=== PATIENT | female | born 1960 | race African-American/Black ===

== ENCOUNTER 2017-02-06 19:48 | Emergency (ER) | payer OTHER ==
[2017-02-06] MEDS ORDERED: NALOXONE HCL 0.4 MG/ML VIAL ONE (20:01)
[2017-02-06 20:17] VITALS: BMI 30.2
[2017-02-06 21:07] LABS: BASOPHIL 0.8 % (0-2.0); MCH 30.9 pg (25.7-33.7); MCHC 33.2 g/dl (32.0-36.0); MEAN CELL VOLUME 93.3 fl (80-96); MEAN PLT VOLUME 8.5 fl (7.5-11.1); PLATELET COUNT 193 K/MM3 (134-434); WHITE BLOOD COUNT 5.4 K/mm3 (4.0-10.0)
[2017-02-06 21:08] LABS: URINE APPEARANCE CLOUDY; URINE BLOOD NEGATIVE (NEGATIVE); URINE COLOR AMBER; URINE GLUCOSE (UA) NEGATIVE (NEGATIVE); URINE KETONE TRACE (NEGATIVE); URINE LEUK ESTERASE NEGATIVE (NEGATIVE); URINE NITRITE NEGATIVE (NEGATIVE)
[2017-02-06 21:24] LABS: URINE PROTEIN 1+ (NEGATIVE)
[2017-02-06 21:26] LABS: URINE BACTERIA MODERATE /hpf (NONE SEEN); URINE HYALINE CAST 84 /lpf; URINE MUCUS FEW; URINE RBC 2 /hpf (0-3); URINE WBC 7 /hpf (3-5)
--- NOTE | 2017-02-06 21:29 | PDOC ---
History of Present Illness - General History Source: Patient Exam Limitations: No Limitations <Jacky Noyola - Last Filed: 02/06/17 21:50> - General History Source: Patient Exam Limitations: No Limitations - History of Present Illness Initial Comments: 02/06/17 21:55 Patient is a 56 year old female with a significant past medical history of HIV, Heroin use, who was brought by EMS to the ED s/p syncope that occurred half hour before ED arrival. As per son patient was found by him with respiratory complications after heroin use. EMS reports giving patient 0.4 milligrams of Narcan en route to ED. EMS reports Narcan pulled patient out of OD before arrival. Denies chest pain, SOB. Denies fever, chills. Denies nausea, vomiting. Denies any other symptoms. Allergies: Lisinopril, sulfamethoxazole Social history: Current Heroin user. No alcohol. No tobacco use. Surgical history: 2 heart valve replacements PMD: Dr. Medina. <Cliff Gaona - Last Filed: 02/06/17 21:56> - General Chief Complaint: Syncope/Near Syncope Stated Complaint: SYNCOPE Time Seen by Provider: 02/06/17 20:18 Past History - Past Medical History Anemia: Yes Asthma: Yes Cancer: No Cardiac Disorders: Yes (2 valve replacement) CVA: No COPD: Yes CHF: Yes Dementia: No Diabetes: No GI Disorders: No Disorders: No HTN: Yes Hypercholesterolemia: No Liver Disease: No Psychiatric Problems: Yes Seizures: No Thyroid Disease: No - Surgical History Abdominal Surgery: Yes Appendectomy: No Cardiac Surgery: Yes (heart valve replacement) Cholecystectomy: Yes Lung Surgery: No Neurologic Surgery: No Orthopedic Surgery: No - Immunization History Immunization Up to Date: Yes - Suicide/Smoking/Psychosocial Hx Smoking Status: Yes Smoking History: Current every day smoker Have you smoked in the past 12 months: Yes Number of Cigarettes Smoked Daily: 5 If you are a former smoker, when did you quit?: 2014 Cigars Per Day: 0 Information on smoking cessation initiated: No 'Breaking Loose' booklet given: 08/13/12 Hx Alcohol Use: No (denies) Drug/Substance Use Hx: Yes (heroin) Substance Use Type: Heroin Hx Substance Use Treatment: Yes (completed [facility] 03/2013) <Jacky Noyola - Last Filed: 02/06/17 21:50> <Cliff Gaona - Last Filed: 02/06/17 21:56> - Past Medical History Allergies/Adverse Reactions: Allergies Allergy/AdvReac Type Severity Reaction Status Date / Time lisinopril Allergy lip Verified 06/05/15 20:38 swelling sulfamethoxazole Allergy Rash Verified 06/05/15 20:38 [From Bactrim DS] Home Medications: Ambulatory Orders Aspirin [Aspirin EC] 81 mg PO DAILY #30 tablet. 10/30/16 Fluticasone/Salmeterol [Advair 250-50 Diskus] 1 each IH DAILY #1 disk.w.dev MDD 4 10/30/16 Albuterol Sulfate Inhaler - [Ventolin HFA Inhaler -] 1 - 2 inh PO Q4H #1 inhaler 11/27/16 Diphenhydramine HCl [Benadryl Capsule -] 25 mg PO PRN #30 capsule 11/27/16 Loratadine [Claritin] 10 mg PO DAILY #30 tablet 11/27/16 Amitriptyline HCl 75 mg PO HS #30 tablet MDD 1 01/28/17 Amlodipine Besylate 10 mg PO DAILY #30 tablet 01/28/17 Cyclobenzaprine HCl [Flexeril 10 mg] 10 mg PO HS PRN #15 tablet MDD 1 01/28/17 Mirtazapine [Remeron -] 30 mg PO DAILY #30 tablet 01/28/17 Temazepam [Restoril -] 15 mg PO HS PRN #30 capsule MDD 1 01/28/17 Venlafaxine HCl ER [Effexor Xr -] 75 mg PO DAILY #30 cap.er.24h 01/28/17 Review of Systems - Review of Systems Able to Perform ROS?: Yes Comments:: 02/06/17 21:56 GENERAL/CONSTITUTIONAL: No fever or chills. No weakness. HEAD, EYES, EARS, NOSE AND THROAT: No change in vision. No ear pain or discharge. No sore throat. CARDIOVASCULAR: No chest pain or shortness of breath. RESPIRATORY: No cough, wheezing, or hemoptysis. GASTROINTESTINAL: No nausea, vomiting, diarrhea or constipation. GENITOURINARY: No dysuria, frequency, or change in urination. MUSCULOSKELETAL: No joint or muscle swelling or pain. No neck or back pain. SKIN: No rash NEUROLOGIC: No headache, vertigo, loss of consciousness, or change in strength/ sensation. ENDOCRINE: No increased thirst. No abnormal weight change. HEMATOLOGIC/LYMPHATIC: No anemia, easy bleeding, or history of blood clots. ALLERGIC/IMMUNOLOGIC: No hives or skin allergy. All Other Systems: Reviewed and Negative <Cliff Gaona - Last Filed: 02/06/17 21:56> *Physical Exam - Vital Signs Last Vital Signs Temp Pulse Resp BP Pulse Ox 99.8 F H 88 17 135/92 98 02/06/17 20:07 02/06/17 20:07 02/06/17 20:07 02/06/17 20:07 02/06/17 20:07 <Jacky Noyola - Last Filed: 02/06/17 21:50> - Vital Signs Last Vital Signs Temp Pulse Resp BP Pulse Ox 99.8 F H 88 17 135/92 98 02/06/17 20:07 02/06/17 20:07 02/06/17 20:07 02/06/17 20:07 02/06/17 20:07 - Physical Exam Comments: 02/06/17 21:56 GENERAL: Awake, alert, and fully oriented, in no acute distress HEAD: No signs of trauma EYES: PERRLA, EOMI, sclera anicteric, conjunctiva clear ENT: Auricles normal inspection, hearing grossly normal, nares patent, oropharynx clear without exudates. Moist mucosa NECK: Normal ROM, supple, no lymphadenopathy, JVD, or masses LUNGS: Breath sounds equal, clear to auscultation bilaterally. No wheezes, and no crackles HEART: Regular rate and rhythm, normal S1 and S2, no murmurs, rubs or gallops ABDOMEN: Soft, nontender, normoactive bowel sounds. No guarding, no rebound. No masses EXTREMITIES: Normal range of motion, no edema. No clubbing or cyanosis. No cords, erythema, or tenderness NEUROLOGICAL: Cranial nerves II through XII grossly intact. Normal speech, normal gait SKIN: Warm, Dry, normal turgor, no rashes or lesions noted. <Cliff Gaona - Last Filed: 02/06/17 21:56> Heart Score/ECG Review #1 ECG reviewed & interpreted by me at: 20:00 02/06/17 21:29 NSR 85, no std/jose, normal axis, normal intervals, QTC 437 msec, no brugada, no HOCM, no WPW <Jacky Noyola - Last Filed: 02/06/17 21:50> ED Treatment Course - LABORATORY CBC & Chemistry Diagram: 02/06/17 21:00 02/06/17 21:00 - ADDITIONAL ORDERS Additional order review: Laboratory Results 02/06/17 21:00 Urine Color La Urine Appearance Cloudy Urine pH 5.0 Urine Protein 1+ H Urine Glucose (UA) Negative Urine Ketones Trace H Urine Blood Negative Urine Nitrite Negative Urine Bilirubin 2.0 Urine Urobilinogen 2.0 H 02/06/17 21:00 RBC 4.11 MCV 93.3 MCHC 33.2 RDW 15.0 MPV 8.5 Neutrophils % 45.0 Lymphocytes % 39.1 Monocytes % 9.1 Eosinophils % 6.0 H Basophils % 0.8 <Jacky Noyola - Last Filed: 02/06/17 21:50> - LABORATORY CBC & Chemistry Diagram: 02/06/17 21:00 02/06/17 21:00 - ADDITIONAL ORDERS Additional order review: Laboratory Results 02/06/17 02/06/17 21:00 21:00 Sodium 137 Potassium 3.9 Chloride 105 Carbon Dioxide 28 Anion Gap 4 L BUN 18 D Creatinine 1.5 H D Creat Clearance w eGFR 36.05 Random Glucose 101 D Calcium 9.0 Total Bilirubin 0.3 D AST 17 ALT 18 D Alkaline Phosphatase 144 H D Creatine Kinase 95 Troponin I < 0.02 Total Protein 8.3 H Albumin 3.5 Urine Color La Urine Appearance Cloudy Urine pH 5.0 Urine Protein 1+ H Urine Glucose (UA) Negative Urine Ketones Trace H Urine Blood Negative Urine Nitrite Negative Urine Bilirubin 2.0 Urine Urobilinogen 2.0 H Urine RBC 2 Urine WBC 7 Ur Epithelial Cells Few Urine Bacteria Moderate Hyaline Casts 84 Urine Mucus Few 02/06/17 21:00 RBC 4.11 MCV 93.3 MCHC 33.2 RDW 15.0 MPV 8.5 Neutrophils % 45.0 Lymphocytes % 39.1 Monocytes % 9.1 Eosinophils % 6.0 H Basophils % 0.8 <Cliff Gaona - Last Filed: 02/06/17 21:56> Medical Decision Making - Medical Decision Making 02/06/17 21:27 A portion of this note was documented by scribe services under my direction. I have reviewed the details of the note, within reason, and agree with the documentation with the following case summary and management plan written by me. Patient treated in the ED. Patient arrives by ambulance to the emergency department. Nursing notes are reviewed and incorporated into the medical decision-making. Vital signs reviewed. Peripheral IV access obtained by the nurse, laboratory studies are drawn and sent, reviewed and interpreted by myself. Vital Signs Temp Pulse Resp BP Pulse Ox 99.8 F H 88 17 135/92 98 02/06/17 20:07 02/06/17 20:07 02/06/17 20:07 02/06/17 20:07 02/06/17 20:07 56-year-old female with past medical history of prior heroin abuse, aortic valve and mitral valve replacement, porcine, history of HIV previously on Truvada but discontinued by her HIV doctors secondary to elevated creatinine presents to the emergency department for heroin use. The patient reports that she had relapsed after last few several years ago. She has started one back. EMS was activated and patient was given 0.4 mg of Narcan which immediately resolved the symptoms. Patient denied chest pain short of breath. She is feeling well and ambulatory. Denies any symptoms and like to go home. EKG is normal demonstrates no acute findings. We'll obtain labs and observe. If workup is unremarkable, patient be discharged with PMD follow-up. Patient is with her family and states that she'll check into rehabilitation at her facility. 02/06/17 21:50 CBC, BMP 02/06/17 21:00 02/06/17 21:00 CMP Sodium 137 mmol/L (136-145) 02/06/17 21:00 Potassium 3.9 mmol/L (3.5-5.1) 02/06/17 21:00 Chloride 105 mmol/L (98-107) 02/06/17 21:00 Carbon Dioxide 28 mmol/L (21-32) 02/06/17 21:00 Anion Gap 4 (8-16) L 02/06/17 21:00 BUN 18 mg/dL (7-18) D 02/06/17 21:00 Creatinine 1.5 mg/dL (0.55-1.02) H D 02/06/17 21:00 Creat Clearance w eGFR 36.05 (>60) 02/06/17 21:00 Random Glucose 101 mg/dL (74-106) D 02/06/17 21:00 Calcium 9.0 mg/dL (8.5-10.1) 02/06/17 21:00 Total Bilirubin 0.3 mg/dL (0.2-1.0) D 02/06/17 21:00 AST 17 U/L (15-37) 02/06/17 21:00 ALT 18 U/L (12-78) D 02/06/17 21:00 Alkaline Phosphatase 144 U/L (45-117) H D 02/06/17 21:00 Creatine Kinase 95 IU/L (26-192) 02/06/17 21:00 Troponin I < 0.02 ng/ml (0.00-0.05) 02/06/17 21:00 Total Protein 8.3 g/dl (6.4-8.2) H 02/06/17 21:00 Albumin 3.5 g/dl (3.4-5.0) 02/06/17 21:00 Urine Test Results Urine Color La 02/06/17 21:00 Urine Appearance Cloudy 02/06/17 21:00 Urine pH 5.0 (5.0-8.0) 02/06/17 21:00 Urine Protein 1+ (NEGATIVE) H 02/06/17 21:00 Urine Glucose (UA) Negative (NEGATIVE) 02/06/17 21:00 Urine Ketones Trace (NEGATIVE) H 02/06/17 21:00 Urine Blood Negative (NEGATIVE) 02/06/17 21:00 Urine Nitrite Negative (NEGATIVE) 02/06/17 21:00 Urine Bilirubin 2.0 (NEGATIVE) 02/06/17 21:00 Urine RBC 2 /hpf (0-3) 02/06/17 21:00 Urine WBC 7 /hpf (3-5) 02/06/17 21:00 Ur Epithelial Cells Few /hpf (FEW) 02/06/17 21:00 Urine Bacteria Moderate /hpf (NONE SEEN) 02/06/17 21:00 Urine Mucus Few 02/06/17 21:00 The patient's blood work demonstrates a creatinine of 1.5. On January 28, patient describing was reporting. This had essentially doubled. I discussed the patient that there is some acute kidney injury that the patient reports that she 's been having this issue recently and that her doctors are aware. At this time , the patient does not want to be admitted for further workup, which I agreed the patient can go only if she follows up with her doctors on Thursday. A copy of the blood work was given to the patient and she is instructed follow-up with her doctor in 2 days. Patient verbalizes understanding agrees with plan. I discussed the physical exam findings, ancillary test results and final diagnoses with the patient. I answered all of the patient's questions. The patient was satisfied with the care received and felt comfortable with the discharge plan and treatment plan. The patient will call their primary care physician within 24 hours to arrange follow-up and will return to the Emergency Department with any new, persistant or worsening symptoms. <Jacky Noyola - Last Filed: 02/06/17 21:50> *DC/Admit/Observation/Transfer - Discharge Dispostion Admit: No <Jacky Noyola - Last Filed: 02/06/17 21:50> - Attestations Scribe Attestion: 02/06/17 21:56 Documentation prepared by Cliff Gaona, acting as medical engineer for Jacky Noyola MD. <Cliff Gaona - Last Filed: 02/06/17 21:56> Diagnosis at time of Disposition: Heroin abuse - Discharge Dispostion Disposition: HOME Condition at time of disposition: Improved - Referrals Referrals: Daryl Medina NP [Primary Care Provider] - - Patient Instructions Printed Discharge Instructions: DI for Drug Overdose in Adults, Acute Renal Failure Additional Instructions: Your creatinine has increased to 1.5. At this time, it is very important that you follow-up with the doctor on Thursday and let him or her know. If you feel lightheaded or have chest pains or shortness of breath, please return to the ER for further evaluation.
[2017-02-06 21:40] LABS: ALBUMIN 3.5 g/dl (3.4-5.0); ANION GAP 4 (8-16); CO2 28 mmol/L (21-32); CREATININE 1.5 mg/dL (0.55-1.02); GLUCOSE,RANDOM 101 mg/dL (74-106); SGOT/AST 17 U/L (15-37); SGPT/ALT 18 U/L (12-78)
[2017-02-06 21:44] LABS: ALK PHOS 144 U/L (45-117); BILIRUBIN,TOTAL 0.3 mg/dL (0.2-1.0); CPK 95 IU/L (26-192); TOT PROT 8.3 g/dl (6.4-8.2); TROPONIN I < 0.02 ng/ml (0.00-0.05)
[2017-02-06 22:13] VITALS: BP 120/86; PULSE 86; TEMP 98.1
--- NOTE | 2017-02-07 13:01 | EKG ---
Test Reason : Blood Pressure : / mmHG Vent. Rate : 085 BPM Atrial Rate : 085 BPM P-R Int : 186 ms QRS Dur : 090 ms QT Int : 368 ms P-R-T Axes : 072 083 079 degrees QTc Int : 437 ms NORMAL SINUS RHYTHM NORMAL ECG WHEN COMPARED WITH ECG OF 27-AUG-2016 08:53, T WAVE INVERSION NO LONGER EVIDENT IN ANTERIOR LEADS Confirmed by RASHIDA SMALL MD ([id number]) on 02/07/2017 1:00:38 PM Referred By: Confirmed By:RASHIDA SMALL MD
== END 2017-02-06 22:20 | disposition home or self-care (01) ==
LOC: JER 19:48
DX: F11.10 Opioid abuse, uncomplicated (principal); Z21 Asymptomatic human immunodeficiency virus [HIV] infection status; I50.9 Heart failure, unspecified; I10 Essential (primary) hypertension; J44.9 Chronic obstructive pulmonary disease, unspecified; D64.9 Anemia, unspecified
CPT/HCPCS: 36415; 80053; 81003; 81015; 84484; 85025; 93005; 93010; 99282-25

== ENCOUNTER 2017-03-11 01:02 | Inpatient (IN) | payer OTHER ==
[2017-03-11] MEDS ORDERED: SODIUM CHLORIDE 0.9% 1000 ML INFUS.BAG IV PRN (01:55)
[2017-03-11] MEDS ORDERED: SODIUM CHLORIDE 1,000 ML IV STA (01:56)
--- NOTE | 2017-03-11 01:57 | PDOC ---
History of Present Illness - General History Source: Patient, EMS Exam Limitations: Clinical Condition - History of Present Illness Initial Comments: 03/11/17 02:05 The patient is a 57 year old female with significant past medical history of HIV /AIDS, hypertension, COPD, CHF, anemia, polysubstance abuse, open heart surgery (triple valve replacement) brought in by EMS. Per EMS, the patient fell out of bed and landed on her back. On evaluation, the patient appears confused and is unable to answer questions clearly. Patient is a poor historian and unable to provide remainder of history. <Keila Zhong - Last Filed: 03/11/17 03:56> - General History Source: Patient <Montrell Nguyễn - Last Filed: 03/11/17 05:28> - General Chief Complaint: Injury Stated Complaint: FALL Time Seen by Provider: 03/11/17 01:54 Past History <Keila Zhong - Last Filed: 03/11/17 03:56> - Past Medical History Anemia: Yes Asthma: Yes Cancer: No Cardiac Disorders: Yes (2 valve replacement) CVA: No COPD: Yes CHF: Yes Dementia: No Diabetes: No GI Disorders: No Disorders: No HTN: Yes Hypercholesterolemia: No Liver Disease: No Psychiatric Problems: Yes Seizures: No Thyroid Disease: No - Surgical History Abdominal Surgery: Yes Appendectomy: No Cardiac Surgery: Yes (heart valve replacement) Cholecystectomy: Yes Lung Surgery: No Neurologic Surgery: No Orthopedic Surgery: No - Immunization History Immunization Up to Date: Yes - Suicide/Smoking/Psychosocial Hx Smoking Status: Yes Smoking History: Smoker current status UNK Have you smoked in the past 12 months: Yes Number of Cigarettes Smoked Daily: 5 If you are a former smoker, when did you quit?: 2015 Cigars Per Day: 0 'Breaking Loose' booklet given: 08/13/12 Hx Alcohol Use: Yes Drug/Substance Use Hx: No Substance Use Type: Heroin Hx Substance Use Treatment: Yes (completed [facility]/2013) <Montrell Nguyễn - Last Filed: 03/11/17 05:28> - Past Medical History Allergies/Adverse Reactions: Allergies Allergy/AdvReac Type Severity Reaction Status Date / Time lisinopril Allergy lip Verified 03/11/17 02:58 swelling sulfamethoxazole Allergy Rash Verified 03/11/17 02:58 [From Bactrim DS] Home Medications: Ambulatory Orders Aspirin [Aspirin EC] 81 mg PO DAILY #30 tablet. 10/30/16 Fluticasone/Salmeterol [Advair 250-50 Diskus] 1 each IH DAILY #1 disk.w.dev MDD 4 10/30/16 Albuterol Sulfate Inhaler - [Ventolin HFA Inhaler -] 1 - 2 inh PO Q4H #1 inhaler 11/27/16 Diphenhydramine HCl [Benadryl Capsule -] 25 mg PO PRN #30 capsule 11/27/16 Loratadine [Claritin] 10 mg PO DAILY #30 tablet 11/27/16 Amitriptyline HCl 75 mg PO HS #30 tablet MDD 1 01/28/17 Amlodipine Besylate 10 mg PO DAILY #30 tablet 01/28/17 Mirtazapine [Remeron -] 30 mg PO DAILY #30 tablet 01/28/17 Temazepam [Restoril -] 15 mg PO HS PRN #30 capsule MDD 1 01/28/17 Venlafaxine HCl ER [Effexor Xr -] 75 mg PO DAILY #30 cap.er.24h 01/28/17 Review of Systems - Review of Systems Able to Perform ROS?: No Comments:: 03/11/17 02:12 Unable to obtain ROS secondary to clinical condition. <Keila Zhong - Last Filed: 03/11/17 03:56> *Physical Exam - Vital Signs Last Vital Signs Temp Pulse Resp BP Pulse Ox 97.8 F 105 H 18 147/85 98 03/11/17 01:13 03/11/17 01:13 03/11/17 01:13 03/11/17 01:13 03/11/17 01:13 - Physical Exam Comments: 03/11/17 02:12 GENERAL: Awake, alert, not oriented to person, place, or time. +Appears confused. HEAD: No signs of trauma EYES: PERRLA, EOMI, sclera anicteric, conjunctiva clear ENT: Auricles normal inspection, hearing grossly normal, nares patent, oropharynx clear without exudates. +Dry oral mucosa with cracked lips. NECK: Normal ROM, supple, no lymphadenopathy, JVD, or masses LUNGS: +Diffuse rhonchi. HEART: +Tachycardic rate, regular rhythm, normal S1 and S2, no murmurs, rubs or gallops ABDOMEN: Soft, nontender, normoactive bowel sounds. No guarding, no rebound. No masses EXTREMITIES: Normal range of motion, no edema. No clubbing or cyanosis. No cords, erythema, or tenderness NEUROLOGICAL: Cranial nerves II through XII grossly intact. Moving all four extremities equally with no gross focal deficits. No slurred speech. Gait deferred. SKIN: Warm, Dry, no rashes or lesions noted. <Keila Zhong - Last Filed: 03/11/17 03:56> - Vital Signs Last Vital Signs Temp Pulse Resp BP Pulse Ox 97.8 F 105 H 18 147/85 98 03/11/17 01:13 03/11/17 01:13 03/11/17 01:13 03/11/17 01:13 03/11/17 01:13 <Montrell Nguyễn - Last Filed: 03/11/17 05:28> Heart Score/ECG Review #1 ECG reviewed & interpreted by me at: 02:30 03/11/17 02:45 EKG obtained 2:29 Sinus tachycardia at 107 bpm Possible left atrial enlargement Nonspecific ST and T wave abnormalities Abnormal EKG. <Keila Zhong - Last Filed: 03/11/17 03:56> ED Treatment Course - LABORATORY CBC & Chemistry Diagram: 03/11/17 02:25 03/11/17 02:25 <Keila Zhong - Last Filed: 03/11/17 03:56> - LABORATORY CBC & Chemistry Diagram: 03/11/17 02:25 03/11/17 02:25 <Montrell Nguyễn - Last Filed: 03/11/17 05:28> Medical Decision Making - Medical Decision Making 03/11/17 04:07 Dr. Nguyễn: The scribe's documentation has been prepared under my direction and personally reviewed by me in its entirery. I confirm that the note above accurately reflects all work, treatment, procedures, and medical decision making performed by me. 03/11/17 04:10 Pt presents s/p fall from bed as per family member. Pt presented with low grade fever, WBC 14.4, CK 1800's, troponin 0.4. BNP elevated as well. Pt to be admitted for NSTEMI, fever, probable pneumonia and exacerbation of CHF. 03/11/17 05:26 Spoke to Blessing Purdy. Pt accepted to the [facility] when bed is available <Montrell Nguyễn - Last Filed: 03/11/17 05:28> *DC/Admit/Observation/Transfer - Attestations Scribe Attestion: 03/11/17 02:14 Documentation prepared by Keila Zhong, acting as medical file clerk for Montrell Nguyễn DO. <Keila Zhong - Last Filed: 03/11/17 03:56> - Discharge Dispostion Admit: Yes <Montrell Nguyễn - Last Filed: 03/11/17 05:28> Diagnosis at time of Disposition: HIV (human immunodeficiency virus infection), CHF (congestive heart failure), NSTEMI (non-ST elevated myocardial infarction) Sepsis Qualifiers: Sepsis type: sepsis due to unspecified organism Qualified Code(s): A41.9 - Sepsis, unspecified organism Pneumonia Qualifiers: Pneumonia type: due to unspecified organism Laterality: unspecified laterality Lung location: unspecified part of lung Qualified Code(s): J18.9 - Pneumonia, unspecified organism - Referrals
[2017-03-11 02:50] LABS: BASOPHIL 0.1 % (0-2.0); MCH 28.8 pg (25.7-33.7); MCHC 33.2 g/dl (32.0-36.0); MEAN CELL VOLUME 86.5 fl (80-96); MEAN PLT VOLUME 9.1 fl (7.5-11.1); PLATELET COUNT 172 K/MM3 (134-434); RDW 14.4 % (11.6-15.6); WHITE BLOOD COUNT 14.4 K/mm3 (4.0-10.0)
[2017-03-11 02:54] LABS: URINE APPEARANCE TURBID; URINE BILIRUBIN NEGATIVE (NEGATIVE); URINE BLOOD 1+ (NEGATIVE); URINE GLUCOSE (UA) NEGATIVE (NEGATIVE); URINE KETONE NEGATIVE (NEGATIVE); URINE NITRITE NEGATIVE (NEGATIVE)
[2017-03-11 03:01] LABS: URINE COLOR YELLOW; URINE PROTEIN 2+ (NEGATIVE)
[2017-03-11 03:02] LABS: VENOUS PH 7.43 (7.32-7.42)
[2017-03-11 03:03] LABS: VENOUS BLOOD GAS HCO3 24.4 meq/L (19-25)
[2017-03-11 03:05] LABS: URINE MARIJUANA THC NEGATIVE ng/ml (CUTOFF=50)
[2017-03-11 03:06] LABS: INR 1.67 (0.82-1.09); PROTHROMBIN TIME (PATIENT) 18.9 SEC (9.98-11.88); URINE MUCUS RARE; URINE RBC 13 /hpf (0-3); URINE WBC 3 /hpf (3-5)
[2017-03-11 03:09] LABS: ACTIVATED PTT 28.5 SECONDS (26.9-34.4)
[2017-03-11] MEDS ORDERED: LORazepam 2 MG/ML SDV VIAL ONE ×4 (03:10→20:34)
[2017-03-11 03:23] LABS: ALBUMIN 2.1 g/dl (3.4-5.0); ANION GAP 11 (8-16); BILIRUBIN,TOTAL 0.9 mg/dL (0.2-1.0); CALCIUM 7.7 mg/dL (8.5-10.1); CO2 22 mmol/L (21-32); CREATININE 0.8 mg/dL (0.55-1.02); GLUCOSE,RANDOM 218 mg/dL (74-106); SGPT/ALT 30 U/L (12-78); TOT PROT 7.9 g/dl (6.4-8.2)
[2017-03-11 03:34] LABS: ALK PHOS 127 U/L (45-117)
[2017-03-11 03:36] LABS: CPK 1824 IU/L (26-192); SGOT/AST 127 U/L (15-37)
[2017-03-11] MEDS ORDERED: ACETAMINOPHEN 1000 MG/100 ML VIAL (NON FORMULARY) IVPB ONE (03:53)
[2017-03-11] MEDS ORDERED: FUROSEMIDE 40 MG/4 ML INJECTABLE VIAL IVPUSH ONE (03:58)
[2017-03-11] MEDS ORDERED: AZITHROMYCIN IVPB 500 MG in DEXTROSE 5%-WATER - 250 ML IVPB ONE (03:59)
--- NOTE | 2017-03-11 04:20 | HP ---
CHIEF COMPLAINT: Back Pain, AMS s/p Fall PCP: Dr. Nadia Ferguson HISTORY OF PRESENT ILLNESS: This is a 57 y/o woman with a significant medical history of HIV/AIDS(? HAART), COPD (on 3L), CHF, HTN, Pulm HTN, Open Heart Surgery, Triple Valve Replacement, Anemia, Polysubstance Abuse. Who presents to the ED by ambulance s/p fall OOB c/ o back pain, AMS. Patient's S.O. reports the patient had back pain x3-4 days, headache x 2 days. He reports that the patient has been confused "not making any sense", since Thursday. Due to patient's current altered status, unable to obtain further information. ER course was notable for: (1) Sepsis- T Max 100.4, WBC 14.4, LA 2.9 (2) Chest Xray- image CM, RML infiltrate, vascular congestion (3) EKG- NSTEMI (4) Trop I- 0.40 Recent Travel: None PAST MEDICAL HISTORY: See HPI PAST SURGICAL HISTORY: See HPI Social History: Smoking: Current Alcohol: Unknown Drugs: Heroin Abuse, last use unknown Family History: Unable to Obtain Allergies lisinopril Allergy (Verified 03/11/17 02:58) lip swelling sulfamethoxazole [From Bactrim DS] Allergy (Verified 03/11/17 02:58) Rash HOME MEDICATIONS: Home Medications Medication Instructions Recorded Aspirin [Aspirin EC] 81 mg PO DAILY #30 tablet. 10/30/16 Fluticasone/Salmeterol [Advair 1 each IH DAILY #1 disk.w.dev MDD 4 10/30/16 250-50 Diskus] Albuterol Sulfate Inhaler - 1 - 2 inh PO Q4H #1 inhaler 11/27/16 [Ventolin HFA Inhaler -] Diphenhydramine HCl [Benadryl 25 mg PO PRN #30 capsule 11/27/16 Capsule -] Loratadine [Claritin] 10 mg PO DAILY #30 tablet 11/27/16 Amitriptyline HCl 75 mg PO HS #30 tablet MDD 1 01/28/17 Amlodipine Besylate 10 mg PO DAILY #30 tablet 01/28/17 Mirtazapine [Remeron -] 30 mg PO DAILY #30 tablet 01/28/17 Temazepam [Restoril -] 15 mg PO HS PRN #30 capsule MDD 1 01/28/17 Venlafaxine HCl ER [Effexor Xr -] 75 mg PO DAILY #30 cap.er.24h 01/28/17 REVIEW OF SYSTEMS ( obtained from S.O.) CONSTITUTIONAL: Absent: fever, chills, diaphoresis, generalized weakness, malaise, loss of appetite, weight change HEENT: Absent: rhinorrhea, nasal congestion, throat pain, throat swelling, difficulty swallowing, mouth swelling, ear pain, eye pain, visual changes CARDIOVASCULAR: Absent: chest pain, syncope, palpitations, irregular heart rate, lightheadedness , peripheral edema RESPIRATORY: Absent: cough, shortness of breath, dyspnea with exertion, orthopnea, wheezing, stridor, hemoptysis GASTROINTESTINAL: Absent: abdominal pain, abdominal distension, nausea, vomiting, diarrhea, constipation, melena, hematochezia GENITOURINARY: Absent: dysuria, frequency, urgency, hesitancy, hematuria, flank pain, genital pain MUSCULOSKELETAL: back pain Absent: myalgia, arthralgia, joint swelling, neck pain SKIN: Absent: rash, itching, pallor HEMATOLOGIC/IMMUNOLOGIC: Absent: easy bleeding, easy bruising, lymphadenopathy, frequent infections ENDOCRINE: Absent: unexplained weight gain, unexplained weight loss, heat intolerance, cold intolerance NEUROLOGIC: headache, mental status changes Absent: focal weakness or paresthesias, dizziness, unsteady gait, seizure, bladder or bowel incontinence PSYCHIATRIC: Absent: anxiety, depression, suicidal or homicidal ideation, hallucinations. PHYSICAL EXAMINATION Vital Signs - 24 hr 03/11/17 03/11/17 01:13 03:01 Temperature 97.8 F 100.4 F H Pulse Rate 105 H Respiratory 18 Rate Blood Pressure 147/85 O2 Sat by Pulse 98 Oximetry (%) GENERAL: Confused, restless, with labored breathing HEAD: Normal with no signs of trauma. EYES: Pupils equal, round and reactive to light,, sclera anicteric, conjunctiva clear. No lid lag. EARS, NOSE, THROAT: Ears normal, nares patent, oropharynx clear without exudates. Dry mucous membranes. NECK: Normal range of motion, supple without lymphadenopathy, JVD, or masses. LUNGS: Breath sounds diminished. No wheezes, and no crackles. No accessory muscle use. HEART:Tachycardia, grade 2/6 systolic murmur, normal S1 and S2, No rub or gallop. ABDOMEN: Soft, nontender, not distended, normoactive bowel sounds, no guarding, no rebound, no masses. No hepatomegaly or splenomegaly. MUSCULOSKELETAL: Normal range of motion at all joints. No bony deformities or tenderness. No CVA tenderness. UPPER EXTREMITIES: 2+ pulses, warm, well-perfused. No cyanosis. No clubbing. No peripheral edema. LOWER EXTREMITIES: 2+ pulses, warm, well-perfused. No calf tenderness. No peripheral edema. NEUROLOGICAL: Cranial nerves II-XII intact. Gait not observed. Nonsensical speech PSYCHIATRIC: Restless, agitated, not following commands SKIN: Warm, dry, normal turgor, no rashes or lesions noted, normal capillary refill. Laboratory Results - last 24 hr 03/11/17 03/11/17 03/11/17 02:25 02:25 02:25 WBC 14.4 H D RBC 4.10 Hgb 11.8 Hct 35.5 MCV 86.5 D MCH 28.8 MCHC 33.2 RDW 14.4 Plt Count 172 MPV 9.1 Neutrophils % 86.0 H D Lymphocytes % 4.0 L D Monocytes % 9.9 Eosinophils % 0.0 D Basophils % 0.1 PT with INR 18.90 H INR 1.67 H D PTT (Actin FS) 28.5 VBG pH POC VBG pCO2 POC VBG pO2 Mixed VBG HCO3 Sodium Potassium Chloride Carbon Dioxide Anion Gap BUN Creatinine Creat Clearance w eGFR Random Glucose Lactic Acid Calcium Total Bilirubin AST ALT Alkaline Phosphatase Creatine Kinase Creatine Kinase Index CK-MB (CK-2) Troponin I Total Protein Albumin Serum , Qual Urine Color Yellow Urine Appearance Turbid Urine pH 5.0 D Ur Specific [place] 1.020 Urine Protein 2+ H Urine Glucose (UA) Negative Urine Ketones Negative Urine Blood 1+ H Urine Nitrite Negative Urine Bilirubin Negative Urine Urobilinogen 2.0 H Urine RBC 13 Urine WBC 3 Ur Epithelial Cells Many Amorphous Urates Many Urine Mucus Rare Opiates Screen Methadone Screen Barbiturate Screen Phencyclidine Screen Ur Amphetamines Screen MDMA (Ecstasy) Screen Benzodiazepines Screen Cocaine Screen U Marijuana (THC) Screen 03/11/17 03/11/17 03/11/17 02:25 02:25 02:25 WBC RBC Hgb Hct MCV MCH MCHC RDW Plt Count MPV Neutrophils % Lymphocytes % Monocytes % Eosinophils % Basophils % PT with INR INR PTT (Actin FS) VBG pH POC VBG pCO2 POC VBG pO2 Mixed VBG HCO3 Sodium 133 L Potassium 3.5 Chloride 100 Carbon Dioxide 22 D Anion Gap 11 BUN 17 D Creatinine 0.8 Creat Clearance w eGFR > 60 Random Glucose 218 H D Lactic Acid 2.9 H* Calcium 7.7 L Total Bilirubin 0.9 D AST 127 H D ALT 30 D Alkaline Phosphatase 127 H D Creatine Kinase 1824 H Creatine Kinase Index 0.1 CK-MB (CK-2) 3.360 Troponin I 0.40 H Total Protein 7.9 Albumin 2.1 L D Serum , Qual Urine Color Urine Appearance Urine pH Ur Specific [place] Urine Protein Urine Glucose (UA) Urine Ketones Urine Blood Urine Nitrite Urine Bilirubin Urine Urobilinogen Urine RBC Urine WBC Ur Epithelial Cells Amorphous Urates Urine Mucus Opiates Screen Positive Methadone Screen Negative Barbiturate Screen Negative Phencyclidine Screen Negative Ur Amphetamines Screen Negative MDMA (Ecstasy) Screen Negative Benzodiazepines Screen Negative Cocaine Screen Negative U Marijuana (THC) Screen Negative 03/11/17 03/11/17 02:25 02:55 WBC RBC Hgb Hct MCV MCH MCHC RDW Plt Count MPV Neutrophils % Lymphocytes % Monocytes % Eosinophils % Basophils % PT with INR INR PTT (Actin FS) VBG pH 7.43 H POC VBG pCO2 37.4 L POC VBG pO2 23.9 L Mixed VBG HCO3 24.4 Sodium Potassium Chloride Carbon Dioxide Anion Gap BUN Creatinine Creat Clearance w eGFR Random Glucose Lactic Acid Calcium Total Bilirubin AST ALT Alkaline Phosphatase Creatine Kinase Creatine Kinase Index CK-MB (CK-2) Troponin I Total Protein Albumin Serum , Qual Negative Urine Color Urine Appearance Urine pH Ur Specific [place] Urine Protein Urine Glucose (UA) Urine Ketones Urine Blood Urine Nitrite Urine Bilirubin Urine Urobilinogen Urine RBC Urine WBC Ur Epithelial Cells Amorphous Urates Urine Mucus Opiates Screen Methadone Screen Barbiturate Screen Phencyclidine Screen Ur Amphetamines Screen MDMA (Ecstasy) Screen Benzodiazepines Screen Cocaine Screen U Marijuana (THC) Screen ASSESSMENT/PLAN: This is a 57 y/o woman with a PMHx of: HIV/AIDs (?HAART), HTN, Pulm HTN, CHF, COPD (3L O2), Polysubstance Abuse, Anemia. Admitted to ICU for NSTEMI, Sepsis, Pneumonia, AMS, for further evaluation of their emergent condition. Plan: 1. NSTEMI - Continue cardiac monitoring - ANDRZEJ Score 4 - EKG- reviewed - Troponin I- slightly elevated - Will trend CE x2 - Cardiac Consult - Asa pr - Will need Heparin Drip- pending Head CT - BB - Echo in am 2. Sepsis - Likely secondary to Pneumonia (?PJP) - ICU admission - qSOFA 2 - SIRS Criteria Met IV - Blood Cultures-pending - Urine Culture-pending - Influenza swab ordered - Fluid Bolus given in ED- monitor for fluid overload - Repeat LA pending - Ceftriaxone, Azithromycin given in ED, will continue for CAP - Appreciate ID Consult - ABG- 7.54/23.2/99.7/20 - Monitor CBCD, BMP 3. Pneumonia - CURB65 Score 2 - See above 4. AMS - Likely secondary to Sepsis vs ICH vs Mass vs Drugs vs Psych - CT Head ordered r/o above - UDT +Opiates - Ativan given in ED - Wrist restraints ordered/applied by ED 2/2 patient was disrupting care, pulling out IV sites, trying to get OOB - Appreciate Neurology Consult - Monitor vitals - Monitor CBCD, BMP 5. Congestive Heart Failure - Chest xray image- suggestive vascular congestion, CM - Lasix given in ED - Monitor lytes - Will treat with interventions accordingly 6. Chronic Obstructive Pulmonary Disease - Continue O2 - ABG- reviewed - Duonebs - Monitor Spo2 - Appreciate Pulm Consult 7. Hypertension - Uncontrolled - Monitor BP - Will hold home meds, 2/2 patient is confused, unable to swallow- concern for aspiration - BB IV for BP control - Monitor renal function 8. Anemia - Stable - Hgb 11 - Will transfuse if Hgb < 7.0 9. PolySubstance Abuse - UDT- +Opiates 10. FEN - Gentle IVF - Replete lytes - NPO 11. DVT Prophylaxis - SCDs - Heparin SQ Code Status: Full Code Dispo: Requires Inpatient Critical Care Problem List - Problem (1) Sepsis Code(s): A41.9 - SEPSIS, UNSPECIFIED ORGANISM Qualifiers: Sepsis type: sepsis due to unspecified organism Qualified Code(s): A41.9 - Sepsis, unspecified organism; A41.9 - Sepsis, unspecified organism; A41.9 - Sepsis, unspecified organism (2) Pneumonia Code(s): J18.9 - PNEUMONIA, UNSPECIFIED ORGANISM Qualifiers: Pneumonia type: due to unspecified organism Laterality: unspecified laterality Lung location: unspecified part of lung Qualified Code(s): J18.9 - Pneumonia, unspecified organism; J18.9 - Pneumonia, unspecified organism (3) CHF (congestive heart failure) Code(s): I50.9 - HEART FAILURE, UNSPECIFIED (4) EKG abnormality Code(s): R94.31 - ABNORMAL ELECTROCARDIOGRAM [ECG] [EKG] (5) HIV (human immunodeficiency virus infection) Code(s): B20 - HUMAN IMMUNODEFICIENCY VIRUS [HIV] DISEASE (6) AIDS (acquired immune deficiency syndrome) Code(s): B20 - HUMAN IMMUNODEFICIENCY VIRUS [HIV] DISEASE (7) Moderate to severe pulmonary hypertension Code(s): I27.2 - OTHER SECONDARY PULMONARY HYPERTENSION * DO NOT USE * (8) Hypertension Code(s): I10 - ESSENTIAL (PRIMARY) HYPERTENSION (9) Tobacco use Code(s): Z72.0 - TOBACCO USE Visit type - Emergency Visit Emergency Visit: Yes ED Registration Date: 03/11/17 Care time: The patient presented to the Emergency Department on the above date and was hospitalized for further evaluation of their emergent condition. - New Patient This patient is new to me today: Yes Date on this admission: 03/11/17 - Critical Care Critical Care patient: Yes Total Critical Care Time (in minutes): 45 Critical Care Statement: The care of this patient involved high complexity decision making to prevent further life threatening deterioration of the patient 's condition and/or to evaluate & treat vital organ system(s) failure or risk of failure.
[2017-03-11] MEDS ORDERED: ASPIRIN 300 MG SUPP.RECT PR ONE (04:41)
[2017-03-11] MEDS ORDERED: ACETAMINOPHEN INJECTION 100 ML IVPB ONE (04:50)
[2017-03-11 05:28] LABS: ALLENS TEST POSITIVE; ARTERIAL BLD GAS O2 SATURATION 98.3 % (90-98.9); ARTERIAL BLOOD GAS BASE EXCESS -0.8 meq/l (-2-2); ARTERIAL BLOOD GAS pH 7.54 (7.35-7.45)
[2017-03-11] MEDS ORDERED: CEFTRIAXONE 50 ML ONE (05:28)
[2017-03-11 05:29] LABS: ART PUNCT SITE LEFT RADIAL; LPM/O2% NO; PT. ON O2? NO; TYPE OF O2 ROOM AIR
[2017-03-11 05:31] LABS: ARTERIAL BLOOD GAS PO2 99.7 mmHg (80-100)
[2017-03-11] MEDS ORDERED: AZITHROMYCIN IVPB 250 ML IVPB ONE (06:13)
[2017-03-11] MEDS: HEPARIN NA (PORCINE) 5,000 UNITS/ML 1ML VIAL SQ SCH ×2 (06:32→13:25)
--- NOTE | 2017-03-11 08:29 | CONSULT ---
Consultation: REQUESTING PROVIDER: denise Altman CONSULT REQUEST: We have been asked to medically evaluate this patient for ( sepsis). HISTORY OF PRESENT ILLNESS: This is a 57 y/o woman with a significant medical history of HIV/AIDS(? HAART), COPD (on 3L), CHF, HTN, Pulm HTN, Open Heart Surgery, Triple Valve Replacement, Anemia, Polysubstance Abuse. Who presents to the ED by ambulance s/p fall OOB c/ o back pain, AMS. Patient's S.O. reports the patient had back pain x3-4 days, headache x 2 days. He reports that the patient has been confused "not making any sense", since Thursday. Due to patient's current altered status, unable to obtain further information. ER course was notable for: (1) Sepsis- T Max 100.4, WBC 14.4, LA 2.9 (2) Chest Xray- image CM, RML infiltrate, vascular congestion (3) EKG- NSTEMI (4) Trop I- 0.40 REVIEW OF SYSTEMS: unable to obtained PHYSICAL EXAMINATION Vital Signs - 24 hr 03/11/17 03/11/17 03/11/17 05:09 07:29 07:48 Temperature 98.6 F 98.5 F Pulse Rate [ 102 H 100 H 98 H Apical] Respiratory 22 20 26 H Rate Blood Pressure 146/108 123/96 137/100 [Left Arm] O2 Sat by Pulse 100 100 100 Oximetry (%) 03/11/17 08:21 Temperature Pulse Rate [ Apical] Respiratory Rate Blood Pressure [Left Arm] O2 Sat by Pulse 98 Oximetry (%) GENERAL: not oriented, confused and agitated. HEAD: Normal with no signs of trauma. EYES: sclera anicteric, conjunctiva clear. EARS, NOSE, THROAT: dry mucous membranes. NECK: nuchal rigidity LUNGS: diminshed breath sounds,No wheezes, and no crackles. No accessory muscle use. HEART: irregular rate and rhythm, normal S1 and S2 with 2/6 systolic murmur, no rub or gallop. ABDOMEN: Soft, diffuse tender to palpation , not distended, normoactive bowel sounds, no guarding, MUSCULOSKELETAL: Normal range of motion at all joints. No bony deformities or tenderness. No CVA tenderness. LOWER EXTREMITIES: warm, well-perfused. No calf tenderness. No peripheral edema. NEUROLOGICAL: no focal deficit, agitated, confused, PSYCHIATRIC: not Cooperative.no eye contact. SKIN: Warm, dry, no rashes or lesions noted. Laboratory Results - last 24 hr 03/11/17 05:24 Puncture Site Left radial ABG pH 7.54 H D ABG pCO2 at Pt Temp 23.3 L D ABG pO2 at Pt Temp 99.7 D ABG HCO3 20.0 L ABG O2 Sat (Measured) 98.3 ABG O2 Content 17.6 ABG Base Excess -0.8 Juan Daniel Test Positive O2 Delivery Device Room air Oxygen Flow Rate No PEEP 0.0 Active Medications Generic Name Dose Route Start Last Admin Trade Name Freq PRN Reason Stop Dose Admin Chlorhexidine Gluconate 1 applic 03/11/17 22:00 Hibiclens For Decolonization - TP HS VERONICA Heparin Sodium (Porcine) 5,000 unit 03/11/17 06:15 03/11/17 06:32 Heparin - SQ 5,000 unit TID VERONICA Administration Azithromycin 500 mg/ Dextrose 250 mls @ 250 mls/hr 03/12/17 10:00 IVPB DAILY VERONICA Ceftriaxone Sodium 1 gm/ 100 mls @ 200 mls/hr 03/12/17 10:00 Dextrose IVPB DAILY VERONICA Mupirocin 1 applic 03/11/17 10:00 Bactroban Ointment (For Decolonization) - NS 03/16/17 09:59 BID VERONICA Sodium Chloride 1,000 ml 03/11/17 01:55 Normal Saline - IV Q20M PRN MAP<65mm Hg OR SBP <90 CBC, BMP 03/11/17 02:25 03/11/17 02:25 Microbiology 03/11/17 02:25 Blood - Peripheral Venous Blood Culture - Preliminary Pending Organism 03/11/17 02:25 Blood - Peripheral Venous Blood Culture - Preliminary Pending Organism ASSESSMENT/PLAN: This is a 57 y/o woman with a significant medical history of HIV/AIDS(? HAART), COPD (on 3L), CHF, HTN, Pulm HTN, Open Heart Surgery, Triple Valve Replacement, Anemia, Polysubstance Abuse. Who presents to the ED by ambulance s/p fall OOB c/ o back pain, she was found to have sepsis with AMS and was admitted for further evaluation AMS S/P fall multi substance abuse HIV/Aids HTN Sepsis secondary to Pneumonia vs meningitis Plan -F/U blood cx ,UA culture -cxr shows prominent mediastenum with congestive changes -Azithromycin and ceftriaxone was given in ED -continue with vanco and ampicillin -consider LP neurology consult Blood cx shows G+ cocci in chain -Continue Vanco , Rocefin DC ampicilin Dispo: We will continue to follow the patient. Thank you for this consultative opportunity. Visit type - Emergency Visit Emergency Visit: Yes ED Registration Date: 03/11/17 Care time: The patient presented to the Emergency Department on the above date and was hospitalized for further evaluation of their emergent condition. - New Patient This patient is new to me today: No - Critical Care Critical Care patient: No
[2017-03-11 09:15] LABS: URINE LEUK ESTERASE Negative (NEGATIVE)
[2017-03-11 09:18] LABS: MAGNESIUM 1.4 mg/dL (1.8-2.4)
[2017-03-11 09:31] LABS: TROPONIN I 0.28 ng/ml (0.00-0.05)
[2017-03-11] MEDS ORDERED: VANCOMYCIN 1,250 MG in DEXTROSE 5%-WATER - 250 ML IVPB ONE (09:48)
[2017-03-11] MEDS ORDERED: AMPICILLIN IVPB ONE (09:49)
[2017-03-11] MEDS ORDERED: SODIUM CHLORIDE IVPB ONE (09:49)
[2017-03-11] MEDS ORDERED: SODIUM CHLORIDE 1,000 ML IV SCH ×3 (10:00→20:51)
[2017-03-11] MEDS ORDERED: CEFTRIAXONE 1 G/50 ML PREMIX 50 ML IVPB SCH (10:00)
--- NOTE | 2017-03-11 10:08 | CON.CARD ---
Consult Consult Specialty:: Cardiology - History of Present Illness History of Present Illness: This is a 57 y/o woman with a significant medical history of HIV/AIDS(? HAART), COPD (on 3L), CHF, HTN, Pulm HTN, Open Heart Surgery, Triple Valve Replacement, Anemia, Polysubstance Abuse. Who presents to the ED by ambulance s/p fall OOB c/ o back pain, AMS. Patient's S.O. reports the patient had back pain x3-4 days, headache x 2 days. He reports that the patient has been confused "not making any sense", since Thursday. Due to patient's current altered status, unable to obtain further information. ER course was notable for: (1) Sepsis- T Max 100.4, WBC 14.4, LA 2.9 (2) Chest Xray- image CM, RML infiltrate, vascular congestion (3) EKG- NSTEMI (4) Trop I- 0.40 - History Source History Provided By: Medical Record - Past Medical History Cardio/Vascular: Yes: Murmur, Pulmonary Hypertension Pulmonary: Yes: COPD, O2 Dependent ...LMP: 01/31/12 Infectious Disease: Yes: HIV Psych: Yes: Anxiety, Depression - Past Surgical History Past Surgical History: Yes: Cholecystectomy - Alcohol/Substance Use Hx Alcohol Use: Yes History of Substance Use: reports: None - Smoking History Smoking history: Former smoker Have you smoked in the past 12 months: Yes Aproximately how many cigarettes per day: 5 If you are a former smoker, when did you quit?: 2014 - Social History History of Recent Travel: No Home Medications - Allergies Allergies/Adverse Reactions: Allergies Allergy/AdvReac Type Severity Reaction Status Date / Time lisinopril Allergy lip Verified 03/11/17 02:58 swelling sulfamethoxazole Allergy Rash Verified 03/11/17 02:58 [From Bactrim DS] - Home Medications Home Medications: Ambulatory Orders Aspirin [Aspirin EC] 81 mg PO DAILY #30 tablet. 10/30/16 Fluticasone/Salmeterol [Advair 250-50 Diskus] 1 each IH DAILY #1 disk.w.dev MDD 4 10/30/16 Albuterol Sulfate Inhaler - [Ventolin HFA Inhaler -] 1 - 2 inh PO Q4H #1 inhaler 11/27/16 Diphenhydramine HCl [Benadryl Capsule -] 25 mg PO PRN #30 capsule 11/27/16 Loratadine [Claritin] 10 mg PO DAILY #30 tablet 11/27/16 Amitriptyline HCl 75 mg PO HS #30 tablet MDD 1 01/28/17 Amlodipine Besylate 10 mg PO DAILY #30 tablet 01/28/17 Mirtazapine [Remeron -] 30 mg PO DAILY #30 tablet 01/28/17 Temazepam [Restoril -] 15 mg PO HS PRN #30 capsule MDD 1 01/28/17 Venlafaxine HCl ER [Effexor Xr -] 75 mg PO DAILY #30 cap.er.24h 01/28/17 Family Disease History - Family Disease History Family Disease History: Diabetes: Father, Respiratory: Mother Review of Systems Unable to obtain ROS, reason: lethargic Vital Signs: Vital Signs Temperature 98.5 F 03/11/17 07:48 Pulse Rate 98 H 03/11/17 07:48 Respiratory Rate 26 H 03/11/17 07:48 Blood Pressure 137/100 03/11/17 07:48 O2 Sat by Pulse Oximetry (%) 98 03/11/17 08:21 Constitutional: Yes: Well Nourished, No Distress, Calm Eyes: Yes: WNL, Conjunctiva Clear, EOM Intact HENT: Yes: WNL, Atraumatic, Normocephalic Neck: Yes: WNL, Supple, Trachea Midline Respiratory: Yes: WNL, Regular, CTA Bilaterally Gastrointestinal: Yes: WNL, Normal Bowel Sounds Renal/: Yes: WNL Cardiovascular: Yes: WNL, Regular Rate and Rhythm Musculoskeletal: Yes: WNL Extremities: Yes: WNL Integumentary: Yes: WNL Neurological: Yes: Lethargy ...Motor Strength: WNL Psychiatric: Yes: WNL, Alert, Oriented - Other Data Labs, Other Data: INR, PTT INR 1.67 (0.82-1.09) H D 03/11/17 02:25 Troponin, BNP 03/11/17 08:00 Troponin I 0.28 H Troponin, BNP 03/11/17 08:00 Troponin I 0.28 H Laboratory Tests 03/11/17 03/11/17 03/11/17 02:25 02:25 02:25 WBC 14.4 H D RBC 4.10 Hgb 11.8 Hct 35.5 MCV 86.5 D MCH 28.8 MCHC 33.2 RDW 14.4 Plt Count 172 MPV 9.1 Neutrophils % 86.0 H D Lymphocytes % 4.0 L D Monocytes % 9.9 Eosinophils % 0.0 D Basophils % 0.1 PT with INR 18.90 H INR 1.67 H D PTT (Actin FS) 28.5 Puncture Site ABG pH ABG pCO2 at Pt Temp ABG pO2 at Pt Temp ABG HCO3 ABG O2 Sat (Measured) ABG O2 Content ABG Base Excess Juan Daniel Test VBG pH POC VBG pCO2 POC VBG pO2 Mixed VBG HCO3 O2 Delivery Device Oxygen Flow Rate PEEP Sodium Potassium Chloride Carbon Dioxide Anion Gap BUN Creatinine Creat Clearance w eGFR Random Glucose Hemoglobin A1c % Lactic Acid Calcium Phosphorus Magnesium Total Bilirubin AST ALT Alkaline Phosphatase Creatine Kinase Creatine Kinase Index CK-MB (CK-2) Troponin I B-Natriuretic Peptide Total Protein Albumin Triglycerides Cholesterol Total LDL Cholesterol HDL Cholesterol TSH Serum , Qual Urine Color Yellow Urine Appearance Turbid Urine pH 5.0 D Ur Specific [place] 1.020 Urine Protein 2+ H Urine Glucose (UA) Negative Urine Ketones Negative Urine Blood 1+ H Urine Nitrite Negative Urine Bilirubin Negative Urine Urobilinogen 2.0 H Ur Leukocyte Esterase Negative Urine RBC 13 Urine WBC 3 Ur Epithelial Cells Many Amorphous Urates Many Urine Mucus Rare Opiates Screen Methadone Screen Barbiturate Screen Phencyclidine Screen Ur Amphetamines Screen MDMA (Ecstasy) Screen Benzodiazepines Screen Cocaine Screen U Marijuana (THC) Screen RPR Titer Blood Type Antibody Screen 03/11/17 03/11/17 03/11/17 02:25 02:25 02:25 WBC RBC Hgb Hct MCV MCH MCHC RDW Plt Count MPV Neutrophils % Lymphocytes % Monocytes % Eosinophils % Basophils % PT with INR INR PTT (Actin FS) Puncture Site ABG pH ABG pCO2 at Pt Temp ABG pO2 at Pt Temp ABG HCO3 ABG O2 Sat (Measured) ABG O2 Content ABG Base Excess Juan Daniel Test VBG pH POC VBG pCO2 POC VBG pO2 Mixed VBG HCO3 O2 Delivery Device Oxygen Flow Rate PEEP Sodium 133 L Potassium 3.5 Chloride 100 Carbon Dioxide 22 D Anion Gap 11 BUN 17 D Creatinine 0.8 Creat Clearance w eGFR > 60 Random Glucose 218 H D Hemoglobin A1c % Lactic Acid 2.9 H* Calcium 7.7 L Phosphorus Magnesium Total Bilirubin 0.9 D AST 127 H D ALT 30 D Alkaline Phosphatase 127 H D Creatine Kinase 1824 H Creatine Kinase Index 0.1 CK-MB (CK-2) 3.360 Troponin I 0.40 H B-Natriuretic Peptide Total Protein 7.9 Albumin 2.1 L D Triglycerides Cholesterol Total LDL Cholesterol HDL Cholesterol TSH Serum , Qual Urine Color Urine Appearance Urine pH Ur Specific [place] Urine Protein Urine Glucose (UA) Urine Ketones Urine Blood Urine Nitrite Urine Bilirubin Urine Urobilinogen Ur Leukocyte Esterase Urine RBC Urine WBC Ur Epithelial Cells Amorphous Urates Urine Mucus Opiates Screen Methadone Screen Barbiturate Screen Phencyclidine Screen Ur Amphetamines Screen MDMA (Ecstasy) Screen Benzodiazepines Screen Cocaine Screen U Marijuana (THC) Screen RPR Titer Blood Type O POSITIVE Antibody Screen Negative 03/11/17 03/11/17 03/11/17 02:25 02:25 02:55 WBC RBC Hgb Hct MCV MCH MCHC RDW Plt Count MPV Neutrophils % Lymphocytes % Monocytes % Eosinophils % Basophils % PT with INR INR PTT (Actin FS) Puncture Site ABG pH ABG pCO2 at Pt Temp ABG pO2 at Pt Temp ABG HCO3 ABG O2 Sat (Measured) ABG O2 Content ABG Base Excess Juan Daniel Test VBG pH 7.43 H POC VBG pCO2 37.4 L POC VBG pO2 23.9 L Mixed VBG HCO3 24.4 O2 Delivery Device Oxygen Flow Rate PEEP Sodium Potassium Chloride Carbon Dioxide Anion Gap BUN Creatinine Creat Clearance w eGFR Random Glucose Hemoglobin A1c % Lactic Acid Calcium Phosphorus Magnesium Total Bilirubin AST ALT Alkaline Phosphatase Creatine Kinase Creatine Kinase Index CK-MB (CK-2) Troponin I B-Natriuretic Peptide Total Protein Albumin Triglycerides Cholesterol Total LDL Cholesterol HDL Cholesterol TSH Serum , Qual Negative Urine Color Urine Appearance Urine pH Ur Specific [place] Urine Protein Urine Glucose (UA) Urine Ketones Urine Blood Urine Nitrite Urine Bilirubin Urine Urobilinogen Ur Leukocyte Esterase Urine RBC Urine WBC Ur Epithelial Cells Amorphous Urates Urine Mucus Opiates Screen Positive Methadone Screen Negative Barbiturate Screen Negative Phencyclidine Screen Negative Ur Amphetamines Screen Negative MDMA (Ecstasy) Screen Negative Benzodiazepines Screen Negative Cocaine Screen Negative U Marijuana (THC) Screen Negative RPR Titer Blood Type Antibody Screen 03/11/17 03/11/17 03/11/17 05:24 08:00 08:02 WBC RBC Hgb Hct MCV MCH MCHC RDW Plt Count MPV Neutrophils % Lymphocytes % Monocytes % Eosinophils % Basophils % PT with INR INR PTT (Actin FS) Puncture Site Left radial ABG pH 7.54 H D ABG pCO2 at Pt Temp 23.3 L D ABG pO2 at Pt Temp 99.7 D ABG HCO3 20.0 L ABG O2 Sat (Measured) 98.3 ABG O2 Content 17.6 ABG Base Excess -0.8 Juan Daniel Test Positive VBG pH POC VBG pCO2 POC VBG pO2 Mixed VBG HCO3 O2 Delivery Device Room air Oxygen Flow Rate No PEEP 0.0 Sodium Potassium Chloride Carbon Dioxide Anion Gap BUN Creatinine Creat Clearance w eGFR Random Glucose Hemoglobin A1c % 6.3 H D Lactic Acid Calcium Phosphorus 2.0 L Magnesium 1.4 L Total Bilirubin AST ALT Alkaline Phosphatase Creatine Kinase 1844 H Creatine Kinase Index 0.2 CK-MB (CK-2) 4.1 H Troponin I 0.28 H B-Natriuretic Peptide 6021.47 H Total Protein Albumin Triglycerides 190 H D Cholesterol 107 D Total LDL Cholesterol 38 HDL Cholesterol 10 L D TSH 0.37 Serum , Qual Urine Color Urine Appearance Urine pH Ur Specific [place] Urine Protein Urine Glucose (UA) Urine Ketones Urine Blood Urine Nitrite Urine Bilirubin Urine Urobilinogen Ur Leukocyte Esterase Urine RBC Urine WBC Ur Epithelial Cells Amorphous Urates Urine Mucus Opiates Screen Methadone Screen Barbiturate Screen Phencyclidine Screen Ur Amphetamines Screen MDMA (Ecstasy) Screen Benzodiazepines Screen Cocaine Screen U Marijuana (THC) Screen RPR Titer Blood Type Antibody Screen 03/11/17 03/11/17 03/11/17 08:02 09:45 09:50 WBC RBC Hgb Hct MCV MCH MCHC RDW Plt Count MPV Neutrophils % Lymphocytes % Monocytes % Eosinophils % Basophils % PT with INR INR PTT (Actin FS) Puncture Site ABG pH ABG pCO2 at Pt Temp ABG pO2 at Pt Temp ABG HCO3 ABG O2 Sat (Measured) ABG O2 Content ABG Base Excess Juan Daniel Test VBG pH POC VBG pCO2 POC VBG pO2 Mixed VBG HCO3 O2 Delivery Device Oxygen Flow Rate PEEP Sodium Potassium Chloride Carbon Dioxide Anion Gap BUN Creatinine Creat Clearance w eGFR Random Glucose Hemoglobin A1c % Lactic Acid 3.2 H* 2.9 H* Calcium Phosphorus Magnesium Total Bilirubin AST ALT Alkaline Phosphatase Creatine Kinase Creatine Kinase Index CK-MB (CK-2) Troponin I B-Natriuretic Peptide Total Protein Albumin Triglycerides Cholesterol Total LDL Cholesterol HDL Cholesterol TSH Serum , Qual Urine Color Urine Appearance Urine pH Ur Specific [place] Urine Protein Urine Glucose (UA) Urine Ketones Urine Blood Urine Nitrite Urine Bilirubin Urine Urobilinogen Ur Leukocyte Esterase Urine RBC Urine WBC Ur Epithelial Cells Amorphous Urates Urine Mucus Opiates Screen Methadone Screen Barbiturate Screen Phencyclidine Screen Ur Amphetamines Screen MDMA (Ecstasy) Screen Benzodiazepines Screen Cocaine Screen U Marijuana (THC) Screen RPR Titer Nonreactive Blood Type Antibody Screen 03/11/17 10:20 WBC RBC Hgb Hct MCV MCH MCHC RDW Plt Count MPV Neutrophils % Lymphocytes % Monocytes % Eosinophils % Basophils % PT with INR INR PTT (Actin FS) Puncture Site ABG pH ABG pCO2 at Pt Temp ABG pO2 at Pt Temp ABG HCO3 ABG O2 Sat (Measured) ABG O2 Content ABG Base Excess Juan Daniel Test VBG pH POC VBG pCO2 POC VBG pO2 Mixed VBG HCO3 O2 Delivery Device Oxygen Flow Rate PEEP Sodium Potassium Chloride Carbon Dioxide Anion Gap BUN Creatinine Creat Clearance w eGFR Random Glucose Hemoglobin A1c % Lactic Acid Calcium Phosphorus Magnesium Total Bilirubin AST ALT Alkaline Phosphatase Creatine Kinase Creatine Kinase Index CK-MB (CK-2) Troponin I B-Natriuretic Peptide Total Protein Albumin Triglycerides Cholesterol Total LDL Cholesterol HDL Cholesterol TSH 0.26 L D Serum , Qual Urine Color Urine Appearance Urine pH Ur Specific [place] Urine Protein Urine Glucose (UA) Urine Ketones Urine Blood Urine Nitrite Urine Bilirubin Urine Urobilinogen Ur Leukocyte Esterase Urine RBC Urine WBC Ur Epithelial Cells Amorphous Urates Urine Mucus Opiates Screen Methadone Screen Barbiturate Screen Phencyclidine Screen Ur Amphetamines Screen MDMA (Ecstasy) Screen Benzodiazepines Screen Cocaine Screen U Marijuana (THC) Screen RPR Titer Blood Type Antibody Screen Imaging - Results Chest X-ray: Image Reviewed (s/p OHS) EKG: Image Reviewed (sr rep abn) Problem List - Problems (1) CHF (congestive heart failure) Code(s): I50.9 - HEART FAILURE, UNSPECIFIED (2) HIV (human immunodeficiency virus infection) Code(s): B20 - HUMAN IMMUNODEFICIENCY VIRUS [HIV] DISEASE (3) NSTEMI (non-ST elevated myocardial infarction) Code(s): I21.4 - NON-ST ELEVATION (NSTEMI) MYOCARDIAL INFARCTION (4) Pap smear abnormality of cervix with LGSIL Code(s): R87.612 - LOW GRADE INTREPITH LESION CYTO SMR CRVX (LGSIL) (5) Pneumonia Code(s): J18.9 - PNEUMONIA, UNSPECIFIED ORGANISM Qualifiers: Pneumonia type: due to unspecified organism Laterality: unspecified laterality Lung location: unspecified part of lung Qualified Code(s): J18.9 - Pneumonia, unspecified organism; J18.9 - Pneumonia, unspecified organism (6) Sepsis Code(s): A41.9 - SEPSIS, UNSPECIFIED ORGANISM Qualifiers: Sepsis type: sepsis due to unspecified organism Qualified Code(s): A41.9 - Sepsis, unspecified organism; A41.9 - Sepsis, unspecified organism; A41.9 - Sepsis, unspecified organism (7) Anxiety disorder Code(s): F41.9 - ANXIETY DISORDER, UNSPECIFIED (8) Depressive disorder Code(s): F32.9 - MAJOR DEPRESSIVE DISORDER, SINGLE EPISODE, UNSPECIFIED (9) Acute respiratory failure with hypoxia and hypercapnia Code(s): J96.01 - ACUTE RESPIRATORY FAILURE WITH HYPOXIA (10) Prolonged Q-T interval on ECG Code(s): I45.81 - LONG QT SYNDROME (11) Syncope Code(s): R55 - SYNCOPE AND COLLAPSE Qualifiers: Syncope type: unspecified syncope type Qualified Code(s): R55 - Syncope and collapse; R55 - Syncope and collapse (12) Anal polyp Code(s): K62.0 - ANAL POLYP (13) Heroin abuse Code(s): F11.10 - OPIOID ABUSE, UNCOMPLICATED (14) Lesion of vulva Code(s): N90.89 - OTH NONINFLAMMATORY DISORDERS OF VULVA AND PERINEUM (15) Screening for malignant neoplasm of cervix Code(s): Z12.4 - ENCOUNTER FOR SCREENING FOR MALIGNANT NEOPLASM OF CERVIX (16) AIDS (acquired immune deficiency syndrome) Code(s): B20 - HUMAN IMMUNODEFICIENCY VIRUS [HIV] DISEASE (17) Back pain Code(s): M54.9 - DORSALGIA, UNSPECIFIED (18) Bilateral hand pain Code(s): M79.641 - PAIN IN RIGHT HAND M79.642 - PAIN IN LEFT HAND (19) COPD not affecting current episode of care Code(s): QKT4841 - (20) EKG abnormality Code(s): R94.31 - ABNORMAL ELECTROCARDIOGRAM [ECG] [EKG] (21) Eczema Code(s): L30.9 - DERMATITIS, UNSPECIFIED (22) Hypertension Code(s): I10 - ESSENTIAL (PRIMARY) HYPERTENSION (23) Insomnia Code(s): G47.00 - INSOMNIA, UNSPECIFIED (24) Kidney injury Code(s): S37.009A - UNSPECIFIED INJURY OF UNSPECIFIED KIDNEY, INITIAL ENCOUNTER (25) Moderate to severe pulmonary hypertension Code(s): I27.2 - OTHER SECONDARY PULMONARY HYPERTENSION * DO NOT USE * (26) Neuropathy Code(s): G62.9 - POLYNEUROPATHY, UNSPECIFIED (27) Tobacco use Code(s): Z72.0 - TOBACCO USE Assessment/Plan chf sepsis lethargy ? baseline MS? s/p 3 valves replacement - no hx available hiv polysubstance abuse plan abx icu echo obtain old record regarding valve replacement /open heart surgery
[2017-03-11 10:14] LABS: THYROID STIMULATING HORMONE 0.37 uIU/ml (0.358-3.74)
[2017-03-11] MEDS: MUPIROCIN 2% TOPICAL OINTMENT FOR DECOLONIZATION NS SCH ×2 (11:11→22:30)
--- NOTE | 2017-03-11 11:39 | EKG ---
Test Reason : Blood Pressure : / mmHG Vent. Rate : 107 BPM Atrial Rate : 107 BPM P-R Int : 180 ms QRS Dur : 098 ms QT Int : 342 ms P-R-T Axes : 063 077 075 degrees QTc Int : 456 ms SINUS TACHYCARDIA POSSIBLE LEFT ATRIAL ENLARGEMENT NONSPECIFIC ST AND T WAVE ABNORMALITY ABNORMAL ECG WHEN COMPARED WITH ECG OF 06-FEB-2017 20:05, ST NOW DEPRESSED IN ANTERIOR LEADS T WAVE INVERSION NOW EVIDENT IN ANTERIOR LEADS Confirmed by FRANCISCO BENAVIDES, DELORIS ([id number]) on 03/11/2017 11:39:30 AM Referred By: Confirmed By:DELORIS SINGH MD
--- NOTE | 2017-03-11 11:40 | EKG ---
Test Reason : Blood Pressure : / mmHG Vent. Rate : 099 BPM Atrial Rate : 099 BPM P-R Int : 202 ms QRS Dur : 098 ms QT Int : 366 ms P-R-T Axes : 060 080 077 degrees QTc Int : 469 ms NORMAL SINUS RHYTHM POSSIBLE LEFT ATRIAL ENLARGEMENT BORDERLINE ECG WHEN COMPARED WITH ECG OF 11-MAR-2017 08:16, NO SIGNIFICANT CHANGE WAS FOUND Confirmed by FRANCISCO BENAVIDES, DELORIS ([id number]) on 03/11/2017 11:40:49 AM Referred By: Confirmed By:DELORIS SINGH MD
--- NOTE | 2017-03-11 11:40 | EKG ---
Test Reason : Blood Pressure : / mmHG Vent. Rate : 100 BPM Atrial Rate : 100 BPM P-R Int : 202 ms QRS Dur : 104 ms QT Int : 364 ms P-R-T Axes : 057 078 078 degrees QTc Int : 469 ms NORMAL SINUS RHYTHM repolarization abnormalities NORMAL ECG WHEN COMPARED WITH ECG OF 11-MAR-2017 02:29, NO SIGNIFICANT CHANGE WAS FOUND Confirmed by DELORIS SINGH MD ([id number]) on 03/11/2017 11:40:33 AM Referred By: VIC LOFTON Confirmed By:DELORIS SINGH MD
[2017-03-11 12:05] VITALS: BMI 36.5
[2017-03-11] MEDS ORDERED: cefTRIAXone 2 GM/100 ML BAG (PRE-DOCKED) IVPB SCH (12:30)
[2017-03-11] MEDS ORDERED: VANCOMYCIN 1,500 MG in DEXTROSE 5%-WATER - 250 ML IVPB SCH (12:30)
--- NOTE | 2017-03-11 12:44 | PN ---
Teaching Attending Note Name of Resident: Stanislaw Greer ATTENDING PHYSICIAN STATEMENT I saw and evaluated the patient. I reviewed the resident's note and discussed the case with the resident. I agree with the resident's findings and plan as documented. SUBJECTIVE: confused unresponsive to verbal commands restless feel out of bed and brought to ED with Temp 100.4 confused- not her baseline received rocephin and zithromax overnight for pneumonia seen by admitting service and started on vancomycin/rocephin/amp for possible meningitis and neurology called for possible LP now with positive blood cultures 3/4 bottles gpc in chains- continue rocephin/vancomycin no need for ampicillin await LP history of substance use- ?recent- daughters not sure history of heart surgery- ?valve repair- needs echo currently off ART -cd4 300 in february weighs 180 lobs OBJECTIVE: Vital Signs Period Temp Pulse Resp BP Sys/Álvarez Pulse Ox Last 24 Hr 97.8 F-100.4 F 98-105 18-26 104-147/62-108 98-100 agitated nuchal rigidity cor-rrr 3/6 gaudencio lungs-decreased bs at bases abd soft,nt ext- edema CBC, BMP 03/11/17 02:25 03/11/17 02:25 blood culture- gpc in chains 3/4 bottles ASSESSMENT AND PLAN: sepsis gram positive bacteremia cannot r/o bacterial meningitis needs LP after neurology reviews head ct cannot r/o endocarditis history of valve surgery-?2 bioprosthetic valves vancomycin/rocephin stat have been started as antibiotics have already been started will hold on steroids at this time mri head and neck neurology consult pending icu evaluation stable hiv though off meds with recent cd4 count of 300-reyataz/norvir/truvada recently stopped due to elevated creatinine substance use- positive urine tox for opiates d/w TM service overall 45 minutes spent in the care of this critically ill patient d/w daughters at bedside
[2017-03-11] MEDS ORDERED: VANCOMYCIN 1,250 MG in DEXTROSE 5%-WATER - 250 ML IVPB SCH (12:45)
[2017-03-11] MEDS: CEFTRIAXONE 2 GM in DEXTROSE 5%-WATER - 100 ML IVPB SCH ×2 (13:14→22:53)
--- NOTE | 2017-03-11 14:36 | PN ---
Physical Exam: SUBJECTIVE: Patient currently obtunded. Unable to gain HPI. Per medical chart, pt 57yo F with history including, but not limited to HIV ( CD4 300, off HIV medications), polysubstance abuse, CAD s/p triple valve replacement who presented to the ED after being brought in by EMS for AMS. Pt was said to have had unwitnessed fall and was found on her face unresponsive. EMS was alerted and pt was brought in for further evaluation. Pt's significant other previously stated per chart that she had back pain for 3 days and a headache for 2 days prior to this visit. OBJECTIVE: Vital Signs Period Temp Pulse Resp BP Sys/Álvarez Pulse Ox Last 24 Hr 98.5 F-98.6 F 98-102 20-26 104-146/62-108 98-100 GENERAL: Mod distress, unresponsive, agitated, unresponsive to verbal commands HEENT: Pt closes eyelids to light stimulus, pupils JAMESON slightly slow to react , dry mucous membranes with cracked lips, slightly firm posterior neck, No JVD LUNGS: CTA bilaterally, no wheezes, rhonchi, rales appreciated. No accessory muscle use. HEART: Tachycardic regular rhythm, 5/6 holosystolic murmur appreciated at the L lower sternal border. ABDOMEN: Soft, non distended, hypoactive BS, pt increases agitation when abdomen is palpated, no masses appreciated EXTREMITIES: No edema. NEUROLOGICAL: Facial symmetry noted, Moving all four extremities against gravity , no tremor noted, UE strength intact, could not assess LE or sensation. SKIN: No rashes or lesions noted. No splinter hemorrhage on fingernails noted. Laboratory Results - last 24 hr 03/11/17 03/11/17 03/11/17 05:24 08:00 08:02 Puncture Site Left radial ABG pH 7.54 H D ABG pCO2 at Pt Temp 23.3 L D ABG pO2 at Pt Temp 99.7 D ABG HCO3 20.0 L ABG O2 Sat (Measured) 98.3 ABG O2 Content 17.6 ABG Base Excess -0.8 Juan Daniel Test Positive O2 Delivery Device Room air Oxygen Flow Rate No PEEP 0.0 Hemoglobin A1c % 6.3 H D Lactic Acid Phosphorus 2.0 L Magnesium 1.4 L Ammonia Creatine Kinase 1844 H Creatine Kinase Index 0.2 CK-MB (CK-2) 4.1 H Troponin I 0.28 H B-Natriuretic Peptide 6021.47 H Triglycerides 190 H D Cholesterol 107 D Total LDL Cholesterol 38 HDL Cholesterol 10 L D TSH 0.37 RPR Titer 03/11/17 03/11/17 03/11/17 08:02 09:45 09:50 Puncture Site ABG pH ABG pCO2 at Pt Temp ABG pO2 at Pt Temp ABG HCO3 ABG O2 Sat (Measured) ABG O2 Content ABG Base Excess Juan Daniel Test O2 Delivery Device Oxygen Flow Rate PEEP Hemoglobin A1c % Lactic Acid 3.2 H* 2.9 H* Phosphorus Magnesium Ammonia Creatine Kinase Creatine Kinase Index CK-MB (CK-2) Troponin I B-Natriuretic Peptide Triglycerides Cholesterol Total LDL Cholesterol HDL Cholesterol TSH RPR Titer Nonreactive 03/11/17 03/11/17 03/11/17 10:20 10:20 12:25 Puncture Site ABG pH ABG pCO2 at Pt Temp ABG pO2 at Pt Temp ABG HCO3 ABG O2 Sat (Measured) ABG O2 Content ABG Base Excess Juan Daniel Test O2 Delivery Device Oxygen Flow Rate PEEP Hemoglobin A1c % Lactic Acid 3.0 H* Phosphorus Magnesium Ammonia < 10.0 L Creatine Kinase Creatine Kinase Index CK-MB (CK-2) Troponin I B-Natriuretic Peptide Triglycerides Cholesterol Total LDL Cholesterol HDL Cholesterol TSH 0.26 L D RPR Titer Active Medications Generic Name Dose Route Start Last Admin Trade Name Freq PRN Reason Stop Dose Admin Chlorhexidine Gluconate 1 applic 03/11/17 22:00 Hibiclens For Decolonization - TP HS [facility] Heparin Sodium (Porcine) 5,000 unit 03/11/17 06:15 03/11/17 13:25 Heparin - SQ 5,000 unit TID VERONICA Administration Sodium Chloride 1,000 mls @ 100 mls/hr 03/11/17 10:00 03/11/17 11:59 Normal Saline - IV 100 mls/hr ASDIR VERONICA Administration Ceftriaxone Sodium 2 gm/ 100 mls @ 200 mls/hr 03/11/17 12:45 03/11/17 13:14 Dextrose IVPB Not Given BID VERONICA Vancomycin HCl 1,250 mg/ 250 mls @ 166.667 mls/hr 03/11/17 22:00 Dextrose IVPB BID [facility] Protocol Mupirocin 1 applic 03/11/17 10:00 03/11/17 11:11 Bactroban Ointment (For Decolonization) - NS 03/16/17 09:59 Not Given BID VERONICA Sodium Chloride 1,000 ml 03/11/17 01:55 Normal Saline - IV Q20M PRN MAP<65mm Hg OR SBP <90 ASSESSMENT/PLAN: 1) Altered mental status --Unknown cause; ? Meningitis vs. endocarditis --CT scan reviewed - interval change with dilated ventricles reflective of hydrocephalus --Cannot rule out meningitis: Febrile, firm posterior neck, AMS --Blood cultures showing G+ cocci in chains most reflective of strep; f/u final review --Neurology consulted --MRI w/ and w/o contrast; LP deferred currently due to hydrocephalus --ID consulted --Vancomycin 1250mg BID IV --Ceftriazone increased to 2gm IV --Ammonia <10 --TSH 0.37 and 0.2 (most likely related to euthyroid sick syndrome/septicemia 2) Severe sepsis --Etiology unclear --Blood cultures as above --CXR ruled out PNA --ABX as above --Possibility of KHURRAM if meningitis ruled out through CSF analysis --Due to deferred LP will assess T2 weighted MRI scans for hyperluscent meninges 3) Hypertroponinemia --Troponins elevated, but trending down --Most likely related to demand from sepsis syndrome 4) Questionable CHF history --Will obtain echocardiogram for assessment FEN: Fluids: Normal saline at 100cc/hr bolus (questionable CHF history) Electrolyte abnormalities: Replete as needed Nutrition: NPO for now PPX DVT - Heparin 5000U TID and SCDs Dispo: ICU admission Critical care time 43 min Case discussed with Dr. Shailesh Morales, DO - Internal Medicine PGY-1 Visit type - Emergency Visit Emergency Visit: No - New Patient This patient is new to me today: Yes Date on this admission: 03/11/17 - Critical Care Critical Care patient: Yes Total Critical Care Time (in minutes): 43 Critical Care Statement: The care of this patient involved high complexity decision making to prevent further life threatening deterioration of the patient 's condition and/or to evaluate & treat vital organ system(s) failure or risk of failure.
--- NOTE | 2017-03-11 15:53 | PN ---
Teaching Attending Note Name of Resident: Darien Morales ATTENDING PHYSICIAN STATEMENT I saw and evaluated the patient. I reviewed the resident's note and discussed the case with the resident. I agree with the resident's findings and plan as documented. SUBJECTIVE: unable to obtain hx due to AMS OBJECTIVE: Resists eye opening, moaning in bed, does not follow commands or follow instructins . dry MM Neuro : symmetric face, round equal pupils , 5 mm in diameter , with sluggish reaction to light. no facial droop. neck rigidity normal tone in upper extremities , no tremor. 2+ knee jerk and biceps b/l. unequivocal Babinski's . rest of neuro exam could not be performed. CV: Regular rhythm, tachy. 5/6 SM at LLSB and apex , 4-6 SM at LUSB . No JVD Lungs : CTAB Abd: sfot, TTP in all quadrants, nl BS Ext: no edema ASSESSMENT AND PLAN: 57 y/o lady with h/o HIV, aortic and mitral valve replacement with bioprosthetic valves, ? CHF, COPD, anemia and other medical problems who presented with AMS. 1- AMS : no clear etiology. CT scan with hydrocephalus . no previous to compare to . neuro exam although limited, it does not appear focal as sh moves all her ext, and has symmetric reflexes . Neck rigidity with fever , AMS and bacteremia --> can't r/o meningitis also endocarditis in DDX. can't r/O Toxoplasmosis, and lymphoma in this HIV pt , also encephalitis . non convulsive seizures less likely - order MRI of brain. - LP was d/w D/W Neuro. - cover for meningitis with vanco and ceftriaxone - No evidence of PNA - ammonia and TSH levels 2- severe sepsis, no PNA , no evidence of UTI. 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 Echo reviewed. clinically volume depleted EKG with TWI in anterioseptal leads. repeat Trop trended down. - monitor volume status - elevated trop probably demand from sepsis 4- ICU admission. CCT 50 min
[2017-03-11 15:59] LABS: TROPONIN I 0.26 ng/ml (0.00-0.05)
--- NOTE | 2017-03-11 17:00 | CONSULT ---
Consultation: REQUESTING PROVIDER: Dr. Cash CONSULT REQUEST: Pulm/Crit care We have been asked to medically evaluate this patient for AMS r/o meningitis. HISTORY OF PRESENT ILLNESS: Unable to obtain hx from patient, as she does not respond to questions. During exam, she appeared agitated, confused, and was speaking to herself. Pt currently is not accompanied by family members at bedside. As per EMR, this is a 57 y/o F with PMH of HIV/AIDS(currently not on HAART. CD4 300 in February), COPD (on 3L 02), CHF, HTN, Pulm HTN, open heart surgery, triple valve replacement, anemia and polysubstance abuse, who presented to the ED s/p fall OOB c/o back pain, and AMS as per family. Pt's significant other reports that the patient had back pain for the past three days, and a headache for the past two days. He reports that the patient has been confused and is " not making any sense", since one day prior to admission. Due to patient's current altered status, unable to obtain further information. ER course was notable for: (1) Sepsis- T Max 100.4F, WBC 14.4, lactate 2.9 (2) CXR : congestion, but pt agitated during study- will need repeat (3) EKG- NSTEMI (4) elevated Trop I- 0.40 (peak) Pt was admitted to ICU for AMS r/o meningitis. REVIEW OF SYSTEMS: CONSTITUTIONAL: Absent: fever, chills, diaphoresis, generalized weakness, malaise, loss of appetite, weight change HEENT: Absent: rhinorrhea, nasal congestion, throat pain, throat swelling, difficulty swallowing, mouth swelling, ear pain, eye pain, visual changes CARDIOVASCULAR: Absent: chest pain, syncope, palpitations, irregular heart rate, lightheadedness , peripheral edema RESPIRATORY: Absent: cough, shortness of breath, dyspnea with exertion, orthopnea, wheezing, stridor, hemoptysis GASTROINTESTINAL: Absent: abdominal pain, abdominal distension, nausea, vomiting, diarrhea, constipation, melena, hematochezia GENITOURINARY: Absent: dysuria, frequency, urgency, hesitancy, hematuria, flank pain, genital pain MUSCULOSKELETAL: Absent: myalgia, arthralgia, joint swelling, back pain, neck pain SKIN: Absent: rash, itching, pallor HEMATOLOGIC/IMMUNOLOGIC: Absent: easy bleeding, easy bruising, lymphadenopathy, frequent infections ENDOCRINE: Absent: unexplained weight gain, unexplained weight loss, heat intolerance, cold intolerance NEUROLOGIC: +confusion, agitation, headache, mental status changes Absent: headache, focal weakness or paresthesias, dizziness, unsteady gait, seizure, mental status changes, bladder or bowel incontinence PSYCHIATRIC: +internally stimulated, speaking to self Absent: anxiety, depression, suicidal or homicidal ideation, hallucinations. PHYSICAL EXAMINATION Vital Signs - 24 hr 03/11/17 03/11/17 03/11/17 05:09 07:29 07:48 Temperature 98.6 F 98.5 F Pulse Rate [ 102 H 100 H 98 H Apical] Respiratory 22 20 26 H Rate Blood Pressure 146/108 123/96 137/100 [Left Arm] O2 Sat by Pulse 100 100 100 Oximetry (%) 03/11/17 03/11/17 03/11/17 08:21 11:30 11:46 Temperature Pulse Rate [ 100 H Apical] Respiratory 26 H Rate Blood Pressure 104/62 [Left Arm] O2 Sat by Pulse 98 100 100 Oximetry (%) 03/11/17 03/11/17 14:20 16:40 Temperature Pulse Rate [ 100 H 96 H Apical] Respiratory 22 22 Rate Blood Pressure 121/88 125/77 [Left Arm] O2 Sat by Pulse 99 99 Oximetry (%) GENERAL: Awake, confused and agitated, unable to verbalize responses to questions HEAD: Normal with no signs of trauma. EYES: extraocular movements intact, sclera anicteric, conjunctiva clear. Unable to assess further as pt is agitated NECK: no JVD present, normal range of motion LUNGS: Breath sounds equal, clear to auscultation bilaterally. No wheezes, and no crackles. Mild accessory muscle use. HEART: Regular rate and rhythm, systolic murmur appreciated in tricuspid region ABDOMEN: Soft, nontender, not distended, unable to assess BS as pt moving UPPER EXTREMITIES: 2+ radial pulses, warm, well-perfused. LOWER EXTREMITIES: 2+ dorsalis pedis pulses, warm, well-perfused. No calf tenderness. No peripheral edema. NEUROLOGICAL: unable to assess, pt unable to follow commands PSYCHIATRIC: internally stimulated, speaking to self Laboratory Results - last 24 hr 03/11/17 03/11/17 03/11/17 05:24 08:00 08:02 Puncture Site Left radial ABG pH 7.54 H D ABG pCO2 at Pt Temp 23.3 L D ABG pO2 at Pt Temp 99.7 D ABG HCO3 20.0 L ABG O2 Sat (Measured) 98.3 ABG O2 Content 17.6 ABG Base Excess -0.8 Juan Daniel Test Positive O2 Delivery Device Room air Oxygen Flow Rate No PEEP 0.0 Hemoglobin A1c % 6.3 H D Lactic Acid Phosphorus 2.0 L Magnesium 1.4 L Ammonia Creatine Kinase 1844 H Creatine Kinase Index 0.2 CK-MB (CK-2) 4.1 H Troponin I 0.28 H B-Natriuretic Peptide 6021.47 H Triglycerides 190 H D Cholesterol 107 D Total LDL Cholesterol 38 HDL Cholesterol 10 L D TSH 0.37 RPR Titer 03/11/17 03/11/17 03/11/17 08:02 09:45 09:50 Puncture Site ABG pH ABG pCO2 at Pt Temp ABG pO2 at Pt Temp ABG HCO3 ABG O2 Sat (Measured) ABG O2 Content ABG Base Excess Juan Daniel Test O2 Delivery Device Oxygen Flow Rate PEEP Hemoglobin A1c % Lactic Acid 3.2 H* 2.9 H* Phosphorus Magnesium Ammonia Creatine Kinase Creatine Kinase Index CK-MB (CK-2) Troponin I B-Natriuretic Peptide Triglycerides Cholesterol Total LDL Cholesterol HDL Cholesterol TSH RPR Titer Nonreactive 03/11/17 03/11/17 03/11/17 10:20 10:20 12:25 Puncture Site ABG pH ABG pCO2 at Pt Temp ABG pO2 at Pt Temp ABG HCO3 ABG O2 Sat (Measured) ABG O2 Content ABG Base Excess Juan Daniel Test O2 Delivery Device Oxygen Flow Rate PEEP Hemoglobin A1c % Lactic Acid 3.0 H* Phosphorus Magnesium Ammonia < 10.0 L Creatine Kinase Creatine Kinase Index CK-MB (CK-2) Troponin I B-Natriuretic Peptide Triglycerides Cholesterol Total LDL Cholesterol HDL Cholesterol TSH 0.26 L D RPR Titer 03/11/17 03/11/17 15:00 15:00 Puncture Site ABG pH ABG pCO2 at Pt Temp ABG pO2 at Pt Temp ABG HCO3 ABG O2 Sat (Measured) ABG O2 Content ABG Base Excess Juan Daniel Test O2 Delivery Device Oxygen Flow Rate PEEP Hemoglobin A1c % Lactic Acid 3.4 H* Phosphorus Magnesium Ammonia Creatine Kinase 1716 H Creatine Kinase Index 0.3 CK-MB (CK-2) 6.763 H Troponin I 0.26 H B-Natriuretic Peptide Triglycerides Cholesterol Total LDL Cholesterol HDL Cholesterol TSH RPR Titer Active Medications Generic Name Dose Route Start Last Admin Trade Name Mary PRN Reason Stop Dose Admin Chlorhexidine Gluconate 1 applic 03/11/17 22:00 Hibiclens For Decolonization - TP HS VERONICA Heparin Sodium (Porcine) 5,000 unit 03/11/17 06:15 03/11/17 13:25 Heparin - SQ 5,000 unit TID VERONICA Administration Sodium Chloride 1,000 mls @ 100 mls/hr 03/11/17 10:00 03/11/17 11:59 Normal Saline - IV 100 mls/hr ASDIR VERONICA Administration Ceftriaxone Sodium 2 gm/ 100 mls @ 200 mls/hr 03/11/17 12:45 03/11/17 13:14 Dextrose IVPB Not Given BID VERONICA Vancomycin HCl 1,250 mg/ 250 mls @ 166.667 mls/hr 03/11/17 22:00 Dextrose IVPB BID VERONICA Protocol Mupirocin 1 applic 03/11/17 10:00 03/11/17 11:11 Bactroban Ointment (For Decolonization) - NS 03/16/17 09:59 Not Given BID VERONICA Sodium Chloride 1,000 ml 03/11/17 01:55 Normal Saline - IV Q20M PRN MAP<65mm Hg OR SBP <90 ASSESSMENT/PLAN: Unable to obtain hx from patient, as she does not respond to questions. During exam, she appeared agitated, confused, and was speaking to herself. Pt currently is not accompanied by family members at bedside. As per EMR, this is a 57 y/o F with PMH of HIV/AIDS(currently not on HAART. CD4 300 in February), COPD (on 3L 02), CHF, HTN, Pulm HTN, open heart surgery, triple valve replacement, anemia and polysubstance abuse, who presented to the ED s/p fall OOB c/o back pain, and AMS as per family. Pt's significant other reports that the patient had back pain for the past three days, and a headache for the past two days. He reports that the patient has been confused and is " not making any sense", since one day prior to admission. Due to patient's current altered status, unable to obtain further information. Pt admitted to ICU for AMS r/o meningitis. 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 Thank you for this consultative opportunity. Visit type - Emergency Visit Emergency Visit: No - New Patient This patient is new to me today: Yes Date on this admission: 03/11/17 - Critical Care Critical Care patient: Yes Total Critical Care Time (in minutes): 42 Critical Care Statement: The care of this patient involved high complexity decision making to prevent further life threatening deterioration of the patient 's condition and/or to evaluate & treat vital organ system(s) failure or risk of failure.
[2017-03-11] MEDS ORDERED: LORazepam 2 MG/ML SDV VIAL IVPUSH ONE (18:47)
[2017-03-11] MEDS ORDERED: SODIUM CHLORIDE 500 ML IV STA ×2 (19:14→21:08)
--- NOTE | 2017-03-11 19:50 | PN ---
Progress Note (short form) - Note Progress Note: -patient still agitated -giving 1mg ativan IVP -MRI w/wo contrast -plan for LP in am -repeat INR in am give ffp if elevated -discussed with neuro
--- NOTE | 2017-03-11 20:13 | CON.NEURO ---
Consult - History of Present Illness History of Present Illness: 57 year old female had fall yeserdy and was brought to hospital for confusion and mental status change HPI 57 year old female with history of HIV/AIDS( ON HAART therapy) cd4 is in 350s , She also have history of chf, htn, open heart surgery 9 triple valve replacement, anemi and polysubstance abuse. Patient has no history of seizure, she fell from bed and she had been bleeding through gums. As as baseline she has no cognitive difficulty. Now she has been agitated and not able to hold conversation. she has ct scan done, showed mild hydrocephalus. Patient have wbc of 14.4 and tmax of 100.4. - Past Medical History Cardio/Vascular: Yes: Murmur, Pulmonary Hypertension Pulmonary: Yes: COPD, O2 Dependent ...LMP: 01/31/12 Infectious Disease: Yes: HIV Psych: Yes: Anxiety, Depression - Past Surgical History Past Surgical History: Yes: Cholecystectomy - Alcohol/Substance Use Hx Alcohol Use: Yes History of Substance Use: reports: None - Smoking History Smoking history: Former smoker Have you smoked in the past 12 months: Yes Aproximately how many cigarettes per day: 5 If you are a former smoker, when did you quit?: 2014 - Social History History of Recent Travel: No Home Medications - Allergies Allergies/Adverse Reactions: Allergies Allergy/AdvReac Type Severity Reaction Status Date / Time lisinopril Allergy lip Verified 03/11/17 02:58 swelling sulfamethoxazole Allergy Rash Verified 03/11/17 02:58 [From Bactrim DS] - Home Medications Home Medications: Ambulatory Orders Aspirin [Aspirin EC] 81 mg PO DAILY #30 tablet. 10/30/16 Fluticasone/Salmeterol [Advair 250-50 Diskus] 1 each IH DAILY #1 disk.w.dev MDD 4 10/30/16 Albuterol Sulfate Inhaler - [Ventolin HFA Inhaler -] 1 - 2 inh PO Q4H #1 inhaler 11/27/16 Diphenhydramine HCl [Benadryl Capsule -] 25 mg PO PRN #30 capsule 11/27/16 Loratadine [Claritin] 10 mg PO DAILY #30 tablet 11/27/16 Amitriptyline HCl 75 mg PO HS #30 tablet MDD 1 01/28/17 Amlodipine Besylate 10 mg PO DAILY #30 tablet 01/28/17 Mirtazapine [Remeron -] 30 mg PO DAILY #30 tablet 01/28/17 Temazepam [Restoril -] 15 mg PO HS PRN #30 capsule MDD 1 01/28/17 Venlafaxine HCl ER [Effexor Xr -] 75 mg PO DAILY #30 cap.er.24h 01/28/17 Family Disease History - Family Disease History Family Disease History: Diabetes: Father, Respiratory: Mother Physical Exam-Neuro Vital Signs: Vital Signs Temperature 98.8 F 03/11/17 16:45 Pulse Rate 117 H 03/11/17 16:45 Respiratory Rate 27 H 03/11/17 17:35 Blood Pressure 143/72 03/11/17 16:45 O2 Sat by Pulse Oximetry (%) 99 03/11/17 17:00 Labs: INR, PTT INR 1.67 (0.82-1.09) H D 03/11/17 02:25 Assessment/Plan cc 57 year old female had fall yeserdy and was brought to hospital for confusion and mental status change HPI 57 year old female with history of HIV/AIDS( ON HAART therapy) cd4 is in 350s , She also have history of chf, htn, open heart surgery 9 triple valve replacement, anemi and polysubstance abuse. Patient has no history of seizure, she fell from bed and she had been bleeding through gums. As as baseline she has no cognitive difficulty. Now she has been agitated and not able to hold conversation. she has ct scan done, showed mild hydrocephalus. Patient have wbc of 14.4 and tmax of 100.4. Social History: Smoking: Current Alcohol: Unknown Drugs: Heroin Abuse, last use unknown Allergies lisinopril Allergy (Verified 03/11/17 02:58) lip swelling sulfamethoxazole [From Bactrim DS] Allergy (Verified 03/11/17 02:58) Rash HOME MEDICATIONS: Home Medications Medication Instructions Recorded Aspirin [Aspirin EC] 81 mg PO DAILY #30 tablet. 10/30/16 Fluticasone/Salmeterol [Advair 1 each IH DAILY #1 disk.w.dev MDD 4 10/30/16 250-50 Diskus] Albuterol Sulfate Inhaler - 1 - 2 inh PO Q4H #1 inhaler 11/27/16 [Ventolin HFA Inhaler -] Diphenhydramine HCl [Benadryl 25 mg PO PRN #30 capsule 11/27/16 Capsule -] Loratadine [Claritin] 10 mg PO DAILY #30 tablet 11/27/16 Amitriptyline HCl 75 mg PO HS #30 tablet MDD 1 01/28/17 Amlodipine Besylate 10 mg PO DAILY #30 tablet 01/28/17 Mirtazapine [Remeron -] 30 mg PO DAILY #30 tablet 01/28/17 Temazepam [Restoril -] 15 mg PO HS PRN #30 capsule MDD 1 01/28/17 Venlafaxine HCl ER [Effexor Xr -] 75 mg PO DAILY #30 cap.er.24h 01/28/17 REVIEW OF SYSTEMS reviewed in chart Neurological Examination Agitated , opens eye spontaneously, not able to engage in conversation. eomi, pupis is 5 mm bilaterally and briskly reactive, there is mild neck stiffness moving all extremity sensation is normal withraws to painfl stimuli ct head compared to jun 25 there is interval change and there is large ventricle Assessment- acute confusional state , most likley could be meningitis/ encephalitis , other remote possibility include if she has seizure and post ictal, concussion injury to brain due to fall or septicemia causing delirium Plan agree with ID regarding broad spectrum coverage and suggest to add acyclovir - suggest to do mri of brain with contrast t rule out ny mass lesion given hydrocephalus - would consider spinal tap after mri of brain -continue supportive care as per Primary team
[2017-03-11] MEDS ORDERED: FOLIC ACID INJECTION - 1 MG, THIAMINE HCL 100 MG, MULTIVIT INJECTION ADULT 10 ML in SOD... IVPB ONE (20:34)
[2017-03-11] MEDS: CHLORHEXIDINE GLUCONATE 4% CLEANSER FOR DECOLONIZATION TP SCH (22:00)
[2017-03-11] MEDS ORDERED: PT OWN MED DRAWER 7, Y5N ONE (22:08)
[2017-03-11] MEDS: ACYCLOVIR INJECTION 800 MG in DEXTROSE 5%-WATER - 250 ML IVPB SCH (22:52)
[2017-03-11] MEDS: VANCOMYCIN 1,250 MG in DEXTROSE 5%-WATER - 250 ML IVPB SCH (22:53)
[2017-03-11 23:33] LABS: ALLENS TEST POSITIVE; ART PUNCT SITE RIGHT RADIAL; ARTERIAL BLD GAS O2 SATURATION 99.3 % (90-98.9); ARTERIAL BLOOD GAS BASE EXCESS 1.6 meq/l (-2-2); ARTERIAL BLOOD GAS HCO3 24.2 meq/L (22-26); ARTERIAL BLOOD GAS pH 7.48 (7.35-7.45); PT. ON O2? YES
[2017-03-11 23:34] LABS: LPM/O2% 50; TYPE OF O2 VENTI MASK
[2017-03-12 00:59] LABS: URINE APPEARANCE CLOUDY; URINE BILIRUBIN NEGATIVE (NEGATIVE); URINE BLOOD 2+ (NEGATIVE); URINE GLUCOSE (UA) 1+ (NEGATIVE); URINE KETONE NEGATIVE (NEGATIVE); URINE NITRITE NEGATIVE (NEGATIVE); URINE UROBILINOGEN NEGATIVE mg/dL (0.2-1.0)
[2017-03-12 01:06] LABS: URINE COLOR YELLOW; URINE PROTEIN 2+ (NEGATIVE)
[2017-03-12 01:11] LABS: URINE MUCUS RARE; URINE RBC 40 /hpf (0-3)
[2017-03-12] MEDS: ACYCLOVIR INJECTION 800 MG in DEXTROSE 5%-WATER - 250 ML IVPB SCH (03:00)
[2017-03-12] MEDS ORDERED: ACETAMINOPHEN 1000 MG/100 ML VIAL (NON FORMULARY) IVPB PRN (06:32)
--- NOTE | 2017-03-12 06:53 | PN ---
Progress Note, Physician Chief Complaint: ID Patient to agitated to perform lumbar puncture or MRI of brain even with sedation Vancomycin and Ceftriaxone Tachypneic unresponsive to verbal stimuli however reacts to moving her during exam Febrile 101.9 this morning - Current Medication List Current Medications: Active Medications Acetaminophen (Ofirmev Injection -) 1,000 mg IVPB Q6H PRN PRN Reason: FEVER OR PAIN Stop: 03/13/17 00:33 Chlorhexidine Gluconate (Hibiclens For Decolonization -) 1 applic TP HS [facility] Last Admin: 03/11/17 22:00 Dose: 1 applic Ceftriaxone Sodium 2 gm/ (Dextrose) 100 mls @ 200 mls/hr IVPB BID VERONICA Last Admin: 03/11/17 22:53 Dose: 200 mls/hr Vancomycin HCl 1,250 mg/ (Dextrose) 250 mls @ 166.667 mls/hr IVPB BID VERONICA PRN Reason: Protocol Last Admin: 03/11/17 22:53 Dose: 166.667 mls/hr Sodium Chloride (Normal Saline -) 1,000 mls @ 150 mls/hr IV ASDIR [facility] Last Admin: 03/11/17 21:00 Dose: 150 mls/hr Acyclovir 800 mg/ Dextrose 266 mls @ 250 mls/hr IVPB Q8H-IV VERONICA Stop: 03/12/17 10:59 Last Admin: 03/12/17 03:00 Dose: 250 mls/hr Mupirocin (Bactroban Ointment (For Decolonization) -) 1 applic NS BID VERONICA Stop: 03/16/17 09:59 Last Admin: 03/11/17 22:30 Dose: 1 applic Sodium Chloride (Normal Saline -) 1,000 ml IV Q20M PRN PRN Reason: MAP<65mm Hg OR SBP <90 - Objective Vital Signs: Vital Signs Temperature 101.9 F H 03/12/17 06:00 Pulse Rate 112 H 03/12/17 06:00 Respiratory Rate 24 03/12/17 06:00 Blood Pressure 162/97 03/12/17 06:00 O2 Sat by Pulse Oximetry (%) 100 03/11/17 20:46 Constitutional: Yes: Moderate Distress, Other (agitated nonverbal) Cardiovascular: Yes: Regular Rate and Rhythm, Tachycardia, S1, S2 Respiratory: Yes: WNL, Regular, CTA Bilaterally. No: Rales, Rhonchi Gastrointestinal: Yes: WNL, Normal Bowel Sounds. No: Tenderness, Tenderness, Rebound Extremities: No: Cold, Cool, Cyanosis Edema: No Labs: INR, PTT INR 1.67 (0.82-1.09) H D 03/11/17 02:25 Problem List - Problems (1) HIV (human immunodeficiency virus infection) Code(s): B20 - HUMAN IMMUNODEFICIENCY VIRUS [HIV] DISEASE (2) Sepsis Code(s): A41.9 - SEPSIS, UNSPECIFIED ORGANISM Qualifiers: Sepsis type: sepsis due to unspecified organism Qualified Code(s): A41.9 - Sepsis, unspecified organism; A41.9 - Sepsis, unspecified organism; A41.9 - Sepsis, unspecified organism (3) Endocarditis Code(s): I38 - ENDOCARDITIS, VALVE UNSPECIFIED (4) Streptococcal meningitis Code(s): G00.2 - STREPTOCOCCAL MENINGITIS Assessment/Plan Microbiology 03/11/17 18:30 Nasopharyngeal Swab Influenza Types A,B Antigen (SHIVA) - Final 03/11/17 18:30 Nasopharyngeal Swab - Final 03/11/17 02:25 Blood - Peripheral Venous Blood Culture - Preliminary Pending Organism 03/11/17 02:25 Blood - Peripheral Venous Blood Culture - Preliminary Pending Organism Laboratory Tests 02/12/17 02/12/17 03/11/17 11:15 11:15 02:25 WBC 14.4 H D Hgb 11.8 Plt Count 172 Neutrophils % 86.0 H D Lymphocytes % 4.0 L D Monocytes % 9.9 INR ABG pH ABG pCO2 at Pt Temp ABG pO2 at Pt Temp Oxygen Flow Rate Sodium Potassium Lactic Acid Alkaline Phosphatase Creatine Kinase Troponin I TSH Urine RBC Urine WBC Opiates Screen Absolute CD4 [place] 307 L HIV-1 RNA (PCR) 2270 03/11/17 03/11/17 03/11/17 02:25 02:25 02:25 WBC Hgb Plt Count Neutrophils % Lymphocytes % Monocytes % INR 1.67 H D ABG pH ABG pCO2 at Pt Temp ABG pO2 at Pt Temp Oxygen Flow Rate Sodium 133 L Potassium 3.5 Lactic Acid Alkaline Phosphatase 127 H D Creatine Kinase 1824 H Troponin I TSH Urine RBC Urine WBC Opiates Screen Positive Absolute CD4 [place] HIV-1 RNA (PCR) 03/11/17 03/11/17 03/11/17 10:20 12:25 15:00 WBC Hgb Plt Count Neutrophils % Lymphocytes % Monocytes % INR ABG pH ABG pCO2 at Pt Temp ABG pO2 at Pt Temp Oxygen Flow Rate Sodium Potassium Lactic Acid 3.0 H* Alkaline Phosphatase Creatine Kinase Troponin I 0.26 H TSH 0.26 L D Urine RBC Urine WBC Opiates Screen Absolute CD4 [place] HIV-1 RNA (PCR) 03/11/17 03/11/17 03/11/17 18:00 21:30 23:27 WBC Hgb Plt Count Neutrophils % Lymphocytes % Monocytes % INR ABG pH 7.48 H ABG pCO2 at Pt Temp 32.6 L D ABG pO2 at Pt Temp 167.0 H* Oxygen Flow Rate 50 Sodium Potassium Lactic Acid 2.3 H* 1.0 Alkaline Phosphatase Creatine Kinase Troponin I TSH Urine RBC Urine WBC Opiates Screen Absolute CD4 [place] HIV-1 RNA (PCR) 03/12/17 00:34 WBC Hgb Plt Count Neutrophils % Lymphocytes % Monocytes % INR ABG pH ABG pCO2 at Pt Temp ABG pO2 at Pt Temp Oxygen Flow Rate Sodium Potassium Lactic Acid Alkaline Phosphatase Creatine Kinase Troponin I TSH Urine RBC 40 Urine WBC None Opiates Screen Absolute CD4 [place] HIV-1 RNA (PCR) Assessment Sepsis syndrome Gram positive bacteremia in chains Ruling out prosthetic valve endocarditis History of 3 heart valve replacements Altered mental status with [employer] infection considered Her neck appears supple but this does not rule out meningntis. Additionally posibility of septic emboli to brain from endocarditis considered as well. Hematuria ? infective endocardidits HIV infection off ART over 300 CD4 cells most recent Opiate abuse (no history of IVDA?) Plan Doubt communicable infection but will wait until we have final c/s IF she has meningitis I would assume same organism as in the blood MRI would be important Vancomy levels trough Could add gentamicin for synergy ? PVE IF strep in the blood can d/c isolation Would hold off on steroids Adjustment antibiotics once we have final sensitivities Critical care time spent 40 minutes today
[2017-03-12 07:11] LABS: BASOPHIL 0.4 % (0-2.0); EOSINOPHIL 0.4 % (0-4.5); MCH 28.1 pg (25.7-33.7); MCHC 32.8 g/dl (32.0-36.0); MEAN CELL VOLUME 85.5 fl (80-96); MEAN PLT VOLUME 9.1 fl (7.5-11.1); NEUTROPHILS 69.7 % (42.8-82.8); PLATELET COUNT 124 K/MM3 (134-434); RDW 14.5 % (11.6-15.6); WHITE BLOOD COUNT 16.1 K/mm3 (4.0-10.0)
[2017-03-12] MEDS ORDERED: GENTAMICIN SO4 *PEDIATRIC* 20 MG/2 ML VIAL IVPB SCH (07:15)
[2017-03-12 07:19] LABS: INR 1.41 (0.82-1.09); PROTHROMBIN TIME (PATIENT) 15.9 SEC (9.98-11.88)
--- NOTE | 2017-03-12 07:26 | PN ---
Physical Exam: SUBJECTIVE: Tmax of 101.9 overnight; IV tylenol administered. Pt's mental state unimproved from yesterday limiting HPI. Pt's MRI could not get done due to agitation and motion despite sedation of patient with Ativan. Pt remains unresponsive, but arousable. OBJECTIVE: Vital Signs Period Temp Pulse Resp BP Sys/Álvarez Pulse Ox Last 24 Hr 98.5 F-101.9 F 96-120 20-39 104-162/62-100 98-100 GENERAL: Mod distress, unresponsive, agitated, unresponsive to verbal commands, arousable to sternal rub HEENT: Pt closes eyelids to light stimulus, pupils JAMESON continually sluggish, dry mucous membranes with cracked lips, slightly firm posterior neck, No JVD LUNGS: CTA bilaterally, no wheezes, rhonchi, rales appreciated. No accessory muscle use. HEART: Tachycardic regular rhythm, 5/6 holosystolic murmur appreciated at the L lower sternal border. ABDOMEN: Soft, non distended, hypoactive BS, pt increases agitation when abdomen is palpated, no masses appreciated EXTREMITIES: L arm induration from hand to elbow. No erythema, no lesions/ lacerations/abrasions noted. Peripheral IV line not in use in L arm NEUROLOGICAL: Facial symmetry noted, Moving all four extremities against gravity , no tremor noted, UE strength intact, could not assess LE or sensation. SKIN: No rashes or lesions noted. No splinter hemorrhage on fingernails noted. Laboratory Results - last 24 hr 03/11/17 03/11/17 03/11/17 08:00 08:02 08:02 WBC RBC Hgb Hct MCV MCH MCHC RDW Plt Count MPV Neutrophils % Lymphocytes % Monocytes % Eosinophils % Basophils % Puncture Site ABG pH ABG pCO2 at Pt Temp ABG pO2 at Pt Temp ABG HCO3 ABG O2 Sat (Measured) ABG O2 Content ABG Base Excess Juan Daniel Test O2 Delivery Device Oxygen Flow Rate PEEP Hemoglobin A1c % 6.3 H D Lactic Acid 3.2 H* Phosphorus 2.0 L Magnesium 1.4 L Ammonia Creatine Kinase 1844 H Creatine Kinase Index 0.2 CK-MB (CK-2) 4.1 H Troponin I 0.28 H B-Natriuretic Peptide 6021.47 H Triglycerides 190 H D Cholesterol 107 D Total LDL Cholesterol 38 HDL Cholesterol 10 L D TSH 0.37 Urine Color Urine Appearance Urine pH Ur Specific [place] Urine Protein Urine Glucose (UA) Urine Ketones Urine Blood Urine Nitrite Urine Bilirubin Urine Urobilinogen Urine RBC Urine WBC Ur Epithelial Cells Amorphous Urates Urine Mucus RPR Titer 03/11/17 03/11/17 03/11/17 09:45 09:50 10:20 WBC RBC Hgb Hct MCV MCH MCHC RDW Plt Count MPV Neutrophils % Lymphocytes % Monocytes % Eosinophils % Basophils % Puncture Site ABG pH ABG pCO2 at Pt Temp ABG pO2 at Pt Temp ABG HCO3 ABG O2 Sat (Measured) ABG O2 Content ABG Base Excess Juan Daniel Test O2 Delivery Device Oxygen Flow Rate PEEP Hemoglobin A1c % Lactic Acid 2.9 H* Phosphorus Magnesium Ammonia < 10.0 L Creatine Kinase Creatine Kinase Index CK-MB (CK-2) Troponin I B-Natriuretic Peptide Triglycerides Cholesterol Total LDL Cholesterol HDL Cholesterol TSH Urine Color Urine Appearance Urine pH Ur Specific [place] Urine Protein Urine Glucose (UA) Urine Ketones Urine Blood Urine Nitrite Urine Bilirubin Urine Urobilinogen Urine RBC Urine WBC Ur Epithelial Cells Amorphous Urates Urine Mucus RPR Titer Nonreactive 03/11/17 03/11/17 03/11/17 10:20 12:25 15:00 WBC RBC Hgb Hct MCV MCH MCHC RDW Plt Count MPV Neutrophils % Lymphocytes % Monocytes % Eosinophils % Basophils % Puncture Site ABG pH ABG pCO2 at Pt Temp ABG pO2 at Pt Temp ABG HCO3 ABG O2 Sat (Measured) ABG O2 Content ABG Base Excess Juan Daniel Test O2 Delivery Device Oxygen Flow Rate PEEP Hemoglobin A1c % Lactic Acid 3.0 H* Phosphorus Magnesium Ammonia Creatine Kinase 1716 H Creatine Kinase Index 0.3 CK-MB (CK-2) 6.763 H Troponin I 0.26 H B-Natriuretic Peptide Triglycerides Cholesterol Total LDL Cholesterol HDL Cholesterol TSH 0.26 L D Urine Color Urine Appearance Urine pH Ur Specific [place] Urine Protein Urine Glucose (UA) Urine Ketones Urine Blood Urine Nitrite Urine Bilirubin Urine Urobilinogen Urine RBC Urine WBC Ur Epithelial Cells Amorphous Urates Urine Mucus RPR Titer 03/11/17 03/11/17 03/11/17 15:00 18:00 21:30 WBC RBC Hgb Hct MCV MCH MCHC RDW Plt Count MPV Neutrophils % Lymphocytes % Monocytes % Eosinophils % Basophils % Puncture Site ABG pH ABG pCO2 at Pt Temp ABG pO2 at Pt Temp ABG HCO3 ABG O2 Sat (Measured) ABG O2 Content ABG Base Excess Juan Daniel Test O2 Delivery Device Oxygen Flow Rate PEEP Hemoglobin A1c % Lactic Acid 3.4 H* 2.3 H* 1.0 Phosphorus Magnesium Ammonia Creatine Kinase Creatine Kinase Index CK-MB (CK-2) Troponin I B-Natriuretic Peptide Triglycerides Cholesterol Total LDL Cholesterol HDL Cholesterol TSH Urine Color Urine Appearance Urine pH Ur Specific [place] Urine Protein Urine Glucose (UA) Urine Ketones Urine Blood Urine Nitrite Urine Bilirubin Urine Urobilinogen Urine RBC Urine WBC Ur Epithelial Cells Amorphous Urates Urine Mucus RPR Titer 03/11/17 03/12/17 03/12/17 23:27 00:34 05:28 WBC 16.1 H RBC 4.30 Hgb 12.1 Hct 36.8 MCV 85.5 MCH 28.1 MCHC 32.8 RDW 14.5 Plt Count 124 L D MPV 9.1 Neutrophils % 69.7 Lymphocytes % 18.3 D Monocytes % 11.2 H Eosinophils % 0.4 D Basophils % 0.4 D Puncture Site Right radial ABG pH 7.48 H ABG pCO2 at Pt Temp 32.6 L D ABG pO2 at Pt Temp 167.0 H* ABG HCO3 24.2 ABG O2 Sat (Measured) 99.3 H ABG O2 Content 16.9 ABG Base Excess 1.6 Juan Daniel Test Positive O2 Delivery Device Venti mask Oxygen Flow Rate 50 PEEP 0.0 Hemoglobin A1c % Lactic Acid Phosphorus Magnesium Ammonia Creatine Kinase Creatine Kinase Index CK-MB (CK-2) Troponin I B-Natriuretic Peptide Triglycerides Cholesterol Total LDL Cholesterol HDL Cholesterol TSH Urine Color Yellow Urine Appearance Cloudy Urine pH 6.0 Ur Specific [place] 1.018 Urine Protein 2+ H Urine Glucose (UA) 1+ H Urine Ketones Negative Urine Blood 2+ H Urine Nitrite Negative Urine Bilirubin Negative Urine Urobilinogen Negative Urine RBC 40 Urine WBC None Ur Epithelial Cells Rare Amorphous Urates Many Urine Mucus Rare RPR Titer Active Medications Generic Name Dose Route Start Last Admin Trade Name Freq PRN Reason Stop Dose Admin Acetaminophen 1,000 mg 03/12/17 06:32 Ofirmev Injection - IVPB 03/13/17 00:33 Q6H PRN FEVER OR PAIN Chlorhexidine Gluconate 1 applic 03/11/17 22:00 03/11/17 22:00 Hibiclens For Decolonization - TP 1 applic HS VERONICA Administration Ceftriaxone Sodium 2 gm/ 100 mls @ 200 mls/hr 03/11/17 12:45 03/11/17 22:53 Dextrose IVPB 200 mls/hr BID VERONICA Administration Vancomycin HCl 1,250 mg/ 250 mls @ 166.667 mls/hr 03/11/17 22:00 03/11/17 22:53 Dextrose IVPB 166.667 mls/hr BID VERONICA Administration Protocol Sodium Chloride 1,000 mls @ 150 mls/hr 03/11/17 20:51 03/11/17 21:00 Normal Saline - IV 150 mls/hr ASDIR VERONICA Administration Mupirocin 1 applic 03/11/17 10:00 03/11/17 22:30 Bactroban Ointment (For Decolonization) - NS 03/16/17 09:59 1 applic BID VERONICA Administration Sodium Chloride 1,000 ml 03/11/17 01:55 Normal Saline - IV Q20M PRN MAP<65mm Hg OR SBP <90 ASSESSMENT/PLAN: 1) Altered mental status --Unknown cause; ? Bacterial Meningitis vs. endocarditis --CT scan reviewed - interval change with dilated ventricles reflective of hydrocephalus --MRI could not be performed yesterday due to agitation/motion despite attempts at sedation -Per Neurology: CT scan w/ IV contrast for hydrocephalus vs. cortical degeneration --Cannot rule out meningitis: Febrile, firm posterior neck, AMS --Adding Dexamethasone 10mg q6h IV for four days --Blood cultures showing Strep Pneumo --ID consulted --Vancomycin 1250mg BID IV --Vancomycin Trough tonight --Ceftriazone increased to 2gm IV --Concerned about Strep Pneumo bacteremia seeding on valve replacements if not original source 2) Severe sepsis --Etiology unclear --Blood cultures as above --CXR ruled out PNA --ABX as above --Possibility of KHURRAM if meningitis ruled out; pt too unstable currently 3) Hypertroponinemia --Troponins elevated, but trending down --Most likely related to demand from sepsis syndrome 4) Questionable CHF history --Echocardiogram shows now interval change from 2012 to now. 5) Low TSH level --Most likely euthyroid sick syndrome FEN: Fluids: Normal saline at 100cc/hr Electrolyte abnormalities: Hypokalemia and hypophosphatemia; will replete Nutrition: NPO for now PPX DVT - Heparin 5000U TID and SCDs Prognosis: Guarded; will discuss code status with family; as of now FULL CODE Dispo: Continue ICU Critical care time 45 min Case discussed with Dr. Shailesh Morales, DO - Internal Medicine PGY-1 Visit type - Emergency Visit Emergency Visit: No - New Patient This patient is new to me today: No - Critical Care Critical Care patient: Yes Total Critical Care Time (in minutes): 45 Critical Care Statement: The care of this patient involved high complexity decision making to prevent further life threatening deterioration of the patient 's condition and/or to evaluate & treat vital organ system(s) failure or risk of failure.
[2017-03-12 07:37] LABS: ALK PHOS 100 U/L (45-117); ANION GAP 8 (8-16); BILIRUBIN,TOTAL 0.4 mg/dL (0.2-1.0); CALCIUM 7.9 mg/dL (8.5-10.1); CO2 25 mmol/L (21-32); CREATININE 0.6 mg/dL (0.55-1.02); GLUCOSE,RANDOM 132 mg/dL (74-106); MAGNESIUM 1.8 mg/dL (1.8-2.4); PHOSPHOROUS 2.3 mg/dL (2.5-4.9); SGOT/AST 79 U/L (15-37); SGPT/ALT 29 U/L (12-78); TOT PROT 7.7 g/dl (6.4-8.2)
--- NOTE | 2017-03-12 08:54 | PN ---
Progress Note (short form) - Note Progress Note: 57 year old female had fall on march 10, and was brought to hospital for confusion and mental status change HPI 57 year old female with history of HIV/AIDS( ON HAART therapy) cd4 is in 350s , She also have history of chf, htn, open heart surgery 9 triple valve replacement, anemi and polysubstance abuse. Patient has no history of seizure, she fell from bed and she had been bleeding through gums. As as baseline she has no cognitive difficulty. Patient has been agitated and delirious. She has stepto penumonie growing in blood and suspected to be Endocardiitis. Neurological Examination temp 101.9 wbc 16.1 and bp 162/97 Agitated , she is confused and not able to follow commond , moving all extremity spontaneously and on painful stimuli eomi, pupis is 5 mm bilaterally and briskly reactive, there is mild neck stiffness moving all extremity sensation is normal withraws to painfl stimuli ct head compared to jun 25 there is interval change and there is large ventricle , MRI with contrast cant be done as she was agitated. Assessment- acute confusional state , most likley could be meningitis/ encephalitis , Patient is being treated for strep pneumniae , She has spiked fever over night and wbc count is 16.1 Plan agree with ID regarding broad spectrum coverage , and spoke to ID would be adding steroid to prevent neurological complication , - if mri of brain cant be done, Please do ct with contrast to rule out any mass lesion, spoke to Dr Morales ( Resident at ICU) - Hold Spinal tap for now, spoke to Dr Roy as she is already on antibiotic treatment and spinal tap would not change treatment at this time and there is concern about mild Hydrocephalus . It would difficult to do spinal tap given she did not hOLD still after 6 mg of ativan for of brain. We would certainly attempt spinal tap if Primary team/ID wishes . -continue current icu care.
[2017-03-12] MEDS ORDERED: KCL 10 MEQ IVPB 100 ML IVPB SCH ×2 (09:00→10:15)
[2017-03-12] MEDS: SODIUM CHLORIDE 0.9%/KCL 1,000 ML IV SCH (09:00)
[2017-03-12] MEDS: DEXAMETHASONE SOD PHOSPHATE 10 MG/1 ML VIAL IVPB SCH ×3 (09:00→22:28)
[2017-03-12] MEDS ORDERED: POTASSIUM PHOSPHATE 40 MM in DEXTROSE 5%-WATER - 250 ML IVPB ONE (09:01)
[2017-03-12 09:42] LABS: C-REACTIVE PROTEIN 25.7 MG/DL (0.00-0.3)
[2017-03-12] MEDS: CEFTRIAXONE 2 GM in DEXTROSE 5%-WATER - 100 ML IVPB SCH ×2 (10:00→22:27)
[2017-03-12] MEDS ORDERED: MAGNESIUM SULF 50% (8.12 MEQ/2 ML-1 GM VIAL) IVPB ONE ×2 (10:00→11:24)
[2017-03-12] MEDS ORDERED: CEFTRIAXONE 1 GM in DEXTROSE 5%-WATER - 100 ML IVPB SCH (10:00)
[2017-03-12] MEDS ORDERED: AZITHROMYCIN IVPB 500 MG in DEXTROSE 5%-WATER - 250 ML IVPB SCH (10:00)
[2017-03-12] MEDS ORDERED: SODIUM CHLORIDE IVPB SCH (10:00)
[2017-03-12] MEDS ORDERED: POTASSIUM PHOSPHATE 40 MM in SODIUM CHLORIDE 500 ML IVPB ONE (10:00)
[2017-03-12] MEDS ORDERED: GENTAMICIN IVPB SCH (10:00)
[2017-03-12] MEDS: MUPIROCIN 2% TOPICAL OINTMENT FOR DECOLONIZATION NS SCH ×2 (10:39→22:28)
--- NOTE | 2017-03-12 11:01 | PN ---
Progress Note, Physician Chief Complaint: Pt on ventimask; tachypneic. History of Present Illness: The patient is a 57 year old black female with significant past medical history of HIV/AIDS, hypertension, COPD, CHF, anemia, polysubstance abuse, open heart surgery (triple valve replacement) brought in by EMS. Per EMS, the patient fell out of bed and landed on her back. On evaluation, the patient appears confused and is unable to answer questions clearly. Patient is a poor historian and unable to provide remainder of history. - Current Medication List Current Medications: Active Medications Acetaminophen (Ofirmev Injection -) 1,000 mg IVPB Q6H PRN PRN Reason: FEVER OR PAIN Stop: 03/13/17 00:33 Chlorhexidine Gluconate (Hibiclens For Decolonization -) 1 applic TP HS [facility] Last Admin: 03/11/17 22:00 Dose: 1 applic Dexamethasone Sodium Phosphate (Decadron Injection -) 10 mg IVPB Q6H-IV [facility] Heparin Sodium (Porcine) (Heparin -) 5,000 unit SQ TID [facility] Ceftriaxone Sodium 2 gm/ (Dextrose) 100 mls @ 200 mls/hr IVPB BID [facility] Last Admin: 03/11/17 22:53 Dose: 200 mls/hr Vancomycin HCl 1,250 mg/ (Dextrose) 250 mls @ 166.667 mls/hr IVPB BID [facility] PRN Reason: Protocol Last Admin: 03/11/17 22:53 Dose: 166.667 mls/hr Potassium Chloride/Sodium Chloride (Ns+20 Meq Kcl -) 1,000 mls @ 100 mls/hr IV ASDIR [facility] Potassium Phosphate 40 mm/ (Sodium Chloride) 513.3333 mls @ 64.167 mls/hr IVPB ONCE ONE Stop: 03/12/17 17:59 Potassium Chloride (Potassium Chloride 10 Meq Premix Ivpb -) 100 mls @ 100 mls/ hr IVPB Q60M [facility] Stop: 03/12/17 11:14 Mupirocin (Bactroban Ointment (For Decolonization) -) 1 applic NS BID [facility] Stop: 03/16/17 09:59 Last Admin: 03/11/17 22:30 Dose: 1 applic - Objective Vital Signs: Vital Signs Temperature 101.9 F H 03/12/17 06:00 Pulse Rate 116 H 03/12/17 08:00 Respiratory Rate 26 H 03/12/17 08:00 Blood Pressure 141/71 03/12/17 08:00 O2 Sat by Pulse Oximetry (%) 100 03/11/17 20:46 Labs: CBC, BMP 03/12/17 05:28 03/12/17 05:28 INR, PTT INR 1.41 (0.82-1.09) H 03/12/17 05:28 Problem List - Problems (2) HIV (human immunodeficiency virus infection) Code(s): B20 - HUMAN IMMUNODEFICIENCY VIRUS [HIV] DISEASE (3) Pneumonia Code(s): J18.9 - PNEUMONIA, UNSPECIFIED ORGANISM Qualifiers: Pneumonia type: due to unspecified organism Laterality: unspecified laterality Lung location: unspecified part of lung Qualified Code(s): J18.9 - Pneumonia, unspecified organism; J18.9 - Pneumonia, unspecified organism (4) Sepsis Code(s): A41.9 - SEPSIS, UNSPECIFIED ORGANISM Qualifiers: Sepsis type: sepsis due to unspecified organism Qualified Code(s): A41.9 - Sepsis, unspecified organism; A41.9 - Sepsis, unspecified organism; A41.9 - Sepsis, unspecified organism (5) Streptococcal meningitis Code(s): G00.2 - STREPTOCOCCAL MENINGITIS (6) Depressive disorder Code(s): F32.9 - MAJOR DEPRESSIVE DISORDER, SINGLE EPISODE, UNSPECIFIED (7) Acute respiratory failure with hypoxia and hypercapnia Code(s): J96.01 - ACUTE RESPIRATORY FAILURE WITH HYPOXIA (8) Screening for malignant neoplasm of cervix Code(s): Z12.4 - ENCOUNTER FOR SCREENING FOR MALIGNANT NEOPLASM OF CERVIX (9) Tobacco use Code(s): Z72.0 - TOBACCO USE (10) Elevated troponin Assessment/Plan: mildly elvated TNI that does not meet UT threshold; CK rel index low. Increase likely from demand stress: sepsis, CHF, electrolyte imbalance Code(s): R74.8 - ABNORMAL LEVELS OF OTHER SERUM ENZYMES (11) Hypothyroid Assessment/Plan: low TSH; f/u TFTs Code(s): E03.9 - HYPOTHYROIDISM, UNSPECIFIED
--- NOTE | 2017-03-12 11:28 | PN ---
Teaching Attending Note Name of Resident: Foreign [place] ATTENDING PHYSICIAN STATEMENT I saw and evaluated the patient. I reviewed the resident's note and discussed the case with the resident. I agree with the resident's findings and plan as documented. SUBJECTIVE: Patient seen and examined in the ICU. Lethargic and poorly arousable. Not able to follow commands. Able to protect her airway. No significant change from last night. Intake & Output 03/09/17 03/10/17 03/11/17 03/12/17 23:59 23:59 23:59 23:59 Intake Total 900 1723 Output Total 300 350 Balance 600 1373 Weight 239 lb 15.994 oz Last Vital Signs Temp Pulse Resp BP Pulse Ox 99.1 F 104 H 21 120/89 100 03/12/17 10:00 03/12/17 10:00 03/12/17 10:00 03/12/17 10:00 03/11/17 20:46 Active Medications Acetaminophen (Ofirmev Injection -) 1,000 mg IVPB Q6H PRN PRN Reason: FEVER OR PAIN Stop: 03/13/17 00:33 Chlorhexidine Gluconate (Hibiclens For Decolonization -) 1 applic TP HS [facility] Last Admin: 03/11/17 22:00 Dose: 1 applic Dexamethasone Sodium Phosphate (Decadron Injection -) 10 mg IVPB Q6H-IV VERONICA Heparin Sodium (Porcine) (Heparin -) 5,000 unit SQ TID [facility] Ceftriaxone Sodium 2 gm/ (Dextrose) 100 mls @ 200 mls/hr IVPB BID [facility] Last Admin: 03/11/17 22:53 Dose: 200 mls/hr Vancomycin HCl 1,250 mg/ (Dextrose) 250 mls @ 166.667 mls/hr IVPB BID VERONICA PRN Reason: Protocol Last Admin: 03/11/17 22:53 Dose: 166.667 mls/hr Potassium Chloride/Sodium Chloride (Ns+20 Meq Kcl -) 1,000 mls @ 100 mls/hr IV ASDIR [facility] Potassium Phosphate 40 mm/ (Sodium Chloride) 513.3333 mls @ 64.167 mls/hr IVPB ONCE ONE Stop: 03/12/17 17:59 Potassium Chloride (Potassium Chloride 10 Meq Premix Ivpb -) 100 mls @ 100 mls/ hr IVPB Q60M [facility] Stop: 03/12/17 11:14 Mupirocin (Bactroban Ointment (For Decolonization) -) 1 applic NS BID VERONICA Stop: 03/16/17 09:59 Last Admin: 03/11/17 22:30 Dose: 1 applic GENERAL: Lethargic, not following commands HEAD: Normal with no signs of trauma. EYES: conjunctiva clear. (-) icterus NECK: no JVD present, normal range of motion LUNGS: few scattered rhonchi. No wheezes, and no crackles. Mild tachypneic HEART: Regular rate and rhythm, systolic murmur appreciated in tricuspid region ABDOMEN: Soft, nontender, not distended, (+) BS UPPER EXTREMITIES: 2+ radial pulses, warm, well-perfused. LOWER EXTREMITIES: 2+ dorsalis pedis pulses, warm, well-perfused. No calf tenderness. No peripheral edema. NEUROLOGICAL: Lethargic, not following commands Laboratory Results - last 24 hr 03/11/17 03/11/17 03/11/17 02:25 02:25 02:25 WBC 14.4 H D RBC 4.10 Hgb 11.8 Hct 35.5 MCV 86.5 D MCH 28.8 MCHC 33.2 RDW 14.4 Plt Count 172 MPV 9.1 Neutrophils % 86.0 H D Lymphocytes % 4.0 L D Monocytes % 9.9 Eosinophils % 0.0 D Basophils % 0.1 PT with INR 18.90 H INR 1.67 H D PTT (Actin FS) 28.5 Puncture Site ABG pH ABG pCO2 at Pt Temp ABG pO2 at Pt Temp ABG HCO3 ABG O2 Sat (Measured) ABG O2 Content ABG Base Excess Juan Daniel Test VBG pH POC VBG pCO2 POC VBG pO2 Mixed VBG HCO3 O2 Delivery Device Oxygen Flow Rate PEEP Sodium Potassium Chloride Carbon Dioxide Anion Gap BUN Creatinine Creat Clearance w eGFR Random Glucose Lactic Acid Calcium Phosphorus Magnesium Total Bilirubin AST ALT Alkaline Phosphatase Ammonia Creatine Kinase Creatine Kinase Index CK-MB (CK-2) Troponin I C-Reactive Protein Total Protein Albumin TSH Urine Color Yellow Urine Appearance Turbid Urine pH 5.0 D Ur Specific [place] 1.020 Urine Protein 2+ H Urine Glucose (UA) Negative Urine Ketones Negative Urine Blood 1+ H Urine Nitrite Negative Urine Bilirubin Negative Urine Urobilinogen 2.0 H Ur Leukocyte Esterase Negative Urine RBC 13 Urine WBC 3 Ur Epithelial Cells Many Amorphous Urates Many Urine Mucus Rare Vancomycin Pre-Dose Blood Type Antibody Screen 03/11/17 03/11/17 03/11/17 02:25 02:25 02:25 WBC RBC Hgb Hct MCV MCH MCHC RDW Plt Count MPV Neutrophils % Lymphocytes % Monocytes % Eosinophils % Basophils % PT with INR INR PTT (Actin FS) Puncture Site ABG pH ABG pCO2 at Pt Temp ABG pO2 at Pt Temp ABG HCO3 ABG O2 Sat (Measured) ABG O2 Content ABG Base Excess Juan Daniel Test VBG pH POC VBG pCO2 POC VBG pO2 Mixed VBG HCO3 O2 Delivery Device Oxygen Flow Rate PEEP Sodium 133 L Potassium 3.5 Chloride 100 Carbon Dioxide 22 D Anion Gap 11 BUN 17 D Creatinine 0.8 Creat Clearance w eGFR > 60 Random Glucose 218 H D Lactic Acid 2.9 H* Calcium 7.7 L Phosphorus Magnesium Total Bilirubin 0.9 D AST 127 H D ALT 30 D Alkaline Phosphatase 127 H D Ammonia Creatine Kinase 1824 H Creatine Kinase Index 0.1 CK-MB (CK-2) 3.360 Troponin I 0.40 H C-Reactive Protein Total Protein 7.9 Albumin 2.1 L D TSH Urine Color Urine Appearance Urine pH Ur Specific [place] Urine Protein Urine Glucose (UA) Urine Ketones Urine Blood Urine Nitrite Urine Bilirubin Urine Urobilinogen Ur Leukocyte Esterase Urine RBC Urine WBC Ur Epithelial Cells Amorphous Urates Urine Mucus Vancomycin Pre-Dose Blood Type O POSITIVE Antibody Screen Negative 03/11/17 03/11/17 03/11/17 02:55 10:20 10:20 WBC RBC Hgb Hct MCV MCH MCHC RDW Plt Count MPV Neutrophils % Lymphocytes % Monocytes % Eosinophils % Basophils % PT with INR INR PTT (Actin FS) Puncture Site ABG pH ABG pCO2 at Pt Temp ABG pO2 at Pt Temp ABG HCO3 ABG O2 Sat (Measured) ABG O2 Content ABG Base Excess Juan Daniel Test VBG pH 7.43 H POC VBG pCO2 37.4 L POC VBG pO2 23.9 L Mixed VBG HCO3 24.4 O2 Delivery Device Oxygen Flow Rate PEEP Sodium Potassium Chloride Carbon Dioxide Anion Gap BUN Creatinine Creat Clearance w eGFR Random Glucose Lactic Acid Calcium Phosphorus Magnesium Total Bilirubin AST ALT Alkaline Phosphatase Ammonia < 10.0 L Creatine Kinase Creatine Kinase Index CK-MB (CK-2) Troponin I C-Reactive Protein Total Protein Albumin TSH 0.26 L D Urine Color Urine Appearance Urine pH Ur Specific [place] Urine Protein Urine Glucose (UA) Urine Ketones Urine Blood Urine Nitrite Urine Bilirubin Urine Urobilinogen Ur Leukocyte Esterase Urine RBC Urine WBC Ur Epithelial Cells Amorphous Urates Urine Mucus Vancomycin Pre-Dose Blood Type Antibody Screen 03/11/17 03/11/17 03/11/17 12:25 15:00 15:00 WBC RBC Hgb Hct MCV MCH MCHC RDW Plt Count MPV Neutrophils % Lymphocytes % Monocytes % Eosinophils % Basophils % PT with INR INR PTT (Actin FS) Puncture Site ABG pH ABG pCO2 at Pt Temp ABG pO2 at Pt Temp ABG HCO3 ABG O2 Sat (Measured) ABG O2 Content ABG Base Excess Juan Daniel Test VBG pH POC VBG pCO2 POC VBG pO2 Mixed VBG HCO3 O2 Delivery Device Oxygen Flow Rate PEEP Sodium Potassium Chloride Carbon Dioxide Anion Gap BUN Creatinine Creat Clearance w eGFR Random Glucose Lactic Acid 3.0 H* 3.4 H* Calcium Phosphorus Magnesium Total Bilirubin AST ALT Alkaline Phosphatase Ammonia Creatine Kinase 1716 H Creatine Kinase Index 0.3 CK-MB (CK-2) 6.763 H Troponin I 0.26 H C-Reactive Protein Total Protein Albumin TSH Urine Color Urine Appearance Urine pH Ur Specific [place] Urine Protein Urine Glucose (UA) Urine Ketones Urine Blood Urine Nitrite Urine Bilirubin Urine Urobilinogen Ur Leukocyte Esterase Urine RBC Urine WBC Ur Epithelial Cells Amorphous Urates Urine Mucus Vancomycin Pre-Dose Blood Type Antibody Screen 03/11/17 03/11/17 03/11/17 18:00 21:30 23:27 WBC RBC Hgb Hct MCV MCH MCHC RDW Plt Count MPV Neutrophils % Lymphocytes % Monocytes % Eosinophils % Basophils % PT with INR INR PTT (Actin FS) Puncture Site Right radial ABG pH 7.48 H ABG pCO2 at Pt Temp 32.6 L D ABG pO2 at Pt Temp 167.0 H* ABG HCO3 24.2 ABG O2 Sat (Measured) 99.3 H ABG O2 Content 16.9 ABG Base Excess 1.6 Juan Daniel Test Positive VBG pH POC VBG pCO2 POC VBG pO2 Mixed VBG HCO3 O2 Delivery Device Venti mask Oxygen Flow Rate 50 PEEP 0.0 Sodium Potassium Chloride Carbon Dioxide Anion Gap BUN Creatinine Creat Clearance w eGFR Random Glucose Lactic Acid 2.3 H* 1.0 Calcium Phosphorus Magnesium Total Bilirubin AST ALT Alkaline Phosphatase Ammonia Creatine Kinase Creatine Kinase Index CK-MB (CK-2) Troponin I C-Reactive Protein Total Protein Albumin TSH Urine Color Urine Appearance Urine pH Ur Specific [place] Urine Protein Urine Glucose (UA) Urine Ketones Urine Blood Urine Nitrite Urine Bilirubin Urine Urobilinogen Ur Leukocyte Esterase Urine RBC Urine WBC Ur Epithelial Cells Amorphous Urates Urine Mucus Vancomycin Pre-Dose Blood Type Antibody Screen 03/12/17 03/12/17 03/12/17 00:34 05:28 05:28 WBC 16.1 H RBC 4.30 Hgb 12.1 Hct 36.8 MCV 85.5 MCH 28.1 MCHC 32.8 RDW 14.5 Plt Count 124 L D MPV 9.1 Neutrophils % 69.7 Lymphocytes % 18.3 D Monocytes % 11.2 H Eosinophils % 0.4 D Basophils % 0.4 D PT with INR INR PTT (Actin FS) Puncture Site ABG pH ABG pCO2 at Pt Temp ABG pO2 at Pt Temp ABG HCO3 ABG O2 Sat (Measured) ABG O2 Content ABG Base Excess Juan Daniel Test VBG pH POC VBG pCO2 POC VBG pO2 Mixed VBG HCO3 O2 Delivery Device Oxygen Flow Rate PEEP Sodium 137 Potassium 2.9 L* Chloride 104 Carbon Dioxide 25 Anion Gap 8 BUN 16 Creatinine 0.6 D Creat Clearance w eGFR > 60 Random Glucose 132 H D Lactic Acid Calcium 7.9 L Phosphorus 2.3 L Magnesium 1.8 D Total Bilirubin 0.4 D AST 79 H D ALT 29 Alkaline Phosphatase 100 D Ammonia Creatine Kinase Creatine Kinase Index CK-MB (CK-2) Troponin I C-Reactive Protein 25.7 H Total Protein 7.7 Albumin 2.0 L TSH Urine Color Yellow Urine Appearance Cloudy Urine pH 6.0 Ur Specific [place] 1.018 Urine Protein 2+ H Urine Glucose (UA) 1+ H Urine Ketones Negative Urine Blood 2+ H Urine Nitrite Negative Urine Bilirubin Negative Urine Urobilinogen Negative Ur Leukocyte Esterase Urine RBC 40 Urine WBC None Ur Epithelial Cells Rare Amorphous Urates Many Urine Mucus Rare Vancomycin Pre-Dose Blood Type Antibody Screen 03/12/17 03/12/17 03/12/17 05:28 05:28 08:35 WBC RBC Hgb Hct MCV MCH MCHC RDW Plt Count MPV Neutrophils % Lymphocytes % Monocytes % Eosinophils % Basophils % PT with INR 15.90 H INR 1.41 H PTT (Actin FS) Puncture Site ABG pH ABG pCO2 at Pt Temp ABG pO2 at Pt Temp ABG HCO3 ABG O2 Sat (Measured) ABG O2 Content ABG Base Excess Juan Daniel Test VBG pH POC VBG pCO2 POC VBG pO2 Mixed VBG HCO3 O2 Delivery Device Oxygen Flow Rate PEEP Sodium Potassium Chloride Carbon Dioxide Anion Gap BUN Creatinine Creat Clearance w eGFR Random Glucose Lactic Acid Calcium Phosphorus Magnesium Total Bilirubin AST ALT Alkaline Phosphatase Ammonia Creatine Kinase Creatine Kinase Index CK-MB (CK-2) Troponin I C-Reactive Protein Cancelled Total Protein Albumin TSH Urine Color Urine Appearance Urine pH Ur Specific [place] Urine Protein Urine Glucose (UA) Urine Ketones Urine Blood Urine Nitrite Urine Bilirubin Urine Urobilinogen Ur Leukocyte Esterase Urine RBC Urine WBC Ur Epithelial Cells Amorphous Urates Urine Mucus Vancomycin Pre-Dose 14.402 H Blood Type Antibody Screen IMP: Toxic Metabolic Encephalopathy (?) Meningitis HIV/AIDS COPD HTN Pulmonary HTN OHS Valve replacement Anemia Sepsis Polysubstance Abuse S/P Fall PLAN: ABX per ID Aspiration Precautions Follow cultures Noted steroids added Replete lytes VTE prophylaxis ICU monitoring Dr Rodrigues Critical care time spent in reviewing chart, evaluating patient and formulating plan - 40 minutes.
[2017-03-12 11:33] LABS: URINE LEUK ESTERASE Negative (NEGATIVE)
[2017-03-12] MEDS: VANCOMYCIN 1,250 MG in DEXTROSE 5%-WATER - 250 ML IVPB SCH ×2 (11:35→22:27)
[2017-03-12 12:02] LABS: FREE T4 1.21 ng/dl (0.76-1.46)
--- NOTE | 2017-03-12 12:24 | PN ---
Physical Exam: SUBJECTIVE: Patient seen and examined. patient has altered mental status. didn't cooperate in exam. continuously moving. Patient couldn't get the MRI as she was contniously moving. Has h/o valve replacement. he is on antibiotics as per ID neurology is on case. OBJECTIVE: Vital Signs Period Temp Pulse Resp BP Sys/Álvarez Pulse Ox Last 24 Hr 98.8 F-101.9 F 96-120 21-39 116-162/71-97 99-100 GENERAL: patient agitated, continuously moving body parts. didn't respond to verbal command. EYES: rashi closes her eyes on trying check eyes, mucus membrane dry NECK: Trachea midline, full range of motion, supple. LUNGS: Breath sounds equal, clear to auscultation bilaterally, no wheezes, no crackles, no accessory muscle use. HEART: tachycardia, , holosystolic murmur at left sternal border ABDOMEN: Soft, nontender, nondistended, normoactive bowel sounds, no guarding, EXTREMITIES: no edema NEUROLOGICAL: no facial droop noted, moving all 4 limbs. SKIN: Warm, dry, normal turgor, no rashes or lesions noted Laboratory Results - last 24 hr 03/11/17 03/11/17 03/11/17 12:25 15:00 15:00 WBC RBC Hgb Hct MCV MCH MCHC RDW Plt Count MPV Neutrophils % Lymphocytes % Monocytes % Eosinophils % Basophils % PT with INR INR Puncture Site ABG pH ABG pCO2 at Pt Temp ABG pO2 at Pt Temp ABG HCO3 ABG O2 Sat (Measured) ABG O2 Content ABG Base Excess Juan Daniel Test O2 Delivery Device Oxygen Flow Rate PEEP Sodium Potassium Chloride Carbon Dioxide Anion Gap BUN Creatinine Creat Clearance w eGFR Random Glucose Lactic Acid 3.0 H* 3.4 H* Calcium Phosphorus Magnesium Total Bilirubin AST ALT Alkaline Phosphatase Creatine Kinase 1716 H Creatine Kinase Index 0.3 CK-MB (CK-2) 6.763 H Troponin I 0.26 H C-Reactive Protein Total Protein Albumin Free T4 Urine Color Urine Appearance Urine pH Ur Specific [place] Urine Protein Urine Glucose (UA) Urine Ketones Urine Blood Urine Nitrite Urine Bilirubin Urine Urobilinogen Ur Leukocyte Esterase Urine RBC Urine WBC Ur Epithelial Cells Amorphous Urates Urine Mucus Vancomycin Pre-Dose 03/11/17 03/11/17 03/11/17 18:00 21:30 23:27 WBC RBC Hgb Hct MCV MCH MCHC RDW Plt Count MPV Neutrophils % Lymphocytes % Monocytes % Eosinophils % Basophils % PT with INR INR Puncture Site Right radial ABG pH 7.48 H ABG pCO2 at Pt Temp 32.6 L D ABG pO2 at Pt Temp 167.0 H* ABG HCO3 24.2 ABG O2 Sat (Measured) 99.3 H ABG O2 Content 16.9 ABG Base Excess 1.6 Juan Daniel Test Positive O2 Delivery Device Venti mask Oxygen Flow Rate 50 PEEP 0.0 Sodium Potassium Chloride Carbon Dioxide Anion Gap BUN Creatinine Creat Clearance w eGFR Random Glucose Lactic Acid 2.3 H* 1.0 Calcium Phosphorus Magnesium Total Bilirubin AST ALT Alkaline Phosphatase Creatine Kinase Creatine Kinase Index CK-MB (CK-2) Troponin I C-Reactive Protein Total Protein Albumin Free T4 Urine Color Urine Appearance Urine pH Ur Specific [place] Urine Protein Urine Glucose (UA) Urine Ketones Urine Blood Urine Nitrite Urine Bilirubin Urine Urobilinogen Ur Leukocyte Esterase Urine RBC Urine WBC Ur Epithelial Cells Amorphous Urates Urine Mucus Vancomycin Pre-Dose 03/12/17 03/12/17 03/12/17 00:34 05:28 05:28 WBC 16.1 H RBC 4.30 Hgb 12.1 Hct 36.8 MCV 85.5 MCH 28.1 MCHC 32.8 RDW 14.5 Plt Count 124 L D MPV 9.1 Neutrophils % 69.7 Lymphocytes % 18.3 D Monocytes % 11.2 H Eosinophils % 0.4 D Basophils % 0.4 D PT with INR INR Puncture Site ABG pH ABG pCO2 at Pt Temp ABG pO2 at Pt Temp ABG HCO3 ABG O2 Sat (Measured) ABG O2 Content ABG Base Excess Juan Daniel Test O2 Delivery Device Oxygen Flow Rate PEEP Sodium 137 Potassium 2.9 L* Chloride 104 Carbon Dioxide 25 Anion Gap 8 BUN 16 Creatinine 0.6 D Creat Clearance w eGFR > 60 Random Glucose 132 H D Lactic Acid Calcium 7.9 L Phosphorus 2.3 L Magnesium 1.8 D Total Bilirubin 0.4 D AST 79 H D ALT 29 Alkaline Phosphatase 100 D Creatine Kinase Creatine Kinase Index CK-MB (CK-2) Troponin I C-Reactive Protein 25.7 H Total Protein 7.7 Albumin 2.0 L Free T4 1.21 Urine Color Yellow Urine Appearance Cloudy Urine pH 6.0 Ur Specific [place] 1.018 Urine Protein 2+ H Urine Glucose (UA) 1+ H Urine Ketones Negative Urine Blood 2+ H Urine Nitrite Negative Urine Bilirubin Negative Urine Urobilinogen Negative Ur Leukocyte Esterase Negative Urine RBC 40 Urine WBC None Ur Epithelial Cells Rare Amorphous Urates Many Urine Mucus Rare Vancomycin Pre-Dose 03/12/17 03/12/17 03/12/17 05:28 05:28 08:35 WBC RBC Hgb Hct MCV MCH MCHC RDW Plt Count MPV Neutrophils % Lymphocytes % Monocytes % Eosinophils % Basophils % PT with INR 15.90 H INR 1.41 H Puncture Site ABG pH ABG pCO2 at Pt Temp ABG pO2 at Pt Temp ABG HCO3 ABG O2 Sat (Measured) ABG O2 Content ABG Base Excess Juan Daniel Test O2 Delivery Device Oxygen Flow Rate PEEP Sodium Potassium Chloride Carbon Dioxide Anion Gap BUN Creatinine Creat Clearance w eGFR Random Glucose Lactic Acid Calcium Phosphorus Magnesium Total Bilirubin AST ALT Alkaline Phosphatase Creatine Kinase Creatine Kinase Index CK-MB (CK-2) Troponin I C-Reactive Protein Cancelled Total Protein Albumin Free T4 Urine Color Urine Appearance Urine pH Ur Specific [place] Urine Protein Urine Glucose (UA) Urine Ketones Urine Blood Urine Nitrite Urine Bilirubin Urine Urobilinogen Ur Leukocyte Esterase Urine RBC Urine WBC Ur Epithelial Cells Amorphous Urates Urine Mucus Vancomycin Pre-Dose 14.402 H 03/12/17 11:00 WBC RBC Hgb Hct MCV MCH MCHC RDW Plt Count MPV Neutrophils % Lymphocytes % Monocytes % Eosinophils % Basophils % PT with INR INR Puncture Site ABG pH ABG pCO2 at Pt Temp ABG pO2 at Pt Temp ABG HCO3 ABG O2 Sat (Measured) ABG O2 Content ABG Base Excess Juan Daniel Test O2 Delivery Device Oxygen Flow Rate PEEP Sodium Potassium Chloride Carbon Dioxide Anion Gap BUN Creatinine Creat Clearance w eGFR Random Glucose Lactic Acid Calcium Phosphorus Magnesium Total Bilirubin AST ALT Alkaline Phosphatase Creatine Kinase Creatine Kinase Index CK-MB (CK-2) Troponin I C-Reactive Protein Total Protein Albumin Free T4 Cancelled Urine Color Urine Appearance Urine pH Ur Specific [place] Urine Protein Urine Glucose (UA) Urine Ketones Urine Blood Urine Nitrite Urine Bilirubin Urine Urobilinogen Ur Leukocyte Esterase Urine RBC Urine WBC Ur Epithelial Cells Amorphous Urates Urine Mucus Vancomycin Pre-Dose Active Medications Generic Name Dose Route Start Last Admin Trade Name Freq PRN Reason Stop Dose Admin Acetaminophen 1,000 mg 03/12/17 06:32 Ofirmev Injection - IVPB 03/13/17 00:33 Q6H PRN FEVER OR PAIN Chlorhexidine Gluconate 1 applic 03/11/17 22:00 03/11/17 22:00 Hibiclens For Decolonization - TP 1 applic HS VERONICA Administration Dexamethasone Sodium Phosphate 10 mg 03/12/17 09:30 Decadron Injection - IVPB Q6H-IV VERONICA Heparin Sodium (Porcine) 5,000 unit 03/12/17 14:00 Heparin - SQ TID [facility]ONICA Ceftriaxone Sodium 2 gm/ 100 mls @ 200 mls/hr 03/11/17 12:45 03/11/17 22:53 Dextrose IVPB 200 mls/hr BID VERONICA Administration Vancomycin HCl 1,250 mg/ 250 mls @ 166.667 mls/hr 03/11/17 22:00 03/11/17 22:53 Dextrose IVPB 166.667 mls/hr BID VERONICA Administration Protocol Potassium Chloride/Sodium Chloride 1,000 mls @ 100 mls/hr 03/12/17 09:30 Ns+20 Meq Kcl - IV ASDIR [facility] Potassium Phosphate 40 mm/ 513.3333 mls @ 64.167 mls/hr 03/12/17 10:00 Sodium Chloride IVPB 03/12/17 17:59 ONCE ONE Potassium Chloride 100 mls @ 100 mls/hr 03/12/17 10:15 Potassium Chloride 10 Meq Premix Ivpb - IVPB 03/12/17 11:14 Q60M [facility] Potassium Chloride 100 mls @ 100 mls/hr 03/12/17 11:30 Potassium Chloride 10 Meq Premix Ivpb - IVPB 03/12/17 14:29 Q60M [facility] Magnesium Sulfate 1 gm 03/12/17 11:24 Magnesium Sulfate IVPB 03/12/17 11:25 ONCE ONE Mupirocin 1 applic 03/11/17 10:00 03/11/17 22:30 Bactroban Ointment (For Decolonization) - NS 03/16/17 09:59 1 applic BID VERONICA Administration ASSESSMENT/PLAN: Metabolic Encephalopathy ? endocarditis. (?) Meningitis HIV/AIDS COPD HTN Pulmonary HTN h/o Valve replacement Anemia Sepsis Polysubstance Abuse S/P Fall non complaint with HIV meds. PLAN: monito vitals monitor intake output keep head end elevated. keep cvp around 10-12 ABX per ID ceftriaxone, genta, vanco. on steroid for suspected meningitis. Aspiration Precautions Follow cultures Replete lytes VTE prophylaxis. CT head reviewed. ECHO reviewed. Got potassium, and mag. Visit type - Emergency Visit Emergency Visit: Yes ED Registration Date: 03/11/17 Care time: The patient presented to the Emergency Department on the above date and was hospitalized for further evaluation of their emergent condition. - New Patient This patient is new to me today: Yes Date on this admission: 03/12/17 - Critical Care Critical Care patient: Yes Total Critical Care Time (in minutes): 45 Critical Care Statement: The care of this patient involved high complexity decision making to prevent further life threatening deterioration of the patient 's condition and/or to evaluate & treat vital organ system(s) failure or risk of failure.
--- NOTE | 2017-03-12 14:16 | PN ---
Teaching Attending Note Name of Resident: Darien Morales ATTENDING PHYSICIAN STATEMENT I saw and evaluated the patient. I reviewed the resident's note and discussed the case with the resident. I agree with the resident's findings and plan as documented. SUBJECTIVE: No events over night . MRI could not be done OBJECTIVE: Resists eye opening, more awake today, follows some simple commands, dry MM , tachypnic Neuro : symmetric face, round equal pupils , 5 mm in diameter , reactive to light. no facial droop. neck rigidity Normal tone in upper extremities , no tremor. 2+ knee jerk and biceps b/l . rest of neuro exam could not be performed. CV: Regular rhythm, tachy. 5/6 SM at LLSB and apex , 4-6 SM at LUSB . No JVD Lungs : CTAB Abd: soft,no TTP , nl BS Ext: no edema ASSESSMENT AND PLAN: 57 y/o lady with h/o HIV, aortic and mitral valve replacement with bioprosthetic valves, ? CHF, COPD, anemia and other medical problems who presented with AMS. 1- AMS : Likely due to bacterial meningitis with resultant hydrocephalus and severe sepsis mental status still confused( but received ativan last night ) , and pt stillhas fever and worsening leukocytosis MRI could not be done . - cont ceftriaxone and vanco - vanco trough tonight goal 15-20 - repeat blood cx - d/w surendra Huerta added - CT scan of head w contrast as MRI can't be done - since blood cx is positive , and LP is not safe to perform due to hydrocephalus and inability to perform MRI. Will hold off now - cont IVF 2- Slight elevation in trop likely due to demand ischemia echo reviewed. 3- Slight decrease in TSH , unreliable at this point , possible euthyroid sick syndrome - repeat in a steady state 4- replete electrolytes CCT 45 min Critical Care Total Critical Care Time (in minutes): 45 Critical Care Statement: The care of this patient involved high complexity decision making to prevent further life threatening deterioration of the patient 's condition and/or to evaluate & treat vital organ system(s) failure or risk of failure.
[2017-03-12] MEDS: HEPARIN NA (PORCINE) 5,000 UNITS/ML 1ML VIAL SQ SCH ×2 (14:41→22:27)
[2017-03-12] MEDS: KCL 10 MEQ IVPB 100 ML IVPB SCH (14:47)
[2017-03-12 17:52] LABS: ANION GAP 10 (8-16); CALCIUM 7.7 mg/dL (8.5-10.1); CO2 22 mmol/L (21-32); CREATININE 0.6 mg/dL (0.55-1.02); GLUCOSE,RANDOM 118 mg/dL (74-106); PHOSPHOROUS 4.8 mg/dL (2.5-4.9)
[2017-03-12] MEDS ORDERED: PT OWN MED DRAWER 7, Y5N ONE (22:21)
[2017-03-12] MEDS: CHLORHEXIDINE GLUCONATE 4% CLEANSER FOR DECOLONIZATION TP SCH (22:34)
[2017-03-13] MEDS: DEXAMETHASONE SOD PHOSPHATE 10 MG/1 ML VIAL IVPB SCH ×4 (03:32→21:00)
[2017-03-13 06:09] LABS: BASOPHIL 0.3 % (0-2.0); MCH 28.7 pg (25.7-33.7); MCHC 33.5 g/dl (32.0-36.0); MEAN CELL VOLUME 85.6 fl (80-96); MEAN PLT VOLUME 9.5 fl (7.5-11.1); NEUTROPHILS 79.6 % (42.8-82.8); PLATELET COUNT 132 K/MM3 (134-434); RDW 14.7 % (11.6-15.6); WHITE BLOOD COUNT 11.3 K/mm3 (4.0-10.0)
[2017-03-13] MEDS: HEPARIN NA (PORCINE) 5,000 UNITS/ML 1ML VIAL SQ SCH ×3 (06:13→21:00)
[2017-03-13 06:17] LABS: INR 1.19 (0.82-1.09); PROTHROMBIN TIME (PATIENT) 13.4 SEC (9.98-11.88)
[2017-03-13 07:03] LABS: ALK PHOS 95 U/L (45-117); BILIRUBIN,TOTAL 0.3 mg/dL (0.2-1.0); SGOT/AST 40 U/L (15-37); TOT PROT 7.8 g/dl (6.4-8.2)
[2017-03-13 07:17] LABS: ALBUMIN 1.6 g/dl (3.4-5.0); ANION GAP 7 (8-16); CO2 25 mmol/L (21-32); CREATININE 0.6 mg/dL (0.55-1.02); GLUCOSE,RANDOM 115 mg/dL (74-106); MAGNESIUM 2.3 mg/dL (1.8-2.4); PHOSPHOROUS 2.7 mg/dL (2.5-4.9); SGPT/ALT 28 U/L (12-78)
[2017-03-13 07:28] LABS: CALCIUM 8.7 mg/dL (8.5-10.1)
--- NOTE | 2017-03-13 07:29 | PN ---
Progress Note, Physician Chief Complaint: ID Remain agitated unable to answer any commands questions Her fever is down may be due to Decadron Vancomycin Ceftriaxone - Current Medication List Current Medications: Active Medications Chlorhexidine Gluconate (Hibiclens For Decolonization -) 1 applic TP HS [facility] Last Admin: 03/12/17 22:34 Dose: 1 applic Dexamethasone Sodium Phosphate (Decadron Injection -) 10 mg IVPB Q6H-IV [facility] Last Admin: 03/13/17 03:32 Dose: 10 mg Heparin Sodium (Porcine) (Heparin -) 5,000 unit SQ TID [facility] Last Admin: 03/13/17 06:13 Dose: 5,000 unit Ceftriaxone Sodium 2 gm/ (Dextrose) 100 mls @ 200 mls/hr IVPB BID [facility] Last Admin: 03/12/17 22:27 Dose: 200 mls/hr Vancomycin HCl 1,250 mg/ (Dextrose) 250 mls @ 166.667 mls/hr IVPB BID [facility] PRN Reason: Protocol Last Admin: 03/12/17 22:27 Dose: 166.667 mls/hr Potassium Chloride/Sodium Chloride (Ns+20 Meq Kcl -) 1,000 mls @ 100 mls/hr IV ASDIR [facility] Last Admin: 03/12/17 09:00 Dose: 100 mls/hr Mupirocin (Bactroban Ointment (For Decolonization) -) 1 applic NS BID [facility] Stop: 03/16/17 09:59 Last Admin: 03/12/17 22:28 Dose: 1 applic - Objective Vital Signs: Vital Signs Temperature 99.1 F 03/13/17 04:00 Pulse Rate 97 H 03/13/17 06:00 Respiratory Rate 20 03/13/17 06:00 Blood Pressure 153/105 03/13/17 06:00 O2 Sat by Pulse Oximetry (%) 100 03/12/17 19:56 Constitutional: Yes: Moderate Distress Cardiovascular: Yes: Regular Rate and Rhythm, S1, S2. No: Murmur Respiratory: Yes: WNL, Regular, CTA Bilaterally Gastrointestinal: Yes: WNL, Normal Bowel Sounds, Soft. No: Tenderness Neurological: Yes: WNL, Alert Labs: CBC, BMP 03/13/17 05:50 03/13/17 05:50 INR, PTT INR 1.19 (0.82-1.09) H 03/13/17 05:50 Problem List - Problems (1) HIV (human immunodeficiency virus infection) Code(s): B20 - HUMAN IMMUNODEFICIENCY VIRUS [HIV] DISEASE (2) Sepsis Code(s): A41.9 - SEPSIS, UNSPECIFIED ORGANISM Qualifiers: Sepsis type: sepsis due to unspecified organism Qualified Code(s): A41.9 - Sepsis, unspecified organism; A41.9 - Sepsis, unspecified organism; A41.9 - Sepsis, unspecified organism (3) Endocarditis Code(s): I38 - ENDOCARDITIS, VALVE UNSPECIFIED (4) Streptococcal meningitis Code(s): G00.2 - STREPTOCOCCAL MENINGITIS Assessment/Plan Microbiology 03/11/17 18:30 Nasopharyngeal Swab Influenza Types A,B Antigen (SHIVA) - Final 03/11/17 18:30 Nasopharyngeal Swab - Final 03/11/17 16:32 Urine For Antigen Detection Legionella Antigen - Final 03/11/17 16:32 Urine For Antigen Detection Streptococcus pneumoniae Antigen (M - Final 03/11/17 02:25 Urine - Urine - Catheterized Urine Culture - Final NO GROWTH OBTAINED 03/11/17 02:25 Blood - Peripheral Venous Blood Culture - Preliminary Streptococcus Pneumoniae 03/11/17 02:25 Blood - Peripheral Venous Blood Culture - Preliminary Streptococcus Pneumoniae Laboratory Tests 03/11/17 03/11/17 03/12/17 02:25 02:25 05:28 WBC 14.4 H D 16.1 H Hgb Plt Count BUN Creatinine Creat Clearance w eGFR Total Bilirubin Alkaline Phosphatase Vancomycin Pre-Dose Opiates Screen Positive 03/12/17 03/12/17 03/13/17 08:35 21:05 05:50 WBC 11.3 H Hgb 12.8 Plt Count 132 L BUN Creatinine Creat Clearance w eGFR Total Bilirubin Alkaline Phosphatase Vancomycin Pre-Dose 14.402 H 12.645 H Opiates Screen 03/13/17 05:50 WBC Hgb Plt Count BUN 22 H D Creatinine 0.6 Creat Clearance w eGFR > 60 Total Bilirubin 0.3 D Alkaline Phosphatase 95 Vancomycin Pre-Dose Opiates Screen Assessment Strep pneumoniae bacteremia with meningitis suspected Hydrocephalus secondary inflammation/meningitis HIV infection currently off meds T cells over 300 Small amount fluids in mastoids and sinuses Bioprosthetic heart valves ? endocarditis Strep pneumo Plan Await sensitivities if PCN susceptable can drop the Vancomycin With hydrocephalus in HIV must always consider Cryptococcus but blood culture makes this unlikely Will do Cryto AG for completeness Blood cultures pending repeat Critical care time spent 38 minutes
--- NOTE | 2017-03-13 07:57 | PN ---
Physical Exam: SUBJECTIVE: HPI limited due to clinical status. Pt remains arousable, non-verbal , confused, however will now respond to basic commands. Pt will track voice and move head to your voice remaining nonverbal with some sporadic movements of limbs. OBJECTIVE: Vital Signs Period Temp Pulse Resp BP Sys/Álvarez Pulse Ox Last 24 Hr 98.8 F-99.6 F 81-116 20-35 115-153/48-111 100-100 GENERAL: Mod distress, unresponsive, agitated, unresponsive to verbal commands, arousable to sternal rub HEENT: Pt closes eyelids to light stimulus, pupils JAMESON continually sluggish, dry mucous membranes with cracked lips, slightly firm posterior neck, No JVD LUNGS: CTA bilaterally, no wheezes, rhonchi, rales appreciated. No accessory muscle use. HEART: Tachycardic regular rhythm, 5/6 holosystolic murmur appreciated at the L lower sternal border. ABDOMEN: Soft, non distended, hypoactive BS, pt increases agitation when abdomen is palpated, no masses appreciated EXTREMITIES: L arm induration from hand to elbow. No erythema, no lesions/ lacerations/abrasions noted. Peripheral IV line not in use in L arm NEUROLOGICAL: Facial symmetry noted, Moving all four extremities against gravity , no tremor noted SKIN: No rashes or lesions noted. Laboratory Results - last 24 hr 03/12/17 03/12/17 03/12/17 00:34 05:28 05:28 WBC RBC Hgb Hct MCV MCH MCHC RDW Plt Count MPV Neutrophils % Lymphocytes % Monocytes % Eosinophils % Basophils % PT with INR 15.90 H INR 1.41 H Sodium 137 Potassium 2.9 L* Chloride 104 Carbon Dioxide 25 Anion Gap 8 BUN 16 Creatinine 0.6 D Creat Clearance w eGFR > 60 Random Glucose 132 H D Calcium 7.9 L Phosphorus 2.3 L Magnesium 1.8 D Total Bilirubin 0.4 D AST 79 H D ALT 29 Alkaline Phosphatase 100 D C-Reactive Protein 25.7 H Total Protein 7.7 Albumin 2.0 L Free T4 1.21 Urine Color Yellow Urine Appearance Cloudy Urine pH 6.0 Ur Specific [place] 1.018 Urine Protein 2+ H Urine Glucose (UA) 1+ H Urine Ketones Negative Urine Blood 2+ H Urine Nitrite Negative Urine Bilirubin Negative Urine Urobilinogen Negative Ur Leukocyte Esterase Negative Urine RBC 40 Urine WBC None Ur Epithelial Cells Rare Amorphous Urates Many Urine Mucus Rare Vancomycin Pre-Dose 03/12/17 03/12/17 03/12/17 05:28 08:35 11:00 WBC RBC Hgb Hct MCV MCH MCHC RDW Plt Count MPV Neutrophils % Lymphocytes % Monocytes % Eosinophils % Basophils % PT with INR INR Sodium Potassium Chloride Carbon Dioxide Anion Gap BUN Creatinine Creat Clearance w eGFR Random Glucose Calcium Phosphorus Magnesium Total Bilirubin AST ALT Alkaline Phosphatase C-Reactive Protein Cancelled Total Protein Albumin Free T4 Cancelled Urine Color Urine Appearance Urine pH Ur Specific [place] Urine Protein Urine Glucose (UA) Urine Ketones Urine Blood Urine Nitrite Urine Bilirubin Urine Urobilinogen Ur Leukocyte Esterase Urine RBC Urine WBC Ur Epithelial Cells Amorphous Urates Urine Mucus Vancomycin Pre-Dose 14.402 H 03/12/17 03/12/17 03/13/17 16:00 21:05 05:50 WBC 11.3 H RBC 4.48 Hgb 12.8 Hct 38.3 MCV 85.6 MCH 28.7 MCHC 33.5 RDW 14.7 Plt Count 132 L MPV 9.5 Neutrophils % 79.6 Lymphocytes % 15.1 Monocytes % 5.0 Eosinophils % 0.0 D Basophils % 0.3 PT with INR INR Sodium 140 Potassium 4.0 D Chloride 108 H Carbon Dioxide 22 Anion Gap 10 BUN 15 Creatinine 0.6 Creat Clearance w eGFR Random Glucose 118 H Calcium 7.7 L Phosphorus 4.8 D Magnesium Total Bilirubin AST ALT Alkaline Phosphatase C-Reactive Protein Total Protein Albumin Free T4 Urine Color Urine Appearance Urine pH Ur Specific [place] Urine Protein Urine Glucose (UA) Urine Ketones Urine Blood Urine Nitrite Urine Bilirubin Urine Urobilinogen Ur Leukocyte Esterase Urine RBC Urine WBC Ur Epithelial Cells Amorphous Urates Urine Mucus Vancomycin Pre-Dose 12.645 H 03/13/17 03/13/17 05:50 05:50 WBC RBC Hgb Hct MCV MCH MCHC RDW Plt Count MPV Neutrophils % Lymphocytes % Monocytes % Eosinophils % Basophils % PT with INR 13.40 H INR 1.19 H Sodium 144 Potassium 4.0 Chloride 112 H Carbon Dioxide 25 Anion Gap 7 L BUN 22 H D Creatinine 0.6 Creat Clearance w eGFR > 60 Random Glucose 115 H Calcium 8.7 Phosphorus 2.7 D Magnesium 2.3 D Total Bilirubin 0.3 D AST 40 H D ALT 28 Alkaline Phosphatase 95 C-Reactive Protein Total Protein 7.8 Albumin 1.6 L Free T4 Urine Color Urine Appearance Urine pH Ur Specific [place] Urine Protein Urine Glucose (UA) Urine Ketones Urine Blood Urine Nitrite Urine Bilirubin Urine Urobilinogen Ur Leukocyte Esterase Urine RBC Urine WBC Ur Epithelial Cells Amorphous Urates Urine Mucus Vancomycin Pre-Dose Active Medications Generic Name Dose Route Start Last Admin Trade Name Evinq PRN Reason Stop Dose Admin Chlorhexidine Gluconate 1 applic 03/11/17 22:00 03/12/17 22:34 Hibiclens For Decolonization - TP 1 applic HS [facility] Administration Dexamethasone Sodium Phosphate 10 mg 03/12/17 09:30 03/13/17 03:32 Decadron Injection - IVPB 10 mg Q6H-IV [facility] Administration Heparin Sodium (Porcine) 5,000 unit 03/12/17 14:00 03/13/17 06:13 Heparin - SQ 5,000 unit TID [facility] Administration Ceftriaxone Sodium 2 gm/ 100 mls @ 200 mls/hr 03/11/17 12:45 03/12/17 22:27 Dextrose IVPB 200 mls/hr BID [facility] Administration Vancomycin HCl 1,250 mg/ 250 mls @ 166.667 mls/hr 03/11/17 22:00 03/12/17 22:27 Dextrose IVPB 166.667 mls/hr BID [facility] Administration Protocol Potassium Chloride/Sodium Chloride 1,000 mls @ 100 mls/hr 03/12/17 09:30 09:00 Ns+20 Meq Kcl - IV 100 mls/hr ASDIR [facility] Administration Mupirocin 1 applic 03/11/17 10:00 03/12/17 22:28 Bactroban Ointment (For Decolonization) - NS 03/16/17 09:59 1 applic BID [facility] Administration ASSESSMENT/PLAN: 1) Altered mental status --Unknown cause; ? Bacterial Meningitis vs. endocarditis --Repeat CT with IV shows resolution of hydrocephalus. --Per neuro: Attempt LP today --Cannot rule out meningitis: Febrile, firm posterior neck, AMS --Continue Dexamethasone 10mg q6h IV for four days --Blood cultures showing Strep Pneumo --ID consulted --Vancomycin Trough 12; increase Vancomycin to 1500 BID IV --Continue Ceftriazone 2gm IV 2) Severe sepsis --Etiology unclear --Blood cultures as above --CXR ruled out PNA --ABX as above --Possibility of KHURRAM if meningitis ruled out; pt too unstable currently 3) Hypertroponinemia --Trending down --Most likely related to demand from sepsis syndrome 4) Questionable CHF history --Echocardiogram shows now interval change from 2012 to now. 5) Low TSH level --Most likely euthyroid sick syndrome FEN: Fluids: D5-1/2NS at 75cc/hr Electrolyte abnormalities: None Nutrition: NPO for now PPX DVT - Heparin 5000U TID and SCDs Prognosis: Guarded; will discuss code status with family; as of now FULL CODE Dispo: Continue ICU Critical care time 37 min Case discussed with Dr. Shailesh Morales, DO - Internal Medicine PGY-1 Visit type - Emergency Visit Emergency Visit: No - New Patient This patient is new to me today: No - Critical Care Critical Care patient: Yes Total Critical Care Time (in minutes): 37 Critical Care Statement: The care of this patient involved high complexity decision making to prevent further life threatening deterioration of the patient 's condition and/or to evaluate & treat vital organ system(s) failure or risk of failure.
[2017-03-13] MEDS ORDERED: PT OWN MED DRAWER 7, Y5N ONE (09:42)
[2017-03-13] MEDS: CEFTRIAXONE 2 GM in DEXTROSE 5%-WATER - 100 ML IVPB SCH ×2 (09:44→21:00)
--- NOTE | 2017-03-13 09:46 | PN ---
Progress Note (short form) - Note Progress Note: 57 year old female had fall on march 10, and was brought to hospital for confusion and mental status change HPI 57 year old female with history of HIV/AIDS( ON HAART therapy) cd4 is in 350s , She also have history of chf, htn, open heart surgery and triple valve replacement, anemi and polysubstance abuse. Patient has no history of seizure, she fell from bed and she had been bleeding through gums. As as baseline she has no cognitive difficulty. Patient has been agitated and delirious. She has stepto penumonie growing in blood and suspected to be Endocardiitis. she is on antibiotic third day and on steroid started on march 12, Clinically she has improved and less agitated. Neurological Examination vss Agitated , she is confused and opens eye and not able to communicate moving all extremity spontaneously and on painful stimuli eomi, pupis is 5 mm bilaterally and briskly reactive, there is mild neck stiffness moving all extremity sensation is normal withraws to painfl stimuli ct head compared to jun 25 there is interval change and there is large ventricle , ct with contrast showed no mass lesion Assessment- acute confusional state , most likley could be meningitis/ encephalitis , Patient is being treated for strep pneumniae , clinically she has improved and still confused, no mass identified on ct head Plan conitnue abx and steroid as per id - spoke to primary team would do spinal tap today. - continue current supportive care will continue to follow with primary
[2017-03-13] MEDS: SODIUM CHLORIDE 0.9%/KCL 1,000 ML IV SCH (09:51)
[2017-03-13] MEDS ORDERED: VANCOMYCIN 1,500 MG in DEXTROSE 5%-WATER - 500 ML IVPB SCH (10:00)
--- NOTE | 2017-03-13 10:23 | PN ---
Progress Note, Physician Chief Complaint: Pt more alert (less agitated since switching form VM to nasal cannula); follows requests; jerky movements. History of Present Illness: The patient is a 57 year old black female with significant past medical history of HIV/AIDS, hypertension, COPD, diastolic CHF, anemia, polysubstance abuse, open heart surgery (triple valve replacement) brought in by EMS. Per EMS, the patient fell out of bed and landed on her back. On evaluation, the patient appears confused and is unable to answer questions clearly. Patient is a poor historian and unable to provide remainder of history. - Current Medication List Current Medications: Active Medications Chlorhexidine Gluconate (Hibiclens For Decolonization -) 1 applic TP HS [facility] Last Admin: 03/12/17 22:34 Dose: 1 applic Dexamethasone Sodium Phosphate (Decadron Injection -) 10 mg IVPB Q6H-IV [facility] Last Admin: 03/13/17 09:00 Dose: 10 mg Heparin Sodium (Porcine) (Heparin -) 5,000 unit SQ TID [facility] Last Admin: 03/13/17 06:13 Dose: 5,000 unit Ceftriaxone Sodium 2 gm/ (Dextrose) 100 mls @ 200 mls/hr IVPB BID [facility] Last Admin: 03/13/17 09:44 Dose: 200 mls/hr Potassium Chloride/Sodium Chloride (Ns+20 Meq Kcl -) 1,000 mls @ 100 mls/hr IV ASDIR [facility] Last Admin: 03/13/17 09:51 Dose: Not Given Vancomycin HCl 1,500 mg/ (Dextrose) 500 mls @ 250 mls/hr IVPB BID [facility] PRN Reason: Protocol Mupirocin (Bactroban Ointment (For Decolonization) -) 1 applic NS BID [facility] Stop: 03/16/17 09:59 Last Admin: 03/12/17 22:28 Dose: 1 applic - Objective Vital Signs: Vital Signs Temperature 97.1 F L 03/13/17 10:00 Pulse Rate 87 03/13/17 10:00 Respiratory Rate 26 H 03/13/17 10:00 Blood Pressure 154/102 03/13/17 10:00 O2 Sat by Pulse Oximetry (%) 96 03/13/17 08:37 Constitutional: Yes: Mild Distress Eyes: Yes: WNL HENT: Yes: WNL Neck: Yes: WNL Cardiovascular: Yes: S1, S2, S4 Respiratory: Yes: On Nasal O2, SOB, Tachypnea Gastrointestinal: Yes: Soft Genitourinary: No: Anuria Musculoskeletal: Yes: Other Extremities: Yes: Cool Edema: No Peripheral Pulses WNL: Yes Integumentary: Yes: WNL Neurological: Yes: Confusion, Weakness Psychiatric: Yes: Agitated Labs: CBC, BMP 03/13/17 05:50 03/13/17 05:50 INR, PTT INR 1.19 (0.82-1.09) H 03/13/17 05:50 Abnormal Lab Results 03/13/17 03/13/17 03/13/17 05:50 05:50 05:50 WBC 11.3 H Plt Count 132 L PT with INR 13.40 H INR 1.19 H Chloride 112 H Anion Gap 7 L BUN 22 H D Random Glucose 115 H AST 40 H D Albumin 1.6 L Problem List - Problems (1) H/O prosthetic heart valve Assessment/Plan: bioprosthetic AOV and MV. moderate and modderately severe MS (2) HIV (human immunodeficiency virus infection) Code(s): B20 - HUMAN IMMUNODEFICIENCY VIRUS [HIV] DISEASE (3) Pneumonia Assessment/Plan: continue antibiotics per ID. Code(s): J18.9 - PNEUMONIA, UNSPECIFIED ORGANISM Qualifiers: Pneumonia type: due to unspecified organism Laterality: unspecified laterality Lung location: unspecified part of lung Qualified Code(s): J18.9 - Pneumonia, unspecified organism; J18.9 - Pneumonia, unspecified organism (4) Sepsis Code(s): A41.9 - SEPSIS, UNSPECIFIED ORGANISM Qualifiers: Sepsis type: sepsis due to unspecified organism Qualified Code(s): A41.9 - Sepsis, unspecified organism; A41.9 - Sepsis, unspecified organism; A41.9 - Sepsis, unspecified organism (5) Streptococcal meningitis Code(s): G00.2 - STREPTOCOCCAL MENINGITIS (6) Depressive disorder Code(s): F32.9 - MAJOR DEPRESSIVE DISORDER, SINGLE EPISODE, UNSPECIFIED (7) Acute respiratory failure with hypoxia and hypercapnia Assessment/Plan: on decadron, O2. Code(s): J96.01 - ACUTE RESPIRATORY FAILURE WITH HYPOXIA (8) Screening for malignant neoplasm of cervix Code(s): Z12.4 - ENCOUNTER FOR SCREENING FOR MALIGNANT NEOPLASM OF CERVIX (9) Tobacco use Code(s): Z72.0 - TOBACCO USE (10) Elevated troponin Assessment/Plan: mildly elvated TNI that does not meet OR threshold; CK rel index low. Increase likely from demand stress: sepsis, CHF, electrolyte imbalance Code(s): R74.8 - ABNORMAL LEVELS OF OTHER SERUM ENZYMES (11) Hypothyroid Assessment/Plan: low TSH; f/u TFTs Code(s): E03.9 - HYPOTHYROIDISM, UNSPECIFIED (12) Hypokalemia Assessment/Plan: replee; keep 4-4.5 Keep Mg 2-2.3 Kepp PO4 2.5-4.9 Code(s): E87.6 - HYPOKALEMIA (13) Hypertension Assessment/Plan: Persistently elevated BP. Start metoprolol IVP (cannot use enalapril: reported ACEI allergy). No known cocaine abuse. Code(s): I10 - ESSENTIAL (PRIMARY) HYPERTENSION (14) Hypoalbuminemia Assessment/Plan: sepsis; poor nutrition status. Code(s): E88.09 - OTH DISORDERS OF PLASMA-PROTEIN METABOLISM, NEC (15) Confused Assessment/Plan: for spinal tap Code(s): R41.0 - DISORIENTATION, UNSPECIFIED
[2017-03-13] MEDS: METOPROLOL TARTRATE 5 MG/5 ML VIAL IVPUSH PRN (10:32)
[2017-03-13] MEDS: MUPIROCIN 2% TOPICAL OINTMENT FOR DECOLONIZATION NS SCH ×2 (10:47→21:00)
--- NOTE | 2017-03-13 11:12 | PN ---
Teaching Attending Note Name of Resident: Foerign Paris ATTENDING PHYSICIAN STATEMENT I saw and evaluated the patient. I reviewed the resident's note and discussed the case with the resident. I agree with the resident's findings and plan as documented. SUBJECTIVE: Patient seen and examined in the ICU. Awake but agitated. Not able to follow commands. No acute events overnight. No seizure activity noted. Intake & Output 03/10/17 03/11/17 03/12/17 03/13/17 23:59 23:59 23:59 23:59 Intake Total 900 3323 Output Total 300 1250 300 Balance 600 2073 -300 Weight 239 lb 15.994 oz 176 lb 14.4 oz Last Vital Signs Temp Pulse Resp BP Pulse Ox 97.1 F L 95 H 26 H 154/102 96 03/13/17 10:00 03/13/17 10:32 03/13/17 10:00 03/13/17 10:32 03/13/17 08:37 Active Medications Chlorhexidine Gluconate (Hibiclens For Decolonization -) 1 applic TP HS [facility] Last Admin: 03/12/17 22:34 Dose: 1 applic Dexamethasone Sodium Phosphate (Decadron Injection -) 10 mg IVPB Q6H-IV [facility] Last Admin: 03/13/17 09:00 Dose: 10 mg Heparin Sodium (Porcine) (Heparin -) 5,000 unit SQ TID [facility] Last Admin: 03/13/17 06:13 Dose: 5,000 unit Ceftriaxone Sodium 2 gm/ (Dextrose) 100 mls @ 200 mls/hr IVPB BID [facility] Last Admin: 03/13/17 09:44 Dose: 200 mls/hr Potassium Chloride/Sodium Chloride (Ns+20 Meq Kcl -) 1,000 mls @ 100 mls/hr IV ASDIR [facility] Last Admin: 03/13/17 09:51 Dose: Not Given Vancomycin HCl 1,500 mg/ (Dextrose) 500 mls @ 250 mls/hr IVPB BID [facility] PRN Reason: Protocol Last Admin: 03/13/17 10:47 Dose: 250 mls/hr Metoprolol Tartrate (Lopressor Injection -) 5 mg IVPUSH Q4H PRN PRN Reason: HYPERTENSION Last Admin: 03/13/17 10:32 Dose: 5 mg Mupirocin (Bactroban Ointment (For Decolonization) -) 1 applic NS BID [facility] Stop: 03/16/17 09:59 Last Admin: 03/13/17 10:47 Dose: 1 applic GENERAL: Awake, confused, agitated HEAD: Normal with no signs of trauma. EYES: conjunctiva clear. (-) icterus NECK: no JVD present, normal range of motion LUNGS: few scattered rhonchi. No wheezes, and no crackles. HEART: Regular rate and rhythm, systolic murmur appreciated in tricuspid region ABDOMEN: Soft, nontender, not distended, (+) BS UPPER EXTREMITIES: 2+ radial pulses, warm, well-perfused. LOWER EXTREMITIES: 2+ dorsalis pedis pulses, warm, well-perfused. No calf tenderness. No peripheral edema. NEUROLOGICAL: Awake, confused, agitated Laboratory Results - last 24 hr 03/12/17 03/12/17 03/12/17 00:34 05:28 11:00 WBC RBC Hgb Hct MCV MCH MCHC RDW Plt Count MPV Neutrophils % Lymphocytes % Monocytes % Eosinophils % Basophils % PT with INR INR Sodium 137 Potassium 2.9 L* Chloride 104 Carbon Dioxide 25 Anion Gap 8 BUN 16 Creatinine 0.6 D Creat Clearance w eGFR > 60 Random Glucose 132 H D Calcium 7.9 L Phosphorus 2.3 L Magnesium 1.8 D Total Bilirubin 0.4 D AST 79 H D ALT 29 Alkaline Phosphatase 100 D C-Reactive Protein 25.7 H Total Protein 7.7 Albumin 2.0 L Free T4 1.21 Cancelled Urine Color Yellow Urine Appearance Cloudy Urine pH 6.0 Ur Specific [place] 1.018 Urine Protein 2+ H Urine Glucose (UA) 1+ H Urine Ketones Negative Urine Blood 2+ H Urine Nitrite Negative Urine Bilirubin Negative Urine Urobilinogen Negative Ur Leukocyte Esterase Negative Urine RBC 40 Urine WBC None Ur Epithelial Cells Rare Amorphous Urates Many Urine Mucus Rare Vancomycin Pre-Dose 03/12/17 03/12/17 03/13/17 16:00 21:05 05:50 WBC 11.3 H RBC 4.48 Hgb 12.8 Hct 38.3 MCV 85.6 MCH 28.7 MCHC 33.5 RDW 14.7 Plt Count 132 L MPV 9.5 Neutrophils % 79.6 Lymphocytes % 15.1 Monocytes % 5.0 Eosinophils % 0.0 D Basophils % 0.3 PT with INR INR Sodium 140 Potassium 4.0 D Chloride 108 H Carbon Dioxide 22 Anion Gap 10 BUN 15 Creatinine 0.6 Creat Clearance w eGFR Random Glucose 118 H Calcium 7.7 L Phosphorus 4.8 D Magnesium Total Bilirubin AST ALT Alkaline Phosphatase C-Reactive Protein Total Protein Albumin Free T4 Urine Color Urine Appearance Urine pH Ur Specific [place] Urine Protein Urine Glucose (UA) Urine Ketones Urine Blood Urine Nitrite Urine Bilirubin Urine Urobilinogen Ur Leukocyte Esterase Urine RBC Urine WBC Ur Epithelial Cells Amorphous Urates Urine Mucus Vancomycin Pre-Dose 12.645 H 03/13/17 03/13/17 05:50 05:50 WBC RBC Hgb Hct MCV MCH MCHC RDW Plt Count MPV Neutrophils % Lymphocytes % Monocytes % Eosinophils % Basophils % PT with INR 13.40 H INR 1.19 H Sodium 144 Potassium 4.0 Chloride 112 H Carbon Dioxide 25 Anion Gap 7 L BUN 22 H D Creatinine 0.6 Creat Clearance w eGFR > 60 Random Glucose 115 H Calcium 8.7 Phosphorus 2.7 D Magnesium 2.3 D Total Bilirubin 0.3 D AST 40 H D ALT 28 Alkaline Phosphatase 95 C-Reactive Protein Total Protein 7.8 Albumin 1.6 L Free T4 Urine Color Urine Appearance Urine pH Ur Specific [place] Urine Protein Urine Glucose (UA) Urine Ketones Urine Blood Urine Nitrite Urine Bilirubin Urine Urobilinogen Ur Leukocyte Esterase Urine RBC Urine WBC Ur Epithelial Cells Amorphous Urates Urine Mucus Vancomycin Pre-Dose IMP: Toxic Metabolic Encephalopathy (?) Meningitis HIV/AIDS COPD HTN Pulmonary HTN OHS Valve replacement Anemia Sepsis Polysubstance Abuse S/P Fall PLAN: For LP today ABX per ID Aspiration Precautions Follow cultures Steroids Replete lytes VTE prophylaxis ICU monitoring Dr Rodrigues Critical care time spent in reviewing chart, evaluating patient and formulating plan - 40 minutes.
--- NOTE | 2017-03-13 11:25 | PN ---
Physical Exam: SUBJECTIVE: Patient seen and examined patient awake but responding to verbal command. Afebrile overnight. no acute event overnight. No seizure noticed Patient agitated. OBJECTIVE: Vital Signs Period Temp Pulse Resp BP Sys/Álvarez Pulse Ox Last 24 Hr 97.1 F-99.6 F 81-103 20-35 115-154/48-111 96-100 GENERAL: patient agitated, continuously moving body parts. didn't respond to verbal command. EYES: pupil 4-5mm brisk reactive to light b/l NECK:mild stiffness LUNGS: Breath sounds equal, clear to auscultation bilaterally, no wheezes, no crackles, no accessory muscle use. HEART: tachycardia, , holosystolic murmur at left sternal border ABDOMEN: Soft, nontender, nondistended, normoactive bowel sounds, no guarding, EXTREMITIES: no edema NEUROLOGICAL: no facial droop noted, moving all 4 limbs. SKIN: Warm, dry, normal turgor, no rashes or lesions noted Laboratory Results - last 24 hr 03/12/17 03/12/17 03/12/17 00:34 05:28 11:00 WBC RBC Hgb Hct MCV MCH MCHC RDW Plt Count MPV Neutrophils % Lymphocytes % Monocytes % Eosinophils % Basophils % PT with INR INR Sodium 137 Potassium 2.9 L* Chloride 104 Carbon Dioxide 25 Anion Gap 8 BUN 16 Creatinine 0.6 D Creat Clearance w eGFR > 60 Random Glucose 132 H D Calcium 7.9 L Phosphorus 2.3 L Magnesium 1.8 D Total Bilirubin 0.4 D AST 79 H D ALT 29 Alkaline Phosphatase 100 D C-Reactive Protein 25.7 H Total Protein 7.7 Albumin 2.0 L Free T4 1.21 Cancelled Urine Color Yellow Urine Appearance Cloudy Urine pH 6.0 Ur Specific Parrish 1.018 Urine Protein 2+ H Urine Glucose (UA) 1+ H Urine Ketones Negative Urine Blood 2+ H Urine Nitrite Negative Urine Bilirubin Negative Urine Urobilinogen Negative Ur Leukocyte Esterase Negative Urine RBC 40 Urine WBC None Ur Epithelial Cells Rare Amorphous Urates Many Urine Mucus Rare Vancomycin Pre-Dose 03/12/17 03/12/17 03/13/17 16:00 21:05 05:50 WBC 11.3 H RBC 4.48 Hgb 12.8 Hct 38.3 MCV 85.6 MCH 28.7 MCHC 33.5 RDW 14.7 Plt Count 132 L MPV 9.5 Neutrophils % 79.6 Lymphocytes % 15.1 Monocytes % 5.0 Eosinophils % 0.0 D Basophils % 0.3 PT with INR INR Sodium 140 Potassium 4.0 D Chloride 108 H Carbon Dioxide 22 Anion Gap 10 BUN 15 Creatinine 0.6 Creat Clearance w eGFR Random Glucose 118 H Calcium 7.7 L Phosphorus 4.8 D Magnesium Total Bilirubin AST ALT Alkaline Phosphatase C-Reactive Protein Total Protein Albumin Free T4 Urine Color Urine Appearance Urine pH Ur Specific Parrish Urine Protein Urine Glucose (UA) Urine Ketones Urine Blood Urine Nitrite Urine Bilirubin Urine Urobilinogen Ur Leukocyte Esterase Urine RBC Urine WBC Ur Epithelial Cells Amorphous Urates Urine Mucus Vancomycin Pre-Dose 12.645 H 03/13/17 03/13/17 05:50 05:50 WBC RBC Hgb Hct MCV MCH MCHC RDW Plt Count MPV Neutrophils % Lymphocytes % Monocytes % Eosinophils % Basophils % PT with INR 13.40 H INR 1.19 H Sodium 144 Potassium 4.0 Chloride 112 H Carbon Dioxide 25 Anion Gap 7 L BUN 22 H D Creatinine 0.6 Creat Clearance w eGFR > 60 Random Glucose 115 H Calcium 8.7 Phosphorus 2.7 D Magnesium 2.3 D Total Bilirubin 0.3 D AST 40 H D ALT 28 Alkaline Phosphatase 95 C-Reactive Protein Total Protein 7.8 Albumin 1.6 L Free T4 Urine Color Urine Appearance Urine pH Ur Specific Parrish Urine Protein Urine Glucose (UA) Urine Ketones Urine Blood Urine Nitrite Urine Bilirubin Urine Urobilinogen Ur Leukocyte Esterase Urine RBC Urine WBC Ur Epithelial Cells Amorphous Urates Urine Mucus Vancomycin Pre-Dose Active Medications Generic Name Dose Route Start Last Admin Trade Name Freq PRN Reason Stop Dose Admin Chlorhexidine Gluconate 1 applic 03/11/17 22:00 03/12/17 22:34 Hibiclens For Decolonization - TP 1 applic HS VERONICA Administration Dexamethasone Sodium Phosphate 10 mg 03/12/17 09:30 03/13/17 09:00 Decadron Injection - IVPB 10 mg Q6H-IV VERONICA Administration Heparin Sodium (Porcine) 5,000 unit 03/12/17 14:00 03/13/17 06:13 Heparin - SQ 5,000 unit TID VERONICA Administration Ceftriaxone Sodium 2 gm/ 100 mls @ 200 mls/hr 03/11/17 12:45 03/13/17 09:44 Dextrose IVPB 200 mls/hr BID VERONICA Administration Potassium Chloride/Sodium Chloride 1,000 mls @ 100 mls/hr 03/12/17 09:30 09:51 Ns+20 Meq Kcl - IV Not Given ASDIR VERONICA Vancomycin HCl 1,500 mg/ 500 mls @ 250 mls/hr 03/13/17 10:00 03/13/17 10:47 Dextrose IVPB 250 mls/hr BID VERONICA Administration Protocol Metoprolol Tartrate 5 mg 03/13/17 10:19 03/13/17 10:32 Lopressor Injection - IVPUSH 5 mg Q4H PRN Administration HYPERTENSION Mupirocin 1 applic 03/11/17 10:00 03/13/17 10:47 Bactroban Ointment (For Decolonization) - NS 03/16/17 09:59 1 applic BID VERONICA Administration ASSESSMENT/PLAN: Metabolic Encephalopathy ? endocarditis. (?) Meningitis HIV/AIDS COPD HTN Pulmonary HTN h/o Valve replacement Anemia Sepsis Polysubstance Abuse S/P Fall non complaint with HIV meds. PLAN: monitor vitals monitor intake output keep head end elevated. ABX per ID ceftriaxone, vanco. on steroid for suspected meningitis. Aspiration Precautions Follow cultures: strep pneumo senstive to ceft and vanco VTE prophylaxis. CT head reviewed: decreas hydrocephlus . ECHO reviewed. Visit type - Emergency Visit Emergency Visit: Yes ED Registration Date: 03/11/17 Care time: The patient presented to the Emergency Department on the above date and was hospitalized for further evaluation of their emergent condition. - New Patient This patient is new to me today: No - Critical Care Critical Care patient: Yes Total Critical Care Time (in minutes): 45 Critical Care Statement: The care of this patient involved high complexity decision making to prevent further life threatening deterioration of the patient 's condition and/or to evaluate & treat vital organ system(s) failure or risk of failure.
[2017-03-13] MEDS ORDERED: LORazepam 2 MG/ML SDV VIAL ONE (11:53)
--- NOTE | 2017-03-13 12:31 | PROC ---
Lumbar Puncture Indication: meningitis Risks and Benefits Explained: Yes Consent on Chart: Yes Sterile Technique: Yes Skin prep: Betadine Position: Right lateral decubitus Site: L4-L51 Local Anesthesia: 1% Lidocaine with epi Sterile Dressing Applied: Yes Remarks: LP unsuccessful attempted by Senior resident and attending difficult to properly position the patient as she was altered and combative at times even with adequate sedation
[2017-03-13] MEDS ORDERED: LORazepam 2 MG/ML SDV VIAL IVPUSH ONE ×2 (12:32)
--- NOTE | 2017-03-13 15:00 | PN ---
Teaching Attending Note Name of Resident: Darien Morlaes ATTENDING PHYSICIAN STATEMENT I saw and evaluated the patient. I reviewed the resident's note and discussed the case with the resident. I agree with the resident's findings and plan as documented. SUBJECTIVE: No events over night. OBJECTIVE: awake ,follows some simple commands, dry MM , tachypnic Neuro: symmetric face, round equal pupils , 5 mm in diameter , reactive to light. no facial droop. neck rigidity Normal tone in upper extremities , no tremor. moves all extremities .2+ knee jerk and biceps b/l . rest of neuro exam could not be performed. CV: Regular rhythm, tachy. 5/6 SM at LLSB and apex , 4-6 SM at LUSB . No JVD Lungs : CTAB Abd: soft,no TTP , nl BS Ext: no edema ASSESSMENT AND PLAN: 57 y/o lady with h/o HIV, aortic and mitral valve replacement with bioprosthetic valves, ? CHF, COPD, anemia and other medical problems who presented with AMS. 1- AMS : Likely due to bacterial meningitis with resultant hydrocephalus and severe sepsis mental status still confused but slightly more awake . Blood cx sensitivity , shows strep was sensitive to CTX. - Cont ceftriaxone - cont decadrone - cont IVF - MRI to be done if she is calmer ... - LP was unsuccessful today. Will not try again as we are treating - Crypto ab pending 2- Slight elevation in trop likely due to demand ischemia 3- Slight decrease in TSH , unreliable at this point , possible euthyroid sick syndrome - repeat in a steady state ICU level of care Critical Care Total Critical Care Time (in minutes): 40 Critical Care Statement: The care of this patient involved high complexity decision making to prevent further life threatening deterioration of the patient 's condition and/or to evaluate & treat vital organ system(s) failure or risk of failure.
[2017-03-13] MEDS ORDERED: DEXTROSE 5%-0.45% SALINE 1,000 ML IV SCH (19:00)
[2017-03-13] MEDS: CHLORHEXIDINE GLUCONATE 4% CLEANSER FOR DECOLONIZATION TP SCH (21:00)
[2017-03-14] MEDS ORDERED: PT OWN MED DRAWER 7, Y5N ONE ×3 (01:27→21:52)
[2017-03-14] MEDS: METOPROLOL TARTRATE 5 MG/5 ML VIAL IVPUSH PRN ×2 (01:29→11:24)
[2017-03-14] MEDS: DEXAMETHASONE SOD PHOSPHATE 10 MG/1 ML VIAL IVPB SCH ×4 (03:14→22:01)
[2017-03-14 06:23] LABS: BASOPHIL 0.5 % (0-2.0); MCH 28.8 pg (25.7-33.7); MCHC 33.7 g/dl (32.0-36.0); MEAN CELL VOLUME 85.3 fl (80-96); MEAN PLT VOLUME 9.7 fl (7.5-11.1); NEUTROPHILS 79.1 % (42.8-82.8); PLATELET COUNT 149 K/MM3 (134-434); RDW 14.9 % (11.6-15.6); WHITE BLOOD COUNT 12.4 K/mm3 (4.0-10.0)
[2017-03-14 06:49] LABS: ALBUMIN 1.5 g/dl (3.4-5.0); ALK PHOS 81 U/L (45-117); ANION GAP 6 (8-16); BILIRUBIN,TOTAL 0.2 mg/dL (0.2-1.0); CALCIUM 8.3 mg/dL (8.5-10.1); CO2 25 mmol/L (21-32); CREATININE 0.7 mg/dL (0.55-1.02); GLUCOSE,RANDOM 176 mg/dL (74-106); MAGNESIUM 2.1 mg/dL (1.8-2.4); PHOSPHOROUS 3.1 mg/dL (2.5-4.9); SGOT/AST 23 U/L (15-37); SGPT/ALT 25 U/L (12-78); TOT PROT 7.3 g/dl (6.4-8.2)
--- NOTE | 2017-03-14 06:59 | PN ---
Progress Note, Physician History of Present Illness: seen and examined today in [facility]. arousable and speaking but not able to provide a clear history. - Current Medication List Current Medications: Active Medications Chlorhexidine Gluconate (Hibiclens For Decolonization -) 1 applic TP HS [facility] Last Admin: 03/13/17 21:00 Dose: 1 applic Dexamethasone Sodium Phosphate (Decadron Injection -) 10 mg IVPB Q6H-IV VERONICA Last Admin: 03/14/17 03:14 Dose: 10 mg Heparin Sodium (Porcine) (Heparin -) 5,000 unit SQ TID [facility] Last Admin: 03/13/17 21:00 Dose: 5,000 unit Ceftriaxone Sodium 2 gm/ (Dextrose) 100 mls @ 200 mls/hr IVPB BID [facility] Last Admin: 03/13/17 21:00 Dose: 200 mls/hr Dextrose/Sodium Chloride (D5-1/2ns -) 1,000 mls @ 75 mls/hr IV ASDIR [facility] Last Admin: 03/13/17 20:05 Dose: 75 mls/hr Metoprolol Tartrate (Lopressor Injection -) 5 mg IVPUSH Q4H PRN PRN Reason: HYPERTENSION Last Admin: 03/14/17 01:29 Dose: 5 mg Mupirocin (Bactroban Ointment (For Decolonization) -) 1 applic NS BID [facility] Stop: 03/16/17 09:59 Last Admin: 03/13/17 21:00 Dose: 1 applic - Objective Vital Signs: Vital Signs Temperature 97.1 F L 03/13/17 10:00 Pulse Rate 87 03/14/17 06:00 Respiratory Rate 25 H 03/14/17 06:00 Blood Pressure 125/93 03/14/17 06:00 O2 Sat by Pulse Oximetry (%) 99 03/13/17 20:50 Constitutional: Yes: No Distress, Calm Eyes: Yes: Conjunctiva Clear Cardiovascular: Yes: Regular Rate and Rhythm, Tachycardia, Murmur, S1, S2. No: Bradycardia, Pulse Irregular, Bruit, JVD, Gallop, Rub, S3, S4, Varicosities Respiratory: Yes: Regular. No: Rales, Rhonchi, Wheezes Gastrointestinal: Yes: Normal Bowel Sounds, Soft. No: Distention, Tenderness Extremities: Yes: WNL Edema: No Peripheral Pulses WNL: Yes Neurological: Yes: Alert Psychiatric: Yes: Alert Labs: CBC, BMP 03/14/17 06:10 03/14/17 06:10 INR, PTT INR 1.19 (0.82-1.09) H 03/13/17 05:50 - ....Imaging Chest X-ray: Report Reviewed, Image Reviewed EKG: Report Reviewed, Image Reviewed Other: Report Reviewed, Image Reviewed (tele-nsr, sinus tach, no arrhythmias) Assessment/Plan 57 year old woman with a history of HTN, h/o bio AVR/MVR, HIV/AIDS, COPD, chronic diastolic CHF, anemia, polysubstance abuse, admitted with AMS and found to have strep pneumonia meningitis. Sepsis-strep meningitis -overall improving -receiving Abx and steroids Valvular heart disease-bio AVR/MVR, Mildly elevated troponin -echo showed normal LV systolic function, mod to sev MS, mod -elevated troponin likely due to demand ischemia, sepsis, valvular heart disease , unlikely ACS -cont Lopressor IV for now until tolerates po meds
--- NOTE | 2017-03-14 07:00 | PN ---
Progress Note, Physician Chief Complaint: ID Beginning to verbalize now as per nursing staff though not making full sentences Definite improvement though Ceftriaxone Day 4 antibiotics Day 2 Steroids - Current Medication List Current Medications: Active Medications Chlorhexidine Gluconate (Hibiclens For Decolonization -) 1 applic TP HS [facility] Last Admin: 03/13/17 21:00 Dose: 1 applic Dexamethasone Sodium Phosphate (Decadron Injection -) 10 mg IVPB Q6H-IV VERONICA Last Admin: 03/14/17 03:14 Dose: 10 mg Heparin Sodium (Porcine) (Heparin -) 5,000 unit SQ TID [facility] Last Admin: 03/13/17 21:00 Dose: 5,000 unit Ceftriaxone Sodium 2 gm/ (Dextrose) 100 mls @ 200 mls/hr IVPB BID [facility] Last Admin: 03/13/17 21:00 Dose: 200 mls/hr Dextrose/Sodium Chloride (D5-1/2ns -) 1,000 mls @ 75 mls/hr IV ASDIR [facility] Last Admin: 03/13/17 20:05 Dose: 75 mls/hr Metoprolol Tartrate (Lopressor Injection -) 5 mg IVPUSH Q4H PRN PRN Reason: HYPERTENSION Last Admin: 03/14/17 01:29 Dose: 5 mg Mupirocin (Bactroban Ointment (For Decolonization) -) 1 applic NS BID [facility] Stop: 03/16/17 09:59 Last Admin: 03/13/17 21:00 Dose: 1 applic - Objective Vital Signs: Vital Signs Temperature 97.1 F L 03/13/17 10:00 Pulse Rate 87 03/14/17 06:00 Respiratory Rate 25 H 03/14/17 06:00 Blood Pressure 125/93 03/14/17 06:00 O2 Sat by Pulse Oximetry (%) 99 03/13/17 20:50 Constitutional: Yes: No Distress Neck: Yes: WNL, Supple Cardiovascular: Yes: Regular Rate and Rhythm, Murmur, S1, S2 Respiratory: Yes: WNL, Regular, CTA Bilaterally Gastrointestinal: Yes: WNL, Normal Bowel Sounds, Soft. No: Tenderness Edema: No Labs: CBC, BMP 03/14/17 06:10 03/14/17 06:10 INR, PTT INR 1.19 (0.82-1.09) H 03/13/17 05:50 Problem List - Problems (1) HIV (human immunodeficiency virus infection) Code(s): B20 - HUMAN IMMUNODEFICIENCY VIRUS [HIV] DISEASE (2) Sepsis Code(s): A41.9 - SEPSIS, UNSPECIFIED ORGANISM Qualifiers: Sepsis type: sepsis due to unspecified organism Qualified Code(s): A41.9 - Sepsis, unspecified organism; A41.9 - Sepsis, unspecified organism; A41.9 - Sepsis, unspecified organism (3) Endocarditis Code(s): I38 - ENDOCARDITIS, VALVE UNSPECIFIED (4) Streptococcal meningitis Code(s): G00.2 - STREPTOCOCCAL MENINGITIS Assessment/Plan Microbiology 03/11/17 02:25 Blood - Peripheral Venous Blood Culture - Final Streptococcus Pneumoniae 03/11/17 02:25 Blood - Peripheral Venous Blood Culture - Final Streptococcus Pneumoniae 03/13/17 07:35 Serum Cryptococcal Antigen - Preliminary 03/12/17 11:20 Blood - Peripheral Venous Blood Culture - Preliminary NO GROWTH OBTAINED AFTER 24 HOURS, INCUBATION TO CONTINUE FOR 4 DAYS. 03/12/17 10:23 Blood - Peripheral Venous Blood Culture - Preliminary NO GROWTH OBTAINED AFTER 24 HOURS, INCUBATION TO CONTINUE FOR 4 DAYS. Laboratory Tests 03/11/17 03/13/17 03/13/17 09:45 05:50 05:50 WBC 11.3 H Hgb 12.8 Plt Count 132 L BUN 22 H D Creatinine 0.6 AST 40 H D ALT 28 Alkaline Phosphatase 95 Albumin 1.6 L RPR Titer Nonreactive 03/14/17 03/14/17 06:10 06:10 WBC Pending Hgb Pending Plt Count Pending BUN Pending Creatinine Pending AST ALT Alkaline Phosphatase Albumin RPR Titer Assessment HIV patient with pneumococcal bacteremia and meningitis making some improvement daily Plan Based on susceptibilities on Ceftriaxone along with Damir Roy MD
[2017-03-14] MEDS: HEPARIN NA (PORCINE) 5,000 UNITS/ML 1ML VIAL SQ SCH ×3 (07:02→22:02)
--- NOTE | 2017-03-14 08:16 | PN ---
Progress Note (short form) - Note Progress Note: Pulm/CCM SUBJECTIVE: Patient seen and examined in the ICU. No acute events overnight. Mental status seems to be improving, following simple commands this am Active Medications Chlorhexidine Gluconate (Hibiclens For Decolonization -) 1 applic TP HS [facility] Last Admin: 03/13/17 21:00 Dose: 1 applic Dexamethasone Sodium Phosphate (Decadron Injection -) 10 mg IVPB Q6H-IV VERONICA Last Admin: 03/14/17 03:14 Dose: 10 mg Heparin Sodium (Porcine) (Heparin -) 5,000 unit SQ TID [facility] Last Admin: 03/14/17 07:02 Dose: 5,000 unit Ceftriaxone Sodium 2 gm/ (Dextrose) 100 mls @ 200 mls/hr IVPB BID [facility] Last Admin: 03/13/17 21:00 Dose: 200 mls/hr Dextrose/Sodium Chloride (D5-1/2ns -) 1,000 mls @ 75 mls/hr IV ASDIR [facility] Last Admin: 03/13/17 20:05 Dose: 75 mls/hr Metoprolol Tartrate (Lopressor Injection -) 5 mg IVPUSH Q4H PRN PRN Reason: HYPERTENSION Last Admin: 03/14/17 01:29 Dose: 5 mg Mupirocin (Bactroban Ointment (For Decolonization) -) 1 applic NS BID [facility] Stop: 03/16/17 09:59 Last Admin: 03/13/17 21:00 Dose: 1 applic Vital Signs Temp 97.1 F L 03/13/17 10:00 Pulse 87 03/14/17 06:00 Resp 25 H 03/14/17 06:00 BP 125/93 03/14/17 06:00 Pulse Ox 99 03/13/17 20:50 Intake & Output 03/13/17 03/13/17 03/14/17 11:59 23:59 11:59 Intake Total 1565 880 Output Total 300 500 500 Balance -300 1065 380 Weight 80.24 kg 79.8 kg Intake: IV 1565 880 D5-1/2Ns - 1,000 ml @ 75 880 mls/hr IV ASDIR [facility] Rx#: [id number] Left Forearm #[id number] 03/11/17 1565 Output: Urine 300 500 500 Byrd 300 500 500 Other: Voiding Method Indwelling Catheter Indwelling Catheter Indwelling Catheter Bowel Movement No Yes # Bowel Movements 1 Weight Measurement Method Built in [facility] Built in [facility] CBCD WBC 12.4 K/mm3 (4.0-10.0) H 03/14/17 06:10 RBC 4.62 M/mm3 (3.60-5.2) 03/14/17 06:10 Hgb 13.3 GM/dL (10.7-15.3) 03/14/17 06:10 Hct 39.4 % (32.4-45.2) 03/14/17 06:10 MCV 85.3 fl (80-96) 03/14/17 06:10 MCHC 33.7 g/dl (32.0-36.0) 03/14/17 06:10 RDW 14.9 % (11.6-15.6) 03/14/17 06:10 Plt Count 149 K/MM3 (134-434) 03/14/17 06:10 MPV 9.7 fl (7.5-11.1) 03/14/17 06:10 CMP Sodium 147 mmol/L (136-145) H 03/14/17 06:10 Potassium 4.0 mmol/L (3.5-5.1) 03/14/17 06:10 Chloride 116 mmol/L (98-107) H 03/14/17 06:10 Carbon Dioxide 25 mmol/L (21-32) 03/14/17 06:10 Anion Gap 6 (8-16) L 03/14/17 06:10 BUN 39 mg/dL (7-18) H D 03/14/17 06:10 Creatinine 0.7 mg/dL (0.55-1.02) 03/14/17 06:10 Creat Clearance w eGFR > 60 (>60) 03/14/17 06:10 Calcium 8.3 mg/dL (8.5-10.1) L 03/14/17 06:10 Total Bilirubin 0.2 mg/dL (0.2-1.0) D 03/14/17 06:10 AST 23 U/L (15-37) D 03/14/17 06:10 ALT 25 U/L (12-78) 03/14/17 06:10 Alkaline Phosphatase 81 U/L (45-117) 03/14/17 06:10 Total Protein 7.3 g/dl (6.4-8.2) 03/14/17 06:10 Albumin 1.5 g/dl (3.4-5.0) L 03/14/17 06:10 GENERAL: Awake, confused, agitated , follows simple commands HEAD: Normal with no signs of trauma. EYES: conjunctiva clear. non icteric NECK: no JVD present, normal range of motion LUNGS: few scattered rhonchi. No wheezes, and no crackles. HEART: Regular rate and rhythm, systolic murmur appreciated in tricuspid region ABDOMEN: Soft, nontender, not distended, (+) BS UPPER EXTREMITIES: 2+ radial pulses, warm, well-perfused. LOWER EXTREMITIES: 2+ dorsalis pedis pulses, warm, well-perfused. No calf tenderness. No peripheral edema. NEUROLOGICAL: Awake, confused, agitated, non focal exam, PELLETIER x 4 equally Microbiology 03/13/17 07:35 Serum Cryptococcal Antigen - Preliminary 03/12/17 11:20 Blood - Peripheral Venous Blood Culture - Preliminary NO GROWTH OBTAINED AFTER 24 HOURS, INCUBATION TO CONTINUE FOR 4 DAYS. 03/11/17 02:25 Blood - Peripheral Venous Blood Culture - Final Streptococcus Pneumoniae 03/11/17 02:25 Blood - Peripheral Venous Blood Culture - Final Streptococcus Pneumoniae 03/12/17 10:23 Blood - Peripheral Venous Blood Culture - Preliminary NO GROWTH OBTAINED AFTER 24 HOURS, INCUBATION TO CONTINUE FOR 4 DAYS. 03/12/17 00:34 Urine - Urine - Catheterized Urine Culture - Final NO GROWTH OBTAINED 03/11/17 02:25 Urine - Urine - Catheterized Urine Culture - Final NO GROWTH OBTAINED 03/11/17 16:32 Urine For Antigen Detection Legionella Antigen - Final 03/11/17 16:32 Urine For Antigen Detection Streptococcus pneumoniae Antigen (M - Final 03/11/17 18:30 Nasopharyngeal Swab Influenza Types A,B Antigen (SHIVA) - Final 03/11/17 18:30 Nasopharyngeal Swab - Final IMP: Toxic Metabolic Encephalopathy (?) Meningitis HIV/AIDS COPD HTN Pulmonary HTN OHS Valve replacement Anemia Sepsis Polysubstance Abuse S/P Fall PLAN: ABX per ID - Kirill following--> ceftriaxone for strep pne x 14 days Aspiration Precautions Steroids, could start to taper Replete lytes VTE prophylaxis start diet ICU monitoring, if mental status continues to improve then could go to floor Den TONEY [id number] Critical care time spent in reviewing chart, evaluating patient and formulating plan - 35 minutes.
--- NOTE | 2017-03-14 08:23 | PN ---
Physical Exam: SUBJECTIVE: Pt arousable to voice and will follow basic commands with reminders. Pt continues to be afebrile overnight. No other acute events overnight. HPI limited to due clinical status. OBJECTIVE: Vital Signs Period Temp Pulse Resp BP Sys/Álvarez Pulse Ox Last 24 Hr 97.1 F 85-98 18-26 124-179/75-112 96-99 GENERAL: NAD lying in bed, responds to commands with multiple reminders such as "stick out tongue" and "look at me", continues to be nonverbal, uncoordinated movements HEENT: Pupils JAMESON (resolved sluggishness), dry-moist mucous membranes with cracked lips, slightly stiff neck, No JVD LUNGS: CTA bilaterally, no wheezes, rhonchi, rales appreciated. No accessory muscle use. HEART: RRR, 5/6 holosystolic murmur appreciated at the L lower sternal border. ABDOMEN: Soft, non distended, issac vest applied, nomoactive BS, no agitation when abdomen palpated, no masses appreciated EXTREMITIES: No edema noted. pulses 2+. Previous indurated area resolved NEUROLOGICAL: Facial symmetry noted, Moving all four extremities against gravity , no tremor noted, reflexes 2/4 SKIN: No rashes or lesions noted. Laboratory Results - last 24 hr 03/14/17 03/14/17 06:10 06:10 WBC 12.4 H RBC 4.62 Hgb 13.3 Hct 39.4 MCV 85.3 MCH 28.8 MCHC 33.7 RDW 14.9 Plt Count 149 MPV 9.7 Neutrophils % 79.1 Lymphocytes % 13.6 Monocytes % 6.8 Eosinophils % 0.0 Basophils % 0.5 Sodium 147 H Potassium 4.0 Chloride 116 H Carbon Dioxide 25 Anion Gap 6 L BUN 39 H D Creatinine 0.7 Creat Clearance w eGFR > 60 Random Glucose 176 H D Calcium 8.3 L Phosphorus 3.1 Magnesium 2.1 Total Bilirubin 0.2 D AST 23 D ALT 25 Alkaline Phosphatase 81 Total Protein 7.3 Albumin 1.5 L Active Medications Generic Name Dose Route Start Last Admin Trade Name Freq PRN Reason Stop Dose Admin Chlorhexidine Gluconate 1 applic 03/11/17 22:00 03/13/17 21:00 Hibiclens For Decolonization - TP 1 applic HS VERONICA Administration Dexamethasone Sodium Phosphate 10 mg 03/12/17 09:30 03/14/17 03:14 Decadron Injection - IVPB 10 mg Q6H-IV VERONICA Administration Heparin Sodium (Porcine) 5,000 unit 03/12/17 14:00 03/14/17 07:02 Heparin - SQ 5,000 unit TID VERONICA Administration Ceftriaxone Sodium 2 gm/ 100 mls @ 200 mls/hr 03/11/17 12:45 03/13/17 21:00 Dextrose IVPB 200 mls/hr BID VERONICA Administration Dextrose/Sodium Chloride 1,000 mls @ 75 mls/hr 03/13/17 19:00 03/13/17 20:05 D5-1/2ns - IV 75 mls/hr ASDIR VERONICA Administration Metoprolol Tartrate 5 mg 03/13/17 10:19 03/14/17 01:29 Lopressor Injection - IVPUSH 5 mg Q4H PRN Administration HYPERTENSION Mupirocin 1 applic 03/11/17 10:00 03/13/17 21:00 Bactroban Ointment (For Decolonization) - NS 03/16/17 09:59 1 applic BID VERONICA Administration ASSESSMENT/PLAN: 1) Altered mental status --Unknown cause; mostly bacterial meningitis suspected --LP failed due to movement --Repeat CT with IV shows resolution of hydrocephalus --Continue Dexamethasone 10mg q6h IV --Blood cultures showing Strep Pneumo --ID consulted --Vancomycin discontinued due to sensitivities for cultured S. Pneumo --Continue Ceftriazone 2gm IV 2) Severe sepsis --As above --Blood cultures as above --CXR ruled out PNA --ABX as above --Possibility of KHURRAM on an outpatient basis to r/o vegetations either primary or seeding from bacteremia 3) Hypertroponinemia --Trending down --Most likely related to demand from sepsis syndrome 4) Questionable CHF history --Echocardiogram shows no interval change from 2013 to now. 5) Low TSH level --Most likely euthyroid sick syndrome FEN: Fluids: D5-1/2NS at 100cc/hr Electrolyte abnormalities: Hypernatremic with water deficit being 2.4L Nutrition: NPO for now PPX DVT - Heparin 5000U TID and SCDs Prognosis: Guarded; FULL CODE Dispo: Continue ICU Critical care time 35 min Case discussed with Dr. Shailesh Morales, DO - Internal Medicine PGY-1 Visit type - Emergency Visit Emergency Visit: No - New Patient This patient is new to me today: No - Critical Care Critical Care patient: Yes Total Critical Care Time (in minutes): 35 Critical Care Statement: The care of this patient involved high complexity decision making to prevent further life threatening deterioration of the patient 's condition and/or to evaluate & treat vital organ system(s) failure or risk of failure.
--- NOTE | 2017-03-14 08:50 | PN ---
Teaching Attending Note Name of Resident: Darien Morales ATTENDING PHYSICIAN STATEMENT I saw and evaluated the patient. I reviewed the resident's note and discussed the case with the resident. I agree with the resident's findings and plan as documented. SUBJECTIVE: No events over night OBJECTIVE: awake ,follows some simple commands, dry MM Neuro: symmetric face, round equal pupils , 5 mm in diameter , reactive to light. no facial droop. neck rigidity Normal tone in upper extremities , no tremor. moves all extremities .2+ knee jerk and biceps b/l . rest of neuro exam could not be performed. CV: Regular rhythm, rate in 90s . 5/6 SM at LLSB and apex , 4-6 SM at LUSB . No JVD Lungs : CTAB Abd: soft,no TTP , nl BS Ext: no edema ASSESSMENT AND PLAN: 57 y/o lady with h/o HIV, aortic and mitral valve replacement with bioprosthetic valves, ? CHF, COPD, anemia and other medical problems who presented with AMS. 1- AMS : Likely due to bacterial meningitis with resultant hydrocephalus and severe sepsis mental status is stable Blood cx strep pneumo sensitive to CTX. - Cont ceftriaxone - cont decadrone - cont IVF - MRI and LP were not able to perform - Crypto Ag pending 2- Slight elevation in trop likely due to demand ischemia 3- Dehydration: Free water deficit 2.3 L - increase rate of IVF. 4- Slight decrease in TSH , unreliable at this point , possible euthyroid sick syndrome - repeat in a steady state in a couple weeks DVT PX ICU level of care Critical Care Total Critical Care Time (in minutes): 35 Critical Care Statement: The care of this patient involved high complexity decision making to prevent further life threatening deterioration of the patient 's condition and/or to evaluate & treat vital organ system(s) failure or risk of failure.
[2017-03-14] MEDS ORDERED: DEXTROSE 5%-0.45% SALINE 1,000 ML IV SCH (08:51)
--- NOTE | 2017-03-14 10:28 | PN ---
Progress Note (short form) - Note Progress Note: 57 year old female had fall on march 10, and was brought to hospital for confusion and mental status change HPI 57 year old female with history of HIV/AIDS( ON HAART therapy) cd4 is in 350s , She also have history of chf, htn, open heart surgery and triple valve replacement, anemi and polysubstance abuse. Patient has no history of seizure, she fell from bed and she had been bleeding through gums. As as baseline she has no cognitive difficulty. Patient has been agitated and delirious. She has stepto penumonie growing in blood . She was str Neurological Examination vss she is sleepy and opens eye and able to tell me her name and follow command moving all extremity spontaneously and on painful stimuli eomi, pupis is 5 mm bilaterally and briskly reactive, there is mild neck stiffness sensation is normal withraws to painfl stimuli ct head compared to jun 25 there is interval change and there is large ventricle , ct with contrast showed no mass lesion Assessment- acute confusional state , most likley could be meningitis/ encephalitis , Patient is being treated for strep pneumniae , clinically she has improved Plan conitnue abx and steroid as per id - yesterday attempted spinal tap but could not be done , as she was moving alot - continue current supportive care will continue to follow with primary
[2017-03-14] MEDS: MUPIROCIN 2% TOPICAL OINTMENT FOR DECOLONIZATION NS SCH ×2 (11:20→22:04)
[2017-03-14] MEDS: CEFTRIAXONE 2 GM in DEXTROSE 5%-WATER - 100 ML IVPB SCH ×2 (11:21→22:02)
[2017-03-14] MEDS: CHLORHEXIDINE GLUCONATE 4% CLEANSER FOR DECOLONIZATION TP SCH (22:03)
[2017-03-15] MEDS: DEXAMETHASONE SOD PHOSPHATE 10 MG/1 ML VIAL IVPB SCH ×4 (02:13→22:18)
[2017-03-15] MEDS: HEPARIN NA (PORCINE) 5,000 UNITS/ML 1ML VIAL SQ SCH ×3 (06:02→22:18)
[2017-03-15 06:20] LABS: MCH 28.4 pg (25.7-33.7); MCHC 33.1 g/dl (32.0-36.0); MEAN CELL VOLUME 85.7 fl (80-96); MEAN PLT VOLUME 10.3 fl (7.5-11.1); PLATELET COUNT 133 K/MM3 (134-434); RDW 15.1 % (11.6-15.6); WHITE BLOOD COUNT 9.4 K/mm3 (4.0-10.0)
[2017-03-15 06:52] LABS: ALBUMIN 1.7 g/dl (3.4-5.0); ANION GAP 12 (8-16); CALCIUM 7.9 mg/dL (8.5-10.1); CO2 21 mmol/L (21-32); CREATININE 0.9 mg/dL (0.55-1.02); GLUCOSE,RANDOM 192 mg/dL (74-106); PHOSPHOROUS 2.7 mg/dL (2.5-4.9); SGOT/AST 19 U/L (15-37); SGPT/ALT 26 U/L (12-78)
[2017-03-15 06:54] LABS: ALK PHOS 81 U/L (45-117); BILIRUBIN,TOTAL 0.4 mg/dL (0.2-1.0); TOT PROT 7.1 g/dl (6.4-8.2)
--- NOTE | 2017-03-15 07:33 | PN ---
Progress Note, Physician Chief Complaint: ID Marked improvement continues Lethargic but able to answer questions and oriented though has no idea what happened to her Ceftriaxone and Decadron ( day 5 and 3 respectively) - Current Medication List Current Medications: Active Medications Chlorhexidine Gluconate (Hibiclens For Decolonization -) 1 applic TP HS [facility] Last Admin: 03/14/17 22:03 Dose: 1 applic Dexamethasone Sodium Phosphate (Decadron Injection -) 10 mg IVPB Q6H-IV [facility] Last Admin: 03/15/17 02:13 Dose: 10 mg Heparin Sodium (Porcine) (Heparin -) 5,000 unit SQ TID [facility] Last Admin: 03/15/17 06:02 Dose: 5,000 unit Ceftriaxone Sodium 2 gm/ (Dextrose) 100 mls @ 200 mls/hr IVPB BID [facility] Last Admin: 03/14/17 22:02 Dose: 200 mls/hr Dextrose/Sodium Chloride (D5-1/2ns -) 1,000 mls @ 100 mls/hr IV ASDIR [facility] Last Admin: 03/14/17 11:19 Dose: 100 mls/hr Metoprolol Tartrate (Lopressor Injection -) 5 mg IVPUSH Q4H PRN PRN Reason: HYPERTENSION Last Admin: 03/14/17 11:24 Dose: 5 mg Mupirocin (Bactroban Ointment (For Decolonization) -) 1 applic NS BID [facility] Stop: 03/16/17 09:59 Last Admin: 03/14/17 22:04 Dose: 1 applic - Objective Vital Signs: Vital Signs Temperature 98.1 F 03/15/17 01:00 EST Pulse Rate 77 03/15/17 05:00 Respiratory Rate 22 03/15/17 05:00 Blood Pressure 142/89 03/15/17 05:00 O2 Sat by Pulse Oximetry (%) 97 03/14/17 09:00 Constitutional: Yes: Well Nourished, No Distress Eyes: Yes: WNL, Conjunctiva Clear HENT: Yes: WNL, Atraumatic Neck: Yes: WNL, Supple Cardiovascular: Yes: Regular Rate and Rhythm, S1, S2. No: Murmur Respiratory: Yes: WNL, Regular, CTA Bilaterally. No: Rales, Rhonchi Gastrointestinal: Yes: WNL, Normal Bowel Sounds, Soft. No: Tenderness, Tenderness, Rebound Extremities: No: Cold, Cool, Cyanosis Edema: No Labs: CBC, BMP 03/15/17 06:00 03/15/17 06:00 INR, PTT INR 1.19 (0.82-1.09) H 03/13/17 05:50 Problem List - Problems (1) HIV (human immunodeficiency virus infection) Code(s): B20 - HUMAN IMMUNODEFICIENCY VIRUS [HIV] DISEASE (2) Sepsis Code(s): A41.9 - SEPSIS, UNSPECIFIED ORGANISM Qualifiers: Sepsis type: sepsis due to unspecified organism Qualified Code(s): A41.9 - Sepsis, unspecified organism; A41.9 - Sepsis, unspecified organism; A41.9 - Sepsis, unspecified organism (3) Endocarditis Code(s): I38 - ENDOCARDITIS, VALVE UNSPECIFIED (4) Streptococcal meningitis Code(s): G00.2 - STREPTOCOCCAL MENINGITIS Assessment/Plan Microbiology 03/11/17 02:25 Blood - Peripheral Venous Blood Culture - Final Streptococcus Pneumoniae 03/11/17 02:25 Blood - Peripheral Venous Blood Culture - Final Streptococcus Pneumoniae 03/13/17 07:35 Serum Cryptococcal Antigen - Preliminary 03/12/17 11:20 Blood - Peripheral Venous Blood Culture - Preliminary NO GROWTH OBTAINED AFTER 48 HOURS, INCUBATION TO CONTINUE FOR 3 DAYS. Laboratory Tests 03/15/17 03/15/17 06:00 06:00 WBC 9.4 Hgb 14.3 Hct 43.4 Plt Count 133 L BUN 41 H Creatinine 0.9 D Creat Clearance w eGFR > 60 Assessment HIV infection of her meds given her critical ICU status but perhaps can resume soon Pneumococcal bacteremia with meningitis suspected Hydrocephalus secondary meningitis Substance abuse History of tri valve heart replacement per cardiology Plan Ceftriaxone for a total of 14 days Decadron can be stopped tomorrow Plan to resume HIV meds verify regimen from clinic Chest xray Critical care time spent 35 minutes Kirill BENAVIDES
[2017-03-15] MEDS ORDERED: SODIUM CHLORIDE 1,000 ML IV SCH (08:45)
--- NOTE | 2017-03-15 08:45 | PN ---
Progress Note (short form) - Note Progress Note: Subjective: has abd pain., very thirsty and hungry Objective: Vital Signs: Last Vital Signs Temp Pulse Resp BP Pulse Ox 98.1 F 77 22 142/89 97 03/15/17 01:00 EST 03/15/17 05:00 03/15/17 05:00 03/15/17 05:00 03/14/17 09 :00 Laboratory Results - last 24 hr 03/15/17 03/15/17 06:00 06:00 WBC 9.4 RBC 5.06 Hgb 14.3 Hct 43.4 MCV 85.7 MCH 28.4 MCHC 33.1 RDW 15.1 Plt Count 133 L MPV 10.3 Sodium 148 H Potassium 3.8 Chloride 115 H Carbon Dioxide 21 Anion Gap 12 BUN 41 H Creatinine 0.9 D Creat Clearance w eGFR > 60 Random Glucose 192 H Calcium 7.9 L Phosphorus 2.7 Magnesium 2.0 Total Bilirubin 0.4 D AST 19 ALT 26 Alkaline Phosphatase 81 Total Protein 7.1 Albumin 1.7 L Physical Exam: awake ,not orietned, follows commands, normal speech Neuro: symmetric face, round equal pupils , 5 mm in diameter , reactive to light. no facial droop. EOMI. tongue at mid line strength 5/5 in upper extremities proximally and distally. in LE strength 5/5 hip flexion , and knee extension , 4/5 knee flexion. 5/5 ankle dorsiflexiona dn plantar flexion . 2+ knee jerk and biceps reflexes CV: Regular rhythm . 5/6 SM at LLSB and apex , 4-6 SM at LUSB . No JVD Lungs : CTAB Abd: soft,TTP in all quadrants , nl BS . Ext: no edema ASSESSMENT AND PLAN: 57 y/o lady with h/o HIV, aortic and mitral valve replacement with bioprosthetic valves, ? CHF, COPD, anemia and other medical problems who presented with AMS. 1- AMS : Likely due to bacterial meningitis with resultant hydrocephalus and severe sepsis mental status is much improved now . Neuro exam not focal Blood cx strep pneumo sensitive to CTX. - Cont ceftriaxone - cont decadrone till tomorrow per ID - change IVF to NS at 125 cc /hr - MRI and LP were not able to perform - Crypto Ag pending 2- Abd pain and tenderness.soft stool in diper . - check CT abd /pelvis - check stool cx and c diff - check lipase 3- Dehydration: Free water deficit 2.6 L - increase rate of IVF.and change to NS 4- Slight decrease in TSH , unreliable at this point , possible euthyroid sick syndrome - repeat in a steady state in a couple weeks 5- start puree diet . DVT PX Tx to med surg Visit type - Emergency Visit Emergency Visit: Yes ED Registration Date: 03/11/17 Care time: The patient presented to the Emergency Department on the above date and was hospitalized for further evaluation of their emergent condition. - New Patient This patient is new to me today: No - Critical Care Critical Care patient: No
[2017-03-15] MEDS: amLODIPine BESYLATE 10 MG TABLET (FP) PO SCH (09:03)
[2017-03-15] MEDS: CEFTRIAXONE 2 GM in DEXTROSE 5%-WATER - 100 ML IVPB SCH ×2 (10:37→22:18)
--- NOTE | 2017-03-15 11:02 | PN ---
Progress Note, Physician History of Present Illness: seen and examined today in nad. more awake and alert, able to converse. - Current Medication List Current Medications: Active Medications Amlodipine Besylate (Norvasc -) 10 mg PO DAILY [facility] Last Admin: 03/15/17 09:03 Dose: 10 mg Chlorhexidine Gluconate (Hibiclens For Decolonization -) 1 applic TP HS [facility] Last Admin: 03/14/17 22:03 Dose: 1 applic Dexamethasone Sodium Phosphate (Decadron Injection -) 10 mg IVPB Q6H-IV [facility] Last Admin: 03/15/17 09:03 Dose: 10 mg Heparin Sodium (Porcine) (Heparin -) 5,000 unit SQ TID [facility] Last Admin: 03/15/17 06:02 Dose: 5,000 unit Ceftriaxone Sodium 2 gm/ (Dextrose) 100 mls @ 200 mls/hr IVPB BID [facility] Last Admin: 03/15/17 10:37 Dose: 200 mls/hr Sodium Chloride (Normal Saline -) 1,000 mls @ 125 mls/hr IV ASDIR [facility] Last Admin: 03/15/17 08:55 Dose: 125 mls/hr Metoprolol Tartrate (Lopressor Injection -) 5 mg IVPUSH Q4H PRN PRN Reason: HYPERTENSION Last Admin: 03/14/17 11:24 Dose: 5 mg Mupirocin (Bactroban Ointment (For Decolonization) -) 1 applic NS BID [facility] Stop: 03/16/17 09:59 Last Admin: 03/14/17 22:04 Dose: 1 applic - Objective Vital Signs: Vital Signs Temperature 97.8 F 03/15/17 10:00 Pulse Rate 75 03/15/17 10:00 Respiratory Rate 20 03/15/17 10:00 Blood Pressure 145/108 03/15/17 10:00 O2 Sat by Pulse Oximetry (%) 95 03/15/17 09:00 Constitutional: Yes: No Distress, Calm Eyes: Yes: Conjunctiva Clear, EOM Intact, PERRL HENT: Yes: Atraumatic, Normocephalic Neck: Yes: Supple, Trachea Midline Cardiovascular: Yes: Regular Rate and Rhythm, Murmur, S1, S2. No: Bradycardia, Tachycardia, Pulse Irregular, Bruit, JVD, Gallop, Rub, S3, S4, Varicosities Respiratory: Yes: CTA Bilaterally. No: Rales, Rhonchi, Wheezes Gastrointestinal: Yes: Normal Bowel Sounds, Tenderness. No: Distention Extremities: Yes: WNL Edema: No Peripheral Pulses WNL: Yes Peripheral Pulses: Left Doralis Pedis: 2+, Right Dorsalis Pedis: 2+ Neurological: Yes: Alert Psychiatric: Yes: Alert Labs: CBC, BMP 03/15/17 06:00 03/15/17 06:00 INR, PTT INR 1.19 (0.82-1.09) H 03/13/17 05:50 - ....Imaging Chest X-ray: Report Reviewed, Image Reviewed EKG: Report Reviewed, Image Reviewed Other: Report Reviewed, Image Reviewed (tele-nsr, no arrhythmias recorded) Assessment/Plan 57 year old woman with a history of HTN, h/o bio AVR/MVR, HIV/AIDS, COPD, chronic diastolic CHF, anemia, polysubstance abuse, admitted with AMS and found to have strep pneumonia meningitis. Sepsis-strep meningitis -overall improving -receiving Abx and steroids Valvular heart disease-bio AVR/MVR, Mildly elevated troponin -echo showed normal LV systolic function, mod to sev MS, mod -elevated troponin likely due to demand ischemia, sepsis, valvular heart disease , unlikely ACS -can change IV Lopressor to po HTN -started on amlodipine today -will change IV lopressor to po
[2017-03-15] MEDS ORDERED: METOPROLOL TARTRATE 5 MG/5 ML VIAL IVPUSH PRN (11:08)
[2017-03-15] MEDS: SODIUM CHLORIDE 1,000 ML IV SCH ×2 (13:00→23:56)
[2017-03-15] MEDS: METOPROLOL TARTRATE 25 MG TABLET (FP) PO SCH ×2 (14:20→22:18)
[2017-03-15] MEDS: MUPIROCIN 2% TOPICAL OINTMENT FOR DECOLONIZATION NS SCH (15:16)
[2017-03-15] MEDS ORDERED: PT OWN MED DRAWER 7, Y5N ONE ×3 (15:29→21:43)
--- NOTE | 2017-03-15 16:11 | PN ---
Progress Note (short form) - Note Progress Note: 57 year old female had fall on march 10, and was brought to hospital for confusion and mental status change HPI 57 year old female with history of HIV/AIDS( ON HAART therapy) cd4 is in 350s , She also have history of chf, htn, open heart surgery and triple valve replacement, anemi and polysubstance abuse. Patient has no history of seizure, she fell from bed and she had been bleeding through gums. As as baseline she has no cognitive difficulty. Patient has been agitated and delirious. She has stepto penumonie growing in blood . she has improved clinically. she has been afebrile. Neurological Examination vss alert oriented x 2 she is able to follow command moving all extremity spontaneously and on painful stimuli eomi, pupis is 5 mm bilaterally and briskly reactive, there is mild neck stiffness sensation is normal withraws to painfl stimuli ct head compared to jun 25 there is interval change and there is large ventricle , ct with contrast showed no mass lesion Assessment- acute confusional state due to meningitis/encephalitis , Plan conitnue abx and steroid as per id - continue current supportive care -- Patient has improved markedly, --Feel free to call if any concern Thanking you Truman Ponce MD
[2017-03-15] MEDS ORDERED: hydrALAZINE HCL 25 MG TABLET (FP) PO ONE (18:00)
[2017-03-16] MEDS ORDERED: PT OWN MED DRAWER 7, Y5N ONE ×2 (02:49→09:03)
[2017-03-16] MEDS: DEXAMETHASONE SOD PHOSPHATE 10 MG/1 ML VIAL IVPB SCH ×2 (03:03→09:11)
[2017-03-16] MEDS: HEPARIN NA (PORCINE) 5,000 UNITS/ML 1ML VIAL SQ SCH ×3 (06:43→21:15)
--- NOTE | 2017-03-16 07:31 | PN ---
Physical Exam: SUBJECTIVE: Patient alert and oriented today along with follows orders. Pt complains diffuse headache currently. She also states she has epigastric abdominal pain. OBJECTIVE: Vital Signs Period Temp Pulse Resp BP Sys/Álvarez Pulse Ox Last 24 Hr 97.3 F-98.5 F 75-93 19-20 128-145/91-108 95-99 GENERAL: NAD, lying in bed, Alert and orientedx3 HEENT: Pupils PEAR, moist mucous membranes, no neck stiffness appreciated, No JVD LUNGS: CTA bilaterally, no wheezes, rhonchi, rales appreciated. No accessory muscle use. HEART: RRR, 5/6 holosystolic murmur appreciated at the L lower sternal border. ABDOMEN: Soft, non distended, nomoactive BS, tenderness to palpation epigastric region L>R, no hepatomegaly appreciated. No masses noted EXTREMITIES: No edema noted. pulses 2+. NEUROLOGICAL: Reflexes 2/4, smile symmetrical, EOMI, peripheral vision intact, strength 5/5, sensation intact throughout, no uvula deviation, no tongue deviation SKIN: No rashes or lesions noted. Laboratory Results - last 24 hr 03/15/17 03/15/17 06:00 06:00 Sodium 148 H Potassium 3.8 Chloride 115 H Carbon Dioxide 21 Anion Gap 12 BUN 41 H Creatinine 0.9 D Creat Clearance w eGFR > 60 Random Glucose 192 H Calcium 7.9 L Phosphorus 2.7 Magnesium 2.0 Total Bilirubin 0.4 D AST 19 ALT 26 Alkaline Phosphatase 81 Total Protein 7.1 Albumin 1.7 L Lipase 44 L Cancelled Active Medications Generic Name Dose Route Start Last Admin Trade Name Freq PRN Reason Stop Dose Admin Amlodipine Besylate 10 mg 03/15/17 10:00 03/15/17 09:03 Norvasc - PO 10 mg DAILY [facility] Administration Dexamethasone Sodium Phosphate 10 mg 03/15/17 15:00 03/16/17 03:03 Decadron Injection - IVPB 10 mg Q6H-IV [facility] Administration Heparin Sodium (Porcine) 5,000 unit 03/15/17 14:00 03/16/17 06:43 Heparin - SQ 5,000 unit TID [facility] Administration Ceftriaxone Sodium 2 gm/ 100 mls @ 200 mls/hr 03/15/17 22:00 03/15/17 22:18 Dextrose IVPB 200 mls/hr BID [facility] Administration Sodium Chloride 1,000 mls @ 125 mls/hr 03/15/17 11:08 03/15/17 23:56 Normal Saline - IV 125 mls/hr ASDIR [facility] Administration Metoprolol Tartrate 25 mg 03/15/17 11:15 03/15/17 22:18 Lopressor - PO 25 mg BID [facility] Administration Metoprolol Tartrate 5 mg 03/15/17 11:08 Lopressor Injection - IVPUSH Q4H PRN HYPERTENSION ASSESSMENT/PLAN: 1) Severe sepsis and altered mental status --Resolved --Suspected 2/2 to bacterial meningitis --Continue on Ceftriaxone 2gm IV q daily geoffrey 6 out of 14 --Decrease IVF: NS 50cc/hr --Repeat blood cultures again --If negative can start planning d/c --ID consulted --Can d/c dexamethasone; 4th day today and will have received max benefit from it --Will obtain MRI due to inspect any residual effects from bacterial meningitis and hydrocephalus --Can give valium due to clostrophobia --Cryptococcus Ag pending --Can d/c issac vest 2) Abdominal pain --CT abd/pelvis --C diff negative 3) HTN --Continue Norvasc 10mg PO qdaily --Continue Toprol XL 25mg PO BID --Echocardiogram shows no interval change from 2012 to now. 4) Low TSH level --Most likely euthyroid sick syndrome FEN: Fluids: NS at 75cc/hr Electrolyte abnormalities: None currently Nutrition: Low fat,cholesterol diet PPX DVT - Heparin 5000U TID and SCDs Dispo: Med-surg Case discussed with Dr. Shailesh Morales, DO - Internal Medicine PGY-1 Visit type - Emergency Visit Emergency Visit: No - New Patient This patient is new to me today: No - Critical Care Critical Care patient: No
[2017-03-16] MEDS: SODIUM CHLORIDE 1,000 ML IV SCH ×4 (08:59→21:15)
[2017-03-16] MEDS: METOPROLOL TARTRATE 25 MG TABLET (FP) PO SCH ×2 (09:11→21:16)
[2017-03-16] MEDS: amLODIPine BESYLATE 10 MG TABLET (FP) PO SCH (09:11)
[2017-03-16 09:46] LABS: ALBUMIN 1.7 g/dl (3.4-5.0); ALK PHOS 70 U/L (45-117); ANION GAP 10 (8-16); BILIRUBIN,TOTAL 0.5 mg/dL (0.2-1.0); CALCIUM 7.6 mg/dL (8.5-10.1); CO2 20 mmol/L (21-32); CREATININE 0.6 mg/dL (0.55-1.02); GLUCOSE,RANDOM 160 mg/dL (74-106); MAGNESIUM 1.8 mg/dL (1.8-2.4); PHOSPHOROUS 2.7 mg/dL (2.5-4.9); SGOT/AST 20 U/L (15-37); SGPT/ALT 26 U/L (12-78); TOT PROT 6.2 g/dl (6.4-8.2)
[2017-03-16] MEDS: CEFTRIAXONE 2 GM in DEXTROSE 5%-WATER - 100 ML IVPB SCH ×2 (10:41→21:16)
--- NOTE | 2017-03-16 11:00 | PN ---
Progress Note (short form) - Note Progress Note: Awake and alert still some mild headache and some midepigastric discomfort Vital Signs Period Temp Pulse Resp BP Sys/Álvarez Pulse Ox Last 24 Hr 97.3 F-98.5 F 78-93 19-20 128-142/91-106 99-99 no thrush follow commands cor-rrr lungs clear abd soft, mild midepigastric discomfort ext no edema CBC, BMP 03/15/17 06:00 03/16/17 08:50 Microbiology 03/12/17 10:23 Blood - Peripheral Venous Blood Culture - Preliminary NO GROWTH OBTAINED AFTER 96 HOURS, INCUBATION TO CONTINUE FOR 1 DAYS. 03/12/17 11:20 Blood - Peripheral Venous Blood Culture - Preliminary NO GROWTH OBTAINED AFTER 72 HOURS, INCUBATION TO CONTINUE FOR 2 DAYS. 03/13/17 07:35 Serum Cryptococcal Antigen - Preliminary 03/11/17 02:25 Blood - Peripheral Venous Blood Culture - Final Streptococcus Pneumoniae 03/11/17 02:25 Blood - Peripheral Venous Blood Culture - Final Streptococcus Pneumoniae 03/12/17 00:34 Urine - Urine - Catheterized Urine Culture - Final NO GROWTH OBTAINED 03/11/17 02:25 Urine - Urine - Catheterized Urine Culture - Final NO GROWTH OBTAINED 03/11/17 16:32 Urine For Antigen Detection Legionella Antigen - Final 03/11/17 16:32 Urine For Antigen Detection Streptococcus pneumoniae Antigen (M - Final 03/11/17 18:30 Nasopharyngeal Swab Influenza Types A,B Antigen (SHIVA) - Final 03/11/17 18:30 Nasopharyngeal Swab - Final Current Medications Amlodipine Besylate (Norvasc -) 10 mg PO DAILY [facility] Last Admin: 03/16/17 09:11 Dose: 10 mg Dexamethasone Sodium Phosphate (Decadron Injection -) 10 mg IVPB Q6H-IV [facility] Last Admin: 03/16/17 09:11 Dose: 10 mg Heparin Sodium (Porcine) (Heparin -) 5,000 unit SQ TID [facility] Last Admin: 03/16/17 06:43 Dose: 5,000 unit Ceftriaxone Sodium 2 gm/ (Dextrose) 100 mls @ 200 mls/hr IVPB BID [facility] Last Admin: 03/16/17 10:41 Dose: 200 mls/hr Sodium Chloride (Normal Saline -) 1,000 mls @ 125 mls/hr IV ASDIR [facility] Last Admin: 03/16/17 10:42 Dose: Not Given Metoprolol Tartrate (Lopressor -) 25 mg PO BID [facility] Last Admin: 03/16/17 09:11 Dose: 25 mg Metoprolol Tartrate (Lopressor Injection -) 5 mg IVPUSH Q4H PRN PRN Reason: HYPERTENSION a/p pneumococcal meningitis- day #6 of ceftriaxone, plan total of 14 days, can d/c steroids after 4 days of treatment hiv- can resume outpt HIV meds once she is eating properly-reyataz/norvir/ truvada history of Bioprosthetic valves- repeat blood cultures are negative
--- NOTE | 2017-03-16 12:39 | PN ---
Progress Note, METER TECHNICIAN - Note Progress Note: Speech Consultation received: 57 yo female seen at bedside for speech eval. . Pt presents as verbal, A&Ox3, cooperative. Pt current diet is pureed with thin liquids (on hold for testing) . Pt vocal quality is adequate for her environment. METER TECHNICIAN unable to perform clinical bedside examine secondary to scheduled CAT scan with contrast. Pt is able to recount recent past, and does not appear to have speech impairment at this time. METER TECHNICIAN will attempt sp/swallow test when pt returns to room.
--- NOTE | 2017-03-16 13:43 | PN ---
Progress Note (short form) - Note Progress Note: 57 year old female had fall on march 10, and was brought to hospital for confusion and mental status change HPI 57 year old female with history of HIV/AIDS( ON HAART therapy) cd4 is in 350s , She also have history of chf, htn, open heart surgery and triple valve replacement, anemi and polysubstance abuse. Patient has no history of seizure, she fell from bed and she had been bleeding through gums. As as baseline she has no cognitive difficulty. Patient has been agitated and delirious. She has stepto penumonie growing in blood . she has improved clinically. Patient has improved alot and now she is afebrile and oriented x 3 Neurological Examination vss alert oriented x 3 she is able to follow command moving all extremity spontaneously and on painful stimuli eomi, pupis is 5 mm bilaterally and briskly reactive, there is mild neck stiffness sensation is normal withraws to painfl stimuli clinically she has improved alot and previous imaging has been stable Assessment- acute confusional state due to meningitis/encephalitis , she has improved markedly Plan conitnue abx and steroid as per id - continue current supportive care -- Thanking you Truman Ponce MD
[2017-03-16] MEDS ORDERED: diazePAM 2 MG TABLET PO ONE (17:45)
--- NOTE | 2017-03-16 18:31 | PN ---
Teaching Attending Note Name of Resident: Darien Morales ATTENDING PHYSICIAN STATEMENT I saw and evaluated the patient. I reviewed the resident's note and discussed the case with the resident. I agree with the resident's findings and plan as documented. SUBJECTIVE: has slight CUETO , abd pain. OBJECTIVE: awake ,oriented to place, year month and self Neuro: symmetric face, round equal pupils, 5 mm in diameter, reactive to light. no facial droop. EOMI. tongue at mid line strength 5/5 in upper extremities proximally and distally. in LE strength 5/5 hip flexion , and knee extension and flexion. 5/5 ankle dorsiflexiona dn plantar flexion . 2+ knee jerk and biceps reflexes CV: Regular rhythm . 3/6 SM at LLSB and apex , 3 SM at LUSB . No JVD Lungs : CTAB Abd: soft,TTP in all quadrants , nl BS . Ext: no edema ASSESSMENT AND PLAN: 57 y/o lady with h/o HIV, aortic and mitral valve replacement with bioprosthetic valves, ? CHF, COPD, anemia and other medical problems who presented with AMS. 1- AMS : Likely due to bacterial meningitis with resultant hydrocephalus and severe sepsis improved alertness and NL neuro exam - Cont ceftriaxone day 10/22 - appreciate ID help. Dc steroids - decrease IVF . possibly dc tomorrow - MRI today - Crypto Ag pending 2- Abd pain and tenderness. - check CT abd /pelvis - c diff neg 3- Dehydration: resolved . -decrease IVF to 75 cc/hr 4- Slight decrease in TSH , possible euthyroid sick syndrome - repeat in a steady state in a couple weeks 5- Nutrition: passed bedside swallow eval. change diet DVT PX
[2017-03-16] MEDS ORDERED: diphenhydrAMINE HCL 25 MG CAPSULE (FP) PO ONE (22:11)
[2017-03-17] MEDS ORDERED: ACETAMINOPHEN 325 MG TABLET (FP) ONE (03:42)
[2017-03-17] MEDS: ACETAMINOPHEN 325 MG TABLET (FP) PO PRN ×4 (03:43→22:24)
[2017-03-17] MEDS: HEPARIN NA (PORCINE) 5,000 UNITS/ML 1ML VIAL SQ SCH ×3 (06:10→21:27)
[2017-03-17] MEDS ORDERED: PT OWN MED DRAWER 7, Y5N ONE (10:04)
[2017-03-17] MEDS: METOPROLOL TARTRATE 25 MG TABLET (FP) PO SCH ×2 (10:22→21:27)
[2017-03-17] MEDS: amLODIPine BESYLATE 10 MG TABLET (FP) PO SCH (10:22)
[2017-03-17] MEDS: SODIUM CHLORIDE 1,000 ML IV SCH (11:05)
[2017-03-17] MEDS: CEFTRIAXONE 2 GM in DEXTROSE 5%-WATER - 100 ML IVPB SCH ×2 (11:05→21:27)
--- NOTE | 2017-03-17 12:04 | PN ---
Progress Note, Physician Chief Complaint: Pt A&Ox3; sitting up; denies chest pain, dyspnea. History of Present Illness: The patient is a 57 year old black female with significant past medical history of HIV/AIDS, hypertension, COPD, diastolic CHF, anemia, polysubstance abuse, open heart surgery (bioprosthetic aortic and mitral valve replacements) brought in by EMS. Per EMS, the patient fell out of bed and landed on her back. On evaluation, the patient appears confused and is unable to answer questions clearly. Patient is a poor historian and unable to provide remainder of history. - Current Medication List Current Medications: Active Medications Acetaminophen (Tylenol -) 650 mg PO Q6H PRN PRN Reason: FEVER OR PAIN Last Admin: 03/17/17 11:12 Dose: 650 mg Amlodipine Besylate (Norvasc -) 10 mg PO DAILY [facility] Last Admin: 03/17/17 10:22 Dose: 10 mg Heparin Sodium (Porcine) (Heparin -) 5,000 unit SQ TID [facility] Last Admin: 03/17/17 06:10 Dose: 5,000 unit Ceftriaxone Sodium 2 gm/ (Dextrose) 100 mls @ 200 mls/hr IVPB BID [facility] Last Admin: 03/17/17 11:05 Dose: 200 mls/hr Metoprolol Tartrate (Lopressor -) 25 mg PO BID [facility] Last Admin: 03/17/17 10:22 Dose: 25 mg Metoprolol Tartrate (Lopressor Injection -) 5 mg IVPUSH Q4H PRN PRN Reason: HYPERTENSION - Objective Vital Signs: Vital Signs Temperature 98 F 03/17/17 10:00 Pulse Rate 71 03/17/17 10:00 Respiratory Rate 18 03/17/17 10:00 Blood Pressure 138/92 03/17/17 10:00 O2 Sat by Pulse Oximetry (%) 98 03/16/17 22:00 Constitutional: Yes: Calm Eyes: Yes: WNL Labs: CBC, BMP 03/15/17 06:00 03/16/17 08:50 INR, PTT INR 1.19 (0.82-1.09) H 03/13/17 05:50 Problem List - Problems (1) H/O prosthetic heart valve Assessment/Plan: bioprosthetic AOV and MV. moderate and moderately severe MS (2) HIV (human immunodeficiency virus infection) Assessment/Plan: treat per ID. Code(s): B20 - HUMAN IMMUNODEFICIENCY VIRUS [HIV] DISEASE (3) Pneumonia Assessment/Plan: On Rocephinl. Code(s): J18.9 - PNEUMONIA, UNSPECIFIED ORGANISM Qualifiers: Pneumonia type: due to unspecified organism Laterality: unspecified laterality Lung location: unspecified part of lung Qualified Code(s): J18.9 - Pneumonia, unspecified organism; J18.9 - Pneumonia, unspecified organism (4) Sepsis Code(s): A41.9 - SEPSIS, UNSPECIFIED ORGANISM Qualifiers: Sepsis type: sepsis due to unspecified organism Qualified Code(s): A41.9 - Sepsis, unspecified organism; A41.9 - Sepsis, unspecified organism; A41.9 - Sepsis, unspecified organism (5) Streptococcal meningitis Code(s): G00.2 - STREPTOCOCCAL MENINGITIS (6) Depressive disorder Code(s): F32.9 - MAJOR DEPRESSIVE DISORDER, SINGLE EPISODE, UNSPECIFIED (7) Acute respiratory failure with hypoxia and hypercapnia Code(s): J96.01 - ACUTE RESPIRATORY FAILURE WITH HYPOXIA (8) Screening for malignant neoplasm of cervix Code(s): Z12.4 - ENCOUNTER FOR SCREENING FOR MALIGNANT NEOPLASM OF CERVIX (9) Tobacco use Assessment/Plan: Pt does not crave cigarettes presently, but asks for aid (nicotine patch, which worked well for her in the past) because she knows otherwise she will be strongly tempted to start again when she returns to home environment. Code(s): Z72.0 - TOBACCO USE (10) Elevated troponin Assessment/Plan: mildly elvated TNI that does not meet OH threshold; CK rel index low. Increase likely from demand stress: sepsis, CHF, electrolyte imbalance. Given multiple CAD risks, would do stress MIBI when stable. Code(s): R74.8 - ABNORMAL LEVELS OF OTHER SERUM ENZYMES (11) Hypothyroid Assessment/Plan: low TSH; Free T4 WNL. Code(s): E03.9 - HYPOTHYROIDISM, UNSPECIFIED (12) Hypertension Assessment/Plan: On metoprolol and amlodipine. Code(s): I10 - ESSENTIAL (PRIMARY) HYPERTENSION (13) Hypoalbuminemia Assessment/Plan: sepsis; poor nutrition status; now eating on her own. Code(s): E88.09 - OTH DISORDERS OF PLASMA-PROTEIN METABOLISM, NEC (14) Confused Assessment/Plan: now A&O Code(s): R41.0 - DISORIENTATION, UNSPECIFIED
--- NOTE | 2017-03-17 14:35 | PN ---
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 Speech/language/swallowing function seems intact. Diet upgraded due to improving medical condition. Overtly tolerating diet. It is not known how much pt ate as pt's was seen "finishing" her tray. Selected Entries 03/16/17 03/16/17 03/16/17 02:00 06:00 13:47 Breakfast 75% Lunch NPO Supper Temperature 98.5 F 97.9 F 97.9 F 03/16/17 03/16/17 03/17/17 18:20 22:00 06:00 Breakfast Lunch 0 Supper 0 Temperature 97.8 F 97.9 F 98.3 F 03/17/17 03/17/17 10:00 11:42 Breakfast 50% Lunch Supper Temperature 98 F Laboratory Tests 03/14/17 03/15/17 06:10 06:00 WBC 12.4 H 9.4 Monitor for sufficient PO intake/tolerance.
--- NOTE | 2017-03-17 14:39 | PN ---
Progress Note (short form) - Note Progress Note: 57 year old female had fall on march 10, and was brought to hospital for confusion and mental status change HPI 57 year old female with history of HIV/AIDS( ON HAART therapy) cd4 is in 350s , She also have history of chf, htn, open heart surgery and triple valve replacement, anemi and polysubstance abuse. Patient has no history of seizure, she fell from bed and she had been bleeding through gums. As as baseline she has no cognitive difficulty. Patient has been agitated and delirious. She has stepto penumonie growing in blood . she has improved clinically. she is almost back to normal Neurological Examination vss alert oriented x 3 she is able to follow command moving all extremity spontaneously and on painful stimuli eomi, pupis is 5 mm bilaterally and briskly reactive, there is mild neck stiffness sensation is normal withraws to painfl stimuli clinically she has improved alot and previous imaging has been stable Assessment- acute confusional state due to meningitis/encephalitis , she has improved markedly mri of brain reviewed , it is unremarkable Plan conitnue abx and steroid as per id - continue current supportive care and would see her as needed basis -- Thanking you Truman Ponce MD
--- NOTE | 2017-03-17 14:48 | PN ---
Teaching Attending Note Name of Resident: Darien Morales ATTENDING PHYSICIAN STATEMENT I saw and evaluated the patient. I reviewed the resident's note and discussed the case with the resident. I agree with the resident's findings and plan as documented. SUBJECTIVE: No fever or chills. has lower back pain ( similar to the chronic pain but it is worse) . has abd pain. OBJECTIVE: Awake ,oriented x3 Neuro: symmetric face, round equal pupils, 5 mm in diameter, reactive to light. no facial droop. EOMI. tongue at mid line strength 5/5 in upper and lower extremities proximally and distally. 2+ knee jerk and biceps reflexes CV: Regular rhythm . 3/6 SM at LLSB and apex , 3 SM at LUSB . No JVD Lungs : CTAB Abd: soft,TTP in all quadrants , nl BS .No rebound tenderness Ext: no edema ASSESSMENT AND PLAN: 57 y/o lady with h/o HIV, aortic and mitral valve replacement with bioprosthetic valves, ? CHF, COPD, anemia and other medical problems who presented with AMS. 1- AMS: Likely due to bacterial meningitis with resultant hydrocephalus and severe sepsis improved alertness and NL neuro exam - Cont ceftriaxone day 11/21 - MRI with no masses or lesions 2- Abd pain and tenderness. c diff neg - CT abd /pelvis with no masses or abscesses. bile duct dilation after CCY. no obstruction seen. Has ascitis and b/l pleural effusion. - d/w Dr. Pisano, no suspicion for SBP - stop IVF 3- BAck pain. N o point tenderness but she was bacteremic -D/W Dr. Pisano. will obtain MRI fo L spine 4- Slight decrease in TSH , possible euthyroid sick syndrome . repeat as out pt DVT PX Dispo : needs 7 more days of Abx ( if there is no discitis or epidural abscess ) . Due to drug using hx , she can't continue IV abx at home . she will need to be in house or in Rehab
--- NOTE | 2017-03-17 14:48 | PN ---
Progress Note (short form) - Note Progress Note: Overall appears better. Mental status improved. No CP or SOB. Intake & Output 03/15/17 03/15/17 03/16/17 03/17/17 00:59 23:59 23:59 23:59 Intake Total 1450 1735 Output Total Balance 1450 1735 Weight 173 lb 3.2 oz 181 lb 8 oz Last Vital Signs Temp Pulse Resp BP Pulse Ox 98 F 71 18 138/92 100 03/17/17 10:00 03/17/17 10:00 03/17/17 10:00 03/17/17 10:00 03/17/17 09:00 Active Medications Acetaminophen (Tylenol -) 650 mg PO Q6H PRN PRN Reason: FEVER OR PAIN Last Admin: 03/17/17 11:12 Dose: 650 mg Amlodipine Besylate (Norvasc -) 10 mg PO DAILY [facility] Last Admin: 03/17/17 10:22 Dose: 10 mg Heparin Sodium (Porcine) (Heparin -) 5,000 unit SQ TID [facility] Last Admin: 03/17/17 14:45 Dose: 5,000 unit Ceftriaxone Sodium 2 gm/ (Dextrose) 100 mls @ 200 mls/hr IVPB BID [facility] Last Admin: 03/17/17 11:05 Dose: 200 mls/hr Metoprolol Tartrate (Lopressor -) 25 mg PO BID [facility] Last Admin: 03/17/17 10:22 Dose: 25 mg Metoprolol Tartrate (Lopressor Injection -) 5 mg IVPUSH Q4H PRN PRN Reason: HYPERTENSION GENERAL: Awake, NAD HEAD: Normal with no signs of trauma. EYES: conjunctiva clear. (-) icterus NECK: no JVD present, normal range of motion LUNGS: few scattered rhonchi. No wheezes, and no crackles. HEART: Regular rate and rhythm, systolic murmur appreciated in tricuspid region ABDOMEN: Soft, nontender, not distended, (+) BS UPPER EXTREMITIES: 2+ radial pulses, warm, well-perfused. LOWER EXTREMITIES: 2+ dorsalis pedis pulses, warm, well-perfused. No calf tenderness. No peripheral edema. NEUROLOGICAL: Awake, non-focal IMP: Toxic Metabolic Encephalopathy (?) Meningitis HIV/AIDS COPD HTN Pulmonary HTN OHS Valve replacement Anemia Sepsis Polysubstance Abuse S/P Fall PLAN: ABX per ID PO as tolerated OOB to chair / PT VTE prophylaxis Dr Rodrigues
--- NOTE | 2017-03-17 14:55 | PN ---
Progress Note (short form) - Note Progress Note: Awake and alert notes severe low back pain eating well ready to resume ART Vital Signs Period Temp Pulse Resp BP Sys/Álvarez Pulse Ox Last 24 Hr 97.8 F-98.3 F 68-71 18-18 126-138/92-101 98-100 cor-rrr lungs clear abd soft, mild midepigastric pain to palpation ext no edema CBC, BMP 03/15/17 06:00 03/16/17 08:50 Microbiology 03/15/17 16:45 Stool Salmonella/Shigella Culture - Preliminary NO ENTERIC PATHOGENS, 24 HOURS, ON PRIMARY PLATES 03/15/17 16:45 Stool Yersinia Culture - Preliminary NO ENTERIC PATHOGENS, 24 HOURS, ON PRIMARY PLATES 03/15/17 16:45 Stool Vibrio Culture - Preliminary NO ENTERIC PATHOGENS, 24 HOURS, ON PRIMARY PLATES 03/15/17 16:45 Stool Escherichia coli 0157 Culture - Preliminary NO ENTERIC PATHOGENS, 24 HOURS, ON PRIMARY PLATES 03/12/17 11:20 Blood - Peripheral Venous Blood Culture - Final NO GROWTH AFTER 5 DAYS INCUBATION 03/12/17 10:23 Blood - Peripheral Venous Blood Culture - Final NO GROWTH AFTER 5 DAYS INCUBATION 03/13/17 07:35 Serum Cryptococcal Antigen - Final 03/15/17 16:45 Stool Gram Stain - Final 03/15/17 16:45 Stool Clostridium difficile Antigen (SHIVA) - Final 03/15/17 16:45 Stool Clostridium difficile Toxin Assay - Final 03/11/17 02:25 Blood - Peripheral Venous Blood Culture - Final Streptococcus Pneumoniae 03/11/17 02:25 Blood - Peripheral Venous Blood Culture - Final Streptococcus Pneumoniae 03/12/17 00:34 Urine - Urine - Catheterized Urine Culture - Final NO GROWTH OBTAINED 03/11/17 02:25 Urine - Urine - Catheterized Urine Culture - Final NO GROWTH OBTAINED 03/11/17 16:32 Urine For Antigen Detection Legionella Antigen - Final 03/11/17 16:32 Urine For Antigen Detection Streptococcus pneumoniae Antigen (M - Final 03/11/17 18:30 Nasopharyngeal Swab Influenza Types A,B Antigen (SHIVA) - Final 03/11/17 18:30 Nasopharyngeal Swab - Final a/p pneumococcal meningitis- day #7 of ceftriaxone, plan total of 14 days- will need SNF placement hiv- resume outpt HIV meds -reyataz/norvir/truvada history of Bioprosthetic valves- repeat blood cultures are negative mri back due to bacteremia and back pain d/w hospitalist
[2017-03-17] MEDS ORDERED: diazePAM 2 MG TABLET PO ONE ×2 (14:58→19:00)
--- NOTE | 2017-03-17 21:22 | PN ---
Physical Exam: SUBJECTIVE: No acute events overnight. Pt complaining of back pain that is described as worse compared to her normal back pain. Pt reports similar quality of acute pain to current. OBJECTIVE: Vital Signs Period Temp Pulse Resp BP Sys/Álvarez Pulse Ox Last 24 Hr 97.9 F-98.7 F 65-71 18-18 123-138/83-101 98-100 GENERAL: NAD, lying in bed, Alert and orientedx3 HEENT: Pupils PEAR, moist mucous membranes, no neck stiffness appreciated, No JVD LUNGS: CTA bilaterally, no wheezes, rhonchi, rales appreciated. No accessory muscle use. HEART: RRR, 5/6 holosystolic murmur appreciated at the L lower sternal border. ABDOMEN: Soft, non distended, nomoactive BS, tenderness to palpation epigastric region L>R, no hepatomegaly appreciated. No masses noted EXTREMITIES: No edema noted. pulses 2+. NEUROLOGICAL: Reflexes 2/4, smile symmetrical, EOMI, peripheral vision intact, strength 5/5, sensation intact throughout, no uvula deviation, no tongue deviation SKIN: No rashes or lesions noted. Active Medications Generic Name Dose Route Start Last Admin Trade Name Freq PRN Reason Stop Dose Admin Acetaminophen 650 mg 03/17/17 03:32 03/17/17 17:08 Tylenol - PO 650 mg Q6H PRN Administration FEVER OR PAIN Amlodipine Besylate 10 mg 03/15/17 10:00 03/17/17 10:22 Norvasc - PO 10 mg DAILY [facility] Administration Atazanavir 300 mg 03/18/17 10:00 Reyataz - PO DAILY [facility] Emtricitabine/Tenofovir 1 tab 03/18/17 10:00 Truvada PO DAILY [facility] Heparin Sodium (Porcine) 5,000 unit 03/15/17 14:00 03/17/17 14:45 Heparin - SQ 5,000 unit TID [facility] Administration Ceftriaxone Sodium 2 gm/ 100 mls @ 200 mls/hr 03/15/17 22:00 03/17/17 11:05 Dextrose IVPB 200 mls/hr BID [facility] Administration Metoprolol Tartrate 25 mg 03/15/17 11:15 03/17/17 10:22 Lopressor - PO 25 mg BID [facility] Administration Pantoprazole Sodium 40 mg 03/18/17 10:00 Protonix - PO DAILY [facility] Ritonavir 100 mg 03/18/17 10:00 Norvir - PO DAILY [facility] ASSESSMENT/PLAN: 1) Severe sepsis and altered mental status --Resolved --Suspected 2/2 to bacterial meningitis --Continue on Ceftriaxone 2gm IV q daily day 7 out of 14 --D/c IVF --Repeat blood cultures again --If negative can start planning d/c --ID consulted --Brain MRI reveal normal exam --Cryptococcus Ag pending 2) Back pain --MRI of lumbar spine to r/o seeding/abscess from bacteremia 3) Abdominal pain --CT abd/pelvis revealing only bile duct dilation (typical of cholecystectomy ); ascites noted and b/l pleural effusions noted --Not likely to be SBP currently --C diff negative 4) HTN --Continue Norvasc 10mg PO qdaily --Continue Toprol XL 25mg PO BID --Echocardiogram shows no interval change from 2012 to now. 5) Low TSH level --Most likely euthyroid sick syndrome FEN: Fluids: D/c fluids Electrolyte abnormalities: None currently Nutrition: Low fat,cholesterol diet PPX DVT - Heparin 5000U TID and SCDs Dispo: Med-surg Case discussed with Dr. Shailesh Morales, DO - Internal Medicine PGY-1 Visit type - Emergency Visit Emergency Visit: No - New Patient This patient is new to me today: No - Critical Care Critical Care patient: No
[2017-03-18] MEDS: HEPARIN NA (PORCINE) 5,000 UNITS/ML 1ML VIAL SQ SCH ×3 (08:49→21:43)
--- NOTE | 2017-03-18 09:00 | PN ---
Physical Exam: SUBJECTIVE: Patient did not receive MRI last night for lumbar spine. She refused even while pre-medicated due to clostrophobia. Pt states she feels like it's her normal back pain worsened by her hospital bed and inactivity. Pt states she'd would rather go home with picc, however explained to her how this isn't a possibility and a SNF facility is more likely of a d/c plan. OBJECTIVE: Vital Signs Period Temp Pulse Resp BP Sys/Álvarez Pulse Ox Last 24 Hr 98 F-98.7 F 65-80 16-18 120-138/70-92 100 GENERAL: NAD, lying in bed, Alert and orientedx3 HEENT: Pupils PEAR, moist mucous membranes, no neck stiffness appreciated, No JVD LUNGS: CTA bilaterally, no wheezes, rhonchi, rales appreciated. No accessory muscle use. HEART: RRR, 5/6 holosystolic murmur appreciated at the L lower sternal border. ABDOMEN: Soft, non distended, nomoactive BS, tenderness to palpation epigastric region L>R, no hepatomegaly appreciated. No masses noted EXTREMITIES: No edema noted. pulses 2+. NEUROLOGICAL: Reflexes 2/4, smile symmetrical, EOMI, peripheral vision intact, strength 5/5, sensation intact throughout, no uvula deviation, no tongue deviation SKIN: No rashes or lesions noted. Active Medications Generic Name Dose Route Start Last Admin Trade Name Freq PRN Reason Stop Dose Admin Acetaminophen 650 mg 03/17/17 03:32 03/17/17 22:24 Tylenol - PO 650 mg Q6H PRN Administration FEVER OR PAIN Amlodipine Besylate 10 mg 03/15/17 10:00 03/17/17 10:22 Norvasc - PO 10 mg DAILY [facility] Administration Atazanavir 300 mg 03/18/17 10:00 Reyataz - PO DAILY [facility] Emtricitabine/Tenofovir 1 tab 03/18/17 10:00 Truvada PO DAILY [facility] Heparin Sodium (Porcine) 5,000 unit 03/15/17 14:00 03/18/17 08:49 Heparin - SQ Not Given TID [facility] Ceftriaxone Sodium 2 gm/ 100 mls @ 200 mls/hr 03/15/17 22:00 03/17/17 21:27 Dextrose IVPB 200 mls/hr BID [facility] Administration Metoprolol Tartrate 25 mg 03/15/17 11:15 11/07/17 21:27 Lopressor - PO 25 mg BID [facility] Administration Pantoprazole Sodium 40 mg 03/18/17 10:00 Protonix - PO DAILY [facility] Ritonavir 100 mg 03/18/17 10:00 Norvir - PO DAILY [facility] ASSESSMENT/PLAN: 1) Severe sepsis and altered mental status --Resolved --Suspected 2/2 to bacterial meningitis --Per ID: picc line and d/c plan is Daptomycin and naficillin until day 10 14 and then continue with daptomycin until day 14 --Will need SNF placement due to previous polysubstance abuse; pending approval with insurance --Repeat blood cultures negative --Brain MRI - normal brain MRI 2) Abdominal pain --CT abd/pelvis - negative --Most likely 2/2 antibiotics --C diff negative 3) HTN --Continue Norvasc 10mg PO qdaily --Continue Toprol XL 25mg PO BID --Echocardiogram shows no interval change from 2012 to now. 4) Low TSH level --Most likely euthyroid sick syndrome FEN: Fluids: None; tolerating PO Electrolyte abnormalities: None currently Nutrition: Low fat,cholesterol diet PPX DVT - Heparin 5000U TID and SCDs Dispo: Med-surg Case discussed with Dr. Tanisha Morales, DO - Internal Medicine PGY-1 Visit type - Emergency Visit Emergency Visit: No - New Patient This patient is new to me today: No - Critical Care Critical Care patient: No
[2017-03-18] MEDS: PANTOPRAZOLE 40 MG TABLET (FP) PO SCH ×2 (10:32→16:14)
[2017-03-18] MEDS: ATAZANAVIR SO4 300 MG CAPSULE PO SCH (10:34)
[2017-03-18] MEDS: METOPROLOL TARTRATE 25 MG TABLET (FP) PO SCH ×2 (10:34→21:43)
[2017-03-18] MEDS: EMTRICITABINE 200MG/TENOFOVIR 300MG PO SCH (10:34)
[2017-03-18] MEDS: RITONAVIR 100 MG TABLET PO SCH (10:34)
[2017-03-18] MEDS: amLODIPine BESYLATE 10 MG TABLET (FP) PO SCH (10:34)
[2017-03-18] MEDS: CEFTRIAXONE 2 GM in DEXTROSE 5%-WATER - 100 ML IVPB SCH ×2 (10:34→21:44)
[2017-03-18] MEDS: ACETAMINOPHEN 325 MG TABLET (FP) PO PRN (11:26)
--- NOTE | 2017-03-18 12:22 | PN ---
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 Drinking supplements b/n meals.
--- NOTE | 2017-03-18 14:42 | PN ---
Progress Note (short form) - Note Progress Note: Awake and alert low grade fever notes severe low back pain no abdominal pain eating well complains of pain in her upper gum on the right side Vital Signs Period Temp Pulse Resp BP Sys/Álvarze Pulse Ox Last 24 Hr 98.3 F-100.8 F 65-111 16-18 120-146/70-93 97-100 ?swelling of gum on the right side cor-rrr lungs clear abd soft,nt ext no edema CBC, BMP 03/15/17 06:00 03/16/17 08:50 Microbiology 03/15/17 16:45 Stool Salmonella/Shigella Culture - Preliminary Presumptive Mrsa (Pbp2a Pos) Yeast Like Organism 03/15/17 16:45 Stool Campylobacter Culture - Final NO GROWTH OF CAMPYLOBACTER SPECIES OBTAINED 03/15/17 16:45 Stool Yersinia Culture - Final NO GROWTH OF YERSINIA SPECIES OBTAINED 03/15/17 16:45 Stool Vibrio Culture - Final NO GROWTH OF VIBRIO SPECIES OBTAINED 03/15/17 16:45 Stool Escherichia coli 0157 Culture - Preliminary NO ENTERIC PATHOGENS, 24 HOURS, ON PRIMARY PLATES 03/12/17 11:20 Blood - Peripheral Venous Blood Culture - Final NO GROWTH AFTER 5 DAYS INCUBATION 03/12/17 10:23 Blood - Peripheral Venous Blood Culture - Final NO GROWTH AFTER 5 DAYS INCUBATION 03/13/17 07:35 Serum Cryptococcal Antigen - Final 03/15/17 16:45 Stool Gram Stain - Final 03/15/17 16:45 Stool Clostridium difficile Antigen (SHIVA) - Final 03/15/17 16:45 Stool Clostridium difficile Toxin Assay - Final 03/11/17 02:25 Blood - Peripheral Venous Blood Culture - Final Streptococcus Pneumoniae 03/11/17 02:25 Blood - Peripheral Venous Blood Culture - Final Streptococcus Pneumoniae 03/12/17 00:34 Urine - Urine - Catheterized Urine Culture - Final NO GROWTH OBTAINED 03/11/17 02:25 Urine - Urine - Catheterized Urine Culture - Final NO GROWTH OBTAINED 03/11/17 16:32 Urine For Antigen Detection Legionella Antigen - Final 03/11/17 16:32 Urine For Antigen Detection Streptococcus pneumoniae Antigen (M - Final 03/11/17 18:30 Nasopharyngeal Swab Influenza Types A,B Antigen (SHIVA) - Final 03/11/17 18:30 Nasopharyngeal Swab - Final a/p pneumococcal meningitis- day #8of ceftriaxone, plan total of 14 days- will need SNF placement hiv- resume outpt HIV meds -reyataz/norvir/truvada history of Bioprosthetic valves- repeat blood cultures are negative mri back due to bacteremia and back pain now with gum pain reports "leaking in her mouth" add flagyl for anaerobic coverage repeat blood cultures imaging of mandible if possible ?oral surgery consult d/w hospitalist
--- NOTE | 2017-03-18 19:03 | PN ---
Teaching Attending Note Name of Resident: Darien Morales ATTENDING PHYSICIAN STATEMENT I saw and evaluated the patient. I reviewed the resident's note and discussed the case with the resident. I agree with the resident's findings and plan as documented. SUBJECTIVE: Patient is comfortable with no acute distress, no nausea or vomiting, no fever. Patient states that she has pus like "leaking in her mouth" OBJECTIVE: Vital Signs Temperature 98.8 F 03/18/17 15:00 Pulse Rate 81 03/18/17 15:00 Respiratory Rate 18 03/18/17 15:00 Blood Pressure 118/80 03/18/17 15:00 O2 Sat by Pulse Oximetry (%) 97 03/18/17 10:54 CBCD WBC 9.4 K/mm3 (4.0-10.0) 03/15/17 06:00 RBC 5.06 M/mm3 (3.60-5.2) 03/15/17 06:00 Hgb 14.3 GM/dL (10.7-15.3) 03/15/17 06:00 Hct 43.4 % (32.4-45.2) 03/15/17 06:00 MCV 85.7 fl (80-96) 03/15/17 06:00 MCHC 33.1 g/dl (32.0-36.0) 03/15/17 06:00 RDW 15.1 % (11.6-15.6) 03/15/17 06:00 Plt Count 133 K/MM3 (134-434) L 03/15/17 06:00 MPV 10.3 fl (7.5-11.1) 03/15/17 06:00 CMP Sodium 142 mmol/L (136-145) 03/16/17 08:50 Potassium 4.1 mmol/L (3.5-5.1) 03/16/17 08:50 Chloride 112 mmol/L (98-107) H 03/16/17 08:50 Carbon Dioxide 20 mmol/L (21-32) L 03/16/17 08:50 Anion Gap 10 (8-16) 03/16/17 08:50 BUN 31 mg/dL (7-18) H D 03/16/17 08:50 Creatinine 0.6 mg/dL (0.55-1.02) D 03/16/17 08:50 Creat Clearance w eGFR > 60 (>60) 03/16/17 08:50 Random Glucose 160 mg/dL (74-106) H 03/16/17 08:50 Calcium 7.6 mg/dL (8.5-10.1) L 03/16/17 08:50 Total Bilirubin 0.5 mg/dL (0.2-1.0) D 03/16/17 08:50 AST 20 U/L (15-37) 03/16/17 08:50 ALT 26 U/L (12-78) 03/16/17 08:50 Alkaline Phosphatase 70 U/L (45-117) 03/16/17 08:50 Total Protein 6.2 g/dl (6.4-8.2) L 03/16/17 08:50 Albumin 1.7 g/dl (3.4-5.0) L 03/16/17 08:50 CARDIAC ENZYMES Creatine Kinase 1716 IU/L (26-192) H 03/11/17 15:00 Troponin I 0.26 ng/ml (0.00-0.05) H 03/11/17 15:00 Current Medications Generic Name Dose Route Start Last Admin Trade Name Freq PRN Reason Stop Dose Admin Acetaminophen 650 mg 03/17/17 03:32 03/18/17 11:26 Tylenol - PO 650 mg Q6H PRN Administration FEVER OR PAIN Amlodipine Besylate 10 mg 03/15/17 10:00 03/18/17 10:34 Norvasc - PO 10 mg DAILY VERONICA Administration Atazanavir 300 mg 03/18/17 10:00 03/18/17 10:34 Reyataz - PO 300 mg DAILY VERONICA Administration Emtricitabine/Tenofovir 1 tab 03/18/17 10:00 03/18/17 10:34 Truvada PO 1 tab DAILY VERONICA Administration Heparin Sodium (Porcine) 5,000 unit 03/15/17 14:00 03/18/17 14:29 Heparin - SQ 5,000 unit TID VERONICA Administration Ceftriaxone Sodium 2 gm/ 100 mls @ 200 mls/hr 03/15/17 22:00 03/18/17 10:34 Dextrose IVPB 200 mls/hr BID VERONICA Administration Metronidazole 500 mg in 100 mls @ 100 mls/hr 03/18/17 21:00 Flagyl 500mg Premixed Ivpb - IVPB Q6H-IV VERONICA Metoprolol Tartrate 25 mg 03/15/17 11:15 03/18/17 10:34 Lopressor - PO 25 mg BID VERONICA Administration Pantoprazole Sodium 40 mg 03/18/17 10:00 03/18/17 16:14 Protonix - PO 40 mg DAILY VERONICA Administration Ritonavir 100 mg 03/18/17 10:00 03/18/17 10:34 Norvir - PO 100 mg DAILY VERONICA Administration Hepatic Panel Total Bilirubin 0.5 mg/dL (0.2-1.0) D 03/16/17 08:50 AST 20 U/L (15-37) 03/16/17 08:50 ALT 26 U/L (12-78) 03/16/17 08:50 Alkaline Phosphatase 70 U/L (45-117) 03/16/17 08:50 Albumin 1.7 g/dl (3.4-5.0) L 03/16/17 08:50 Microbiology PE: per resident's note 03/15/17 16:45 Stool Salmonella/Shigella Culture - Preliminary Presumptive Mrsa (Pbp2a Pos) Yeast Like Organism 03/15/17 16:45 Stool Campylobacter Culture - Final NO GROWTH OF CAMPYLOBACTER SPECIES OBTAINED 03/15/17 16:45 Stool Yersinia Culture - Final NO GROWTH OF YERSINIA SPECIES OBTAINED 03/15/17 16:45 Stool Vibrio Culture - Final NO GROWTH OF VIBRIO SPECIES OBTAINED 03/15/17 16:45 Stool Escherichia coli 0157 Culture - Preliminary NO ENTERIC PATHOGENS, 24 HOURS, ON PRIMARY PLATES 03/12/17 11:20 Blood - Peripheral Venous Blood Culture - Final NO GROWTH AFTER 5 DAYS INCUBATION 03/12/17 10:23 Blood - Peripheral Venous Blood Culture - Final NO GROWTH AFTER 5 DAYS INCUBATION 03/13/17 07:35 Serum Cryptococcal Antigen - Final 03/15/17 16:45 Stool Gram Stain - Final 03/15/17 16:45 Stool Clostridium difficile Antigen (SHIVA) - Final 03/15/17 16:45 Stool Clostridium difficile Toxin Assay - Final 03/11/17 02:25 Blood - Peripheral Venous Blood Culture - Final Streptococcus Pneumoniae 03/11/17 02:25 Blood - Peripheral Venous Blood Culture - Final Streptococcus Pneumoniae 03/12/17 00:34 Urine - Urine - Catheterized Urine Culture - Final NO GROWTH OBTAINED 03/11/17 02:25 Urine - Urine - Catheterized Urine Culture - Final NO GROWTH OBTAINED 03/11/17 16:32 Urine For Antigen Detection Legionella Antigen - Final 03/11/17 16:32 Urine For Antigen Detection Streptococcus pneumoniae Antigen (M - Final 03/11/17 18:30 Nasopharyngeal Swab Influenza Types A,B Antigen (SHIVA) - Final 03/11/17 18:30 Nasopharyngeal Swab - Final ASSESSMENT AND PLAN: 57 y/o lady with h/o HIV, aortic and mitral valve replacement with bioprosthetic valves, ? CHF, COPD, anemia and other medical problems who presented with AMS. # AMS: most likely due to bacterial meningitis and severe sepsis; improved alertness and back to NL self. # Acute bacterial meningitis on ceftriaxone day 8 ; MRI with no masses or lesions , added Flagyl for anaerobic coverage # Abd pain and tenderness. c diff neg; CT abd /pelvis with no masses or abscesses. bile duct dilation after CCY. no obstruction seen. Has ascitis and b/ l pleural effusion. # Back pain. No point tenderness but she was bacteremic ; recommending MRI of L-spine # HIV- resume outpt HIV meds -reyataz/norvir/truvada #History of Bioprosthetic valves- repeat blood cultures are negative # Slight decrease in TSH , possible euthyroid sick syndrome . repeat as out pt DVT PX imaging of mandible if possible Dispo : needs 6 more days of Abx ( if there is no discitis or epidural abscess ) . Due to drug using hx , she can't continue IV abx at home . she will need to be in house or in Rehab
[2017-03-18] MEDS: METRONIDAZOLE 500 MG PREMIXED 500 MG/100 ML MG IVPB SCH (21:44)
[2017-03-19] MEDS: METRONIDAZOLE 500 MG PREMIXED 500 MG/100 ML MG IVPB SCH ×4 (02:54→20:55)
[2017-03-19] MEDS: HEPARIN NA (PORCINE) 5,000 UNITS/ML 1ML VIAL SQ SCH ×3 (07:11→21:20)
[2017-03-19] MEDS: METOPROLOL TARTRATE 25 MG TABLET (FP) PO SCH ×2 (09:52→21:20)
[2017-03-19] MEDS: amLODIPine BESYLATE 10 MG TABLET (FP) PO SCH (09:52)
[2017-03-19] MEDS: PANTOPRAZOLE 40 MG TABLET (FP) PO SCH (09:52)
[2017-03-19] MEDS: EMTRICITABINE 200MG/TENOFOVIR 300MG PO SCH (09:53)
[2017-03-19] MEDS: ATAZANAVIR SO4 300 MG CAPSULE PO SCH (10:03)
[2017-03-19] MEDS: CEFTRIAXONE 2 GM in DEXTROSE 5%-WATER - 100 ML IVPB SCH ×2 (11:17→22:03)
[2017-03-19] MEDS: RITONAVIR 100 MG TABLET PO SCH (11:51)
[2017-03-19] MEDS: NICOTINE 14 MG/24 HOURS TOPICAL PATCH TD SCH (16:30)
--- NOTE | 2017-03-19 16:47 | PN ---
Physical Exam: SUBJECTIVE: Patient noted to have 100.3 temperature last night. Pt continues report of severe lumbar spine pain. No approval on pt's picc line SNF placement yet. Denies chills, headache, LE parasthesias, change in LE strength, urinary difficulties. OBJECTIVE: Vital Signs Period Temp Pulse Resp BP Sys/Álvarez Pulse Ox Last 24 Hr 98.7 F-100.9 F 85-102 18-20 107-128/63-76 97-98 GENERAL: NAD, lying in bed, Alert and orientedx3 HEENT: Pupils PEAR, moist mucous membranes, no neck stiffness appreciated, No JVD, continued area of inflammation noted on upper maxillary area inse LUNGS: CTA bilaterally, no wheezes, rhonchi, rales appreciated. No accessory muscle use. HEART: RRR, 3/6 holosystolic murmur appreciated at the L lower sternal border. ABDOMEN: Soft, non distended, nomoactive BS, tenderness to palpation epigastric region L>R, no hepatomegaly appreciated. No masses noted EXTREMITIES: No edema noted. pulses 2+. NEUROLOGICAL: Reflexes 2/4, smile symmetrical, EOMI, peripheral vision intact, strength 5/5, sensation intact throughout, no uvula deviation, no tongue deviation SKIN: No rashes or lesions noted. Active Medications Generic Name Dose Route Start Last Admin Trade Name Freq PRN Reason Stop Dose Admin Acetaminophen 650 mg 03/17/17 03:32 03/18/17 11:26 Tylenol - PO 650 mg Q6H PRN Administration FEVER OR PAIN Amlodipine Besylate 10 mg 03/15/17 10:00 03/19/17 09:52 Norvasc - PO 10 mg DAILY VERONICA Administration Atazanavir 300 mg 03/18/17 10:00 03/19/17 10:03 Reyataz - PO 300 mg DAILY VERONICA Administration Emtricitabine/Tenofovir 1 tab 03/18/17 10:00 03/19/17 09:53 Truvada PO 1 tab DAILY VERONICA Administration Heparin Sodium (Porcine) 5,000 unit 03/15/17 14:00 03/19/17 14:41 Heparin - SQ 5,000 unit TID VERONICA Administration Ceftriaxone Sodium 2 gm/ 100 mls @ 200 mls/hr 03/15/17 22:00 03/19/17 11:17 Dextrose IVPB 200 mls/hr BID VERONICA Administration Metronidazole 500 mg in 100 mls @ 100 mls/hr 03/18/17 21:00 03/19/17 14:41 Flagyl 500mg Premixed Ivpb - IVPB 100 mls/hr Q6H-IV VERONICA Administration Metoprolol Tartrate 25 mg 03/15/17 11:15 03/19/17 09:52 Lopressor - PO 25 mg BID VERONICA Administration Nicotine 14 mg 03/19/17 14:30 03/19/17 16:30 Nicoderm Patch - TD 14 mg DAILY VERONICA Administration Pantoprazole Sodium 40 mg 03/18/17 10:00 03/19/17 09:52 Protonix - PO 40 mg DAILY VERONICA Administration Ritonavir 100 mg 03/18/17 10:00 03/19/17 11:51 Norvir - PO 100 mg DAILY VERONICA Administration ASSESSMENT/PLAN: 1) Severe sepsis and altered mental status --Resolved --Suspected 2/2 to bacterial meningitis --Per ID: picc line and d/c plan is Ceftriaxone 2gm IV for 14 days total ( day 01/22 currently) --Will need SNF placement due to previous polysubstance abuse; pending approval with insurance --Repeat blood cultures (03/18) noted to be negative for 24hrs --CBC, CMP, CRP for tomorrow AM --Will need to discuss importance of Lumbar spine MRI for evaluation of abscess or other seeding from bacteremia due to increased pain --Previously medicated with 2.5mg Valium, however pt remained highly clostrophic and refused test --Can possibly elevate to 5mg Valium or try Benadryl 25mg PO pending pt's preference --Discussed with ID --Brain MRI - normal brain MRI --CT soft tissue of maxilla reveals area of inflammation without any drainable collection currently; maxillary sinuses clear 2) Abdominal pain --CT abd/pelvis - negative --Most likely 2/2 antibiotics --C diff negative 3) HTN --Continue Norvasc 10mg PO qdaily --Continue Toprol XL 25mg PO BID --Echocardiogram shows no interval change from 2012 to now. 4) Low TSH level --Most likely euthyroid sick syndrome 5) Insomnia --Seroquel being held due to elongated Qtc on EKG --Pt reports benadryl helping previously; will add on for HS FEN: Fluids: None; tolerating PO Electrolyte abnormalities: Lab holiday today Nutrition: Low fat,cholesterol diet PPX DVT - Heparin 5000U TID and SCDs Dispo: Med-surg Case discussed with Dr. Tanisha Morales, DO - Internal Medicine PGY-1 Visit type - Emergency Visit Emergency Visit: No - New Patient This patient is new to me today: No - Critical Care Critical Care patient: No
--- NOTE | 2017-03-19 17:32 | PN ---
Progress Note (short form) - Note Progress Note: Awake and alert low grade fever intermittent persist no diarrhea notes severe low back pain no abdominal pain eating well oral pain improved Vital Signs Period Temp Pulse Resp BP Sys/Álvarez Pulse Ox Last 24 Hr 98.7 F-100.9 F 85-102 18-20 107-128/63-76 97-98 cor-rrr lungs clear abd soft,nt ext no edema no phlebitis CBC, BMP 03/15/17 06:00 03/16/17 08:50 Microbiology 03/18/17 16:30 Blood - Peripheral Venous Blood Culture - Preliminary NO GROWTH OBTAINED AFTER 24 HOURS, INCUBATION TO CONTINUE FOR 4 DAYS. 03/18/17 16:30 Blood - Peripheral Venous Blood Culture - Preliminary NO GROWTH OBTAINED AFTER 24 HOURS, INCUBATION TO CONTINUE FOR 4 DAYS. 03/15/17 16:45 Stool Salmonella/Shigella Culture - Final Mr S Aureus Yeast Like Organism 03/15/17 16:45 Stool Campylobacter Culture - Final NO GROWTH OF CAMPYLOBACTER SPECIES OBTAINED 03/15/17 16:45 Stool Yersinia Culture - Final NO GROWTH OF YERSINIA SPECIES OBTAINED 03/15/17 16:45 Stool Vibrio Culture - Final NO GROWTH OF VIBRIO SPECIES OBTAINED 03/15/17 16:45 Stool Escherichia coli 0157 Culture - Final NO GROWTH OF E COLI 0157 OBTAINED 03/12/17 11:20 Blood - Peripheral Venous Blood Culture - Final NO GROWTH AFTER 5 DAYS INCUBATION 03/12/17 10:23 Blood - Peripheral Venous Blood Culture - Final NO GROWTH AFTER 5 DAYS INCUBATION 03/13/17 07:35 Serum Cryptococcal Antigen - Final 03/15/17 16:45 Stool Gram Stain - Final 03/15/17 16:45 Stool Clostridium difficile Antigen (SHIVA) - Final 03/15/17 16:45 Stool Clostridium difficile Toxin Assay - Final 03/11/17 02:25 Blood - Peripheral Venous Blood Culture - Final Streptococcus Pneumoniae 03/11/17 02:25 Blood - Peripheral Venous Blood Culture - Final Streptococcus Pneumoniae 03/12/17 00:34 Urine - Urine - Catheterized Urine Culture - Final NO GROWTH OBTAINED 03/11/17 02:25 Urine - Urine - Catheterized Urine Culture - Final NO GROWTH OBTAINED 03/11/17 16:32 Urine For Antigen Detection Legionella Antigen - Final 03/11/17 16:32 Urine For Antigen Detection Streptococcus pneumoniae Antigen (M - Final 03/11/17 18:30 Nasopharyngeal Swab Influenza Types A,B Antigen (SHIVA) - Final 03/11/17 18:30 Nasopharyngeal Swab - Final a/p pneumococcal meningitis- day #9 of ceftriaxone, plan total of 14 days- will need SNF placement hiv- resume outpt HIV meds -reyataz/norvir/truvada history of Bioprosthetic valves- repeat blood cultures are negative, mri back due to bacteremia and back pain, now recurrent fever now with gum pain reports "leaking in her mouth" add flagyl for anaerobic coverage repeat blood cultures pending imaging of mandible ?oral surgery consult d/w hospitalist needs labs checked in am refusing MRI
--- NOTE | 2017-03-19 20:06 | PN ---
Teaching Attending Note Name of Resident: Darien Morales ATTENDING PHYSICIAN STATEMENT I saw and evaluated the patient. I reviewed the resident's note and discussed the case with the resident. I agree with the resident's findings and plan as documented. SUBJECTIVE: Patient had a fever today. But was not able to have MRI done since the patient doesn't like closed MRI. OBJECTIVE: Vital Signs Temperature 100.0 F H 03/19/17 18:00 Pulse Rate 91 H 03/19/17 18:00 Respiratory Rate 18 03/19/17 18:00 Blood Pressure 121/65 03/19/17 18:00 O2 Sat by Pulse Oximetry (%) 98 03/19/17 09:00 CBCD WBC 9.4 K/mm3 (4.0-10.0) 03/15/17 06:00 RBC 5.06 M/mm3 (3.60-5.2) 03/15/17 06:00 Hgb 14.3 GM/dL (10.7-15.3) 03/15/17 06:00 Hct 43.4 % (32.4-45.2) 03/15/17 06:00 MCV 85.7 fl (80-96) 03/15/17 06:00 MCHC 33.1 g/dl (32.0-36.0) 03/15/17 06:00 RDW 15.1 % (11.6-15.6) 03/15/17 06:00 Plt Count 133 K/MM3 (134-434) L 03/15/17 06:00 MPV 10.3 fl (7.5-11.1) 03/15/17 06:00 CMP Sodium 142 mmol/L (136-145) 03/16/17 08:50 Potassium 4.1 mmol/L (3.5-5.1) 03/16/17 08:50 Chloride 112 mmol/L (98-107) H 03/16/17 08:50 Carbon Dioxide 20 mmol/L (21-32) L 03/16/17 08:50 Anion Gap 10 (8-16) 03/16/17 08:50 BUN 31 mg/dL (7-18) H D 03/16/17 08:50 Creatinine 0.6 mg/dL (0.55-1.02) D 03/16/17 08:50 Creat Clearance w eGFR > 60 (>60) 03/16/17 08:50 Random Glucose 160 mg/dL (74-106) H 03/16/17 08:50 Calcium 7.6 mg/dL (8.5-10.1) L 03/16/17 08:50 Total Bilirubin 0.5 mg/dL (0.2-1.0) D 03/16/17 08:50 AST 20 U/L (15-37) 03/16/17 08:50 ALT 26 U/L (12-78) 03/16/17 08:50 Alkaline Phosphatase 70 U/L (45-117) 03/16/17 08:50 Total Protein 6.2 g/dl (6.4-8.2) L 03/16/17 08:50 Albumin 1.7 g/dl (3.4-5.0) L 03/16/17 08:50 CARDIAC ENZYMES Creatine Kinase 1716 IU/L (26-192) H 03/11/17 15:00 Troponin I 0.26 ng/ml (0.00-0.05) H 03/11/17 15:00 Current Medications Generic Name Dose Route Start Last Admin Trade Name Freq PRN Reason Stop Dose Admin Acetaminophen 650 mg 03/17/17 03:32 03/18/17 11:26 Tylenol - PO 650 mg Q6H PRN Administration FEVER OR PAIN Amlodipine Besylate 10 mg 03/15/17 10:00 03/19/17 09:52 Norvasc - PO 10 mg DAILY VERONICA Administration Atazanavir 300 mg 03/18/17 10:00 03/19/17 10:03 Reyataz - PO 300 mg DAILY VERONICA Administration Diphenhydramine HCl 25 mg 03/19/17 17:34 Benadryl - PO HS PRN INSOMNIA Emtricitabine/Tenofovir 1 tab 03/18/17 10:00 03/19/17 09:53 Truvada PO 1 tab DAILY VERNOICA Administration Heparin Sodium (Porcine) 5,000 unit 03/15/17 14:00 03/19/17 14:41 Heparin - SQ 5,000 unit TID VERONICA Administration Ceftriaxone Sodium 2 gm/ 100 mls @ 200 mls/hr 03/15/17 22:00 03/19/17 11:17 Dextrose IVPB 200 mls/hr BID VERONICA Administration Metronidazole 500 mg in 100 mls @ 100 mls/hr 03/18/17 21:00 03/19/17 14:41 Flagyl 500mg Premixed Ivpb - IVPB 100 mls/hr Q6H-IV VERONICA Administration Metoprolol Tartrate 25 mg 03/15/17 11:15 03/19/17 09:52 Lopressor - PO 25 mg BID VERONICA Administration Nicotine 14 mg 03/19/17 14:30 03/19/17 16:30 Nicoderm Patch - TD 14 mg DAILY VERONICA Administration Pantoprazole Sodium 40 mg 03/18/17 10:00 03/19/17 09:52 Protonix - PO 40 mg DAILY VERONICA Administration Ritonavir 100 mg 03/18/17 10:00 03/19/17 11:51 Norvir - PO 100 mg DAILY VERONICA Administration Home Medications Medication Instructions Recorded Aspirin [Aspirin EC] 81 mg PO DAILY #30 tablet. 10/30/16 Fluticasone/Salmeterol [Advair 1 each IH DAILY #1 disk.w.dev MDD 4 10/30/16 250-50 Diskus] Albuterol Sulfate Inhaler - 1 - 2 inh PO Q4H #1 inhaler 11/27/16 [Ventolin HFA Inhaler -] Diphenhydramine HCl [Benadryl 25 mg PO PRN #30 capsule 11/27/16 Capsule -] Loratadine [Claritin] 10 mg PO DAILY #30 tablet 11/27/16 Amitriptyline HCl 75 mg PO HS #30 tablet MDD 1 01/28/17 Amlodipine Besylate 10 mg PO DAILY #30 tablet 01/28/17 Mirtazapine [Remeron -] 30 mg PO DAILY #30 tablet 01/28/17 Temazepam [Restoril -] 15 mg PO HS PRN #30 capsule MDD 1 01/28/17 Venlafaxine HCl ER [Effexor Xr -] 75 mg PO DAILY #30 cap.er.24h 01/28/17 Microbiology 03/18/17 16:30 Blood - Peripheral Venous Blood Culture - Preliminary NO GROWTH OBTAINED AFTER 48 HOURS, INCUBATION TO CONTINUE FOR 3 DAYS. 03/18/17 16:30 Blood - Peripheral Venous Blood Culture - Preliminary NO GROWTH OBTAINED AFTER 48 HOURS, INCUBATION TO CONTINUE FOR 3 DAYS. 03/15/17 16:45 Stool Salmonella/Shigella Culture - Final Mr S Aureus Yeast Like Organism 03/15/17 16:45 Stool Campylobacter Culture - Final NO GROWTH OF CAMPYLOBACTER SPECIES OBTAINED 03/15/17 16:45 Stool Yersinia Culture - Final NO GROWTH OF YERSINIA SPECIES OBTAINED 03/15/17 16:45 Stool Vibrio Culture - Final NO GROWTH OF VIBRIO SPECIES OBTAINED 03/15/17 16:45 Stool Escherichia coli 0157 Culture - Final NO GROWTH OF E COLI 0157 OBTAINED 03/12/17 11:20 Blood - Peripheral Venous Blood Culture - Final NO GROWTH AFTER 5 DAYS INCUBATION 03/12/17 10:23 Blood - Peripheral Venous Blood Culture - Final NO GROWTH AFTER 5 DAYS INCUBATION 03/13/17 07:35 Serum Cryptococcal Antigen - Final 03/15/17 16:45 Stool Gram Stain - Final 03/15/17 16:45 Stool Clostridium difficile Antigen (SHIVA) - Final 03/15/17 16:45 Stool Clostridium difficile Toxin Assay - Final 03/11/17 02:25 Blood - Peripheral Venous Blood Culture - Final Streptococcus Pneumoniae 03/11/17 02:25 Blood - Peripheral Venous Blood Culture - Final Streptococcus Pneumoniae 03/12/17 00:34 Urine - Urine - Catheterized Urine Culture - Final NO GROWTH OBTAINED 03/11/17 02:25 Urine - Urine - Catheterized Urine Culture - Final NO GROWTH OBTAINED 03/11/17 16:32 Urine For Antigen Detection Legionella Antigen - Final 03/11/17 16:32 Urine For Antigen Detection Streptococcus pneumoniae Antigen (M - Final 03/11/17 18:30 Nasopharyngeal Swab Influenza Types A,B Antigen (SHIVA) - Final 03/11/17 18:30 Nasopharyngeal Swab - Final PE: per resident's note ASSESSMENT AND PLAN: 57 y/o lady with h/o HIV, aortic and mitral valve replacement with bioprosthetic valves, ? CHF, COPD, anemia and other medical problems who presented with AMS. # AMS improved post IV antibiotic due to bacterial meningitis with resultant hydrocephalus and severe sepsis; improved alertness, continues to c/o having low back pain. Had Low grade fever today. ID on the case. ON Rocephin and Flagyl continue. Echo is done without any vegetation. # Back pain. No point tenderness but she was bacteremic ; recommending MRI of L-spine # Acute bacterial meningitis on ceftriaxone day 9/14 ; MRI with no masses or lesions , Flagyl for anaerobic coverage # Abd pain and tenderness. c diff neg; CT abd /pelvis with no masses or abscesses. bile duct dilation after CCY. no obstruction seen. Has ascitis and b/ l pleural effusion. # HIV- resume outpt HIV meds -reyataz/norvir/truvada #History of Bioprosthetic valves- repeat blood cultures are negative so far. # Slight decrease in TSH , possible euthyroid sick syndrome . repeat as out pt DVT PX : Hepatin sq imaging of mandible if possible: negative for any abcess. Dispo : needs 6 more days of Abx ( if there is no discitis or epidural abscess ) . Due to drug using hx , she can't continue IV abx at home . she will need to be in house or in Rehab.
[2017-03-19] MEDS ORDERED: PT OWN MED DRAWER 7, Y5N ONE (21:08)
[2017-03-19] MEDS: ACETAMINOPHEN 325 MG TABLET (FP) PO PRN (21:19)
[2017-03-19] MEDS: diphenhydrAMINE HCL 25 MG CAPSULE (FP) PO PRN (22:03)
[2017-03-20] MEDS: METRONIDAZOLE 500 MG PREMIXED 500 MG/100 ML MG IVPB SCH ×5 (03:01→21:47)
[2017-03-20] MEDS: HEPARIN NA (PORCINE) 5,000 UNITS/ML 1ML VIAL SQ SCH ×3 (06:18→21:48)
--- NOTE | 2017-03-20 06:58 | PN ---
Progress Note, Physician Chief Complaint: Pt A&Ox3; no chest pain or dyspnea; c/o insomnia. History of Present Illness: The patient is a 57 year old black female with significant past medical history of HIV/AIDS, hypertension, COPD, diastolic CHF, anemia, polysubstance abuse, open heart surgery (bioprosthetic aortic and mitral valve replacements) brought in by EMS. Per EMS, the patient fell out of bed and landed on her back. On evaluation, the patient appears confused and is unable to answer questions clearly. Patient is a poor historian and unable to provide remainder of history. - Current Medication List Current Medications: Active Medications Acetaminophen (Tylenol -) 650 mg PO Q6H PRN PRN Reason: FEVER OR PAIN Last Admin: 03/19/17 21:19 Dose: 650 mg Amlodipine Besylate (Norvasc -) 10 mg PO DAILY [facility] Last Admin: 03/19/17 09:52 Dose: 10 mg Atazanavir (Reyataz -) 300 mg PO DAILY [facility] Diphenhydramine HCl (Benadryl -) 25 mg PO HS PRN PRN Reason: INSOMNIA Last Admin: 03/19/17 22:03 Dose: 25 mg Emtricitabine/Tenofovir (Truvada) 1 tab PO DAILY [facility] Last Admin: 03/19/17 09:53 Dose: 1 tab Heparin Sodium (Porcine) (Heparin -) 5,000 unit SQ TID [facility] Last Admin: 03/20/17 06:18 Dose: 5,000 unit Ceftriaxone Sodium 2 gm/ (Dextrose) 100 mls @ 200 mls/hr IVPB BID [facility] Last Admin: 03/19/17 22:03 Dose: 200 mls/hr Metronidazole (Flagyl 500mg Premixed Ivpb -) 500 mg in 100 mls @ 100 mls/hr IVPB Q6H-IV [facility] Last Admin: 03/20/17 03:01 Dose: 100 mls/hr Metoprolol Tartrate (Lopressor -) 25 mg PO BID [facility] Last Admin: 03/19/17 21:20 Dose: 25 mg Nicotine (Nicoderm Patch -) 14 mg TD DAILY [facility] Last Admin: 03/19/17 16:30 Dose: 14 mg Pantoprazole Sodium (Protonix -) 40 mg PO DAILY [facility] Last Admin: 03/19/17 09:52 Dose: 40 mg Ritonavir (Norvir -) 100 mg PO DAILY [facility] Last Admin: 03/19/17 11:51 Dose: 100 mg - Objective Vital Signs: Vital Signs Temperature 99.2 F 03/20/17 06:00 Pulse Rate 87 03/20/17 06:00 Respiratory Rate 18 03/20/17 06:00 Blood Pressure 108/62 03/20/17 06:00 O2 Sat by Pulse Oximetry (%) 98 03/19/17 21:00 Constitutional: Yes: Calm Eyes: Yes: WNL HENT: Yes: WNL Neck: Yes: WNL Cardiovascular: Yes: Regular Rate and Rhythm, Murmur (2/4 diastolic murmur, LSB- ->apex) Respiratory: Yes: Regular Gastrointestinal: Yes: Soft ...Rectal Exam: Yes: Deferred Genitourinary: Yes: Anuria Musculoskeletal: Yes: Muscle Weakness Extremities: Yes: WNL Edema: No Peripheral Pulses WNL: No Peripheral Pulses: Left Doralis Pedis: 1+, Right Dorsalis Pedis: 1+ Integumentary: Yes: WNL Neurological: Yes: Alert, Oriented, Weakness Psychiatric: Yes: Other Labs: INR, PTT INR 1.19 (0.82-1.09) H 03/13/17 05:50 Problem List - Problems (1) Depressive disorder Code(s): F32.9 - MAJOR DEPRESSIVE DISORDER, SINGLE EPISODE, UNSPECIFIED (2) Hypertension Assessment/Plan: On metoprolol (consider changing to ER for better compliance and 24 hour coverage) and amlodipine; BP is well-controlled. Code(s): I10 - ESSENTIAL (PRIMARY) HYPERTENSION (3) Screening for malignant neoplasm of cervix Code(s): Z12.4 - ENCOUNTER FOR SCREENING FOR MALIGNANT NEOPLASM OF CERVIX (4) Tobacco use Assessment/Plan: Started nicotine patch. Code(s): Z72.0 - TOBACCO USE (5) HIV (human immunodeficiency virus infection) Assessment/Plan: treat per ID. Code(s): B20 - HUMAN IMMUNODEFICIENCY VIRUS [HIV] DISEASE (6) Sepsis Code(s): A41.9 - SEPSIS, UNSPECIFIED ORGANISM Qualifiers: Sepsis type: sepsis due to unspecified organism Qualified Code(s): A41.9 - Sepsis, unspecified organism (7) Pneumonia Assessment/Plan: On Rocephinl. Code(s): J18.9 - PNEUMONIA, UNSPECIFIED ORGANISM Qualifiers: Pneumonia type: due to unspecified organism Laterality: unspecified laterality Lung location: unspecified part of lung Qualified Code(s): J18.9 - Pneumonia, unspecified organism (8) Streptococcal meningitis Code(s): G00.2 - STREPTOCOCCAL MENINGITIS (9) H/O prosthetic heart valve Assessment/Plan: bioprosthetic AOV and MV. moderate and moderately severe MS (10) Elevated troponin Assessment/Plan: mildly elevated TNI that does not meet IL threshold; CK rel index low. Increase likely from demand stress: sepsis, CHF, electrolyte imbalance. Given multiple CAD risks, would do stress MIBI when stable. Code(s): R74.8 - ABNORMAL LEVELS OF OTHER SERUM ENZYMES (11) Hypothyroid Assessment/Plan: low TSH; Free T4 WNL. Code(s): E03.9 - HYPOTHYROIDISM, UNSPECIFIED (12) Hypoalbuminemia Assessment/Plan: sepsis; poor nutrition status; now eating on her own. Code(s): E88.09 - OTH DISORDERS OF PLASMA-PROTEIN METABOLISM, NEC (13) Confused Assessment/Plan: now A&Ox3. Code(s): R41.0 - DISORIENTATION, UNSPECIFIED (14) Chronic insomnia Code(s): F51.04 - PSYCHOPHYSIOLOGIC INSOMNIA
[2017-03-20 07:10] LABS: BASOPHIL 0.7 % (0-2.0); EOSINOPHIL 1.1 % (0-4.5); MCH 27.9 pg (25.7-33.7); MCHC 32.5 g/dl (32.0-36.0); MEAN CELL VOLUME 85.8 fl (80-96); MEAN PLT VOLUME 9.5 fl (7.5-11.1); PLATELET COUNT 263 K/MM3 (134-434); RDW 14.4 % (11.6-15.6); WHITE BLOOD COUNT 14.9 K/mm3 (4.0-10.0)
--- NOTE | 2017-03-20 07:43 | PN ---
Physical Exam: SUBJECTIVE: Pt had Tmax of 100.9 yesterday afternoon and remains 100.0 curently. Pt's WBC increased to 14.9. Pt reports being able to sleep well with the Benadryl (holding Seroquel due to elongated Qtc). Pt is agreeable to MRI Lumbar spine w/ contrast as long as she's sedated enough due to severe clostrophobia. No other complaints today, denies any sensory/strength deficits, no chills, no dysuria, no polyuria. OBJECTIVE: Vital Signs Period Temp Pulse Resp BP Sys/Álvarez Pulse Ox Last 24 Hr 98.4 F-100.9 F 78-102 18-20 101-128/62-74 98-98 GENERAL: NAD, lying in bed, Alert and orientedx3 HEENT: Pupils JAMESON, moist mucous membranes. No JVD, continued area of inflammation noted on upper maxillary area LUNGS: CTA bilaterally, no wheezes, rhonchi, rales appreciated. No accessory muscle use. HEART: RRR, 3/6 holosystolic murmur appreciated at the L lower sternal border. ABDOMEN: Soft, non distended, nomoactive BS, nontender, no hepatomegaly appreciated. No masses noted EXTREMITIES: No edema noted. pulses 2+. NEUROLOGICAL: Reflexes 2/4, EOMI, strength 5/5, sensation intact throughout SKIN: No rashes or lesions noted. Laboratory Results - last 24 hr 03/20/17 06:15 WBC 14.9 H D RBC 4.21 Hgb 11.7 D Hct 36.1 D MCV 85.8 MCH 27.9 MCHC 32.5 RDW 14.4 Plt Count 263 D MPV 9.5 Neutrophils % 76.0 Lymphocytes % 15.4 Monocytes % 6.8 Eosinophils % 1.1 D Basophils % 0.7 Active Medications Generic Name Dose Route Start Last Admin Trade Name Freq PRN Reason Stop Dose Admin Acetaminophen 650 mg 03/17/17 03:32 03/19/17 21:19 Tylenol - PO 650 mg Q6H PRN Administration FEVER OR PAIN Amlodipine Besylate 10 mg 03/15/17 10:00 03/19/17 09:52 Norvasc - PO 10 mg DAILY [facility] Administration Atazanavir 300 mg 03/20/17 10:00 Reyataz - PO DAILY [facility] Diphenhydramine HCl 25 mg 03/19/17 17:34 03/19/17 22:03 Benadryl - PO 25 mg HS PRN Administration INSOMNIA Emtricitabine/Tenofovir 1 tab 03/18/17 10:00 03/19/17 09:53 Truvada PO 1 tab DAILY [facility] Administration Heparin Sodium (Porcine) 5,000 unit 03/15/17 14:00 03/20/17 06:18 Heparin - SQ 5,000 unit TID [facility] Administration Ceftriaxone Sodium 2 gm/ 100 mls @ 200 mls/hr 03/15/17 22:00 03/19/17 22:03 Dextrose IVPB 200 mls/hr BID [facility] Administration Metronidazole 500 mg in 100 mls @ 100 mls/hr 03/18/17 21:00 03/20/17 03:01 Flagyl 500mg Premixed Ivpb - IVPB 100 mls/hr Q6H-IV [facility] Administration Metoprolol Tartrate 25 mg 03/15/17 11:15 03/19/17 21:20 Lopressor - PO 25 mg BID [facility] Administration Nicotine 14 mg 03/19/17 14:30 03/19/17 16:30 Nicoderm Patch - TD 14 mg DAILY [facility] Administration Pantoprazole Sodium 40 mg 03/18/17 10:00 03/19/17 09:52 Protonix - PO 40 mg DAILY [facility] Administration Ritonavir 100 mg 03/18/17 10:00 03/19/17 11:51 Norvir - PO 100 mg DAILY [facility] Administration ASSESSMENT/PLAN: 1) Severe sepsis and altered mental status --AMS and severe sepsis Resolved --Suspected 2/2 to bacterial meningitis --Per ID: picc line and d/c plan is Ceftriaxone 2gm IV for 14 days total ( day 02/21 currently) --Will need SNF placement due to previous polysubstance abuse; pending approval with insurance --Flagyl due to new onset fevers currently --Agreeable to Lumbar spine MRI w/ contrast --Will give Valium 5mg PO after obtaining contrast consent due to patient being severely clostrophobic (previously failed with 2.5mg) --Discussed with ID --CBC increased to 14, CRP elevated; highly suspicious for any osteomyelitis in bone or abscess due to bactermia previously --IF MRI NOT ABLE TO BE OBTAINED: CT w/ IV contrast might be of use to look for collection despite suboptimal in quality comparatively --Brain MRI normal --CT soft tissue of maxilla noted 2) Abdominal pain --Resolved --CT abd/pelvis - negative --Most likely 2/2 antibiotics --C diff negative 3) HTN --Continue Norvasc 10mg PO qdaily --Continue Toprol XL 25mg PO BID --Echocardiogram shows no interval change from 2012 to now. 4) Low TSH level --Most likely euthyroid sick syndrome 5) Insomnia --Seroquel being held due to elongated Qtc on EKG --Continue Benadryl 25mg PO HS FEN: Fluids: None; tolerating PO Electrolyte abnormalities: None today Nutrition: Low fat,cholesterol diet PPX DVT - Heparin 5000U TID and SCDs Dispo: Med-surg Case discussed with Dr. Tanisha Morales, DO - Internal Medicine PGY-1 Visit type - Emergency Visit Emergency Visit: No - New Patient This patient is new to me today: No - Critical Care Critical Care patient: No
[2017-03-20 07:58] LABS: ALBUMIN 1.7 g/dl (3.4-5.0); ALK PHOS 69 U/L (45-117); ANION GAP 12 (8-16); CALCIUM 7.3 mg/dL (8.5-10.1); CO2 26 mmol/L (21-32); CREATININE 0.6 mg/dL (0.55-1.02); GLUCOSE,RANDOM 131 mg/dL (74-106); SGOT/AST 19 U/L (15-37); SGPT/ALT 23 U/L (12-78)
[2017-03-20 09:20] LABS: C-REACTIVE PROTEIN 8.6 MG/DL (0.00-0.3)
[2017-03-20] MEDS: PANTOPRAZOLE 40 MG TABLET (FP) PO SCH (10:16)
[2017-03-20] MEDS: amLODIPine BESYLATE 10 MG TABLET (FP) PO SCH (10:16)
[2017-03-20] MEDS: NICOTINE 14 MG/24 HOURS TOPICAL PATCH TD SCH (10:16)
[2017-03-20] MEDS: ATAZANAVIR SO4 150 MG CAPSULE PO SCH (10:17)
[2017-03-20] MEDS: METOPROLOL TARTRATE 25 MG TABLET (FP) PO SCH ×2 (10:17→21:46)
[2017-03-20] MEDS: RITONAVIR 100 MG TABLET PO SCH (10:17)
[2017-03-20] MEDS: EMTRICITABINE 200MG/TENOFOVIR 300MG PO SCH (10:17)
[2017-03-20] MEDS: CEFTRIAXONE 2 GM in DEXTROSE 5%-WATER - 100 ML IVPB SCH ×2 (10:20→21:48)
[2017-03-20] MEDS: ACETAMINOPHEN 325 MG TABLET (FP) PO PRN (14:16)
--- NOTE | 2017-03-20 15:06 | PN ---
Progress Note (short form) - Note Progress Note: still with back pain no fevers alert feels well Vital Signs Period Temp Pulse Resp BP Sys/Álvarez Pulse Ox Last 24 Hr 98.4 F-100.0 F 78-98 18-18 101-121/62-68 98 no thrush cor-rrr lungs clear abd soft,nt ext no edema CBC, BMP 03/20/17 06:15 03/20/17 06:15 Microbiology 03/18/17 16:30 Blood Culture - Preliminary Blood - Peripheral Venous NO GROWTH OBTAINED AFTER 24 HOURS, INCUBATION TO CONTINUE FOR 4 DAYS. 03/18/17 16:30 Blood Culture - Preliminary Blood - Peripheral Venous NO GROWTH OBTAINED AFTER 24 HOURS, INCUBATION TO CONTINUE FOR 4 DAYS. 03/15/17 16:45 Salmonella/Shigella Culture - Final Stool Mr S Aureus Yeast Like Organism Campylobacter Culture - Final NO GROWTH OF CAMPYLOBACTER SPECIES OBTAINED Yersinia Culture - Final NO GROWTH OF YERSINIA SPECIES OBTAINED Vibrio Culture - Final NO GROWTH OF VIBRIO SPECIES OBTAINED Escherichia coli 0157 Culture - Final NO GROWTH OF E COLI 0157 OBTAINED a/p pneumococcal meningitis- day #10 of ceftriaxone, plan total of 14 days- will need SNF placement hiv- resume outpt HIV meds -reyataz/norvir/truvada history of Bioprosthetic valves- repeat blood cultures are negative, fevers improved now agreeable to MRI mouth pain improved will need dental f/u as outpt
--- NOTE | 2017-03-20 17:39 | PN ---
Teaching Attending Note Name of Resident: Darien Morales ATTENDING PHYSICIAN STATEMENT I saw and evaluated the patient. I reviewed the resident's note and discussed the case with the resident. I agree with the resident's findings and plan as documented. SUBJECTIVE: Patient continues to have low back pain. Had low grade fever overnight. Her mouth improved. OBJECTIVE: Vital Signs Temperature 98.2 F 03/20/17 15:57 Pulse Rate 84 03/20/17 15:57 Respiratory Rate 18 03/20/17 15:57 Blood Pressure 100/52 03/20/17 15:57 O2 Sat by Pulse Oximetry (%) 100 03/20/17 10:00 CBCD WBC 14.9 K/mm3 (4.0-10.0) H D 03/20/17 06:15 RBC 4.21 M/mm3 (3.60-5.2) 03/20/17 06:15 Hgb 11.7 GM/dL (10.7-15.3) D 03/20/17 06:15 Hct 36.1 % (32.4-45.2) D 03/20/17 06:15 MCV 85.8 fl (80-96) 03/20/17 06:15 MCHC 32.5 g/dl (32.0-36.0) 03/20/17 06:15 RDW 14.4 % (11.6-15.6) 03/20/17 06:15 Plt Count 263 K/MM3 (134-434) D 03/20/17 06:15 MPV 9.5 fl (7.5-11.1) 03/20/17 06:15 CMP Sodium 140 mmol/L (136-145) 03/20/17 06:15 Potassium 4.0 mmol/L (3.5-5.1) 03/20/17 06:15 Chloride 102 mmol/L (98-107) 03/20/17 06:15 Carbon Dioxide 26 mmol/L (21-32) D 03/20/17 06:15 Anion Gap 12 (8-16) 03/20/17 06:15 BUN 6 mg/dL (7-18) L D 03/20/17 06:15 Creatinine 0.6 mg/dL (0.55-1.02) 03/20/17 06:15 Creat Clearance w eGFR > 60 (>60) 03/20/17 06:15 Random Glucose 131 mg/dL (74-106) H 03/20/17 06:15 Calcium 7.3 mg/dL (8.5-10.1) L 03/20/17 06:15 Total Bilirubin 1.0 mg/dL (0.2-1.0) D 03/20/17 06:15 AST 19 U/L (15-37) 03/20/17 06:15 ALT 23 U/L (12-78) 03/20/17 06:15 Alkaline Phosphatase 69 U/L (45-117) 03/20/17 06:15 Total Protein 6.0 g/dl (6.4-8.2) L 03/20/17 06:15 Albumin 1.7 g/dl (3.4-5.0) L 03/20/17 06:15 CARDIAC ENZYMES Creatine Kinase 1716 IU/L (26-192) H 03/11/17 15:00 Troponin I 0.26 ng/ml (0.00-0.05) H 03/11/17 15:00 Current Medications Generic Name Dose Route Start Last Admin Trade Name Freq PRN Reason Stop Dose Admin Acetaminophen 650 mg 03/17/17 03:32 03/20/17 14:16 Tylenol - PO 650 mg Q6H PRN Administration FEVER OR PAIN Amlodipine Besylate 10 mg 03/15/17 10:00 03/20/17 10:16 Norvasc - PO 10 mg DAILY [facility] Administration Atazanavir 300 mg 03/20/17 10:00 03/20/17 10:17 Reyataz - PO 300 mg DAILY [facility] Administration Diazepam 5 mg 03/20/17 18:00 03/20/17 16:59 Valium - PO 03/20/17 18:01 5 mg ONCE ONE Administration Diphenhydramine HCl 25 mg 03/19/17 17:34 03/19/17 22:03 Benadryl - PO 25 mg HS PRN Administration INSOMNIA Emtricitabine/Tenofovir 1 tab 03/18/17 10:00 03/20/17 10:17 Truvada PO 1 tab DAILY [facility] Administration Heparin Sodium (Porcine) 5,000 unit 03/15/17 14:00 03/20/17 14:16 Heparin - SQ 5,000 unit TID [facility] Administration Ceftriaxone Sodium 2 gm/ 100 mls @ 200 mls/hr 03/15/17 22:00 03/20/17 10:20 Dextrose IVPB 200 mls/hr BID [facility] Administration Metronidazole 500 mg in 100 mls @ 100 mls/hr 03/18/17 21:00 03/20/17 15:59 Flagyl 500mg Premixed Ivpb - IVPB 100 mls/hr Q6H-IV [facility] Administration Metoprolol Tartrate 25 mg 03/15/17 11:15 03/20/17 10:17 Lopressor - PO 25 mg BID [facility] Administration Nicotine 14 mg 03/19/17 14:30 03/20/17 10:16 Nicoderm Patch - TD 14 mg DAILY [facility] Administration Ritonavir 100 mg 03/18/17 10:00 03/20/17 10:17 Norvir - PO 100 mg DAILY [facility] Administration Venlafaxine HCl 75 mg 03/21/17 08:00 Effexor Xr - PO DAILY@0800 [facility] Home Medications Medication Instructions Recorded Aspirin [Aspirin EC] 81 mg PO DAILY #30 tablet. 10/30/16 Fluticasone/Salmeterol [Advair 1 each IH DAILY #1 disk.w.dev MDD 4 10/30/16 250-50 Diskus] Albuterol Sulfate Inhaler - 1 - 2 inh PO Q4H #1 inhaler 11/27/16 [Ventolin HFA Inhaler -] Diphenhydramine HCl [Benadryl 25 mg PO PRN #30 capsule 11/27/16 Capsule -] Loratadine [Claritin] 10 mg PO DAILY #30 tablet 11/27/16 Amitriptyline HCl 75 mg PO HS #30 tablet MDD 1 01/28/17 Amlodipine Besylate 10 mg PO DAILY #30 tablet 01/28/17 Mirtazapine [Remeron -] 30 mg PO DAILY #30 tablet 01/28/17 Temazepam [Restoril -] 15 mg PO HS PRN #30 capsule MDD 1 01/28/17 Venlafaxine HCl ER [Effexor Xr -] 75 mg PO DAILY #30 cap.er.24h 01/28/17 PE: per resident's note ASSESSMENT AND PLAN: 57 y/o lady with h/o HIV, aortic and mitral valve replacement with bioprosthetic valves, COPD, anemia and other medical problems who presented with AMS. # s/p AMS improved post IV antibiotic due to bacterial; pneumococcal meningitis . ID on the case. ON Rocephin day 02/21, and Flagyl continue. Echo is done without any vegetation. # Back pain with bacteremia ; Patient agreed to go to MRI tonight of L-spine r/ o abcess # HIV- resume outpt HIV meds -reyataz/norvir/truvada #History of Bioprosthetic valves- repeat blood cultures are negative so far. # Slight decrease in TSH , possible euthyroid sick syndrome . repeat as out pt DVT PX : Hepatin sq Dispo : needs 4 more days of Abx . Due to drug using hx , she can't continue IV abx at home . she will need to be in house or in Rehab.
[2017-03-20] MEDS ORDERED: diazePAM 5 MG TABLET PO ONE (18:00)
[2017-03-20] MEDS ORDERED: PT OWN MED DRAWER 7, Y5N ONE (21:36)
[2017-03-21] MEDS: METRONIDAZOLE 500 MG PREMIXED 500 MG/100 ML MG IVPB SCH ×4 (03:21→20:29)
[2017-03-21] MEDS: diphenhydrAMINE HCL 25 MG CAPSULE (FP) PO PRN ×2 (03:37→22:01)
[2017-03-21] MEDS: HEPARIN NA (PORCINE) 5,000 UNITS/ML 1ML VIAL SQ SCH ×3 (06:26→21:51)
[2017-03-21 08:38] LABS: MCHC 32.7 g/dl (32.0-36.0); MEAN CELL VOLUME 85.6 fl (80-96); MEAN PLT VOLUME 9.4 fl (7.5-11.1); PLATELET COUNT 297 K/MM3 (134-434); WHITE BLOOD COUNT 12.2 K/mm3 (4.0-10.0)
[2017-03-21] MEDS ORDERED: PT OWN MED DRAWER 7, Y5N ONE ×2 (08:53→10:24)
[2017-03-21] MEDS: VENLAFAXINE HCL 75 MG E.R. CAPSULES (FP) PO SCH (08:58)
[2017-03-21 09:04] LABS: ALBUMIN 1.7 g/dl (3.4-5.0); ALK PHOS 65 U/L (45-117); ANION GAP 12 (8-16); BILIRUBIN,TOTAL 1.1 mg/dL (0.2-1.0); CALCIUM 7.2 mg/dL (8.5-10.1); CO2 25 mmol/L (21-32); CREATININE 0.6 mg/dL (0.55-1.02); GLUCOSE,RANDOM 107 mg/dL (74-106); SGOT/AST 14 U/L (15-37); SGPT/ALT 19 U/L (12-78); TOT PROT 5.7 g/dl (6.4-8.2)
[2017-03-21] MEDS: ACETAMINOPHEN 325 MG TABLET (FP) PO PRN ×2 (09:06→17:38)
[2017-03-21] MEDS: METOPROLOL TARTRATE 25 MG TABLET (FP) PO SCH ×2 (09:07→21:51)
[2017-03-21] MEDS: RITONAVIR 100 MG TABLET PO SCH (09:07)
[2017-03-21] MEDS: amLODIPine BESYLATE 10 MG TABLET (FP) PO SCH (09:07)
[2017-03-21] MEDS: NICOTINE 14 MG/24 HOURS TOPICAL PATCH TD SCH (09:07)
[2017-03-21] MEDS: ATAZANAVIR SO4 150 MG CAPSULE PO SCH (09:08)
[2017-03-21] MEDS: EMTRICITABINE 200MG/TENOFOVIR 300MG PO SCH (09:08)
[2017-03-21] MEDS: CEFTRIAXONE 2 GM in DEXTROSE 5%-WATER - 100 ML IVPB SCH ×2 (10:28→21:51)
--- NOTE | 2017-03-21 17:54 | PN ---
Physical Exam: SUBJECTIVE: Patient seen and examined Patient is doing well, with no acute distress. No fever or chills, no shortness of breath. OBJECTIVE: Vital Signs Temperature 100.2 F H 03/21/17 17:47 Pulse Rate 88 03/21/17 17:47 Respiratory Rate 18 03/21/17 17:47 Blood Pressure 117/74 03/21/17 17:47 O2 Sat by Pulse Oximetry (%) 100 03/21/17 09:00 GENERAL: The patient is awake, alert, and fully oriented, in no acute distress. HEAD: Normal with no signs of trauma. EYES: PERRL, extraocular movements intact, sclera anicteric, conjunctiva clear. ENT: Ears normal, oropharynx clear without exudates, moist mucous membranes. NECK: Trachea midline, full range of motion, supple. LUNGS: Breath sounds equal, clear to auscultation bilaterally, no wheezes, no crackles, no accessory muscle use. HEART: Regular rate and rhythm, S1, S2 positive, JIMI 2/6 no rub or gallop. ABDOMEN: Soft, nontender, nondistended, normoactive bowel sounds, no guarding, no rebound, no hepatosplenomegaly, no masses. EXTREMITIES: 2+ pulses, warm, well-perfused, no edema. NEUROLOGICAL: Cranial nerves II through XII grossly intact. Normal speech, gait not observed, lying in bed comfortably. PSYCH: Normal mood, normal affect. SKIN: Warm, dry, normal turgor, no rashes or lesions noted Home Medications Medication Instructions Recorded Aspirin [Aspirin EC] 81 mg PO DAILY #30 tablet. 10/30/16 Fluticasone/Salmeterol [Advair 1 each IH DAILY #1 disk.w.dev MDD 4 10/30/16 250-50 Diskus] Albuterol Sulfate Inhaler - 1 - 2 inh PO Q4H #1 inhaler 11/27/16 [Ventolin HFA Inhaler -] Diphenhydramine HCl [Benadryl 25 mg PO PRN #30 capsule 11/27/16 Capsule -] Loratadine [Claritin] 10 mg PO DAILY #30 tablet 11/27/16 Amitriptyline HCl 75 mg PO HS #30 tablet MDD 1 01/28/17 Amlodipine Besylate 10 mg PO DAILY #30 tablet 01/28/17 Mirtazapine [Remeron -] 30 mg PO DAILY #30 tablet 01/28/17 Temazepam [Restoril -] 15 mg PO HS PRN #30 capsule MDD 1 01/28/17 Venlafaxine HCl ER [Effexor Xr -] 75 mg PO DAILY #30 cap.er.24h 01/28/17 Active Medications Generic Name Dose Route Start Last Admin Trade Name Freq PRN Reason Stop Dose Admin Acetaminophen 650 mg 03/17/17 03:32 03/21/17 17:38 Tylenol - PO 650 mg Q6H PRN Administration FEVER OR PAIN Amlodipine Besylate 10 mg 03/15/17 10:00 03/21/17 09:07 Norvasc - PO 10 mg DAILY [facility] Administration Atazanavir 300 mg 03/20/17 10:00 03/21/17 09:08 Reyataz - PO 300 mg DAILY [facility] Administration Diphenhydramine HCl 25 mg 03/19/17 17:34 03/21/17 03:37 Benadryl - PO 25 mg HS PRN Administration INSOMNIA Emtricitabine/Tenofovir 1 tab 03/18/17 10:00 03/21/17 09:08 Truvada PO 1 tab DAILY [facility] Administration Heparin Sodium (Porcine) 5,000 unit 03/15/17 14:00 03/21/17 14:30 Heparin - SQ 5,000 unit TID [facility] Administration Ceftriaxone Sodium 2 gm/ 100 mls @ 200 mls/hr 03/15/17 22:00 03/21/17 10:28 Dextrose IVPB 200 mls/hr BID [facility] Administration Metronidazole 500 mg in 100 mls @ 100 mls/hr 03/18/17 21:00 03/21/17 16:00 Flagyl 500mg Premixed Ivpb - IVPB 100 mls/hr Q6H-IV [facility] Administration Metoprolol Tartrate 25 mg 03/15/17 11:15 03/21/17 09:07 Lopressor - PO 25 mg BID [facility] Administration Nicotine 14 mg 03/19/17 14:30 03/21/17 09:07 Nicoderm Patch - TD 14 mg DAILY [facility] Administration Ritonavir 100 mg 03/18/17 10:00 03/21/17 09:07 Norvir - PO 100 mg DAILY [facility] Administration Venlafaxine HCl 75 mg 03/21/17 08:00 03/21/17 08:58 Effexor Xr - PO 75 mg DAILY@0800 [facility] Administration MRI: no discitis or an abcess, reviewed the report ASSESSMENT/PLAN: 57 y/o lady with h/o HIV, aortic and mitral valve replacement with bioprosthetic valves, COPD, anemia and other medical problems who presented with AMS. # s/p AMS improved post IV antibiotic due to bacterial; pneumococcal meningitis . ID on the case. ON Rocephin day 03/24, and Flagyl continue. Echo is done without any vegetation. # Back pain , no abcess or discitis on MRI. Suggested low back support. # HIV- resume outpt HIV meds -reyataz/norvir/truvada #History of Bioprosthetic valves- repeat blood cultures are negative so far. # Slight decrease in TSH , possible euthyroid sick syndrome . repeat as out pt #hypokalemia : one dose of Kdur now DVT PX : Hepatin sq Dispo : needs 3 more days of IV Abx . she will need to complete in house or in a Rehab. Visit type - Emergency Visit Emergency Visit: Yes ED Registration Date: 03/11/17 Care time: The patient presented to the Emergency Department on the above date and was hospitalized for further evaluation of their emergent condition. - New Patient This patient is new to me today: No - Critical Care Critical Care patient: No
[2017-03-21] MEDS ORDERED: POTASSIUM CHLORIDE TABS 20 MEQ TABLET.ER (FP) PO ONE (17:55)
[2017-03-22] MEDS: METRONIDAZOLE 500 MG PREMIXED 500 MG/100 ML MG IVPB SCH ×4 (03:10→20:08)
[2017-03-22] MEDS: HEPARIN NA (PORCINE) 5,000 UNITS/ML 1ML VIAL SQ SCH ×3 (06:07→21:05)
[2017-03-22 09:19] LABS: MCH 27.8 pg (25.7-33.7); MCHC 32.2 g/dl (32.0-36.0); MEAN CELL VOLUME 86.4 fl (80-96); MEAN PLT VOLUME 8.7 fl (7.5-11.1); PLATELET COUNT 340 K/MM3 (134-434); RDW 14.8 % (11.6-15.6); WHITE BLOOD COUNT 11.6 K/mm3 (4.0-10.0)
[2017-03-22 09:36] LABS: ANION GAP 5 (8-16); CALCIUM 7.3 mg/dL (8.5-10.1); CO2 29 mmol/L (21-32); CREATININE 0.5 mg/dL (0.55-1.02); GLUCOSE,RANDOM 113 mg/dL (74-106)
[2017-03-22] MEDS ORDERED: PT OWN MED DRAWER 7, Y5N ONE (09:46)
[2017-03-22] MEDS: NICOTINE 14 MG/24 HOURS TOPICAL PATCH TD SCH (09:52)
[2017-03-22] MEDS: METOPROLOL TARTRATE 25 MG TABLET (FP) PO SCH ×2 (09:53→21:05)
[2017-03-22] MEDS: amLODIPine BESYLATE 10 MG TABLET (FP) PO SCH (09:53)
[2017-03-22] MEDS: ATAZANAVIR SO4 150 MG CAPSULE PO SCH (09:54)
[2017-03-22] MEDS: VENLAFAXINE HCL 75 MG E.R. CAPSULES (FP) PO SCH (09:54)
[2017-03-22] MEDS: EMTRICITABINE 200MG/TENOFOVIR 300MG PO SCH (09:55)
[2017-03-22] MEDS: RITONAVIR 100 MG TABLET PO SCH (09:55)
[2017-03-22] MEDS: CEFTRIAXONE 2 GM in DEXTROSE 5%-WATER - 100 ML IVPB SCH ×2 (11:31→21:05)
--- NOTE | 2017-03-22 11:32 | PN ---
Teaching Attending Note Name of Resident: Darien Morales ATTENDING PHYSICIAN STATEMENT I saw and evaluated the patient. I reviewed the resident's note and discussed the case with the resident. I agree with the resident's findings and plan as documented. SUBJECTIVE: Patient is doing better. OBJECTIVE: Vital Signs Temperature 99.6 F 03/22/17 06:00 Pulse Rate 89 03/22/17 06:00 Respiratory Rate 16 03/22/17 06:00 Blood Pressure 116/60 03/22/17 06:00 O2 Sat by Pulse Oximetry (%) 100 03/21/17 21:00 CBCD WBC 11.6 K/mm3 (4.0-10.0) H 03/22/17 08:50 RBC 3.87 M/mm3 (3.60-5.2) 03/22/17 08:50 Hgb 10.8 GM/dL (10.7-15.3) 03/22/17 08:50 Hct 33.4 % (32.4-45.2) 03/22/17 08:50 MCV 86.4 fl (80-96) 03/22/17 08:50 MCHC 32.2 g/dl (32.0-36.0) 03/22/17 08:50 RDW 14.8 % (11.6-15.6) 03/22/17 08:50 Plt Count 340 K/MM3 (134-434) 03/22/17 08:50 MPV 8.7 fl (7.5-11.1) 03/22/17 08:50 CMP Sodium 137 mmol/L (136-145) 03/22/17 08:50 Potassium 3.7 mmol/L (3.5-5.1) 03/22/17 08:50 Chloride 103 mmol/L (98-107) 03/22/17 08:50 Carbon Dioxide 29 mmol/L (21-32) 03/22/17 08:50 Anion Gap 5 (8-16) L 03/22/17 08:50 BUN 3 mg/dL (7-18) L D 03/22/17 08:50 Creatinine 0.5 mg/dL (0.55-1.02) L 03/22/17 08:50 Creat Clearance w eGFR > 60 (>60) 03/21/17 07:25 Random Glucose 113 mg/dL (74-106) H 03/22/17 08:50 Calcium 7.3 mg/dL (8.5-10.1) L 03/22/17 08:50 Total Bilirubin 1.1 mg/dL (0.2-1.0) H 03/21/17 07:25 AST 14 U/L (15-37) L D 03/21/17 07:25 ALT 19 U/L (12-78) 03/21/17 07:25 Alkaline Phosphatase 65 U/L (45-117) 03/21/17 07:25 Total Protein 5.7 g/dl (6.4-8.2) L 03/21/17 07:25 Albumin 1.7 g/dl (3.4-5.0) L 03/21/17 07:25 CARDIAC ENZYMES Creatine Kinase 1716 IU/L (26-192) H 03/11/17 15:00 Troponin I 0.26 ng/ml (0.00-0.05) H 03/11/17 15:00 Current Medications Generic Name Dose Route Start Last Admin Trade Name Mary PRN Reason Stop Dose Admin Acetaminophen 650 mg 03/17/17 03:32 03/21/17 17:38 Tylenol - PO 650 mg Q6H PRN Administration FEVER OR PAIN Amlodipine Besylate 10 mg 03/15/17 10:00 03/22/17 09:53 Norvasc - PO 10 mg DAILY VERONICA Administration Atazanavir 300 mg 03/20/17 10:00 03/22/17 09:54 Reyataz - PO 300 mg DAILY VERONICA Administration Diphenhydramine HCl 25 mg 03/19/17 17:34 03/21/17 22:01 Benadryl - PO 25 mg HS PRN Administration INSOMNIA Emtricitabine/Tenofovir 1 tab 03/18/17 10:00 03/22/17 09:55 Truvada PO 1 tab DAILY VERONICA Administration Heparin Sodium (Porcine) 5,000 unit 03/15/17 14:00 03/22/17 06:07 Heparin - SQ 5,000 unit TID VERONICA Administration Ceftriaxone Sodium 2 gm/ 100 mls @ 200 mls/hr 03/15/17 22:00 03/21/17 21:51 Dextrose IVPB 200 mls/hr BID VERONICA Administration Metronidazole 500 mg in 100 mls @ 100 mls/hr 03/18/17 21:00 03/22/17 09:53 Flagyl 500mg Premixed Ivpb - IVPB 100 mls/hr Q6H-IV VERONICA Administration Metoprolol Tartrate 25 mg 03/15/17 11:15 03/22/17 09:53 Lopressor - PO 25 mg BID VERONICA Administration Nicotine 14 mg 03/19/17 14:30 03/22/17 09:52 Nicoderm Patch - TD 14 mg DAILY VERONICA Administration Ritonavir 100 mg 03/18/17 10:00 03/22/17 09:55 Norvir - PO 100 mg DAILY VERONICA Administration Venlafaxine HCl 75 mg 03/21/17 08:00 03/22/17 09:54 Effexor Xr - PO 75 mg DAILY@0800 VERONICA Administration Home Medications Medication Instructions Recorded Aspirin [Aspirin EC] 81 mg PO DAILY #30 tablet. 10/30/16 Fluticasone/Salmeterol [Advair 1 each IH DAILY #1 disk.w.dev MDD 4 10/30/16 250-50 Diskus] Albuterol Sulfate Inhaler - 1 - 2 inh PO Q4H #1 inhaler 11/27/16 [Ventolin HFA Inhaler -] Diphenhydramine HCl [Benadryl 25 mg PO PRN #30 capsule 11/27/16 Capsule -] Loratadine [Claritin] 10 mg PO DAILY #30 tablet 11/27/16 Amitriptyline HCl 75 mg PO HS #30 tablet MDD 1 01/28/17 Amlodipine Besylate 10 mg PO DAILY #30 tablet 01/28/17 Mirtazapine [Remeron -] 30 mg PO DAILY #30 tablet 01/28/17 Temazepam [Restoril -] 15 mg PO HS PRN #30 capsule MDD 1 01/28/17 Venlafaxine HCl ER [Effexor Xr -] 75 mg PO DAILY #30 cap.er.24h 01/28/17 PE: per resident's note ASSESSMENT AND PLAN: 57 y/o lady with h/o HIV, aortic and mitral valve replacement with bioprosthetic valves, COPD, anemia and other medical problems who presented with AMS. # s/p AMS improved post IV antibiotic due to bacterial; pneumococcal meningitis . ID on the case. ON Rocephin day 04/23, and Flagyl continue. Echo is done without any vegetation. # Back pain , no abcess or discitis on MRI. Suggested low back support. # HIV- resume outpt HIV meds -reyataz/norvir/truvada #History of Bioprosthetic valves- repeat blood cultures are negative so far. # Slight decrease in TSH , possible euthyroid sick syndrome . repeat as out pt #hypokalemia : one dose of Kdur now DVT PX : Hepatin sq Dispo : needs 2 more days of IV Abx . she will need to complete in house or in a Rehab.
--- NOTE | 2017-03-22 11:33 | PN ---
Physical Exam: SUBJECTIVE: No acute events noted overnight. Pt still has her chronic back pain , but no other complaints at this time. Discussed how patient's abx regiment will be completed Thursday and how it would make the most sense to just finish in -house. Pt in agreement. Denies fever/chills, n/v/d/c, abdominal pain, headache , changes in sensation and strength. OBJECTIVE: Vital Signs Period Temp Pulse Resp BP Sys/Álvarez Pulse Ox Last 24 Hr 98.8 F-100.2 F 77-94 16-18 100-117/60-74 100 GENERAL: NAD, lying in bed, Alert and orientedx3 HEENT: Pupils JAMESON, moist mucous membranes. No JVD, continued area of inflammation noted on upper maxillary area LUNGS: CTA bilaterally, no wheezes, rhonchi, rales appreciated. No accessory muscle use. HEART: RRR, 3/6 holosystolic murmur appreciated at the L lower sternal border. ABDOMEN: Soft, non distended, nomoactive BS, nontender, no hepatomegaly appreciated. No masses noted EXTREMITIES: No edema noted. pulses 2+. NEUROLOGICAL: Reflexes 2/4, EOMI, strength 5/5, sensation intact throughout SKIN: No rashes or lesions noted. Laboratory Results - last 24 hr 03/22/17 03/22/17 08:50 08:50 WBC 11.6 H RBC 3.87 Hgb 10.8 Hct 33.4 MCV 86.4 MCH 27.8 MCHC 32.2 RDW 14.8 Plt Count 340 MPV 8.7 Sodium 137 Potassium 3.7 Chloride 103 Carbon Dioxide 29 Anion Gap 5 L BUN 3 L D Creatinine 0.5 L Random Glucose 113 H Calcium 7.3 L Active Medications Generic Name Dose Route Start Last Admin Trade Name Freq PRN Reason Stop Dose Admin Acetaminophen 650 mg 03/17/17 03:32 03/21/17 17:38 Tylenol - PO 650 mg Q6H PRN Administration FEVER OR PAIN Amlodipine Besylate 10 mg 03/15/17 10:00 03/22/17 09:53 Norvasc - PO 10 mg DAILY VERONICA Administration Atazanavir 300 mg 03/20/17 10:00 03/22/17 09:54 Reyataz - PO 300 mg DAILY VERONICA Administration Diphenhydramine HCl 25 mg 03/19/17 17:34 03/21/17 22:01 Benadryl - PO 25 mg HS PRN Administration INSOMNIA Emtricitabine/Tenofovir 1 tab 03/18/17 10:00 03/22/17 09:55 Truvada PO 1 tab DAILY VERONICA Administration Heparin Sodium (Porcine) 5,000 unit 03/15/17 14:00 03/22/17 06:07 Heparin - SQ 5,000 unit TID VERONICA Administration Ceftriaxone Sodium 2 gm/ 100 mls @ 200 mls/hr 03/15/17 22:00 03/21/17 21:51 Dextrose IVPB 200 mls/hr BID VERONICA Administration Metronidazole 500 mg in 100 mls @ 100 mls/hr 03/18/17 21:00 03/22/17 09:53 Flagyl 500mg Premixed Ivpb - IVPB 100 mls/hr Q6H-IV VERONICA Administration Metoprolol Tartrate 25 mg 03/15/17 11:15 03/22/17 09:53 Lopressor - PO 25 mg BID VERONICA Administration Nicotine 14 mg 03/19/17 14:30 03/22/17 09:52 Nicoderm Patch - TD 14 mg DAILY VERONICA Administration Ritonavir 100 mg 03/18/17 10:00 03/22/17 09:55 Norvir - PO 100 mg DAILY VERONICA Administration Venlafaxine HCl 75 mg 03/21/17 08:00 03/22/17 09:54 Effexor Xr - PO 75 mg DAILY@0800 VERONICA Administration ASSESSMENT/PLAN: 1) Severe sepsis and altered mental status --AMS and severe sepsis Resolved --Suspected 2/2 to bacterial meningitis --Per ID: picc line and d/c plan is Ceftriaxone 2gm IV for 14 days total ( day 04/23 currently) --Will need SNF placement due to previous polysubstance abuse; pending approval with insurance --Flagyl on board; ID opinion on de-escalation appreciated. --Lumbar spine MRI - Chronic changes noted; no areas of abscess or septic joint areas noted --Brain MRI normal --CT soft tissue of maxilla noted 2) Abdominal pain --Resolved --CT abd/pelvis - negative --Most likely 2/2 antibiotics --C diff negative 3) HTN --Continue Norvasc 10mg PO qdaily --Continue Toprol XL 25mg PO BID --Echocardiogram shows no interval change from 2012 to now. 4) Low TSH level --Most likely euthyroid sick syndrome 5) Insomnia --Seroquel being held due to elongated Qtc on EKG --Continue Benadryl 25mg PO HS FEN: Fluids: None; tolerating PO Electrolyte abnormalities: None today Nutrition: Low fat,cholesterol diet PPX DVT - Heparin 5000U TID Dispo: Med-surg, pt needs 14 days of antibiotics total; cannot be d/c'd home due to previous polysubstance abuse; back support for d/c Case discussed with Dr. Tanisha Morales, DO - Internal Medicine PGY-1 Visit type - Emergency Visit Emergency Visit: No - New Patient This patient is new to me today: No - Critical Care Critical Care patient: No
[2017-03-22] MEDS: ZOLPIDEM TARTRATE 5 MG TABLET PO PRN (22:47)
[2017-03-23] MEDS: METRONIDAZOLE 500 MG PREMIXED 500 MG/100 ML MG IVPB SCH ×4 (02:04→20:16)
[2017-03-23] MEDS: HEPARIN NA (PORCINE) 5,000 UNITS/ML 1ML VIAL SQ SCH ×3 (06:22→22:25)
[2017-03-23] MEDS ORDERED: PT OWN MED DRAWER 7, Y5N ONE (09:23)
[2017-03-23] MEDS: VENLAFAXINE HCL 75 MG E.R. CAPSULES (FP) PO SCH (09:38)
[2017-03-23] MEDS: amLODIPine BESYLATE 10 MG TABLET (FP) PO SCH (09:38)
[2017-03-23] MEDS: ATAZANAVIR SO4 150 MG CAPSULE PO SCH (09:39)
[2017-03-23] MEDS: METOPROLOL TARTRATE 25 MG TABLET (FP) PO SCH ×2 (09:39→22:25)
[2017-03-23] MEDS: RITONAVIR 100 MG TABLET PO SCH (09:39)
[2017-03-23] MEDS: EMTRICITABINE 200MG/TENOFOVIR 300MG PO SCH (09:39)
[2017-03-23] MEDS: NICOTINE 14 MG/24 HOURS TOPICAL PATCH TD SCH (09:40)
[2017-03-23] MEDS: CEFTRIAXONE 2 GM in DEXTROSE 5%-WATER - 100 ML IVPB SCH ×2 (09:40→22:25)
--- NOTE | 2017-03-23 11:17 | PN ---
Physical Exam: SUBJECTIVE: No acute events overnight. Pt slept last night. Pt has no new complaints today. Today will be for Ceftriaxone 2gm BID. OBJECTIVE: Vital Signs Period Temp Pulse Resp BP Sys/Álvarez Pulse Ox Last 24 Hr 98.2 F-98.8 F 76-90 18-18 107-115/45-75 98 GENERAL: NAD, lying in bed, Alert and orientedx3 HEENT: Pupils JAMESON, moist mucous membranes. No JVD, continued area of inflammation noted on upper maxillary area LUNGS: CTA bilaterally, no wheezes, rhonchi, rales appreciated. No accessory muscle use. HEART: RRR, 3/6 holosystolic murmur appreciated at the L lower sternal border. ABDOMEN: Soft, non distended, nomoactive BS, nontender, no hepatomegaly appreciated. No masses noted EXTREMITIES: No edema noted. pulses 2+. NEUROLOGICAL: Reflexes 2/4, EOMI, strength 5/5, sensation intact throughout SKIN: No rashes or lesions noted. Active Medications Generic Name Dose Route Start Last Admin Trade Name Freq PRN Reason Stop Dose Admin Acetaminophen 650 mg 03/17/17 03:32 03/21/17 17:38 Tylenol - PO 650 mg Q6H PRN Administration FEVER OR PAIN Amlodipine Besylate 10 mg 03/15/17 10:00 03/23/17 09:38 Norvasc - PO 10 mg DAILY EVRONICA Administration Atazanavir 300 mg 03/20/17 10:00 03/23/17 09:39 Reyataz - PO 300 mg DAILY VERONICA Administration Emtricitabine/Tenofovir 1 tab 03/18/17 10:00 03/23/17 09:39 Truvada PO 1 tab DAILY VERONICA Administration Heparin Sodium (Porcine) 5,000 unit 03/15/17 14:00 03/23/17 06:22 Heparin - SQ 5,000 unit TID VERONICA Administration Ceftriaxone Sodium 2 gm/ 100 mls @ 200 mls/hr 03/15/17 22:00 03/23/17 09:40 Dextrose IVPB 200 mls/hr BID VERONICA Administration Metronidazole 500 mg in 100 mls @ 100 mls/hr 03/18/17 21:00 03/23/17 09:40 Flagyl 500mg Premixed Ivpb - IVPB 100 mls/hr Q6H-IV VERONICA Administration Metoprolol Tartrate 25 mg 03/15/17 11:15 03/23/17 09:39 Lopressor - PO 25 mg BID VERONICA Administration Nicotine 14 mg 03/19/17 14:30 03/23/17 09:40 Nicoderm Patch - TD 14 mg DAILY VERONICA Administration Ritonavir 100 mg 03/18/17 10:00 03/23/17 09:39 Norvir - PO 100 mg DAILY VERONICA Administration Venlafaxine HCl 75 mg 03/21/17 08:00 03/23/17 09:38 Effexor Xr - PO 75 mg DAILY@0800 VERONICA Administration Zolpidem Tartrate 5 mg 03/22/17 17:02 03/22/17 22:47 Ambien - PO 5 mg HS PRN Administration INSOMNIA ASSESSMENT/PLAN: 1) Severe sepsis and altered mental status --AMS and severe sepsis Resolved --Suspected 2/2 to bacterial meningitis --Per ID: Ceftriaxone 2gm IV for 14 days total (day currently) --Pt will finish out course in-house and then be discharged home --Flagyl on board; ID opinion on de-escalation appreciated. --Lumbar spine MRI - Chronic changes noted; no areas of abscess or septic joint areas noted --Brain MRI normal --CT soft tissue of maxilla noted 2) HTN --Continue Norvasc 10mg PO qdaily --Continue Toprol XL 25mg PO BID --Echocardiogram shows no interval change from 2012 to now. 3) Low TSH level --Most likely euthyroid sick syndrome 4) Insomnia --Seroquel being held due to elongated Qtc on EKG --Pt was given Ambien last night x1 dose for sleep 5) Abdominal pain --Resolved --CT abd/pelvis - negative --Most likely 2/2 antibiotics --C diff negative FEN: Fluids: None; tolerating PO Electrolyte abnormalities: None today Nutrition: Low fat,cholesterol diet PPX DVT - Heparin 5000U TID Dispo: Med-surg, pt needs 14 days of antibiotics total; cannot be d/c'd home due to previous polysubstance abuse; back support for d/c Case discussed with Dr. Tanisha Morales, DO - Internal Medicine PGY-1 Visit type - Emergency Visit Emergency Visit: No - New Patient This patient is new to me today: No - Critical Care Critical Care patient: No
--- NOTE | 2017-03-23 16:10 | PN ---
Progress Note (short form) - Note Progress Note: back pain improved ambulating Vital Signs Period Temp Pulse Resp BP Sys/Álvarez Pulse Ox Last 24 Hr 98.2 F-99.8 F 80-90 18-18 107-115/45-75 98 cor-rrr llungs clear abd soft,nt ext no edema CBC, BMP 03/22/17 08:50 03/22/17 08:50 Microbiology 03/18/17 16:30 Blood Culture - Preliminary Blood - Peripheral Venous NO GROWTH OBTAINED AFTER 96 HOURS, INCUBATION TO CONTINUE FOR 1 DAYS. 03/18/17 16:30 Blood Culture - Preliminary Blood - Peripheral Venous NO GROWTH OBTAINED AFTER 96 HOURS, INCUBATION TO CONTINUE FOR 1 DAYS. a/p pneumococcal meningitis/bacteremia- repeat crp in am day #13 of 14 rocephin mri of back no discitis or epidural abscess hiv- continue art should f/u at [facility]
--- NOTE | 2017-03-23 19:44 | PN ---
Teaching Attending Note Name of Resident: Darien Morales ATTENDING PHYSICIAN STATEMENT I saw and evaluated the patient. I reviewed the resident's note and discussed the case with the resident. I agree with the resident's findings and plan as documented. SUBJECTIVE: Patient is comfortable with no acute distress, no shortness of breath, no fever or chills. OBJECTIVE: Vital Signs Temperature 99.8 F H 03/23/17 14:00 Pulse Rate 80 03/23/17 14:00 Respiratory Rate 18 03/23/17 14:00 Blood Pressure 111/75 03/23/17 14:00 O2 Sat by Pulse Oximetry (%) 98 03/22/17 22:00 CBCD WBC 11.6 K/mm3 (4.0-10.0) H 03/22/17 08:50 RBC 3.87 M/mm3 (3.60-5.2) 03/22/17 08:50 Hgb 10.8 GM/dL (10.7-15.3) 03/22/17 08:50 Hct 33.4 % (32.4-45.2) 03/22/17 08:50 MCV 86.4 fl (80-96) 03/22/17 08:50 MCHC 32.2 g/dl (32.0-36.0) 03/22/17 08:50 RDW 14.8 % (11.6-15.6) 03/22/17 08:50 Plt Count 340 K/MM3 (134-434) 03/22/17 08:50 MPV 8.7 fl (7.5-11.1) 03/22/17 08:50 CMP Sodium 137 mmol/L (136-145) 03/22/17 08:50 Potassium 3.7 mmol/L (3.5-5.1) 03/22/17 08:50 Chloride 103 mmol/L (98-107) 03/22/17 08:50 Carbon Dioxide 29 mmol/L (21-32) 03/22/17 08:50 Anion Gap 5 (8-16) L 03/22/17 08:50 BUN 3 mg/dL (7-18) L D 03/22/17 08:50 Creatinine 0.5 mg/dL (0.55-1.02) L 03/22/17 08:50 Creat Clearance w eGFR > 60 (>60) 03/21/17 07:25 Random Glucose 113 mg/dL (74-106) H 03/22/17 08:50 Calcium 7.3 mg/dL (8.5-10.1) L 03/22/17 08:50 Total Bilirubin 1.1 mg/dL (0.2-1.0) H 03/21/17 07:25 AST 14 U/L (15-37) L D 03/21/17 07:25 ALT 19 U/L (12-78) 03/21/17 07:25 Alkaline Phosphatase 65 U/L (45-117) 03/21/17 07:25 Total Protein 5.7 g/dl (6.4-8.2) L 03/21/17 07:25 Albumin 1.7 g/dl (3.4-5.0) L 03/21/17 07:25 CARDIAC ENZYMES Creatine Kinase 1716 IU/L (26-192) H 03/11/17 15:00 Troponin I 0.26 ng/ml (0.00-0.05) H 03/11/17 15:00 Current Medications Generic Name Dose Route Start Last Admin Trade Name Freq PRN Reason Stop Dose Admin Acetaminophen 650 mg 03/17/17 03:32 03/21/17 17:38 Tylenol - PO 650 mg Q6H PRN Administration FEVER OR PAIN Amlodipine Besylate 10 mg 03/15/17 10:00 03/23/17 09:38 Norvasc - PO 10 mg DAILY VERONICA Administration Atazanavir 300 mg 03/20/17 10:00 03/23/17 09:39 Reyataz - PO 300 mg DAILY VERONICA Administration Emtricitabine/Tenofovir 1 tab 03/18/17 10:00 03/23/17 09:39 Truvada PO 1 tab DAILY VERONICA Administration Heparin Sodium (Porcine) 5,000 unit 03/15/17 14:00 03/23/17 14:35 Heparin - SQ 5,000 unit TID VERONICA Administration Ceftriaxone Sodium 2 gm/ 100 mls @ 200 mls/hr 03/15/17 22:00 03/23/17 09:40 Dextrose IVPB 200 mls/hr BID VERONICA Administration Metronidazole 500 mg in 100 mls @ 100 mls/hr 03/18/17 21:00 03/23/17 14:35 Flagyl 500mg Premixed Ivpb - IVPB 100 mls/hr Q6H-IV VERONICA Administration Metoprolol Tartrate 25 mg 03/15/17 11:15 03/23/17 09:39 Lopressor - PO 25 mg BID VERONICA Administration Nicotine 14 mg 03/19/17 14:30 03/23/17 09:40 Nicoderm Patch - TD 14 mg DAILY VERONICA Administration Ritonavir 100 mg 03/18/17 10:00 03/23/17 09:39 Norvir - PO 100 mg DAILY VERONICA Administration Venlafaxine HCl 75 mg 03/21/17 08:00 03/23/17 09:38 Effexor Xr - PO 75 mg DAILY@0800 VERONICA Administration Zolpidem Tartrate 5 mg 03/22/17 17:02 03/22/17 22:47 Ambien - PO 5 mg HS PRN Administration INSOMNIA Home Medications Medication Instructions Recorded Aspirin [Aspirin EC] 81 mg PO DAILY #30 tablet. 10/30/16 Fluticasone/Salmeterol [Advair 1 each IH DAILY #1 disk.w.dev MDD 4 10/30/16 250-50 Diskus] Albuterol Sulfate Inhaler - 1 - 2 inh PO Q4H #1 inhaler 11/27/16 [Ventolin HFA Inhaler -] Diphenhydramine HCl [Benadryl 25 mg PO PRN #30 capsule 11/27/16 Capsule -] Loratadine [Claritin] 10 mg PO DAILY #30 tablet 11/27/16 Amitriptyline HCl 75 mg PO HS #30 tablet MDD 1 01/28/17 Amlodipine Besylate 10 mg PO DAILY #30 tablet 01/28/17 Mirtazapine [Remeron -] 30 mg PO DAILY #30 tablet 01/28/17 Temazepam [Restoril -] 15 mg PO HS PRN #30 capsule MDD 1 01/28/17 Venlafaxine HCl ER [Effexor Xr -] 75 mg PO DAILY #30 cap.er.24h 01/28/17 PE: per resident's note ASSESSMENT AND PLAN: 57 y/o lady with h/o HIV, aortic and mitral valve replacement with bioprosthetic valves, COPD, anemia and other medical problems who presented with AMS. # s/p AMS improved post IV antibiotic due to bacterial; pneumococcal meningitis . ID on the case. ON Rocephin day 13/14, and Flagyl continue. Echo is done without any vegetation. tomorrow is the last day of IV antibiotic. # Back pain , no abcess or discitis on MRI. Suggested low back support. # HIV- resume outpt HIV meds -reyataz/norvir/truvada #History of Bioprosthetic valves- repeat blood cultures are negative so far. # Slight decrease in TSH , possible euthyroid sick syndrome . repeat as out pt #hypokalemia : one dose of Kdur now DVT PX : Hepatin sq Dispo : needs 1 more day of IV Abx . she will need to complete tx of meningitis.
[2017-03-23] MEDS: ACETAMINOPHEN 325 MG TABLET (FP) PO PRN (20:16)
[2017-03-23] MEDS: ZOLPIDEM TARTRATE 5 MG TABLET PO PRN (22:25)
[2017-03-24] MEDS: METRONIDAZOLE 500 MG PREMIXED 500 MG/100 ML MG IVPB SCH ×3 (02:47→16:20)
[2017-03-24] MEDS: HEPARIN NA (PORCINE) 5,000 UNITS/ML 1ML VIAL SQ SCH ×2 (05:52→16:20)
[2017-03-24] MEDS ORDERED: PT OWN MED DRAWER 7, Y5N ONE ×2 (07:23→09:38)
[2017-03-24 07:30] LABS: MCH 28.5 pg (25.7-33.7); MCHC 32.8 g/dl (32.0-36.0); MEAN CELL VOLUME 86.9 fl (80-96); MEAN PLT VOLUME 8.3 fl (7.5-11.1); PLATELET COUNT 359 K/MM3 (134-434); RDW 15.3 % (11.6-15.6); WHITE BLOOD COUNT 10.7 K/mm3 (4.0-10.0)
[2017-03-24] MEDS: RITONAVIR 100 MG TABLET PO SCH (09:48)
[2017-03-24] MEDS: EMTRICITABINE 200MG/TENOFOVIR 300MG PO SCH (09:48)
[2017-03-24] MEDS: ATAZANAVIR SO4 150 MG CAPSULE PO SCH (09:48)
[2017-03-24] MEDS: VENLAFAXINE HCL 75 MG E.R. CAPSULES (FP) PO SCH (09:49)
[2017-03-24] MEDS: NICOTINE 14 MG/24 HOURS TOPICAL PATCH TD SCH (09:49)
[2017-03-24] MEDS: amLODIPine BESYLATE 10 MG TABLET (FP) PO SCH (09:49)
[2017-03-24] MEDS: METOPROLOL TARTRATE 25 MG TABLET (FP) PO SCH (09:49)
[2017-03-24] MEDS: ACETAMINOPHEN 325 MG TABLET (FP) PO PRN (10:06)
[2017-03-24] MEDS ORDERED: CEFTRIAXONE 2 GM in DEXTROSE 5%-WATER - 100 ML IVPB ONE ×2 (10:21→18:00)
[2017-03-24] MEDS: CEFTRIAXONE 2 GM in DEXTROSE 5%-WATER - 100 ML IVPB SCH (10:55)
--- NOTE | 2017-03-24 16:07 | PN ---
Teaching Attending Note Name of Resident: Darien Morales ATTENDING PHYSICIAN STATEMENT I saw and evaluated the patient. I reviewed the resident's note and discussed the case with the resident. I agree with the resident's findings and plan as documented. SUBJECTIVE: Patient is comfortable with no acute distress. no shortness of breath. No fever or chills, feeling better. OBJECTIVE: Vital Signs Temperature 98.4 F 03/24/17 15:10 Pulse Rate 73 03/24/17 15:10 Respiratory Rate 18 03/24/17 15:10 Blood Pressure 102/70 03/24/17 15:10 O2 Sat by Pulse Oximetry (%) 98 03/23/17 21:00 CBCD WBC 10.7 K/mm3 (4.0-10.0) H 03/24/17 06:35 RBC 4.04 M/mm3 (3.60-5.2) 03/24/17 06:35 Hgb 11.5 GM/dL (10.7-15.3) 03/24/17 06:35 Hct 35.1 % (32.4-45.2) 03/24/17 06:35 MCV 86.9 fl (80-96) 03/24/17 06:35 MCHC 32.8 g/dl (32.0-36.0) 03/24/17 06:35 RDW 15.3 % (11.6-15.6) 03/24/17 06:35 Plt Count 359 K/MM3 (134-434) 03/24/17 06:35 MPV 8.3 fl (7.5-11.1) 03/24/17 06:35 CMP Sodium 137 mmol/L (136-145) 03/22/17 08:50 Potassium 3.7 mmol/L (3.5-5.1) 03/22/17 08:50 Chloride 103 mmol/L (98-107) 03/22/17 08:50 Carbon Dioxide 29 mmol/L (21-32) 03/22/17 08:50 Anion Gap 5 (8-16) L 03/22/17 08:50 BUN 3 mg/dL (7-18) L D 03/22/17 08:50 Creatinine 0.5 mg/dL (0.55-1.02) L 03/22/17 08:50 Creat Clearance w eGFR > 60 (>60) 03/21/17 07:25 Random Glucose 113 mg/dL (74-106) H 03/22/17 08:50 Calcium 7.3 mg/dL (8.5-10.1) L 03/22/17 08:50 Total Bilirubin 1.1 mg/dL (0.2-1.0) H 03/21/17 07:25 AST 14 U/L (15-37) L D 03/21/17 07:25 ALT 19 U/L (12-78) 03/21/17 07:25 Alkaline Phosphatase 65 U/L (45-117) 03/21/17 07:25 Total Protein 5.7 g/dl (6.4-8.2) L 03/21/17 07:25 Albumin 1.7 g/dl (3.4-5.0) L 03/21/17 07:25 CARDIAC ENZYMES Creatine Kinase 1716 IU/L (26-192) H 03/11/17 15:00 Troponin I 0.26 ng/ml (0.00-0.05) H 03/11/17 15:00 Current Medications Generic Name Dose Route Start Last Admin Trade Name Freq PRN Reason Stop Dose Admin Acetaminophen 650 mg 03/17/17 03:32 03/24/17 10:06 Tylenol - PO 650 mg Q6H PRN Administration FEVER OR PAIN Amlodipine Besylate 10 mg 03/15/17 10:00 03/24/17 09:49 Norvasc - PO 10 mg DAILY VERONICA Administration Atazanavir 300 mg 03/20/17 10:00 03/24/17 09:48 Reyataz - PO 300 mg DAILY VERONICA Administration Emtricitabine/Tenofovir 1 tab 03/18/17 10:00 03/24/17 09:48 Truvada PO 1 tab DAILY VERONICA Administration Heparin Sodium (Porcine) 5,000 unit 03/15/17 14:00 03/24/17 05:52 Heparin - SQ 5,000 unit TID VERONICA Administration Metronidazole 500 mg in 100 mls @ 100 mls/hr 03/18/17 21:00 03/24/17 09:47 Flagyl 500mg Premixed Ivpb - IVPB 100 mls/hr Q6H-IV VERONICA Administration Ceftriaxone Sodium 2 gm/ 100 mls @ 200 mls/hr 03/24/17 18:00 Dextrose IVPB 03/24/17 18:29 ONCE ONE Metoprolol Tartrate 25 mg 03/15/17 11:15 03/24/17 09:49 Lopressor - PO 25 mg BID VERONICA Administration Nicotine 14 mg 03/19/17 14:30 03/24/17 09:49 Nicoderm Patch - TD 14 mg DAILY VERONICA Administration Ritonavir 100 mg 03/18/17 10:00 03/24/17 09:48 Norvir - PO 100 mg DAILY VERONICA Administration Venlafaxine HCl 75 mg 03/21/17 08:00 03/24/17 09:49 Effexor Xr - PO 75 mg DAILY@0800 VERONICA Administration Zolpidem Tartrate 5 mg 03/22/17 17:02 03/23/17 22:25 Ambien - PO 5 mg HS PRN Administration INSOMNIA Home Medications Medication Instructions Recorded Aspirin [Aspirin EC] 81 mg PO DAILY #30 tablet. 10/30/16 Fluticasone/Salmeterol [Advair 1 each IH DAILY #1 disk.w.dev MDD 4 10/30/16 250-50 Diskus] Albuterol Sulfate Inhaler - 1 - 2 inh PO Q4H #1 inhaler 11/27/16 [Ventolin HFA Inhaler -] Diphenhydramine HCl [Benadryl 25 mg PO PRN #30 capsule 11/27/16 Capsule -] Loratadine [Claritin] 10 mg PO DAILY #30 tablet 11/27/16 Amitriptyline HCl 75 mg PO HS #30 tablet MDD 1 01/28/17 Amlodipine Besylate 10 mg PO DAILY #30 tablet 01/28/17 Mirtazapine [Remeron -] 30 mg PO DAILY #30 tablet 01/28/17 Temazepam [Restoril -] 15 mg PO HS PRN #30 capsule MDD 1 01/28/17 Venlafaxine HCl ER [Effexor Xr -] 75 mg PO DAILY #30 cap.er.24h 01/28/17 PE: per resident's note ASSESSMENT AND PLAN: 57 y/o lady with h/o HIV, aortic and mitral valve replacement with bioprosthetic valves, COPD, anemia and other medical problems who presented with AMS. # pneumococcal meningitis on last dose of IV Rocephin 2gm ,patient will be discharged after receiving the last dose of IV Rocephin 2gm. s/p AMS improved post IV antibiotic ; ID on the case. ON Rocephin day , and Flagyl last dose today. Echo is done without any vegetation. # Back pain , no abcess or discitis on MRI. Suggested low back support, will give her Rx to go home with. # HIV- resume outpt HIV meds -reyataz/norvir/truvada, follow with the [place] [facility] in a week. #History of Bioprosthetic valves- repeat blood cultures are negative so far. # Slight decrease in TSH , possible euthyroid sick syndrome . repeat as out pt #hypokalemia : one dose of Kdur , resolved now Discharge the patient after receiving the last dose of IV Rocephin as per ID recommendation.
--- NOTE | 2017-03-24 16:41 | DS ---
Physical Exam: SUBJECTIVE: Pt reports sleeping well last night. Pt remains afebrile with no acute events overnight. Pt has no complaints at this point and is eager to go home this afternoon. OBJECTIVE: Vital Signs Period Temp Pulse Resp BP Sys/Álvarez Pulse Ox Last 24 Hr 98.4 F-99.2 F 73-88 18-20 96-123/57-74 98 PHYSICAL EXAM GENERAL: NAD, lying in bed, Alert and orientedx3 HEENT: Pupils JAMESON, moist mucous membranes. No JVD, continued area of inflammation noted on upper maxillary area LUNGS: CTA bilaterally, no wheezes, rhonchi, rales appreciated. No accessory muscle use. HEART: RRR, 3/6 holosystolic murmur appreciated at the L lower sternal border. ABDOMEN: Soft, non distended, nomoactive BS, nontender, no hepatomegaly appreciated. No masses noted EXTREMITIES: No edema noted. pulses 2+. NEUROLOGICAL: Reflexes 2/4, EOMI, strength 5/5, sensation intact throughout SKIN: No rashes or lesions noted. LABS Laboratory Results - last 24 hr 03/24/17 03/24/17 06:35 06:35 WBC 10.7 H RBC 4.04 Hgb 11.5 Hct 35.1 MCV 86.9 MCH 28.5 MCHC 32.8 RDW 15.3 Plt Count 359 MPV 8.3 C-Reactive Protein 2.7 H D Microbiology 03/18/17 16:30 Blood - Peripheral Venous Blood Culture - Final NO GROWTH AFTER 5 DAYS INCUBATION 03/18/17 16:30 Blood - Peripheral Venous Blood Culture - Final NO GROWTH AFTER 5 DAYS INCUBATION 03/15/17 16:45 Stool Gram Stain - Final 03/15/17 16:45 Stool Clostridium difficile Antigen (SHIVA) - Final 03/15/17 16:45 Stool Clostridium difficile Toxin Assay - Final 03/13/17 07:35 Serum Cryptococcal Antigen - Final 03/12/17 11:20 Blood - Peripheral Venous Blood Culture - Final NO GROWTH AFTER 5 DAYS INCUBATION 03/12/17 10:23 Blood - Peripheral Venous Blood Culture - Final NO GROWTH AFTER 5 DAYS INCUBATION 03/12/17 00:34 Urine - Urine - Catheterized Urine Culture - Final NO GROWTH OBTAINED 03/11/17 18:30 Nasopharyngeal Swab Influenza Types A,B Antigen (SHIVA) - Final 03/11/17 18:30 Nasopharyngeal Swab - Final 03/11/17 16:32 Urine For Antigen Detection Legionella Antigen - Final 03/11/17 16:32 Urine For Antigen Detection Streptococcus pneumoniae Antigen (M - Final 03/11/17 02:25 Urine - Urine - Catheterized Urine Culture - Final NO GROWTH OBTAINED 03/11/17 02:25 Blood - Peripheral Venous Blood Culture - Final Streptococcus Pneumoniae 03/11/17 02:25 Blood - Peripheral Venous Blood Culture - Final Streptococcus Pneumoniae HOSPITAL COURSE: Date of Admission:03/11/17 Date of Discharge: 03/24/17 Pt was admitted to the ICU on 03/11/17 presenting with AMS, unresponsiveness, and stiffened neck suspected to have bacterial meningitis. Initial work-up included Head CT showing interval change with dilated ventricles reflective of hydrocephalus and blood cultures later revealing streptococcus pneumoniae. Pt was placed on Vancomycin 1250 BID and Ceftriaxone 2gm IV qDaily. Pt was to get MRI, however pt's agitation and inability to keep still limited exam. Pt's inital lumbar puncture was also postponed due to the hydrocephalus seen on initial CT scan. Repeat CT with IV contrast of the head was performed 1 day later which later revealed resolution of pt's previous seen hydrocephalus. Dexamethasone 10mg was then added to pt's medication regiment. TTE was performed revealing no interval change from prior in 2012 which reduced suspicion of endocarditis. Due to pt's limited improvement, pt was increased to Ceftriaxone 2gm BID and lumbar puncture was attempted to confirm diagnosis. Lumbar puncture was unsuccessful again attributed to pt's agitation and attempt was terminated. Pt slowly began to improve and regained mentation with the ability to voice her complaints. Pt complained of new abdominal pain and pt received abdominal CT revealing post-cholecystectomy changes, ascites, and b/l pleural effusions. Later on pt had MRI of her brain which showed now residual deficits. Management of antibiotics continued and pt then began to experience lumbar spine pain with increased intensity compared to her chronic pain. Pt received MRI of the lumbar spine which only revealed chronic changes without any acute process. Pt is being discharged on 03/24/17 completing 14 days worth of Ceftriaxone 2gm BID and with restart of her HIV medications (Truvada, Norvir, and Reyataz) with instructions to follow-up with the [facility] and her general medical doctor. Minutes to complete discharge: 40 Discharge Summary Reason For Visit: SEPSIS PNEUMONIA CHF HIV Current Active Problems Sepsis (Acute) Streptococcal meningitis (Acute) CHF (congestive heart failure) (Chronic) Chronic insomnia (Chronic) H/O prosthetic heart valve (Chronic) HIV (human immunodeficiency virus infection) (Chronic) Hypothyroid (Chronic) Condition: Good - Instructions Diet, Activity, Other Instructions: You were hospitalized for an infection in your spine and brain. Please follow-up with your general medical doctor --If you do not have one please feel free to call [phone] to schedule an appointment with Dr. Qureshi and Dr. Morales --If you do not have insurance you can schedule an appointment at the [facility] at [phone] Please follow-up with the [facility] and Dr. 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 10/30/16 Fluticasone/Salmeterol [Advair 250-50 Diskus] 1 each IH DAILY #1 disk.w.dev MDD 4 10/30/16 Albuterol Sulfate Inhaler - [Ventolin HFA Inhaler -] 1 - 2 inh PO Q4H #1 inhaler 11/27/16 Loratadine [Claritin] 10 mg PO DAILY #30 tablet 11/27/16 Amlodipine Besylate 10 mg PO DAILY #30 tablet 01/28/17 Venlafaxine HCl ER [Effexor Xr -] 75 mg PO DAILY #30 cap.er.24h 01/28/17 Atazanavir [Reyataz -] 300 mg PO DAILY #30 capsule 03/24/17 Emtricitabine/Tenofovir [Truvada -] 1 tab PO DAILY #30 tablet 03/24/17 Metoprolol Tartrate [Lopressor -] 25 mg PO BID #60 tablet 03/24/17 Ritonavir [Norvir -] 100 mg PO DAILY #30 tab 03/24/17 This patient is new to me today: No Emergency Visit: No Critical Care patient: No - Discharge Referral Referred to [facility] No
[2017-03-24 18:42] VITALS: BP 115/72; PULSE 84; TEMP 98.3
== END 2017-03-24 18:56 | disposition home or self-care (01) | DRG 890 ==
LOC: JER 01:02 → JERBED 04:03 → UNDOADMIN 05:01 → JICU 16:45 → J5S 03-15 12:28 → UNDODISIN 03-18 18:32
PROVIDERS: ADMIT Internal Medicine; ATTEND Internal Medicine
PROC: 009U3ZX Drainage of Spinal Canal, Percutaneous Approach, Diagnostic (ICD-10-PCS; principal; 2017-03-13)
DX: G00.2 Streptococcal meningitis (principal); A41.9 Sepsis, unspecified organism; I21.4 Non-ST elevation (NSTEMI) myocardial infarction; J44.9 Chronic obstructive pulmonary disease, unspecified; G91.9 Hydrocephalus, unspecified; G00.1 Pneumococcal meningitis; E03.9 Hypothyroidism, unspecified; E87.6 Hypokalemia; M54.9 Dorsalgia, unspecified; R65.20 Severe sepsis without septic shock; G47.00 Insomnia, unspecified; E88.09 Other disorders of plasma-protein metabolism, not elsewhere classified; I11.0 Hypertensive heart disease with heart failure; F32.9 Major depressive disorder, single episode, unspecified; R41.82 Altered mental status, unspecified; G92 Toxic encephalopathy; I27.20 Pulmonary hypertension, unspecified; D64.9 Anemia, unspecified; E86.0 Dehydration; I50.32 Chronic diastolic (congestive) heart failure; Z91.14 Patient's other noncompliance with medication regimen; Z87.891 Personal history of nicotine dependence; J96.01 Acute respiratory failure with hypoxia; B20 Human immunodeficiency virus [HIV] disease; J96.02 Acute respiratory failure with hypercapnia; J13 Pneumonia due to Streptococcus pneumoniae
CPT/HCPCS: 36415; 36600; 70450-TC; 70460-TC; 70490-TC; 70553-TC; 71010-TC; 72149-TC; 74177-TC; 80048; 80053; 80061; 80307; 81003; 81015; 82140; 82550; 82553; 82803; 83036; 83605; 83690; 83721; 83735; 83880; 84100; 84439; 84443; 84484; 84703; 85025; 85027; 85610; 85730; 86140; 86593; 86850; 86900; 86901; 87040; 87045; 87046; 87086; 87186; 87205; 87324; 87449; 87804; 87899; 93005; 93010; 93306-TC; 93971; 97116-GP; 97161-GP; 99285-25; A9576; G0480; J1644; Q9967

== ENCOUNTER 2018-11-10 10:18 | Inpatient (IN) | payer OTHER ==
[2018-11-10] MEDS ORDERED: SODIUM CHLORIDE 1,000 ML IV STA (10:40)
--- NOTE | 2018-11-10 10:59 | PDOC ---
History of Present Illness - General Chief Complaint: Shortness of Breath Stated Complaint: DIFFICULTY BREATHING Time Seen by Provider: 11/10/18 10:35 History Source: Patient Exam Limitations: No Limitations - History of Present Illness Initial Comments: 11/10/18 11:09 58yo F with PMH of HIV (on HAART), COPD, Aortic and Mitral Valve Replacement ( 2014), HTN presenting to ED with complaints of cough productive of yellow sputum , sob and occasional chest pain. Symptoms started 3 days ago. She felt like she needed to use O2 which she was given after valve replacement surgery but only uses it when she feels sob. Denies fever, chills, weightloss, abdominal pain, n/ v/d, medication noncompliance, sore throat, congestion, palpitations, swelling, urinary symptoms. She states she had a negative tb test. Last viral load according to chart: 100 CD4 396 (10/14/18) PMD: Sally Collado) PMH: see hpi PSH: see hpi Meds: see med rec Allergies: Bactrim, lisinopril Social: 5 cigarettes/day Past History - Past Medical History Allergies/Adverse Reactions: Allergies Allergy/AdvReac Type Severity Reaction Status Date / Time lisinopril Allergy lip Verified 03/11/17 02:58 swelling sulfamethoxazole Allergy Rash Verified 03/11/17 02:58 [From Bactrim DS] Home Medications: Ambulatory Orders Ibuprofen 1 tab PO DAILY #15 tablet 05/20/18 Albuterol 0.083% Nebulizer Viola [Ventolin 0.083% Nebulizer Soln -] 1 neb NEB Q6H PRN #1 box 10/14/18 Albuterol Sulfate Inhaler - [Ventolin HFA Inhaler -] 1 - 2 inh PO Q4H #1 inhaler 10/14/18 Amitriptyline HCl [Elavil -] 50 mg PO DAILY #30 tablet 10/14/18 Amlodipine Besylate [Norvasc -] 10 mg PO DAILY #30 tablet 10/14/18 Aspirin [Aspirin EC] 81 mg PO DAILY #30 tablet. 10/14/18 Bictegrav/Emtricit/Tenofov Ala [Biktarvy 50-200-25 mg Tablet] 1 each PO DAILY # 30 tablet 10/14/18 Fluticasone/Salmeterol [Advair 250-50 Diskus] 1 each IH DAILY #1 disk.w.dev MDD 4 10/14/18 Gabapentin [Neurontin -] 300 mg PO ASDIR #90 capsule 10/14/18 Metoprolol Tartrate [Lopressor -] 25 mg PO BID #60 tablet 10/14/18 Mirtazapine 15 mg PO HS #30 tablet 10/14/18 Mometasone Furoate [Elocon] 1 applic TD BID #1 tube 10/14/18 Venlafaxine HCl ER [Effexor Xr -] 150 mg PO DAILY #30 cap.er.24h 10/14/18 Anemia: Yes Asthma: Yes Cancer: No Cardiac Disorders: Yes (2 valve replacement) CVA: No COPD: No CHF: Yes Dementia: No Diabetes: No GI Disorders: No Disorders: No HTN: Yes Hypercholesterolemia: No Liver Disease: No Psychiatric Problems: Yes Seizures: No Thyroid Disease: No - Surgical History Abdominal Surgery: Yes Appendectomy: No Cardiac Surgery: Yes (heart valve replacement) Cholecystectomy: Yes Lung Surgery: No Neurologic Surgery: No Orthopedic Surgery: No - Immunization History Immunization Up to Date: Yes - Suicide/Smoking/Psychosocial Hx Smoking Status: Yes Smoking History: Current every day smoker Have you smoked in the past 12 months: Yes Number of Cigarettes Smoked Daily: 4 If you are a former smoker, when did you quit?: 2014 Cigars Per Day: 0 Information on smoking cessation initiated: No 'Breaking Loose' booklet given: 08/13/12 Hx Alcohol Use: No Drug/Substance Use Hx: No Substance Use Type: Opiates Hx Substance Use Treatment: Yes (completed [facility] 03/2013) *Physical Exam - Vital Signs Last Vital Signs Temp Pulse Resp BP Pulse Ox 99.4 F 89 20 112/69 97 11/10/18 10:28 11/10/18 10:28 11/10/18 10:28 11/10/18 10:28 11/10/18 10:30 ED Treatment Course - LABORATORY CBC & Chemistry Diagram: 11/10/18 11:30 11/10/18 11:36 - RADIOLOGY Radiology Studies Ordered: Category Date Time Status CHEST X-RAY PORTABLE* [RAD] Stat Radiology 11/10/18 10:39 Ordered Medical Decision Making - Medical Decision Making 11/10/18 11:17 58yo F with PMH of HIV (on HAART), COPD, Aortic and Mitral Valve Replacement ( 2014), HTN presenting to ED with complaints of cough productive of yellow sputum , sob and occasional chest pain. Symptoms started 3 days ago. She felt like she needed to use O2 which she was given after valve replacement surgery but only uses it when she feels sob. Denies fever, chills, weightloss, abdominal pain, n/ v/d, medication noncompliance, sore throat, congestion, palpitations, swelling, urinary symptoms. She states she had a negative tb test. Vitals: borderline fever, normotensive, normocardic, not tachypneic, saturating well on 3L NC PE: tired appearing, crackle in RLLF, systolic murmur, clubbing of digits Ddx includes but not limited to sepsis, pna, chf, copd exacerbation, endocarditis, viral illness, ptx, pneumonitis, malignancy/mass, electrolyte/ metabolic disturbance, tb, pcp septic w/u bnp, cxr 11/10/18 13:03 CXR shows RLL infiltrate labs: no white count, bnp 500. LDH added : 220, low likelihood for PCP Urine pending -Ceftriaxone and azithromycin. pt would benefit inpatient iv abx given comorbidities. *DC/Admit/Observation/Transfer - Referrals Referrals: Mary Zavala [facility] [Primary Care Provider] - - Patient Instructions - Post Discharge Activity
--- NOTE | 2018-11-10 11:30 | PDOC ---
Documentation entered by Pema Thompson SCRIBE, acting as scribe for Rajan Orozco MD. Rajan Orozco MD: This documentation has been prepared by the Donna francisco Sammi, SCRIBE, under my direction and personally reviewed by me in its entirety. I confirm that the documentation accurately reflects all work, treatment, procedures, and medical decision making performed by me. Attending Attestation - Resident Resident Name: AdaliFern - ED Attending Attestation I have performed the following: I have examined & evaluated the patient, The case was reviewed & discussed with the resident, I agree w/resident's findings & plan, Exceptions are as noted - HPI HPI: 11/10/18 11:06 The patient is a 58 year old female, with a significant PMH of HIV (last CD4 396 10/2018, compliant with HAART), pneumonia, pulmonary HTN, AVR and MVR (@[facility] 2011 for "leak"), COPD, asthma, who presents to the emergency department from [facility] for evaluation of possible pneumonia. The patient states she has been experiencing 3 days of worsening cough that began producing phlegm yesterday. She notes SOB and chest heaviness which is exacerbated on exertion. She also notes intermittent chills but denies fevers. Patient states she was seen by cardiology last week for swelling in legs. Pt presented as walk in to [facility] this morning where she was referred to the ED for further evaluation. Per their documentation: Pt was initially hypoxic to 88-90% on RA. Patient was placed on O2 2L via NC and given albuterol x1 dose and O2 increase to 94-95%. This morning, she took her regular COPD and asthma meds with no improvement in symptom. The patient denies headache, focal weakness/numbness and dizziness. Denies abdominal pain, nausea, vomiting, diarrhea and constipation. Denies dysuria, frequency, urgency and hematuria. Allergies: lisinopril, sulfamethoxa Past surgical history:valve replacement Social history: No reported PCP: Sally - Physicial Exam PE: 11/10/18 11:07 GENERAL: Awake, alert, and fully oriented, in no acute distress EYES: PERRLA, EOMI, sclera anicteric, conjunctiva clear ENT: Nares patent, oropharynx clear without exudates. Moist mucosa NECK: Normal ROM, supple, no lymphadenopathy, JVD, or masses LUNGS: +rales at R lung base, slightly diminished air movement throughout but no wheezing HEART: Regular rate and rhythm, normal S1 and S2, no murmurs, rubs or gallops ABDOMEN: Soft, nontender, normoactive bowel sounds. No guarding, no rebound. No masses EXTREMITIES: Normal range of motion, 1+ pitting edema symmetrically to the knees. +UE clubbing, no cyanosis. No cords, erythema, or tenderness NEUROLOGICAL: Normal speech, cranial nerves intact, equal strength and sensation b/l SKIN: Warm, Dry, normal turgor, no rashes or lesions noted. - Medical Decision Making 11/10/18 11:29 58yo F hx HIV, pHTN, MVR, AVR, previous IVDU, COPD presents to the ED with SOB, CP and productive cough DDx includes PNA vs CHF vs COPD vs pHTN exacerbation Plan for labs, CXR, anticipate admission Heart Score/ECG Review #1 11/10/18 11:25 Twelve-lead EKG was performed and reviewed by me. Normal sinus rhythm, rate 85. Normal axis and intervals. No ST elevations.
[2018-11-10 11:44] LABS: BASO % 0.4 % (0-2.0); HEMOGLOBIN 11.2 GM/dL (10.7-15.3); LYMPH % 15.5 % (8-40); MCH 29.3 pg (25.7-33.7); MEAN CELL VOLUME 88.8 fl (80-96); MEAN PLT VOLUME 7.7 fl (7.5-11.1); MONO % 11.7 % (3.8-10.2); NEUT % 71.4 % (42.8-82.8); PLATELET COUNT 207 K/MM3 (134-434); RBC 3.83 M/mm3 (3.60-5.2); RDW 15.8 % (11.6-15.6); WHITE BLOOD COUNT 8.7 K/mm3 (4.0-10.0)
[2018-11-10] MEDS ORDERED: ACETAMINOPHEN 500 MG TABLET (FP) PO ONE (11:44)
[2018-11-10] MEDS ORDERED: ACETAMINOPHEN 325 MG TABLET (FP) ONE (11:46)
[2018-11-10 11:57] LABS: VENOUS PC02 48.1 mmHg (41-51); VENOUS PH 7.37 (7.31-7.41); VENOUS PO2 53.2 mmHg (30-40)
[2018-11-10] MEDS ORDERED: AZITHROMYCIN IVPB 500 MG in DEXTROSE 5%-WATER - 250 ML IVPB ONE (11:59)
[2018-11-10] MEDS ORDERED: CEFTRIAXONE 1 GM in DEXTROSE 5%-WATER - 100 ML IVPB ONE (11:59)
[2018-11-10 12:06] LABS: INR 1.31 (0.83-1.09); PROTHROMBIN TIME (PATIENT) 15.5 SEC (9.7-13.0)
[2018-11-10 12:09] LABS: ACTIVATED PTT 31.3 SECONDS (25.2-36.5)
[2018-11-10 12:19] LABS: ALBUMIN 2.1 g/dl (3.4-5.0); BILIRUBIN,TOTAL 0.4 mg/dL (0.2-1); BLOOD UREA NITROGEN 11.6 mg/dL (7-18); CALCIUM 8.4 mg/dL (8.5-10.1); CREATININE 0.7 mg/dL (0.55-1.3); POTASSIUM 3.8 mmol/L (3.5-5.1); TOT PROT 8.9 g/dl (6.4-8.2)
[2018-11-10] MEDS ORDERED: CEFTRIAXONE 1 GM/50 ML BAG ONE (13:08)
[2018-11-10] MEDS ORDERED: AZITHROMYCIN IVPB 500 MG/250 ML BAG IVPB ONE (13:08)
[2018-11-10 13:19] LABS: EPI CELLS 11.7 /HPF (0-5/HPF); HYALINE CASTS 15 /lpf (0-8); URINE APPEARANCE CLEAR; URINE BACTERIA 132.4 /hpf (NEGATIVE); URINE BILIRUBIN 1+ (NEGATIVE); URINE COLOR DK YELLOW; URINE GLUCOSE (UA) NEGATIVE (NEGATIVE); URINE KETONE TRACE (NEGATIVE); URINE LEUK ESTERASE TRACE (NEGATIVE); URINE NITRITE NEGATIVE (NEGATIVE); URINE PROTEIN 1+ (NEGATIVE); URINE WBC 7 /hpf (0-5)
[2018-11-10 13:45] LABS: YEAST 1+ (NEGATIVE)
--- NOTE | 2018-11-10 14:16 | HP ---
Admitting History and Physical - Primary Care Physician PCP: Mary Zavala E - Admission Chief Complaint: productive cough with yellow sputum x 1 day, SOB and chest tightness not respoding to bronchodilators History of Present Illness: 58yo F with PMH of HIV (on HAART), COPD, Aortic and Mitral Valve Replacement ( 2014), HTN presenting to ED with complaints of cough productive of yellow sputum , sob and occasional chest pain. Symptoms started 3 days ago. She used inhaled bronchodilators without effect. Denies fever, weight loss, abdominal pain, n/v/d , medication noncompliance, sore throat, congestion, palpitations, swelling, urinary symptoms. States she had chills early this morning but it passed. History Source: Patient Limitations to Obtaining History: No Limitations - Past Medical History Cardiovascular: Yes: Murmur, Pulmonary Hypertension Pulmonary: Yes: COPD ...LMP: 01/31/12 Infectious Disease: Yes: HIV (Last viral load according to chart: 100/CD4 396 ()) Psych: Yes: Anxiety, Depression - Past Surgical History Past Surgical History: Yes: Cholecystectomy - Smoking History Smoking history: Current every day smoker Have you smoked in the past 12 months: Yes Aproximately how many cigarettes per day: 5 - Alcohol/Substance Use Hx Alcohol Use: No History of Substance Use: reports: None - Social History History of Recent Travel: No Home Medications - Allergies Allergies/Adverse Reactions: Allergies Allergy/AdvReac Type Severity Reaction Status Date / Time lisinopril Allergy lip Verified 03/11/17 02:58 swelling sulfamethoxazole Allergy Rash Verified 03/11/17 02:58 [From Bactrim DS] - Home Medications Home Medications: Ambulatory Orders Ibuprofen 1 tab PO DAILY #15 tablet 05/20/18 Albuterol 0.083% Nebulizer Viloa [Ventolin 0.083% Nebulizer Soln -] 1 neb NEB Q6H PRN #1 box 10/14/18 Albuterol Sulfate Inhaler - [Ventolin HFA Inhaler -] 1 - 2 inh PO Q4H #1 inhaler 10/14/18 Amitriptyline HCl [Elavil -] 50 mg PO DAILY #30 tablet 10/14/18 Amlodipine Besylate [Norvasc -] 10 mg PO DAILY #30 tablet 10/14/18 Aspirin [Aspirin EC] 81 mg PO DAILY #30 tablet. 10/14/18 Bictegrav/Emtricit/Tenofov Ala [Biktarvy 50-200-25 mg Tablet] 1 each PO DAILY # 30 tablet 10/14/18 Fluticasone/Salmeterol [Advair 250-50 Diskus] 1 each IH DAILY #1 disk.w.dev MDD 4 10/14/18 Gabapentin [Neurontin -] 300 mg PO ASDIR #90 capsule 10/14/18 Metoprolol Tartrate [Lopressor -] 25 mg PO BID #60 tablet 10/14/18 Mirtazapine 15 mg PO HS #30 tablet 10/14/18 Mometasone Furoate [Elocon] 1 applic TD BID #1 tube 10/14/18 Venlafaxine HCl ER [Effexor Xr -] 150 mg PO DAILY #30 cap.er.24h 10/14/18 Methadone [Dolophine -] 70 mg PO DAILY 11/12/18 Family Disease History - Family Disease History Family Disease History: Diabetes: Father, Respiratory: Mother Review of Systems - Review of Systems Constitutional: reports: Chills Eyes: reports: No Symptoms HENT: reports: No Symptoms Neck: reports: No Symptoms Cardiovascular: reports: Shortness of Breath Respiratory: reports: Cough (yellow sputum), SOB on Exertion, Other (chest tightness) Gastrointestinal: reports: No Symptoms Genitourinary: reports: No Symptoms Breasts: reports: No Symptoms Reported Musculoskeletal: reports: No Symptoms Integumentary: reports: No Symptoms Neurological: reports: No Symptoms Endocrine: reports: No Symptoms Hematology/Lymphatic: reports: No Symptoms Psychiatric: reports: No Symptoms Physical Examination Vital Signs: Vital Signs Temperature 99.9 F H 11/10/18 10:39 Pulse Rate 89 11/10/18 10:28 Respiratory Rate 20 11/10/18 10:28 Blood Pressure 112/69 11/10/18 10:28 O2 Sat by Pulse Oximetry (%) 97 11/10/18 10:30 Constitutional: Yes: Well Nourished, No Distress, Calm Eyes: Yes: WNL, Conjunctiva Clear, EOM Intact HENT: Yes: WNL, Atraumatic, Normocephalic Neck: Yes: WNL, Supple, Trachea Midline Cardiovascular: Yes: WNL, Regular Rate and Rhythm Respiratory: Yes: Regular, Diminished (at bases), Rhonchi (scattered) Gastrointestinal: Yes: WNL, Normal Bowel Sounds, Soft ...Rectal Exam: Yes: Deferred Renal/: Yes: WNL Musculoskeletal: Yes: WNL Extremities: Yes: WNL Edema: Yes Edema: LLE: 2+, RLE: 2+ Peripheral Pulses WNL: No Peripheral Pulses: Left Radial: 4+, Right Radial: 4+, Left Doralis Pedis: 3+, Right Dorsalis Pedis: 3+, Left Femoral: 4+, Right Femoral: 4+ Integumentary: Yes: WNL Neurological: Yes: WNL, Alert, Oriented ...Motor Strength: WNL Psychiatric: Yes: WNL, Alert, Oriented Labs: CBC, BMP 11/10/18 11:30 11/10/18 11:36 Imaging - Results Chest X-ray: Report Reviewed (progressive congestive and some infiltrative changes with fullness of the right hilum, prominent heart and sternal sutures and clips. There are prominent hilar markings.), Image Reviewed Problem List - Problems (1) Substance abuse Assessment/Plan: history of ETOH and polysubstance abuse on methadone-will confirm maintence dose in the morning Code(s): F19.10 - OTHER PSYCHOACTIVE SUBSTANCE ABUSE, UNCOMPLICATED (2) COPD exacerbation Assessment/Plan: supplemental O2 to maintain sats >92% dub nebs PRN Incentive spirometry Code(s): J44.1 - CHRONIC OBSTRUCTIVE PULMONARY DISEASE W (ACUTE) EXACERBATION (3) Edema Assessment/Plan: 3+ edema to LE lasix 40mg IV low sodium diet Code(s): R60.9 - EDEMA, UNSPECIFIED (4) Pneumonia Assessment/Plan: RLL infiltrate vs pulmonary vascular congestion start abx-axitromycin & centriaxone ID consult duo nebs PRN monitor temperature curve f/u BCx Ucx Code(s): J18.9 - PNEUMONIA, UNSPECIFIED ORGANISM (5) Anxiety disorder Assessment/Plan: continue remeron and effexor Code(s): F41.9 - ANXIETY DISORDER, UNSPECIFIED (6) CHF (congestive heart failure) Assessment/Plan: BNP in ED >600 with cincraesed pulmonary vascular congestion on CXR give Lasix 40mg x 1 continue to trend BNP TTE to obtain valve function, LV fx cardiology consult given multiple valve replacements EKG without ischemic changes-Trop .02, will continue to trend Code(s): I50.9 - HEART FAILURE, UNSPECIFIED (7) Depressive disorder Assessment/Plan: continue remeron and effexor Code(s): F32.9 - MAJOR DEPRESSIVE DISORDER, SINGLE EPISODE, UNSPECIFIED (8) H/O prosthetic heart valve Assessment/Plan: appreciate cardiology consultation (9) Hypertension Assessment/Plan: continue home dose of metoprolol and norvasc Code(s): I10 - ESSENTIAL (PRIMARY) HYPERTENSION (10) Tobacco use Assessment/Plan: currently smoking counseled n smoking cessation occasional use of Home O2 Code(s): Z72.0 - TOBACCO USE (11) Prophylactic measure Assessment/Plan: FEN regualr diet no need for additional IVF monitor electrolytes DVT pt ambulatory heparin 5000 sq Dispo Maintain as in patient discharge planning full code Code(s): Z29.9 - ENCOUNTER FOR PROPHYLACTIC MEASURES, UNSPECIFIED (12) HIV (human immunodeficiency virus infection) Assessment/Plan: currently on HAART therapy-will continue Follows at [facility] Last viral load according to chart: 100/CD4 396 (10/14/18) No suspicion of PCP Code(s): B20 - HUMAN IMMUNODEFICIENCY VIRUS [HIV] DISEASE Visit type - Emergency Visit Emergency Visit: Yes ED Registration Date: 11/10/18 Care time: The patient presented to the Emergency Department on the above date and was hospitalized for further evaluation of their emergent condition. - New Patient This patient is new to me today: Yes Date on this admission: 11/12/18 - Critical Care Critical Care patient: No
[2018-11-10 16:12] VITALS: BMI 30.2
[2018-11-10] MEDS ORDERED: GABAPENTIN 300 MG CAPSULE (FP) PO SCH (17:45)
[2018-11-10] MEDS ORDERED: FUROSEMIDE 40 MG/4 ML INJECTABLE VIAL IVPUSH ONE (18:51)
[2018-11-10] MEDS: METOPROLOL TARTRATE 25 MG TABLET (FP) PO SCH (21:58)
[2018-11-10] MEDS: MIRTAZAPINE 15 MG TABLET (FP) PO SCH (21:58)
[2018-11-10] MEDS: GABAPENTIN 300 MG CAPSULE (FP) PO SCH (21:58)
[2018-11-10] MEDS ORDERED: MOMETASONE FUROATE TD SCH (22:00)
[2018-11-11] MEDS: HEPARIN NA (PORCINE) 5,000 UNITS/ML 1ML VIAL SQ SCH ×3 (06:28→21:46)
[2018-11-11 07:21] LABS: BASO % 0.4 % (0-2.0); EOS % 3.5 % (0-4.5); HEMATOCRIT 35.8 % (32.4-45.2); HEMOGLOBIN 11.6 GM/dL (10.7-15.3); LYMPH % 15.4 % (8-40); MCH 29.2 pg (25.7-33.7); MCHC 32.4 g/dl (32.0-36.0); MEAN CELL VOLUME 90.1 fl (80-96); MONO % 10.3 % (3.8-10.2); NEUT % 70.4 % (42.8-82.8); RBC 3.97 M/mm3 (3.60-5.2); RDW 15.8 % (11.6-15.6); WHITE BLOOD COUNT 7.1 K/mm3 (4.0-10.0)
[2018-11-11 07:40] LABS: ALBUMIN 2.1 g/dl (3.4-5.0); BILIRUBIN,TOTAL 0.2 mg/dL (0.2-1); BLOOD UREA NITROGEN 9.3 mg/dL (7-18); CALCIUM 7.4 mg/dL (8.5-10.1); CREATININE 0.7 mg/dL (0.55-1.3); MAGNESIUM 1.8 mg/dL (1.8-2.4); PHOSPHOROUS 3.3 mg/dL (2.5-4.9); POTASSIUM 3.6 mmol/L (3.5-5.1); TOT PROT 9.1 g/dl (6.4-8.2)
[2018-11-11 08:11] LABS: PLATELET COUNT 231 K/MM3 (134-434)
--- NOTE | 2018-11-11 08:38 | CON.CARD ---
Consult Consult Specialty:: Cardiology Referred by:: Loy Randall Reason for Consultation:: SOB - History of Present Illness Chief Complaint: Cough , SOB History of Present Illness: 58F with HIV, former crack abuse, s/p bio AVR/MVR 2014 at [place] ( regurgitation), COPD presents to ER with several days of cough and chills. Low grade fever noted in ER. CXR w/ diffuse intersitial pattern. Reports several days of exertional dyspnea and "chest heaviness". 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 Morris earlier in November and was given 3 days of Lasix therapy for LE edema, which then largely resolved. She denies palpitations, PND, orthopnea. No syncope. Reports her viral load is under control. No sick contacts. At time of valve surgery, no CABG required. - History Source History Provided By: Patient - Past Medical History Cardio/Vascular: Yes: Murmur, Pulmonary Hypertension, Other (bio AVR and MVR) Pulmonary: Yes: COPD Gastrointestinal: No: Ascites, Cancer, Constipation, Crohn's Disease, Diverticulitis, Diverticulosis, Esophageal Varices, Gastritis, GERD, GI Bleed, Hemorrhoids, Hiatal Hernia, Inflamatory Bowel Disease, Irritable Bowel Disease, Pancreatitis, Peptic Ulcer Disease, Ulcerative Colitis, Other Hepatobiliary: No: Cirrhosis, Cholelithiasis, Cholecystitis, Choledocholithiasis , Hepatitis A, Hepatitis B, Hepatitis C, Other Renal/: No: Renal Failure, Renal Inusuff, BPH, Cancer, Hematuria, Hemodialysis , Neurogenic Bladder, Renal Calculi, UTI, Other Reproductive: No: Ectopic , Endometriosis, Fibroids, PID, Polycystic Ovary Syndrome, Postmenopausal, Other ...LMP: 01/31/12 Infectious Disease: Yes: HIV (Last viral load according to chart: 100/CD4 396 ()) Psych: Yes: Anxiety, Depression Musculoskeletal: No: Bursitis, Chronic low back pain, Hemiparesis, Hemiplegia, Osteoarthritis, Paraplegia, Other Rheumatology: No: Fibromyalgia, Gout, Lupus, Rheumatoid Arthritis, Sarcoidosis, Vasculitis, Other ENT: No: Allergic Rhinitis, Sinusitis, Other Endocrine: No: Rozet's Disease, Honaker's Disease, Diabetes Insipidus, Diabetes Mellitus, Hyperparathyroidism, Hyperthyroidism, Hypothyroidism, Osteopenia, SIADH, Other Dermatology: No: Basal Cell, Cellulitis, Eczema, Melanoma, Psoriasis, Squamous Cell, Other - Past Surgical History Past Surgical History: Yes: Cholecystectomy - Alcohol/Substance Use Hx Alcohol Use: No History of Substance Use: reports: None, Cocaine - Smoking History Smoking history: Current every day smoker Have you smoked in the past 12 months: Yes Aproximately how many cigarettes per day: 5 If you are a former smoker, when did you quit?: 2014 - Social History History of Recent Travel: No Home Medications - Allergies Allergies/Adverse Reactions: Allergies Allergy/AdvReac Type Severity Reaction Status Date / Time lisinopril Allergy lip Verified 03/11/17 02:58 swelling sulfamethoxazole Allergy Rash Verified 03/11/17 02:58 [From Bactrim DS] - Home Medications Home Medications: Ambulatory Orders Ibuprofen 1 tab PO DAILY #15 tablet 05/20/18 Albuterol 0.083% Nebulizer Viola [Ventolin 0.083% Nebulizer Soln -] 1 neb NEB Q6H PRN #1 box 10/14/18 Albuterol Sulfate Inhaler - [Ventolin HFA Inhaler -] 1 - 2 inh PO Q4H #1 inhaler 10/14/18 Amitriptyline HCl [Elavil -] 50 mg PO DAILY #30 tablet 10/14/18 Amlodipine Besylate [Norvasc -] 10 mg PO DAILY #30 tablet 10/14/18 Aspirin [Aspirin EC] 81 mg PO DAILY #30 tablet.dr 10/14/18 Bictegrav/Emtricit/Tenofov Ala [Biktarvy 50-200-25 mg Tablet] 1 each PO DAILY # 30 tablet 10/14/18 Fluticasone/Salmeterol [Advair 250-50 Diskus] 1 each IH DAILY #1 disk.w.dev MDD 4 10/14/18 Gabapentin [Neurontin -] 300 mg PO ASDIR #90 capsule 10/14/18 Metoprolol Tartrate [Lopressor -] 25 mg PO BID #60 tablet 10/14/18 Mirtazapine 15 mg PO HS #30 tablet 10/14/18 Mometasone Furoate [Elocon] 1 applic TD BID #1 tube 10/14/18 Venlafaxine HCl ER [Effexor Xr -] 150 mg PO DAILY #30 cap.er.24h 10/14/18 Family Disease History - Family Disease History Family Disease History: Diabetes: Father, Respiratory: Mother Review of Systems Findings/Remarks: see HPI - Review of Systems Constitutional: reports: Fever, Weakness Cardiovascular: reports: Edema, Shortness of Breath Respiratory: reports: Cough, SOB on Exertion Gastrointestinal: denies: No Symptoms, Abdominal Pain, Bloating, Constipation, Diarrhea, Dysphagia, Indigestion, Melena, Nausea, Rectal Bleeding, Vomiting, Vomiting Blood, Other Genitourinary: denies: No Symptoms, Burning, Discharge, Dysuria, Flank Pain, Frequency, Hematuria, Incontinence, Lesions, Menses, Pain, Testicular Mass, Testicular Pain, Testicular Swelling, Urgency, Vaginal Bleeding, Other Breasts: denies: No Symptoms Reported, See HPI, Breast Implants, Discharge from Nipple, Lumps, Pain, Skin Changes, Other Musculoskeletal: denies: No Symptoms, Back Pain, Crepitus, Decreased ROM, Extremity Pain, Joint Pain, Joint Swelling, Muscle Pain, Muscle Cramps, Muscle Weakness, Other Integumentary: denies: No Symptoms, Blister, Bruising, Change in Color, Eczema, Erythema, Incision, Lesions, Lump, Pallor, Pruritis, Rash, Wound, Other Neurological: denies: No Symptoms, Change in LOC, Change in Speech, Confusion, Dizziness, Headache, Incoordination, Numbness, Parasthesia, Pre-Existing Deficit , Seizure, Syncope, Tremors, Unsteady Gait, Weakness, Other Endocrine: denies: No Symptoms, Excessive Sweating, Flushing, Increased Hunger, Increased Thirst, Intolerance to Cold, Intolerance to Heat, Unexplained Weight Gain, Unexplained Weight Loss, Other Hematology/Lymphatic: denies: No Symptoms, Easily Bruised, Excessive Bleeding, Swollen Glands, Other Psychiatric: denies: No Symptoms, Altered Sleep Pattern, Anxiety, Depression, Hallucinations, Panic, Paranoia, Suicidal, Other - Risk Factors Known Risk Factors: Yes: Hypertension, Smoking Vital Signs: Vital Signs Temperature 98.1 F 11/11/18 06:00 Pulse Rate 72 11/11/18 06:00 Respiratory Rate 18 11/11/18 06:00 Blood Pressure 112/72 11/11/18 06:00 O2 Sat by Pulse Oximetry (%) 97 11/10/18 21:00 Constitutional: Yes: No Distress Eyes: Yes: Conjunctiva Clear Respiratory: Yes: Other (rales b/l at bases) Gastrointestinal: Yes: Soft JVD: Yes Carotid Bruit: No Heart Sounds: Yes: S1, S2 Murmur: Yes: Systolic Murmur (Loud systolic murmur RSB) Edema: Yes Edema: LLE: 1+, RLE: 1+ Neurological: Yes: Alert, Oriented - Other Data Labs, Other Data: CBC, BMP 11/11/18 06:52 11/11/18 06:52 INR, PTT INR 1.31 (0.83-1.09) H 11/10/18 11:36 Troponin, BNP 11/10/18 11/10/18 11/11/18 10:39 11:36 00:00 Troponin I < 0.02 < 0.02 B-Natriuretic Peptide 597.5 H 11/11/18 06:52 Troponin I B-Natriuretic Peptide 340.0 H Troponin, BNP 11/10/18 11/10/18 11/11/18 10:39 11:36 00:00 Troponin I < 0.02 < 0.02 B-Natriuretic Peptide 597.5 H 11/11/18 06:52 Troponin I B-Natriuretic Peptide 340.0 H Microbiology Laboratory Tests 11/10/18 11/11/18 11/11/18 11:36 00:00 06:52 WBC 7.1 Hgb 11.6 Plt Count 231 Sodium Potassium BUN Creatinine Total Bilirubin AST ALT Alkaline Phosphatase Troponin I < 0.02 B-Natriuretic Peptide 597.5 H 11/11/18 11/11/18 06:52 06:52 WBC Hgb Plt Count Sodium 136 Potassium 3.6 BUN 9.3 Creatinine 0.7 Total Bilirubin 0.2 AST 13 L ALT 14 Alkaline Phosphatase 96 Troponin I B-Natriuretic Peptide 340.0 H Echo: Pending Imaging - Results X-ray: Image Reviewed (Diffuse b/l interstitial pattern.) EKG: Image Reviewed (NSR 85bpm. TELE: NSR) Assessment/Plan IMP: 1. HIV 2. Fever, cough, hypoxia & abnl CXR w/ diffuse interstitial pattern: ?viral / atypical infection. 3. Probable chronic CHF on the basis of valvular heart disease, possible R. sided CHF from COPD/ known PHTN 4. Active smoker w/ COPD 5. History of bio AVR/MVR REC: 1. Supplimental O2, abx as per PMD and ID 2. Chest CT w/out contrast to better assess lung parenchyma (infectious pattern ? infiltrates?/ component of CHF?) 3. Follow blood cultures 4. Continue ASA 81mg daily for bio MVR/AVR. 5. Suspect her LE edema is likely due to Amlodipine effect +/- chronic right sided CHF as outlined above. 6. Echo pending to assess LV/RV fxn, PA pressure and valve prostheses (loud systolic murmur RSB). 7. Daily weights. Will start on Lasix 40mg PO daily. Thank you, will follow.
[2018-11-11] MEDS ORDERED: POTASSIUM CHLORIDE TABS 20 MEQ TABLET.ER (FP) PO ONE (08:46)
[2018-11-11] MEDS ORDERED: PT OWN MED DRAWER 7, Y5N ONE (09:03)
[2018-11-11] MEDS ORDERED: cefTRIAXone SODIUM 1 GM VIAL ONE (09:04)
[2018-11-11] MEDS ORDERED: DEXTROSE 5%-WATER - 50 ML IVPB ONE ×2 (09:04→17:02)
[2018-11-11] MEDS: ASPIRIN COATED 81 MG TABLET.EC PO SCH (09:14)
[2018-11-11] MEDS: FUROSEMIDE 40 MG TABLET (FP) PO SCH (09:14)
[2018-11-11] MEDS: BUDESONIDE/FORMETEROL FUMARATE 80/4.5 mcg INHALER IH SCH (09:14)
[2018-11-11] MEDS: METOPROLOL TARTRATE 25 MG TABLET (FP) PO SCH ×2 (09:14→21:46)
[2018-11-11] MEDS: VENLAFAXINE HCL 75 MG E.R. CAPSULES (FP) PO SCH (09:14)
[2018-11-11] MEDS: amLODIPine BESYLATE 10 MG TABLET (FP) PO SCH (09:14)
[2018-11-11] MEDS: GABAPENTIN 300 MG CAPSULE (FP) PO SCH ×2 (09:14→21:46)
--- NOTE | 2018-11-11 09:15 | PN ---
Progress Note, Physician Chief Complaint: feeling better, but SOB remains History of Present Illness: 58yo F with PMH of HIV (on HAART), COPD, Aortic and Mitral Valve Replacement ( 2015), HTN presenting to ED with complaints of cough productive of yellow sputum , sob and occasional chest pain. Symptoms started 3 days ago. She used inhaled bronchodilators without effect. Denies fever, weight loss, abdominal pain, n/v/d , medication noncompliance, sore throat, congestion, palpitations, swelling, urinary symptoms. States she had chills early yesterday morning but it passed. - Current Medication List Current Medications: Active Medications Amitriptyline HCl (Elavil -) 50 mg PO HS [facility] Amlodipine Besylate (Norvasc -) 10 mg PO DAILY [facility] Aspirin (Ecotrin -) 81 mg PO DAILY [facility] Budesonide/Formoterol Fumarate (Symbicort 80/4.5mcg -) 2 puff IH DAILY [facility] Furosemide (Lasix -) 40 mg PO DAILY [facility] Gabapentin (Neurontin -) 300 mg PO DAILY [facility] Gabapentin (Neurontin -) 600 mg PO HS [facility] Last Admin: 11/10/18 21:58 Dose: 600 mg Heparin Sodium (Porcine) (Heparin -) 5,000 unit SQ TID [facility] Last Admin: 11/11/18 06:28 Dose: 5,000 unit Azithromycin (Zithromax 500mg Ivpb (Pre-Docked)) 500 mg in 250 mls @ 250 mls/ hr IVPB DAILY [facility] Ceftriaxone Sodium 1 gm/ (Dextrose) 50 mls @ 200 mls/hr IVPB DAILY [facility]; Protocol Metoprolol Tartrate (Lopressor -) 25 mg PO BID [facility] Last Admin: 11/10/18 21:58 Dose: 25 mg Mirtazapine (Remeron -) 15 mg PO [facility] Last Admin: 11/10/18 21:58 Dose: 15 mg Non-Formulary Medication (Bictegrav/Emtricit/Tenofov Ala) 1 each PO DAILY [facility] Non-Formulary Medication (Mometasone Furoate [Elocon]) 1 applic TD BID [facility] Venlafaxine HCl (Effexor Xr -) 150 mg PO DAILY [facility] - Objective Vital Signs: Vital Signs Temperature 98.1 F 11/11/18 06:00 Pulse Rate 72 11/11/18 06:00 Respiratory Rate 18 11/11/18 06:00 Blood Pressure 112/72 11/11/18 06:00 O2 Sat by Pulse Oximetry (%) 97 11/10/18 21:00 Constitutional: Yes: Well Nourished, No Distress, Calm Eyes: Yes: WNL, Conjunctiva Clear, EOM Intact HENT: Yes: WNL, Atraumatic, Normocephalic Neck: Yes: WNL, Supple, Trachea Midline Cardiovascular: Yes: WNL, Regular Rate and Rhythm, Murmur (systolic right sternal border) Respiratory: Yes: Regular, Diminished (at bases), Rhonchi (scattered) Gastrointestinal: Yes: WNL, Normal Bowel Sounds, Soft ...Rectal Exam: Yes: Deferred Genitourinary: Yes: WNL Breast(s): Yes: WNL Musculoskeletal: Yes: WNL Extremities: Yes: WNL Edema: Yes Edema: LLE: 2+, RLE: 2+ Peripheral Pulses: Left Doralis Pedis: 3+, Right Dorsalis Pedis: 3+ Integumentary: Yes: WNL Neurological: Yes: WNL, Alert, Oriented ...Motor Strength: WNL Psychiatric: Yes: WNL, Alert, Oriented Labs: CBC, BMP 11/11/18 06:52 11/11/18 06:52 INR, PTT INR 1.31 (0.83-1.09) H 11/10/18 11:36 - ....Imaging Chest X-ray: Report Reviewed, Image Reviewed (progressive congestive and some infiltrative changes with fullness of the right hilum, prominent heart and sternal sutures and clips. There are prominent hilar markings) Cat Scan: Pending (Chest) Problem List - Problems (1) Substance abuse Assessment/Plan: history of ETOH Code(s): F19.10 - OTHER PSYCHOACTIVE SUBSTANCE ABUSE, UNCOMPLICATED (2) COPD exacerbation Assessment/Plan: supplemental O2 to maintain sats >92% dub nebs PRN Incentive spirometry Code(s): J44.1 - CHRONIC OBSTRUCTIVE PULMONARY DISEASE W (ACUTE) EXACERBATION (3) Edema Assessment/Plan: 3+ edema to LE continue lasix Appreciate cardiology input-LE edema is likely due to Amlodipine effect +/- chronic right sided CHF low sodium diet TTE pending Code(s): R60.9 - EDEMA, UNSPECIFIED (4) Pneumonia Assessment/Plan: RLL infiltrate vs pulmonary vascular congestion appreciate ID consultation'continue on zozyn duo nebs PRN monitor temperature curve f/u BCx Ucx questionable aspiration, will consult speech pathology tmrw Code(s): J18.9 - PNEUMONIA, UNSPECIFIED ORGANISM (5) Anxiety disorder Assessment/Plan: continue remeron and effexor Code(s): F41.9 - ANXIETY DISORDER, UNSPECIFIED (6) CHF (congestive heart failure) Assessment/Plan: BNP in ED >600 with increased pulmonary vascular congestion on CXR continue lasix continue to trend BNP, coming down 340 TTE to obtain valve function, LV fx pending EKG without ischemic changes-Trop .02 x2 , no further need to trend Code(s): I50.9 - HEART FAILURE, UNSPECIFIED (7) Depressive disorder Assessment/Plan: continue remeron and effexor Code(s): F32.9 - MAJOR DEPRESSIVE DISORDER, SINGLE EPISODE, UNSPECIFIED (8) H/O prosthetic heart valve Assessment/Plan: appreciate cardiology consultation TTE pending (9) Hypertension Assessment/Plan: continue home dose of metoprolol and norvasc , remains normotensive Code(s): I10 - ESSENTIAL (PRIMARY) HYPERTENSION (10) Tobacco use Assessment/Plan: currently smoking counseled n smoking cessation occasional use of Home O2 Code(s): Z72.0 - TOBACCO USE (11) Prophylactic measure Assessment/Plan: FEN regualr diet no need for additional IVF monitor electrolytes DVT pt ambulatory heparin 5000 sq Dispo Maintain as in patient discharge planning full code Code(s): Z29.9 - ENCOUNTER FOR PROPHYLACTIC MEASURES, UNSPECIFIED (12) HIV (human immunodeficiency virus infection) Assessment/Plan: currently on HAART therapy-will continue Follows at [facility] Last viral load according to chart: 100/CD4 396 (10/14/18) No suspicion of PCP Code(s): B20 - HUMAN IMMUNODEFICIENCY VIRUS [HIV] DISEASE Visit type - Emergency Visit Emergency Visit: Yes ED Registration Date: 11/10/18 Care time: The patient presented to the Emergency Department on the above date and was hospitalized for further evaluation of their emergent condition. - New Patient This patient is new to me today: No - Critical Care Critical Care patient: No - Discharge Referral Referred to [facility] No
[2018-11-11] MEDS ORDERED: AZITHROMYCIN IVPB 500 MG/250 ML BAG IVPB SCH (10:00)
[2018-11-11] MEDS ORDERED: IBUPROFEN 600 MG TABLET (FP) PO SCH (10:00)
[2018-11-11] MEDS ORDERED: CEFTRIAXONE 1 GM in DEXTROSE 5%-WATER - 50 ML IVPB SCH (10:00)
--- NOTE | 2018-11-11 10:21 | EKG ---
Test Reason : Blood Pressure : / mmHG Vent. Rate : 085 BPM Atrial Rate : 085 BPM P-R Int : 154 ms QRS Dur : 082 ms QT Int : 398 ms P-R-T Axes : 065 076 081 degrees QTc Int : 473 ms POOR DATA QUALITY, INTERPRETATION MAY BE ADVERSELY AFFECTED NORMAL SINUS RHYTHM NORMAL ECG WHEN COMPARED WITH ECG OF 11-MAR-2017 10:07, NO SIGNIFICANT CHANGE WAS FOUND Confirmed by RASHIDA SMALL MD ([id number]) on 11/11/2018 10:20:51 AM Referred By: Confirmed By:RASHIDA SMALL MD
[2018-11-11] MEDS: ALBUTEROL SO4 2.5/IPRATROPIUM 0.5 INH SOL 3 ML VIAL.NEB. NEB PRN (11:05)
--- NOTE | 2018-11-11 13:01 | CON.ID ---
Consult Consult Specialty:: infectious diseases Referred by:: Vianey Reason for Consultation:: pneumonia - History of Present Illness Chief Complaint: cough weakness fever sputum production History of Present Illness: 58yo F with PMH of HIV (on HAART), COPD, Aortic and Mitral Valve Replacement ( 2014), HTN presenting admitted with complaints of cough productive of yellow sputum, sob and occasional chest pain. Symptoms started 3 days ago. She used inhaled bronchodilators without effect. Denies fever, weight loss, abdominal pain, n/v/d, medication noncompliance, sore throat, congestion, palpitations, swelling, urinary symptoms. States she had chills early this morning but it passed patient says she had fevers this morning currently patient is feeling well on nasal canula says her last viral load was undetectable,and her count was more than 300 - History Source History Provided By: Patient Limitations to Obtaining History: No Limitations - Past Medical History Cardio/Vascular: Yes: Murmur, Pulmonary Hypertension, Other (bio AVR and MVR) Pulmonary: Yes: COPD Gastrointestinal: No: Ascites, Cancer, Constipation, Crohn's Disease, Diverticulitis, Diverticulosis, Esophageal Varices, Gastritis, GERD, GI Bleed, Hemorrhoids, Hiatal Hernia, Inflamatory Bowel Disease, Irritable Bowel Disease, Pancreatitis, Peptic Ulcer Disease, Ulcerative Colitis, Other Hepatobiliary: No: Cirrhosis, Cholelithiasis, Cholecystitis, Choledocholithiasis , Hepatitis A, Hepatitis B, Hepatitis C, Other Renal/: No: Renal Failure, Renal Inusuff, BPH, Cancer, Hematuria, Hemodialysis , Neurogenic Bladder, Renal Calculi, UTI, Other ...LMP: 01/31/12 Infectious Disease: Yes: HIV (Last viral load according to chart: 100/CD4 396 ()) Psych: Yes: Anxiety, Depression Musculoskeletal: No: Bursitis, Chronic low back pain, Hemiparesis, Hemiplegia, Osteoarthritis, Paraplegia, Other Rheumatology: No: Fibromyalgia, Gout, Lupus, Rheumatoid Arthritis, Sarcoidosis, Vasculitis, Other ENT: No: Allergic Rhinitis, Sinusitis, Other Endocrine: No: Penitas's Disease, [place]'s Disease, Diabetes Insipidus, Diabetes Mellitus, Hyperparathyroidism, Hyperthyroidism, Hypothyroidism, Osteopenia, SIADH, Other Dermatology: No: Basal Cell, Cellulitis, Eczema, Melanoma, Psoriasis, Squamous Cell, Other - Past Surgical History Past Surgical History: Yes: Cholecystectomy - Alcohol/Substance Use Hx Alcohol Use: No History of Substance Use: reports: None, Cocaine - Smoking History Smoking history: Current every day smoker Have you smoked in the past 12 months: Yes Aproximately how many cigarettes per day: 5 If you are a former smoker, when did you quit?: 2014 - Social History History of Recent Travel: No Home Medications - Allergies Allergies/Adverse Reactions: Allergies Allergy/AdvReac Type Severity Reaction Status Date / Time lisinopril Allergy lip Verified 03/11/17 02:58 swelling sulfamethoxazole Allergy Rash Verified 03/11/17 02:58 [From Bactrim DS] - Home Medications Home Medications: Ambulatory Orders Ibuprofen 1 tab PO DAILY #15 tablet 05/20/18 Albuterol 0.083% Nebulizer Viola [Ventolin 0.083% Nebulizer Soln -] 1 neb NEB Q6H PRN #1 box 10/14/18 Albuterol Sulfate Inhaler - [Ventolin HFA Inhaler -] 1 - 2 inh PO Q4H #1 inhaler 10/14/18 Amitriptyline HCl [Elavil -] 50 mg PO DAILY #30 tablet 10/14/18 Amlodipine Besylate [Norvasc -] 10 mg PO DAILY #30 tablet 10/14/18 Aspirin [Aspirin EC] 81 mg PO DAILY #30 tablet.dr 10/14/18 Bictegrav/Emtricit/Tenofov Ala [Biktarvy 50-200-25 mg Tablet] 1 each PO DAILY # 30 tablet 10/14/18 Fluticasone/Salmeterol [Advair 250-50 Diskus] 1 each IH DAILY #1 disk.w.dev MDD 4 10/14/18 Gabapentin [Neurontin -] 300 mg PO ASDIR #90 capsule 10/14/18 Metoprolol Tartrate [Lopressor -] 25 mg PO BID #60 tablet 10/14/18 Mirtazapine 15 mg PO HS #30 tablet 10/14/18 Mometasone Furoate [Elocon] 1 applic TD BID #1 tube 10/14/18 Venlafaxine HCl ER [Effexor Xr -] 150 mg PO DAILY #30 cap.er.24h 10/14/18 Family Disease History - Family Disease History Family Disease History: Diabetes: Father, Respiratory: Mother Review of Systems - Review of Systems Constitutional: reports: Chills, Fever, Weakness Eyes: reports: No Symptoms HENT: reports: No Symptoms Neck: reports: No Symptoms Cardiovascular: reports: No Symptoms Respiratory: reports: Cough, SOB, SOB on Exertion Gastrointestinal: reports: No Symptoms Genitourinary: reports: No Symptoms Musculoskeletal: reports: No Symptoms Integumentary: reports: No Symptoms Neurological: reports: No Symptoms Endocrine: reports: No Symptoms Hematology/Lymphatic: reports: No Symptoms Psychiatric: reports: No Symptoms Physical Exam Vital Signs: Vital Signs Temperature 98.1 F 11/11/18 06:00 Pulse Rate 62 11/11/18 10:00 Respiratory Rate 18 11/11/18 10:00 Blood Pressure 125/74 11/11/18 10:00 O2 Sat by Pulse Oximetry (%) 89 L 11/11/18 10:00 Constitutional: Yes: Well Nourished, No Distress, Calm Cardiovascular: Yes: Regular Rate and Rhythm Respiratory: Yes: Regular, On Nasal O2, Poor Air Entry Gastrointestinal: Yes: Normal Bowel Sounds, Soft Musculoskeletal: Yes: WNL Extremities: Yes: WNL Neurological: Yes: Alert, Oriented Psychiatric: Yes: Alert, Oriented Labs: CBC, BMP 11/11/18 06:52 11/11/18 06:52 Imaging - Results Chest X-ray: Report Reviewed, Image Reviewed Cat Scan: Report Reviewed, Image Reviewed Assessment/Plan this patient with h/o hiv coming in wiht pneumonia ct scan seen and result noted will change abx to zosyn i am worried if there is an aspirating element we will continue treating her and see how she progresses
[2018-11-11] MEDS: PIPERACILLIN/TAZOB 3.375 GM 3.375 GM in DEXTROSE 5%-WATER - 50 ML IVPB SCH ×2 (14:53→17:56)
[2018-11-11] MEDS ORDERED: PIPERACILLIN/TAZOBACTAM 3.375 GM VIAL IVPB ONE (17:02)
[2018-11-11] MEDS: MIRTAZAPINE 15 MG TABLET (FP) PO SCH (21:46)
[2018-11-11] MEDS: AMITRIPTYLINE HCL 25 MG TABLET (FP) PO SCH (21:46)
[2018-11-12] MEDS ORDERED: DEXTROSE 5%-WATER - 50 ML IVPB ONE ×3 (01:12→17:32)
[2018-11-12] MEDS ORDERED: PIPERACILLIN/TAZOBACTAM 3.375 GM VIAL IVPB ONE ×3 (01:12→17:32)
[2018-11-12] MEDS: PIPERACILLIN/TAZOB 3.375 GM 3.375 GM in DEXTROSE 5%-WATER - 50 ML IVPB SCH ×3 (01:18→17:36)
--- NOTE | 2018-11-12 07:53 | PN ---
Progress Note, Physician Chief Complaint: feeling better, but SOB remains History of Present Illness: 58yo F with PMH of HIV (on HAART), COPD, Aortic and Mitral Valve Replacement ( 2015), HTN presenting to ED with complaints of cough productive of yellow sputum , sob and occasional chest pain. Symptoms started 3 days ago. She used inhaled bronchodilators without effect. Denies fever, weight loss, abdominal pain, n/v/d , medication noncompliance, sore throat, congestion, palpitations, swelling, urinary symptoms. States she had chills early yesterday morning but it passed. - Current Medication List Current Medications: Active Medications Albuterol/Ipratropium (Duoneb -) 1 amp NEB Q4H PRN PRN Reason: SHORTNESS OF BREATH Last Admin: 11/11/18 11:05 Dose: 1 amp Amitriptyline HCl (Elavil -) 50 mg PO [facility] Last Admin: 11/11/18 21:46 Dose: 50 mg Amlodipine Besylate (Norvasc -) 10 mg PO DAILY [facility] Last Admin: 11/11/18 09:14 Dose: 10 mg Aspirin (Ecotrin -) 81 mg PO DAILY [facility] Last Admin: 11/11/18 09:14 Dose: 81 mg Budesonide/Formoterol Fumarate (Symbicort 80/4.5mcg -) 2 puff IH DAILY [facility] Last Admin: 11/11/18 09:14 Dose: 2 puff Furosemide (Lasix -) 40 mg PO DAILY [facility] Last Admin: 11/11/18 09:14 Dose: 40 mg Gabapentin (Neurontin -) 300 mg PO DAILY [facility] Last Admin: 11/11/18 09:14 Dose: 300 mg Gabapentin (Neurontin -) 600 mg PO HS [facility] Last Admin: 11/11/18 21:46 Dose: 600 mg Heparin Sodium (Porcine) (Heparin -) 5,000 unit SQ BID [facility] Last Admin: 11/11/18 21:46 Dose: 5,000 unit Piperacillin Sod/Tazobactam (Sod 3.375 gm/ Dextrose) 50 mls @ 100 mls/hr IVPB Q8H-IV [facility]; Protocol Last Admin: 11/12/18 01:18 Dose: 100 mls/hr Metoprolol Tartrate (Lopressor -) 25 mg PO BID [facility] Last Admin: 11/11/18 21:46 Dose: 25 mg Mirtazapine (Remeron -) 15 mg PO HS [facility] Last Admin: 11/11/18 21:46 Dose: 15 mg Non-Formulary Medication (Bictegrav/Emtricit/Tenofov Ala) 1 each PO DAILY [facility] Non-Formulary Medication (Mometasone Furoate [Elocon]) 1 applic TD BID [facility] Venlafaxine HCl (Effexor Xr -) 150 mg PO DAILY [facility] Last Admin: 11/11/18 09:14 Dose: 150 mg - Objective Vital Signs: Vital Signs Temperature 97.9 F 11/12/18 05:00 Pulse Rate 67 11/12/18 05:00 Respiratory Rate 16 11/12/18 05:00 Blood Pressure 109/67 11/12/18 05:00 O2 Sat by Pulse Oximetry (%) 95 11/11/18 21:00 Constitutional: Yes: Well Nourished, No Distress, Calm Eyes: Yes: WNL, Conjunctiva Clear, EOM Intact HENT: Yes: WNL, Atraumatic, Normocephalic Neck: Yes: WNL, Supple, Trachea Midline Cardiovascular: Yes: WNL, Regular Rate and Rhythm, Murmur (systolicright sternal border) Respiratory: Yes: WNL, Regular, Diminished (on R>L), Rhonchi (scattered) Gastrointestinal: Yes: WNL, Normal Bowel Sounds, Soft ...Rectal Exam: Yes: Deferred Genitourinary: Yes: WNL Breast(s): Yes: WNL Musculoskeletal: Yes: WNL Extremities: Yes: WNL Edema: Yes Edema: LLE: 2+, RLE: 2+ Peripheral Pulses WNL: No Peripheral Pulses: Left Doralis Pedis: 2+, Right Dorsalis Pedis: 2+ Integumentary: Yes: WNL Neurological: Yes: WNL, Alert, Oriented ...Motor Strength: WNL Psychiatric: Yes: WNL, Alert, Oriented Labs: INR, PTT INR 1.31 (0.83-1.09) H 11/10/18 11:36 - ....Imaging Chest X-ray: Image Reviewed Cat Scan: Report Reviewed, Image Reviewed (multifocal right upper and lower infiltartes, evette PA dilated and consistent with incraesed PAP) Problem List - Problems (1) Substance abuse Assessment/Plan: history of ETOH & polysubstance use Verified methadone dose at [facility] and will continue at 70mg qd Code(s): F19.10 - OTHER PSYCHOACTIVE SUBSTANCE ABUSE, UNCOMPLICATED (2) COPD exacerbation Assessment/Plan: supplemental O2 to maintain sats >92% dub nebs PRN Incentive spirometry Code(s): J44.1 - CHRONIC OBSTRUCTIVE PULMONARY DISEASE W (ACUTE) EXACERBATION (3) Edema Assessment/Plan: 3+ edema to LE continue lasix Appreciate cardiology input-LE edema is likely due to Amlodipine effect +/- chronic right sided CHF low sodium diet TTE : EF 60-65%, mild to mid TR, no MR, mod AR Code(s): R60.9 - EDEMA, UNSPECIFIED (4) Pneumonia Assessment/Plan: RLL infiltrate vs pulmonary vascular congestion appreciate ID consultation-continue on zozyn duo nebs PRN monitor temperature curve f/u BCx Ucx questionable aspiration, speech pathology to see Code(s): J18.9 - PNEUMONIA, UNSPECIFIED ORGANISM (5) Anxiety disorder Assessment/Plan: continue remeron and effexor Code(s): F41.9 - ANXIETY DISORDER, UNSPECIFIED (6) CHF (congestive heart failure) Assessment/Plan: BNP in ED >600, now 340.l CLinically improving, not need to further trand continue lasix EKG without ischemic changes-Trop .02 x2 , no further need to trend Code(s): I50.9 - HEART FAILURE, UNSPECIFIED (7) Depressive disorder Assessment/Plan: continue remeron and effexor Code(s): F32.9 - MAJOR DEPRESSIVE DISORDER, SINGLE EPISODE, UNSPECIFIED (8) H/O prosthetic heart valve Assessment/Plan: appreciate cardiology consultation (9) Hypertension Assessment/Plan: continue home dose of metoprolol and norvasc , remains normotensive Code(s): I10 - ESSENTIAL (PRIMARY) HYPERTENSION (10) Tobacco use Assessment/Plan: currently smoking counseled n smoking cessation occasional use of Home O2 Code(s): Z72.0 - TOBACCO USE (11) Prophylactic measure Assessment/Plan: FEN regualr diet no need for additional IVF monitor electrolytes DVT pt ambulatory heparin 5000 sq Dispo Maintain as in patient discharge planning full code Code(s): Z29.9 - ENCOUNTER FOR PROPHYLACTIC MEASURES, UNSPECIFIED (12) HIV (human immunodeficiency virus infection) Assessment/Plan: currently on HAART therapy-will continue Follows at [facility] Last viral load according to chart: 100/CD4 396 (10/14/18) No suspicion of PCP Code(s): B20 - HUMAN IMMUNODEFICIENCY VIRUS [HIV] DISEASE (13) Aspiration into airway Assessment/Plan: speech therapist to see today no aspiration observed when eating/drinking Code(s): T17.908A - UNSP FB IN RESP TRACT, PART UNSP CAUSING OTH INJURY, INIT Visit type - Emergency Visit Emergency Visit: Yes ED Registration Date: 11/10/18 Care time: The patient presented to the Emergency Department on the above date and was hospitalized for further evaluation of their emergent condition. - New Patient This patient is new to me today: No - Critical Care Critical Care patient: No - Discharge Referral Referred to [facility] No
[2018-11-12] MEDS: ALBUTEROL SO4 2.5/IPRATROPIUM 0.5 INH SOL 3 ML VIAL.NEB. NEB PRN (07:59)
[2018-11-12 08:16] LABS: BASO % 0.5 % (0-2.0); EOS % 4.2 % (0-4.5); HEMATOCRIT 34.4 % (32.4-45.2); LYMPH % 21.3 % (8-40); MCH 28.9 pg (25.7-33.7); MEAN CELL VOLUME 90.4 fl (80-96); MEAN PLT VOLUME 8.1 fl (7.5-11.1); MONO % 13.2 % (3.8-10.2); NEUT % 60.8 % (42.8-82.8); PLATELET COUNT 234 K/MM3 (134-434); RBC 3.81 M/mm3 (3.60-5.2); RDW 16.4 % (11.6-15.6); WHITE BLOOD COUNT 6.4 K/mm3 (4.0-10.0)
--- NOTE | 2018-11-12 08:31 | PN ---
Progress Note, Physician Chief Complaint: CT w/ patchy areas PNA TELE: NSR - Current Medication List Current Medications: Active Medications Albuterol/Ipratropium (Duoneb -) 1 amp NEB Q4H PRN PRN Reason: SHORTNESS OF BREATH Last Admin: 11/12/18 07:59 Dose: 1 amp Amitriptyline HCl (Elavil -) 50 mg PO HS [facility] Last Admin: 11/11/18 21:46 Dose: 50 mg Amlodipine Besylate (Norvasc -) 10 mg PO DAILY [facility] Last Admin: 11/11/18 09:14 Dose: 10 mg Aspirin (Ecotrin -) 81 mg PO DAILY [facility] Last Admin: 11/11/18 09:14 Dose: 81 mg Budesonide/Formoterol Fumarate (Symbicort 80/4.5mcg -) 2 puff IH DAILY [facility] Last Admin: 11/11/18 09:14 Dose: 2 puff Furosemide (Lasix -) 40 mg PO DAILY [facility] Last Admin: 11/11/18 09:14 Dose: 40 mg Gabapentin (Neurontin -) 300 mg PO DAILY [facility] Last Admin: 11/11/18 09:14 Dose: 300 mg Gabapentin (Neurontin -) 600 mg PO HS [facility] Last Admin: 11/11/18 21:46 Dose: 600 mg Heparin Sodium (Porcine) (Heparin -) 5,000 unit SQ BID [facility] Last Admin: 11/11/18 21:46 Dose: 5,000 unit Piperacillin Sod/Tazobactam (Sod 3.375 gm/ Dextrose) 50 mls @ 100 mls/hr IVPB Q8H-IV [facility]; Protocol Last Admin: 11/12/18 01:18 Dose: 100 mls/hr Metoprolol Tartrate (Lopressor -) 25 mg PO BID [facility] Last Admin: 11/11/18 21:46 Dose: 25 mg Mirtazapine (Remeron -) 15 mg PO HS [facility] Last Admin: 11/11/18 21:46 Dose: 15 mg Non-Formulary Medication (Bictegrav/Emtricit/Tenofov Ala) 1 each PO DAILY [facility] Non-Formulary Medication (Mometasone Furoate [Elocon]) 1 applic TD BID [facility] Venlafaxine HCl (Effexor Xr -) 150 mg PO DAILY [facility] Last Admin: 11/11/18 09:14 Dose: 150 mg - Objective Vital Signs: Vital Signs Temperature 97.9 F 11/12/18 05:00 Pulse Rate 67 11/12/18 05:00 Respiratory Rate 16 11/12/18 05:00 Blood Pressure 109/67 11/12/18 05:00 O2 Sat by Pulse Oximetry (%) 95 11/11/18 21:00 Constitutional: Yes: No Distress Cardiovascular: Yes: Regular Rate and Rhythm Respiratory: Yes: Other (right sided rales.) Gastrointestinal: Yes: Soft (NT) Edema: No Neurological: Yes: Alert, Oriented Labs: INR, PTT INR 1.31 (0.83-1.09) H 11/10/18 11:36 Microbiology 11/10/18 11:40 Blood - Peripheral Venous Blood Culture - Preliminary NO GROWTH OBTAINED AFTER 24 HOURS, INCUBATION TO CONTINUE FOR 4 DAYS. 11/10/18 11:36 Blood - Peripheral Venous Blood Culture - Preliminary NO GROWTH OBTAINED AFTER 24 HOURS, INCUBATION TO CONTINUE FOR 4 DAYS. Laboratory Tests 11/11/18 11/11/18 11/11/18 00:00 06:52 06:52 WBC Hgb Plt Count Sodium 136 Potassium 3.6 Creatinine 0.7 Troponin I < 0.02 B-Natriuretic Peptide 340.0 H 11/12/18 11/12/18 07:19 07:19 WBC Pending Hgb Pending Plt Count Pending Sodium Pending Potassium Pending Creatinine Pending Troponin I B-Natriuretic Peptide - ....Imaging EKG: Image Reviewed Assessment/Plan IMP: 1. HIV 2. Fever, cough, hypoxia secondary to PNA 3. Probable chronic CHF on the basis of valvular heart disease, possible R. sided CHF from COPD/ known PHTN 4. Active smoker w/ COPD 5. History of bio AVR/MVR REC: 1. Supplimental O2, abx as per PMD and ID 2. Chest CTconfirmed PNA 3. Follow blood cultures 4. Continue ASA 81mg daily for bio MVR/AVR. 5. Suspect her LE edema is likely due to Amlodipine effect +/- chronic right sided CHF as outlined above. 6. Echo pending to assess LV/RV fxn, PA pressure and valve prostheses (loud systolic murmur RSB). 7. Cont PO Lasix Thank you, will follow.
[2018-11-12 09:25] LABS: ALBUMIN 2.1 g/dl (3.4-5.0); BILIRUBIN,TOTAL 0.1 mg/dL (0.2-1); BLOOD UREA NITROGEN 9.9 mg/dL (7-18); CALCIUM 8.4 mg/dL (8.5-10.1); CREATININE 0.8 mg/dL (0.55-1.3); MAGNESIUM 1.9 mg/dL (1.8-2.4); N-TERMINAL BNP 422.8 pg/ml (5-125)
--- NOTE | 2018-11-12 10:02 | ECHO ---
Name: OLLIE LAFLEUR Exam:Adult Echocardiogram Study Date: 11/12/2018 08:13 AM Age: 58 yrs Reason For Study: CHF ENDOCARDITIS Height: 66 in Weight: 187 lb BSA: 1.9 m2 MMode/2D Measurements & Calculations IVSd: 0.90 cm Ao root diam: 2.5 cm LVIDd: 4.9 cm LA dimension: 4.9 cm LVIDs: 3.3 cm LVPWd: 0.93 cm EDV(Teich): 113.4 ml LVOT diam: 1.8 cm ESV(Teich): 43.8 ml Doppler Measurements & Calculations MV E max mario: 184.3 cm/sec Ao V2 max: 404.5 cm/sec MV A max mario: 122.6 cm/sec Ao max P.6 mmHg MV E/A: 1.5 Ao V2 mean: 311.7 cm/sec Ao mean P.6 mmHg Ao V2 VTI: 103.6 cm MC(I,D): 0.67 cm2 AI P1/2t: 410.7 msec MC(V,D): 0.73 cm2 AI max mario: 315.2 cm/sec LV V1 max P.9 mmHg AI max P.9 mmHg LV V1 mean P.7 mmHg AI dec slope: 224.8 cm/sec2 LV V1 max: 110.8 cm/sec LV V1 mean: 76.7 cm/sec LV V1 VTI: 26.0 cm SV(LVOT): 69.4 ml TR max mario: 280.3 cm/sec TR max P.6 mmHg PI end-d mario: 49.4 cm/sec Med Peak E' Mario: 6.6 cm/sec Med E/e': 27.8 Lat Peak E' Mario: 4.4 cm/sec Lat E/e': 42.0 Left Ventricle Left ventricular systolic function is normal. Ejection Fraction = 60-65%. Right Ventricle The right ventricle is normal in size and function. Atria The left atrium is moderately dilated. The right atrium is mildly dilated. Mitral Valve There is a bioprosthetic mitral valve. There is no mitral regurgitation noted. Tricuspid Valve The tricuspid valve is normal in structure and function. There is mild to moderate tricuspid regurgit ation. Right ventricular systolic pressure is elevated at 30-40mmHg. Aortic Valve There is a bioprosthetic aortic valve. Aortic mean pressure gradient= 43mmHg. The obtained gradient a cross the aortic valve prosthesis falls within the severe range. However, aortic regurgitation may be contribut ing to the gradient. Prior studies are required for comparison. Moderate Aortic regurgitation, may be undere stimated. Pulmonic Valve The pulmonic valve is not well seen, but is grossly normal. There is no pulmonic valvular stenosis. M ild pulmonic valvular regurgitation. Great Vessels The aortic root is normal size. Pericardium/Pleura There is no pericardial effusion. Interpretation Summary Left ventricular systolic function is normal. Ejection Fraction = 60-65%. The right ventricle is normal in size and function. The left atrium is moderately dilated. The right atrium is mildly dilated. There is a bioprosthetic mitral valve. There is mild to moderate tricuspid regurgitation. Right ventricular systolic pressure is elevated at 30-40mmHg. There is a bioprosthetic aortic valve. Moderate Aortic regurgitation, may be underestimated. Aortic mean pressure gradient= 43mmHg. The obtained gradient across the aortic valve prosthesis falls within the severe range. However, aort ic regurgitation may be contributing to the gradient. Prior studies are required for comparison. There is no pericardial effusion. MD Dutta *Layla 11/12/2018 10:02 AM
[2018-11-12] MEDS ORDERED: PT OWN MED DRAWER 7, Y5N ONE (10:39)
[2018-11-12] MEDS: ASPIRIN COATED 81 MG TABLET.EC PO SCH (10:49)
[2018-11-12] MEDS: amLODIPine BESYLATE 10 MG TABLET (FP) PO SCH (10:49)
[2018-11-12] MEDS: GABAPENTIN 300 MG CAPSULE (FP) PO SCH ×2 (10:49→21:10)
[2018-11-12] MEDS: METOPROLOL TARTRATE 25 MG TABLET (FP) PO SCH ×2 (10:49→21:10)
[2018-11-12] MEDS: FUROSEMIDE 40 MG TABLET (FP) PO SCH (10:49)
[2018-11-12] MEDS: BUDESONIDE/FORMETEROL FUMARATE 80/4.5 mcg INHALER IH SCH (10:50)
[2018-11-12] MEDS: HEPARIN NA (PORCINE) 5,000 UNITS/ML 1ML VIAL SQ SCH ×2 (10:50→21:11)
[2018-11-12] MEDS: VENLAFAXINE HCL 75 MG E.R. CAPSULES (FP) PO SCH (10:50)
[2018-11-12] MEDS ORDERED: METHADONE HCL 10 MG TABLET PO ONE (11:47)
--- NOTE | 2018-11-12 12:19 | PN ---
Progress Note, Physician History of Present Illness: stable improving - Current Medication List Current Medications: Active Medications Albuterol/Ipratropium (Duoneb -) 1 amp NEB Q4H PRN PRN Reason: SHORTNESS OF BREATH Last Admin: 11/12/18 07:59 Dose: 1 amp Amitriptyline HCl (Elavil -) 50 mg PO HS [facility] Last Admin: 11/11/18 21:46 Dose: 50 mg Amlodipine Besylate (Norvasc -) 10 mg PO DAILY [facility] Last Admin: 11/12/18 10:49 Dose: 10 mg Aspirin (Ecotrin -) 81 mg PO DAILY [facility] Last Admin: 11/12/18 10:49 Dose: 81 mg Budesonide/Formoterol Fumarate (Symbicort 80/4.5mcg -) 2 puff IH DAILY [facility] Last Admin: 11/12/18 10:50 Dose: 2 puff Furosemide (Lasix -) 40 mg PO DAILY [facility] Last Admin: 11/12/18 10:49 Dose: 40 mg Gabapentin (Neurontin -) 300 mg PO DAILY [facility] Last Admin: 11/12/18 10:49 Dose: 300 mg Gabapentin (Neurontin -) 600 mg PO HS [facility] Last Admin: 11/11/18 21:46 Dose: 600 mg Heparin Sodium (Porcine) (Heparin -) 5,000 unit SQ BID [facility] Last Admin: 11/12/18 10:50 Dose: 5,000 unit Piperacillin Sod/Tazobactam (Sod 3.375 gm/ Dextrose) 50 mls @ 100 mls/hr IVPB Q8H-IV [facility]; Protocol Last Admin: 11/12/18 10:49 Dose: 100 mls/hr Methadone HCl 40 mg/ Methadone (HCl 30 mg) 70 mg PO 0600 [facility] Metoprolol Tartrate (Lopressor -) 25 mg PO BID [facility] Last Admin: 11/12/18 10:49 Dose: 25 mg Mirtazapine (Remeron -) 15 mg PO HS [facility] Last Admin: 11/11/18 21:46 Dose: 15 mg Non-Formulary Medication (Bictegrav/Emtricit/Tenofov Ala) 1 each PO DAILY [facility] Non-Formulary Medication (Mometasone Furoate [Elocon]) 1 applic TD BID [facility] Venlafaxine HCl (Effexor Xr -) 150 mg PO DAILY [facility] Last Admin: 11/12/18 10:50 Dose: 150 mg - Objective Vital Signs: Vital Signs Temperature 97.9 F 11/12/18 05:00 Pulse Rate 67 11/12/18 05:00 Respiratory Rate 16 11/12/18 05:00 Blood Pressure 109/67 11/12/18 05:00 O2 Sat by Pulse Oximetry (%) 95 11/11/18 21:00 Constitutional: Yes: No Distress, Calm Cardiovascular: Yes: Regular Rate and Rhythm Respiratory: Yes: Regular, On Nasal O2, Poor Air Entry Gastrointestinal: Yes: Normal Bowel Sounds, Soft Musculoskeletal: Yes: WNL Extremities: Yes: WNL Neurological: Yes: Alert, Oriented Psychiatric: Yes: Alert, Oriented Labs: CBC, BMP 11/12/18 07:19 11/12/18 07:19 INR, PTT INR 1.31 (0.83-1.09) H 11/10/18 11:36 Assessment/Plan this patient with h/o hiv coming in wiht pneumonia ct scan seen and result noted continue abx incentive [place] rest as per the team
[2018-11-12] MEDS ORDERED: METHADONE HCL 40 MG DISPERSABLE TABLET ONE (12:48)
[2018-11-12] MEDS ORDERED: METHADONE HCL 10 MG TABLET ONE (12:49)
[2018-11-12] MEDS: METHADONE 40 MG, METHADONE 30 MG PO SCH (12:53)
--- NOTE | 2018-11-12 15:39 | CONSULT ---
Admitting History and Physical - Past Medical History Cardiovascular: Yes: Murmur, Pulmonary Hypertension, Other (bio AVR and MVR) Pulmonary: Yes: COPD Gastrointestinal: No: Ascites, Cancer, Constipation, Crohn's Disease, Diverticulitis, Diverticulosis, Esophageal Varices, Gastritis, GERD, GI Bleed, Hemorrhoids, Hiatal Hernia, Inflamatory Bowel Disease, Irritable Bowel Disease, Pancreatitis, Peptic Ulcer Disease, Ulcerative Colitis, Other Hepatobiliary: No: Cirrhosis, Cholelithiasis, Cholecystitis, Choledocholithiasis , Hepatitis A, Hepatitis B, Hepatitis C, Other Renal/: No: Renal Failure, Renal Inusuff, BPH, Cancer, Hematuria, Hemodialysis , Neurogenic Bladder, Renal Calculi, UTI, Other ...LMP: 01/31/12 Infectious Disease: Yes: HIV (Last viral load according to chart: 100/CD4 396 ()) Psych: Yes: Anxiety, Depression Musculoskeletal: No: Bursitis, Chronic low back pain, Hemiparesis, Hemiplegia, Osteoarthritis, Paraplegia, Other Rheumatology: No: Fibromyalgia, Gout, Lupus, Rheumatoid Arthritis, Sarcoidosis, Vasculitis, Other ENT: No: Allergic Rhinitis, Sinusitis, Other Endocrine: No: [place]'s Disease, Vicente's Disease, Diabetes Insipidus, Diabetes Mellitus, Hyperparathyroidism, Hyperthyroidism, Hypothyroidism, Osteopenia, SIADH, Other Dermatology: No: Basal Cell, Cellulitis, Eczema, Melanoma, Psoriasis, Squamous Cell, Other - Past Surgical History Past Surgical History: Yes: Cholecystectomy - Smoking History Smoking history: Current every day smoker Have you smoked in the past 12 months: Yes Aproximately how many cigarettes per day: 5 If you are a former smoker, when did you quit?: 2014 - Alcohol/Substance Use Hx Alcohol Use: No History of Substance Use: reports: None, Cocaine - Social History History of Recent Travel: No History - Admission Reason For Visit: PNEUMONIA - Hearing Hearing: Normal Hearing Aide: No Speech Evaluation - Communication Primary Language: IVORIAN Communication: Yes: Within Normal Limits Oral Expression Ability: Yes: No Impairment - Speech Production Apraxia: No Able to Make Needs Known: Yes: WNL Intelligibility: Yes: WNL - Speech Characteristics Voice Loudness: Normal Voice Pitch: Yes: Normal Voice Phonatory-based Quality: Yes: Normal Speech Pattern: Normal Nasal Resonance: Normal Articulation: Yes: Precise Dysfluency: Yes: Tonic Rate of Speech: Intact Voice Comment: Vocal quality is WFL - Language/Auditory Comprehension Follows: Yes: 1 Stage Simple Commands (WFL), 2 Stage Simple Commands (WFL), Complex Commands (WFL) Observation: Able to respond to yes/no queries: Yes, Yes/No Confusion: No, Comprehends Conversational Speech: Yes, Benefits from Slow Speech: No, Benefits from Repetiton: No, Benefits from Increased Volume of Speech: No - Language/Verbal Expression Able to Respond to Simple Queries: Yes: WNL Able to Communicate Wants and Needs: Yes: WNL Functional Communication Status: Yes: WNL Aware of Errors: Yes Attempts to Correct Errors: Yes Use of Gestures: No Written Expression: Not examined Oral Expression: WFL Reading Comprehension: Not examined Calculations: Not examined Attention: Yes: Intact - Memory/Perception senior living Memory: Yes: WNL Short Term Memory: Yes: WNL - Swallow Evaluation/Bedside Assessment Current Nutritional Intake: Regular Oral Secretions: Yes: WFL Tracheostomy Present: No Patient on Ventilator: No Dentition: Yes: Adequate Facial Symmetry at Rest: Symmetrical Facial Symmetry on Retraction: Symmetrical Facial Movement: Controlled Sensation: Normal Facial Comment: WFL for speech and swallowing purposes Jaw Position: Closed at Rest Against Resistance Opening: Normal Against Resistance Closing: Normal Pucker Lips: Normal Smile: Normal Lips, Comment: WFL for speech and swallowing purposes Lingual Movement: Normal Lingual Speed of Movement: Normal Lingual Movement Strgth Against Opposition: Normal Lingual Movement Characteristics: Normal Lingual Comment: WFL for speech and swallowing purposes Soft Palate Description: Normal Color Hard Palate Description: Normal Color Gag Reflex: Strong Bite Reflex: Present Velopharyngeal Movement: Normal Laryngeal Elevation: WFL Laryngeal Movement: Able to Palpate Needs Assistance: No Rate of Intake: WFL Bolus Size: WFL Labial Seal: WFL Chewing: WFL Oral Prep Time: WFL A-P Transit: WFL Timing of Swallow: WFL Coughing/Throat Clear: No Change in Voice: No Other Findings/Remarks: 58 yo female seem at bedside for swallow eval to r/o dysphagia. Pt is verbal, A &Ox3 cooperative. Admitted to [facility] for SOB, chest tightness and cough with yellow sputum. PHMX includes HIV, COPD AORTIC and mitral valve replacement and HTN. Oral facial features are WFL for speech and swallowing purposes. Voice is WFL with good airway protection. Current diet is regular with thin liquids. Pt given po trials of puree and regular solids without assistance revealed good acceptance, adequate mastication, bolus formations and transport. Pharyngeal swallow appears timely with no cough or changes in voicing or respiration. Thin liquids trials via straw and cup unassisted were unremarkable for dysphagia and/or aspiration at this time. Recommendations - Speech Evaluation, Impression/Plan Impression: Pt is able to tolerate pureed, regular solids with thin liquids without s/s of dysphagia and aspiration at this time. Speech and language is WFL. Custodial Goals: tolerate the least restrictive diet without s/s of aspiration Short Term Goals: tolerate purees, regular solids with thin liquids without s/s of aspiration. - Dysphagia Impressions/Plan Swallowing Skills: [facility] Dysphagia Impressions: No Impairment Dysphagia Evaluation Summary: Continue regular solids with thin liquids as tolerated. Observe standard aspiration precautions. Oral care after meals. Results given to charge poster and PCP via chart. [employer]EL[employer] to follow up as needed. - Recommendations Diet Consistency: Regular Medication Administration: Whole with water Liquids: Thin Liquids
[2018-11-12] MEDS: AMITRIPTYLINE HCL 25 MG TABLET (FP) PO SCH (21:10)
[2018-11-12] MEDS: MIRTAZAPINE 15 MG TABLET (FP) PO SCH (21:10)
[2018-11-13] MEDS ORDERED: DEXTROSE 5%-WATER - 50 ML IVPB ONE ×3 (01:41→16:42)
[2018-11-13] MEDS ORDERED: PIPERACILLIN/TAZOBACTAM 3.375 GM VIAL IVPB ONE ×3 (01:41→16:41)
[2018-11-13] MEDS: PIPERACILLIN/TAZOB 3.375 GM 3.375 GM in DEXTROSE 5%-WATER - 50 ML IVPB SCH ×3 (01:56→17:12)
[2018-11-13] MEDS ORDERED: METHADONE HCL 40 MG DISPERSABLE TABLET ONE (05:25)
[2018-11-13] MEDS ORDERED: METHADONE HCL 10 MG TABLET ONE (05:26)
[2018-11-13] MEDS: METHADONE 40 MG, METHADONE 30 MG PO SCH (05:32)
[2018-11-13] MEDS ORDERED: METHADONE HCL 40 MG DISPERSABLE TABLET PO SCH (06:00)
[2018-11-13 07:47] LABS: BASO % 0.6 % (0-2.0); EOS % 6.6 % (0-4.5); HEMATOCRIT 36.3 % (32.4-45.2); HEMOGLOBIN 11.7 GM/dL (10.7-15.3); LYMPH % 28.9 % (8-40); MCH 29.3 pg (25.7-33.7); MCHC 32.3 g/dl (32.0-36.0); MEAN CELL VOLUME 90.8 fl (80-96); MEAN PLT VOLUME 7.9 fl (7.5-11.1); MONO % 11.1 % (3.8-10.2); NEUT % 52.8 % (42.8-82.8); RDW 16.4 % (11.6-15.6); WHITE BLOOD COUNT 5.8 K/mm3 (4.0-10.0)
[2018-11-13 08:40] LABS: ALBUMIN 2.2 g/dl (3.4-5.0); BILIRUBIN,TOTAL 0.2 mg/dL (0.2-1); BLOOD UREA NITROGEN 13.2 mg/dL (7-18); CALCIUM 8.9 mg/dL (8.5-10.1); CREATININE 0.9 mg/dL (0.55-1.3); MAGNESIUM 2.2 mg/dL (1.8-2.4); POTASSIUM 4.3 mmol/L (3.5-5.1); TOT PROT 9.6 g/dl (6.4-8.2)
[2018-11-13 08:44] LABS: PLATELET COUNT 286 K/MM3 (134-434)
[2018-11-13] MEDS ORDERED: PT OWN MED DRAWER 7, Y5N ONE ×2 (09:26→11:54)
[2018-11-13] MEDS: FUROSEMIDE 40 MG TABLET (FP) PO SCH (09:32)
[2018-11-13] MEDS: METOPROLOL TARTRATE 25 MG TABLET (FP) PO SCH ×2 (09:32→21:29)
[2018-11-13] MEDS: amLODIPine BESYLATE 10 MG TABLET (FP) PO SCH (09:32)
[2018-11-13] MEDS: ASPIRIN COATED 81 MG TABLET.EC PO SCH (09:32)
[2018-11-13] MEDS: VENLAFAXINE HCL 75 MG E.R. CAPSULES (FP) PO SCH (09:33)
[2018-11-13] MEDS: HEPARIN NA (PORCINE) 5,000 UNITS/ML 1ML VIAL SQ SCH ×2 (09:33→21:29)
[2018-11-13] MEDS: PATIENT'S OWN MEDICATION (NON-FORMULARY) (Bictegrav/Emtricit/Tenofov Ala 1 EACH) PO SCH (09:33)
[2018-11-13] MEDS: GABAPENTIN 300 MG CAPSULE (FP) PO SCH ×2 (09:33→21:29)
[2018-11-13] MEDS: BUDESONIDE/FORMETEROL FUMARATE 80/4.5 mcg INHALER IH SCH (09:34)
--- NOTE | 2018-11-13 09:34 | PN ---
Progress Note, Physician Chief Complaint: Shortness of Breath History of Present Illness: 58yo F with PMH of HIV (on HAART), COPD, Aortic and Mitral Valve Replacement ( 2015), HTN presented to ED on 11/09 with complaints of cough productive of yellow sputum, sob and occasional chest pain. Symptoms started 3 prior. She used inhaled bronchodilators without effect. Denied fever, weight loss, abdominal pain, n/v/d, medication noncompliance, sore throat, congestion, palpitations, swelling, urinary symptoms. States she had chills early the morning before but it passed. Today upon assessment Pt laying across bed on her back asleep holding a $20 bill. PT states that her breathing today is a little better. She still has shortness of breath with exertion. Denies CP, ABD pain, Fever chills, N/V/D - Current Medication List Current Medications: Active Medications Albuterol/Ipratropium (Duoneb -) 1 amp NEB Q4H PRN PRN Reason: SHORTNESS OF BREATH Last Admin: 11/12/18 07:59 Dose: 1 amp Amitriptyline HCl (Elavil -) 50 mg PO HS [facility] Last Admin: 11/12/18 21:10 Dose: 50 mg Amlodipine Besylate (Norvasc -) 10 mg PO DAILY [facility] Last Admin: 11/12/18 10:49 Dose: 10 mg Aspirin (Ecotrin -) 81 mg PO DAILY [facility] Last Admin: 11/12/18 10:49 Dose: 81 mg Budesonide/Formoterol Fumarate (Symbicort 80/4.5mcg -) 2 puff IH DAILY [facility] Last Admin: 11/12/18 10:50 Dose: 2 puff Furosemide (Lasix -) 40 mg PO DAILY [facility] Last Admin: 11/12/18 10:49 Dose: 40 mg Gabapentin (Neurontin -) 300 mg PO DAILY [facility] Last Admin: 11/12/18 10:49 Dose: 300 mg Gabapentin (Neurontin -) 600 mg PO HS [facility] Last Admin: 11/12/18 21:10 Dose: 600 mg Heparin Sodium (Porcine) (Heparin -) 5,000 unit SQ BID [facility] Last Admin: 11/12/18 21:11 Dose: 5,000 unit Piperacillin Sod/Tazobactam (Sod 3.375 gm/ Dextrose) 50 mls @ 100 mls/hr IVPB Q8H-IV [facility]; Protocol Last Admin: 11/13/18 01:56 Dose: 100 mls/hr Methadone HCl 40 mg/ Methadone (HCl 30 mg) 70 mg PO 0600 [facility] Last Admin: 11/13/18 05:32 Dose: 70 mg Metoprolol Tartrate (Lopressor -) 25 mg PO BID [facility] Last Admin: 11/12/18 21:10 Dose: 25 mg Mirtazapine (Remeron -) 15 mg PO HS [facility] Last Admin: 11/12/18 21:10 Dose: 15 mg Non-Formulary Medication (Bictegrav/Emtricit/Tenofov Ala) 1 each PO DAILY [facility] Venlafaxine HCl (Effexor Xr -) 150 mg PO DAILY [facility] Last Admin: 11/12/18 10:50 Dose: 150 mg - Objective Vital Signs: Vital Signs Temperature 98.1 F 11/13/18 06:00 Pulse Rate 81 11/13/18 06:00 Respiratory Rate 20 11/13/18 06:00 Blood Pressure 110/70 11/13/18 06:00 O2 Sat by Pulse Oximetry (%) 95 11/12/18 19:49 Constitutional: Yes: Well Nourished, No Distress, Calm Eyes: Yes: WNL, Conjunctiva Clear HENT: Yes: WNL, Atraumatic, Normocephalic Neck: Yes: WNL, Supple, Trachea Midline Cardiovascular: Yes: WNL, Regular Rate and Rhythm, Murmur Respiratory: Yes: Diminished (Right), Wheezes (RLL) Gastrointestinal: Yes: WNL, Normal Bowel Sounds, Soft ...Rectal Exam: Yes: Deferred Genitourinary: Yes: WNL Musculoskeletal: Yes: WNL Extremities: Yes: WNL Edema: Yes Edema: LLE: 1+, RLE: 1+ Peripheral Pulses WNL: Yes Neurological: Yes: WNL, Alert, Oriented ...Motor Strength: WNL Psychiatric: Yes: WNL, Oriented Labs: CBC, BMP 11/13/18 06:35 11/13/18 06:35 INR, PTT INR 1.31 (0.83-1.09) H 11/10/18 11:36 Problem List - Problems (1) Aspiration into airway Assessment/Plan: Speech Eval Completed-Impression -Pt able to tolerate pureed, regular solids with thin liquids as tolerated. Observe standard aspiration precautions. Code(s): T17.908A - UNSP FB IN RESP TRACT, PART UNSP CAUSING OTH INJURY, INIT (2) HIV (human immunodeficiency virus infection) Assessment/Plan: Currently on HAART therapy-will continue Follows at [facility] Last viral load according to chart: 100/CD4 396 (10/14/18) No suspicion of PCP Code(s): B20 - HUMAN IMMUNODEFICIENCY VIRUS [HIV] DISEASE (3) Prophylactic measure Assessment/Plan: FEN -regualr diet -no need for additional IVF -monitor electrolytes DVT -pt ambulatory -heparin 5000 sq Dispo -Maintain as in patient -discharge planning -full code Code(s): Z29.9 - ENCOUNTER FOR PROPHYLACTIC MEASURES, UNSPECIFIED (4) Substance abuse Assessment/Plan: History of ETOH & polysubstance use Verified methadone dose at [facility] and will continue at 70mg Daily Code(s): F19.10 - OTHER PSYCHOACTIVE SUBSTANCE ABUSE, UNCOMPLICATED (5) COPD exacerbation Assessment/Plan: supplemental O2 to maintain sats >92% -Duonebs PRN -Incentive spirometry Code(s): J44.1 - CHRONIC OBSTRUCTIVE PULMONARY DISEASE W (ACUTE) EXACERBATION (6) Edema Assessment/Plan: 1+ Edema to LE -continue lasix -Appreciate cardiology input-LE edema is likely due to Amlodipine effect +/- chronic right sided CHF -low sodium diet -TTE : EF 60-65%, mild to mid TR, no MR, mod AR Code(s): R60.9 - EDEMA, UNSPECIFIED (7) Pneumonia Assessment/Plan: -Multifocal RUL and RLL Infiltrates per CT -ID consultation-continue on zozyn -Duonebs PRN -monitor temperature curve -Urine Culture Pending -Blood Culture-No growth after 48 hours. Incubation to continue for a total of 3 days Code(s): J18.9 - PNEUMONIA, UNSPECIFIED ORGANISM (8) Anxiety disorder Assessment/Plan: continue Remeron and Effexor Code(s): F41.9 - ANXIETY DISORDER, UNSPECIFIED (9) CHF (congestive heart failure) Assessment/Plan: -BNP in ED >600, 340 on 11/11, and 422.8 on 11/12 Will recheck. -continue lasix -EKG without ischemic changes-Trop .02 x2 , no further need to trend Code(s): I50.9 - HEART FAILURE, UNSPECIFIED (10) Depressive disorder Code(s): F32.9 - MAJOR DEPRESSIVE DISORDER, SINGLE EPISODE, UNSPECIFIED (12) Hypertension Assessment/Plan: Continue home does of Metoprolol and Norvasc-remains normotensive Code(s): I10 - ESSENTIAL (PRIMARY) HYPERTENSION (13) Tobacco use Assessment/Plan: Currently a smoker -Counselled on smoking cessation -Occasional use of home O2 Code(s): Z72.0 - TOBACCO USE Visit type - Emergency Visit Emergency Visit: Yes ED Registration Date: 11/10/18 Care time: The patient presented to the Emergency Department on the above date and was hospitalized for further evaluation of their emergent condition. - New Patient This patient is new to me today: Yes Date on this admission: 11/13/18 - Critical Care Critical Care patient: No
--- NOTE | 2018-11-13 11:09 | PN ---
Progress Note, Physician History of Present Illness: Pt seen and examined. Events noted. She reports less SOB although still with some exertion but less cough/sputum production. Remains afebrile. No other specific complaints. - Current Medication List Current Medications: Active Medications Albuterol/Ipratropium (Duoneb -) 1 amp NEB Q4H PRN PRN Reason: SHORTNESS OF BREATH Last Admin: 11/12/18 07:59 Dose: 1 amp Amitriptyline HCl (Elavil -) 50 mg PO [facility] Last Admin: 11/12/18 21:10 Dose: 50 mg Amlodipine Besylate (Norvasc -) 10 mg PO DAILY [facility] Last Admin: 11/13/18 09:32 Dose: 10 mg Aspirin (Ecotrin -) 81 mg PO DAILY [facility] Last Admin: 11/13/18 09:32 Dose: 81 mg Budesonide/Formoterol Fumarate (Symbicort 80/4.5mcg -) 2 puff IH DAILY [facility] Last Admin: 11/13/18 09:34 Dose: 2 puff Furosemide (Lasix -) 40 mg PO DAILY [facility] Last Admin: 11/13/18 09:32 Dose: 40 mg Gabapentin (Neurontin -) 300 mg PO DAILY [facility] Last Admin: 11/13/18 09:33 Dose: 300 mg Gabapentin (Neurontin -) 600 mg PO HS [facility] Last Admin: 11/12/18 21:10 Dose: 600 mg Heparin Sodium (Porcine) (Heparin -) 5,000 unit SQ BID [facility] Last Admin: 11/13/18 09:33 Dose: 5,000 unit Piperacillin Sod/Tazobactam (Sod 3.375 gm/ Dextrose) 50 mls @ 100 mls/hr IVPB Q8H-IV [facility]; Protocol Last Admin: 11/13/18 09:33 Dose: 100 mls/hr Methadone HCl 40 mg/ Methadone (HCl 30 mg) 70 mg PO 0600 [facility] Last Admin: 11/13/18 05:32 Dose: 70 mg Metoprolol Tartrate (Lopressor -) 25 mg PO BID [facility] Last Admin: 11/13/18 09:32 Dose: 25 mg Mirtazapine (Remeron -) 15 mg PO HS [facility] Last Admin: 11/12/18 21:10 Dose: 15 mg Non-Formulary Medication (Bictegrav/Emtricit/Tenofov Ala) 1 each PO DAILY [facility] Last Admin: 11/13/18 09:33 Dose: 1 each Venlafaxine HCl (Effexor Xr -) 150 mg PO DAILY [facility] Last Admin: 11/13/18 09:33 Dose: 150 mg - Objective Vital Signs: Vital Signs Temperature 98.2 F 11/13/18 10:00 Pulse Rate 66 11/13/18 10:00 Respiratory Rate 20 11/13/18 10:00 Blood Pressure 104/71 11/13/18 10:00 O2 Sat by Pulse Oximetry (%) 93 L 11/13/18 10:00 Constitutional: Yes: No Distress, Calm Eyes: Yes: Conjunctiva Clear HENT: Yes: Atraumatic Cardiovascular: Yes: Regular Rate and Rhythm, Murmur Respiratory: Yes: On Nasal O2, Rales (basilar) Gastrointestinal: Yes: Normal Bowel Sounds, Soft Extremities: Yes: WNL Edema: Yes Edema: LLE: Trace, RLE: Trace Integumentary: Yes: WNL Neurological: Yes: Alert, Oriented Psychiatric: Yes: Alert Labs: CBC, BMP 11/13/18 06:35 11/13/18 06:35 INR, PTT INR 1.31 (0.83-1.09) H 11/10/18 11:36 Microbiology 11/12/18 09:30 Nares - Mrsa Screen - Right MRSA Screen - Final NO MRSA ISOLATED 11/12/18 09:30 Nares - Mrsa Screen - Left MRSA Screen - Final NO MRSA ISOLATED 11/10/18 13:00 Urine - Urine Clean Catch Urine Culture - Final Contaminated: Please Repeat 11/10/18 11:40 Blood - Peripheral Venous Blood Culture - Preliminary NO GROWTH OBTAINED AFTER 48 HOURS, INCUBATION TO CONTINUE FOR 3 DAYS. 11/10/18 11:36 Blood - Peripheral Venous Blood Culture - Preliminary NO GROWTH OBTAINED AFTER 48 HOURS, INCUBATION TO CONTINUE FOR 3 DAYS. - ....Imaging Chest X-ray: Report Reviewed Cat Scan: Report Reviewed <Melania Wilson - Last Filed: 11/13/18 11:05> - Current Medication List Current Medications: Active Medications Albuterol/Ipratropium (Duoneb -) 1 amp NEB Q4H PRN PRN Reason: SHORTNESS OF BREATH Last Admin: 11/12/18 07:59 Dose: 1 amp Amitriptyline HCl (Elavil -) 50 mg PO HS [facility] Last Admin: 11/12/18 21:10 Dose: 50 mg Amlodipine Besylate (Norvasc -) 10 mg PO DAILY [facility] Last Admin: 11/13/18 09:32 Dose: 10 mg Aspirin (Ecotrin -) 81 mg PO DAILY [facility] Last Admin: 11/13/18 09:32 Dose: 81 mg Budesonide/Formoterol Fumarate (Symbicort 80/4.5mcg -) 2 puff IH DAILY [facility] Last Admin: 11/13/18 09:34 Dose: 2 puff Furosemide (Lasix -) 40 mg PO DAILY [facility] Last Admin: 11/13/18 09:32 Dose: 40 mg Gabapentin (Neurontin -) 300 mg PO DAILY [facility] Last Admin: 11/13/18 09:33 Dose: 300 mg Gabapentin (Neurontin -) 600 mg PO HS [facility] Last Admin: 11/12/18 21:10 Dose: 600 mg Heparin Sodium (Porcine) (Heparin -) 5,000 unit SQ BID [facility] Last Admin: 11/13/18 09:33 Dose: 5,000 unit Piperacillin Sod/Tazobactam (Sod 3.375 gm/ Dextrose) 50 mls @ 100 mls/hr IVPB Q8H-IV [facility]; Protocol Last Admin: 11/13/18 09:33 Dose: 100 mls/hr Methadone HCl 40 mg/ Methadone (HCl 30 mg) 70 mg PO 0600 [facility] Last Admin: 11/13/18 05:32 Dose: 70 mg Metoprolol Tartrate (Lopressor -) 25 mg PO BID [facility] Last Admin: 11/13/18 09:32 Dose: 25 mg Mirtazapine (Remeron -) 15 mg PO [facility] Last Admin: 11/12/18 21:10 Dose: 15 mg Non-Formulary Medication (Bictegrav/Emtricit/Tenofov Ala) 1 each PO DAILY [facility] Last Admin: 11/13/18 09:33 Dose: 1 each Venlafaxine HCl (Effexor Xr -) 150 mg PO DAILY [facility] Last Admin: 11/13/18 09:33 Dose: 150 mg - Objective Vital Signs: Vital Signs Temperature 98.2 F 11/13/18 10:00 Pulse Rate 66 11/13/18 10:00 Respiratory Rate 20 11/13/18 10:00 Blood Pressure 104/71 11/13/18 10:00 O2 Sat by Pulse Oximetry (%) 93 L 11/13/18 10:00 Labs: CBC, BMP 11/13/18 06:35 11/13/18 06:35 INR, PTT INR 1.31 (0.83-1.09) H 11/10/18 11:36 <Guerrero Britton Jr. - Last Filed: 11/13/18 11:27> Problem List - Problems (1) HIV (human immunodeficiency virus infection) Code(s): B20 - HUMAN IMMUNODEFICIENCY VIRUS [HIV] DISEASE (2) Pneumonia Code(s): J18.9 - PNEUMONIA, UNSPECIFIED ORGANISM <Melania Wilson - Last Filed: 11/13/18 11:05> - Problems (1) Aspiration into airway Code(s): T17.908A - UNSP FB IN RESP TRACT, PART UNSP CAUSING OTH INJURY, INIT (2) HIV (human immunodeficiency virus infection) Code(s): B20 - HUMAN IMMUNODEFICIENCY VIRUS [HIV] DISEASE (3) Prophylactic measure Code(s): Z29.9 - ENCOUNTER FOR PROPHYLACTIC MEASURES, UNSPECIFIED (4) Substance abuse Code(s): F19.10 - OTHER PSYCHOACTIVE SUBSTANCE ABUSE, UNCOMPLICATED (5) COPD exacerbation Code(s): J44.1 - CHRONIC OBSTRUCTIVE PULMONARY DISEASE W (ACUTE) EXACERBATION (6) Edema Code(s): R60.9 - EDEMA, UNSPECIFIED (7) Pneumonia Code(s): J18.9 - PNEUMONIA, UNSPECIFIED ORGANISM (8) Anxiety disorder Code(s): F41.9 - ANXIETY DISORDER, UNSPECIFIED (9) CHF (congestive heart failure) Code(s): I50.9 - HEART FAILURE, UNSPECIFIED (10) Depressive disorder Code(s): F32.9 - MAJOR DEPRESSIVE DISORDER, SINGLE EPISODE, UNSPECIFIED (12) Hypertension Code(s): I10 - ESSENTIAL (PRIMARY) HYPERTENSION (13) Tobacco use Code(s): Z72.0 - TOBACCO USE <Guerrero Britton Jr. - Last Filed: 11/13/18 11:27> Assessment/Plan Pneumonia HIV on HAART Asthma/COPD Pulmonary HTN s/p AVR/MVR -- pt showing signs of clinical improvement -- continue antibiotics, on bronchodilators/supplemental O2 -- continue ARVs <Melania Wilson - Last Filed: 11/13/18 11:05>
--- NOTE | 2018-11-13 11:49 | PN ---
Progress Note (short form) - Note Progress Note: s: sob improving, not at baseline. has been feeling short of breath with exertion with worsening edema for about 2 months. edema now resolved on lasix TELE: NSR Current Medications Albuterol/Ipratropium (Duoneb -) 1 amp NEB Q4H PRN PRN Reason: SHORTNESS OF BREATH Last Admin: 11/12/18 07:59 Dose: 1 amp Amitriptyline HCl (Elavil -) 50 mg PO HS [facility] Last Admin: 11/12/18 21:10 Dose: 50 mg Amlodipine Besylate (Norvasc -) 10 mg PO DAILY [facility] Last Admin: 11/13/18 09:32 Dose: 10 mg Aspirin (Ecotrin -) 81 mg PO DAILY [facility] Last Admin: 11/13/18 09:32 Dose: 81 mg Budesonide/Formoterol Fumarate (Symbicort 80/4.5mcg -) 2 puff IH DAILY [facility] Last Admin: 11/13/18 09:34 Dose: 2 puff Furosemide (Lasix -) 40 mg PO DAILY [facility] Last Admin: 11/13/18 09:32 Dose: 40 mg Gabapentin (Neurontin -) 300 mg PO DAILY [facility] Last Admin: 11/13/18 09:33 Dose: 300 mg Gabapentin (Neurontin -) 600 mg PO HS [facility] Last Admin: 11/12/18 21:10 Dose: 600 mg Heparin Sodium (Porcine) (Heparin -) 5,000 unit SQ BID [facility] Last Admin: 11/13/18 09:33 Dose: 5,000 unit Piperacillin Sod/Tazobactam (Sod 3.375 gm/ Dextrose) 50 mls @ 100 mls/hr IVPB Q8H-IV [facility]; Protocol Last Admin: 11/13/18 09:33 Dose: 100 mls/hr Methadone HCl 40 mg/ Methadone (HCl 30 mg) 70 mg PO 0600 [facility] Last Admin: 11/13/18 05:32 Dose: 70 mg Metoprolol Tartrate (Lopressor -) 25 mg PO BID [facility] Last Admin: 11/13/18 09:32 Dose: 25 mg Mirtazapine (Remeron -) 15 mg PO HS [facility] Last Admin: 11/12/18 21:10 Dose: 15 mg Non-Formulary Medication (Bictegrav/Emtricit/Tenofov Ala) 1 each PO DAILY [facility] Last Admin: 11/13/18 09:33 Dose: 1 each Venlafaxine HCl (Effexor Xr -) 150 mg PO DAILY [facility] Last Admin: 11/13/18 09:33 Dose: 150 mg Vital Signs Period Temp Pulse Resp BP Sys/Álvarez Pulse Ox Last 24 Hr 97.8 F-98.4 F 57-81 18-20 92-110/60-71 93-95 Constitutional: Yes: No Distress Cardiovascular: Yes: Regular Rate and Rhythm Respiratory: Yes: Other (right sided rales.) Gastrointestinal: Yes: Soft (NT) Edema: No Neurological: Yes: Alert, Oriented not agitated no jaundice, diaphoresis EKG: Image Reviewed Assessment/Plan IMP: 1. HIV 2. Fever, cough, hypoxia secondary to PNA 3. Probable chronic CHF on the basis of valvular heart disease, possible R. sided CHF from COPD/ known PHTN 4. Active smoker w/ COPD 5. History of bio AVR/MVR with bioAVR stenosis REC: 1. Supplemental O2, abx as per PMD and ID 2. Chest CT confirmed PNA, manage per primary 3. Follow blood cultures 4. Continue ASA 81mg daily for bio MVR/AVR. 5. Suspect her LE edema is likely due to Amlodipine effect +/- chronic right sided CHF as outlined above. 6. Echo showed nl LV function, biatrial enlargement, bioMVR with normal function , elevated RVSP 30-40 mmHg. 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
[2018-11-13 12:37] LABS: N-TERMINAL BNP 471.8 pg/ml (5-125)
[2018-11-13] MEDS: AMITRIPTYLINE HCL 25 MG TABLET (FP) PO SCH (21:29)
[2018-11-13] MEDS: MIRTAZAPINE 15 MG TABLET (FP) PO SCH (21:29)
[2018-11-14] MEDS ORDERED: DEXTROSE 5%-WATER - 50 ML IVPB ONE ×3 (01:08→16:37)
[2018-11-14] MEDS ORDERED: PIPERACILLIN/TAZOBACTAM 3.375 GM VIAL IVPB ONE ×3 (01:08→16:37)
[2018-11-14] MEDS: PIPERACILLIN/TAZOB 3.375 GM 3.375 GM in DEXTROSE 5%-WATER - 50 ML IVPB SCH ×3 (01:16→17:06)
[2018-11-14] MEDS ORDERED: METHADONE HCL 40 MG DISPERSABLE TABLET ONE (05:10)
[2018-11-14] MEDS ORDERED: METHADONE HCL 10 MG TABLET ONE (05:10)
[2018-11-14] MEDS: METHADONE 40 MG, METHADONE 30 MG PO SCH (05:20)
[2018-11-14 07:38] LABS: ALK PHOS 77 U/L (45-117); ANION GAP 1 MMOL/L (8-16); BILIRUBIN,TOTAL < 0.1 mg/dL (0.2-1); BLOOD UREA NITROGEN 14.2 mg/dL (7-18); CALCIUM 8.9 mg/dL (8.5-10.1); CHLORIDE 100 mmol/L (98-107); CO2 36 mmol/L (21-32); CREATININE 0.8 mg/dL (0.55-1.3); GLUCOSE,RANDOM 84 mg/dL (74-106); POTASSIUM 4.5 mmol/L (3.5-5.1); SGOT/AST 10 U/L (15-37); SGPT/ALT 12 U/L (13-61); SODIUM 137 mmol/L (136-145); TOT PROT 8.5 g/dl (6.4-8.2)
--- NOTE | 2018-11-14 08:01 | PN ---
Physical Exam: HPI: 58yo F with PMH of HIV (on HAART), COPD, Aortic and Mitral Valve Replacement (2014), HTN presented to ED on 11/09 with complaints of cough productive of yellow sputum, sob and occasional chest pain. Symptoms started 3 prior. She used inhaled bronchodilators without effect. Denied fever, weight loss, abdominal pain, n/v/d, medication noncompliance, sore throat, congestion, palpitations, swelling, urinary symptoms. States she had chills early the morning before but it passed. SUBJECTIVE: Patient seen and examined. PT states her breathing is getting better. PT states she feels she can walk a block and a half now before getting short of breath. PT not on O2 during assessment. Denies CP, SHOB, N/V/D. OBJECTIVE: Vital Signs Period Temp Pulse Resp BP Sys/Álvarez Pulse Ox Last 24 Hr 97.5 F-99.3 F 56-68 14-20 104-150/64-76 93-99 GENERAL: The patient is awake, alert, and fully oriented, standing in the window braiding her hair, and in no acute distress. HEAD: Normal with no signs of trauma. EYES: PERRL, extraocular movements intact, sclera anicteric, conjunctiva clear. No ptosis. ENT: Ears normal, nares patent, oropharynx clear without exudates, moist mucous membranes. NECK: Trachea midline, full range of motion, supple. LUNGS: Breath sounds equal, clear to auscultation bilaterally, no wheezes, no crackles, no accessory muscle use. HEART: Regular rate and rhythm, S1, S2. ABDOMEN: Soft, nontender, nondistended, normoactive bowel sounds, no guarding, no rebound, no hepatosplenomegaly, no masses. EXTREMITIES: 2+ pulses, warm, well-perfused, 1+ Edema LLE. NEUROLOGICAL: Cranial nerves II through XII grossly intact. Normal speech, gait not observed. PSYCH: Normal mood, normal affect. SKIN: Warm, dry, normal turgor, no rashes or lesions noted Laboratory Results - last 24 hr 11/13/18 11/13/18 11/14/18 06:35 06:35 05:15 WBC 5.8 RBC 4.00 Hgb 11.7 Hct 36.3 MCV 90.8 MCH 29.3 MCHC 32.3 RDW 16.4 H Plt Count 286 D MPV 7.9 Absolute Neuts (auto) 3.1 Neutrophils % 52.8 Lymphocytes % 28.9 D Monocytes % 11.1 H Eosinophils % 6.6 H Basophils % 0.6 Nucleated RBC % 0 Sodium 137 137 Potassium 4.3 4.5 Chloride 99 100 Carbon Dioxide 31 36 H Anion Gap 6 L 1 L BUN 13.2 14.2 Creatinine 0.9 0.8 Est GFR (CKD-EPI)AfAm 82.26 94.85 Est GFR (CKD-EPI)NonAf 70.98 81.84 Random Glucose 97 84 Calcium 8.9 8.9 Magnesium 2.2 Total Bilirubin 0.2 < 0.1 L AST 11 L 10 L ALT 12 L 12 L Alkaline Phosphatase 94 77 B-Natriuretic Peptide 471.8 H Total Protein 9.6 H 8.5 H Albumin 2.2 L 2.0 L Active Medications Generic Name Dose Route Start Last Admin Trade Name Freq PRN Reason Stop Dose Admin Albuterol/Ipratropium 1 amp 11/11/18 09:29 11/12/18 07:59 Duoneb - NEB 1 amp Q4H PRN Administration SHORTNESS OF BREATH Amitriptyline HCl 50 mg 11/11/18 22:00 11/13/18 21:29 Elavil - PO 50 mg HS [facility]ICA Administration Amlodipine Besylate 10 mg 11/11/18 10:00 11/13/18 09:32 Norvasc - PO 10 mg DAILY [facility] Administration Aspirin 81 mg 11/11/18 10:00 11/13/18 09:32 Ecotrin - PO 81 mg DAILY [facility] Administration Budesonide/Formoterol Fumarate 2 puff 11/11/18 10:00 11/13/18 09:34 Symbicort 80/4.5mcg - IH 2 puff DAILY [facility]ONICA Administration Furosemide 40 mg 11/11/18 10:00 11/13/18 09:32 Lasix - PO 40 mg DAILY [facility] Administration Gabapentin 300 mg 11/11/18 10:00 11/13/18 09:33 Neurontin - PO 300 mg DAILY [facility] Administration Gabapentin 600 mg 11/10/18 22:00 11/13/18 21:29 Neurontin - PO 600 mg HS [facility]ICA Administration Heparin Sodium (Porcine) 5,000 unit 11/11/18 22:00 11/13/18 21:29 Heparin - SQ 5,000 unit BID [facility] Administration Piperacillin Sod/Tazobactam 50 mls @ 100 mls/hr 11/11/18 13:15 11/14/18 01:16 Sod 3.375 gm/ Dextrose IVPB 100 mls/hr Q8H-IV [facility]ONICA Administration Protocol Methadone HCl 40 mg/ Methadone 70 mg 11/12/18 12:00 11/14/18 05:20 HCl 30 mg PO 70 mg 0600 [facility] Administration Metoprolol Tartrate 25 mg 11/10/18 22:00 11/13/18 21:29 Lopressor - PO 25 mg BID [facility] Administration Mirtazapine 15 mg 11/10/18 22:00 11/13/18 21:29 Remeron - PO 15 mg HS [facility] Administration Non-Formulary Medication 1 each 11/13/18 10:00 11/13/18 09:33 Bictegrav/Emtricit/Tenofov Ala PO 1 each DAILY [facility] Administration Venlafaxine HCl 150 mg 11/11/18 10:00 11/13/18 09:33 Effexor Xr - PO 150 mg DAILY [facility] Administration ASSESSMENT/PLAN: (1) Aspiration into airway Speech Eval Completed-Impression -Pt able to tolerate pureed, regular solids with thin liquids as tolerated. Observe standard aspiration precautions. Code(s): T17.908A - UNSP FB IN RESP TRACT, PART UNSP CAUSING OTH INJURY, INIT (2) HIV (human immunodeficiency virus infection) Currently on HAART therapy-will continue Follows at [facility] Last viral load according to chart: 100/CD4 396 (10/14/18) No suspicion of PCP Code(s): B20 - HUMAN IMMUNODEFICIENCY VIRUS [HIV] DISEASE (3) Prophylactic measure FEN -regualr diet -no need for additional IVF -monitor electrolytes DVT -pt ambulatory -heparin 5000 sq Dispo -Maintain as in patient -discharge planning -full code Code(s): Z29.9 - ENCOUNTER FOR PROPHYLACTIC MEASURES, UNSPECIFIED (4) Substance abuse History of ETOH & polysubstance use Verified methadone dose at [facility] and will continue at 70mg Daily Code(s): F19.10 - OTHER PSYCHOACTIVE SUBSTANCE ABUSE, UNCOMPLICATED (5) COPD exacerbation supplemental O2 to maintain sats >92% -[facility] PRN -Incentive spirometry Code(s): J44.1 - CHRONIC OBSTRUCTIVE PULMONARY DISEASE W (ACUTE) EXACERBATION (6) Edema 1+ Edema to LLE -continue lasix -Per cardiology Consult input-LE edema is likely due to Amlodipine effect +/- chronic right sided CHF -low sodium diet -TTE : EF 60-65%, mild to mid TR, no MR, mod AR Code(s): R60.9 - EDEMA, UNSPECIFIED (7) Pneumonia -Multifocal RUL and RLL Infiltrates per CT -ID consultation-continue on zozyn -Duonebs PRN -monitor temperature curve -Urine Culture Still Pending -Blood Culture-No growth after 48 hours. Incubation to continue for a total of 4 days Code(s): J18.9 - PNEUMONIA, UNSPECIFIED ORGANISM (8) Anxiety disorder continue Remeron and Effexor Code(s): F41.9 - ANXIETY DISORDER, UNSPECIFIED (9) CHF (congestive heart failure) -BNP in ED >600, 340 on 11/11, and 422.8 on 11/12 Will recheck. -continue lasix -EKG without ischemic changes-Trop .02 x2 , no further need to trend Code(s): I50.9 - HEART FAILURE, UNSPECIFIED (10) Depressive disorder Code(s): F32.9 - MAJOR DEPRESSIVE DISORDER, SINGLE EPISODE, UNSPECIFIED (12) Hypertension Continue home does of Metoprolol and Norvasc-remains normotensive Code(s): I10 - ESSENTIAL (PRIMARY) HYPERTENSION (13) Tobacco use Currently a smoker -Counselled on smoking cessation -Occasional use of home O2 Code(s): Z72.0 - TOBACCO USE Problem List - Problems (1) Aspiration into airway Code(s): T17.908A - UNSP FB IN RESP TRACT, PART UNSP CAUSING OTH INJURY, INIT (2) HIV (human immunodeficiency virus infection) Code(s): B20 - HUMAN IMMUNODEFICIENCY VIRUS [HIV] DISEASE (3) Prophylactic measure Code(s): Z29.9 - ENCOUNTER FOR PROPHYLACTIC MEASURES, UNSPECIFIED (4) Substance abuse Code(s): F19.10 - OTHER PSYCHOACTIVE SUBSTANCE ABUSE, UNCOMPLICATED (5) COPD exacerbation Code(s): J44.1 - CHRONIC OBSTRUCTIVE PULMONARY DISEASE W (ACUTE) EXACERBATION (6) Edema Code(s): R60.9 - EDEMA, UNSPECIFIED (7) Pneumonia Code(s): J18.9 - PNEUMONIA, UNSPECIFIED ORGANISM (8) Anxiety disorder Code(s): F41.9 - ANXIETY DISORDER, UNSPECIFIED (9) CHF (congestive heart failure) Code(s): I50.9 - HEART FAILURE, UNSPECIFIED (10) Depressive disorder Code(s): F32.9 - MAJOR DEPRESSIVE DISORDER, SINGLE EPISODE, UNSPECIFIED (12) Hypertension Code(s): I10 - ESSENTIAL (PRIMARY) HYPERTENSION (13) Tobacco use Code(s): Z72.0 - TOBACCO USE Visit type - Emergency Visit Emergency Visit: Yes ED Registration Date: 11/10/18 Care time: The patient presented to the Emergency Department on the above date and was hospitalized for further evaluation of their emergent condition. - New Patient This patient is new to me today: Yes Date on this admission: 11/14/18 - Critical Care Critical Care patient: No
[2018-11-14] MEDS: amLODIPine BESYLATE 10 MG TABLET (FP) PO SCH (09:22)
[2018-11-14] MEDS: FUROSEMIDE 40 MG TABLET (FP) PO SCH (09:22)
[2018-11-14] MEDS: METOPROLOL TARTRATE 25 MG TABLET (FP) PO SCH ×2 (09:22→21:33)
[2018-11-14] MEDS: ASPIRIN COATED 81 MG TABLET.EC PO SCH (09:22)
[2018-11-14] MEDS: GABAPENTIN 300 MG CAPSULE (FP) PO SCH ×2 (09:22→21:32)
[2018-11-14] MEDS: BUDESONIDE/FORMETEROL FUMARATE 80/4.5 mcg INHALER IH SCH (09:22)
[2018-11-14] MEDS: PATIENT'S OWN MEDICATION (NON-FORMULARY) (Bictegrav/Emtricit/Tenofov Ala 1 EACH) PO SCH (09:22)
[2018-11-14] MEDS: HEPARIN NA (PORCINE) 5,000 UNITS/ML 1ML VIAL SQ SCH ×2 (09:22→21:32)
[2018-11-14] MEDS: VENLAFAXINE HCL 75 MG E.R. CAPSULES (FP) PO SCH (09:22)
--- NOTE | 2018-11-14 11:28 | PN ---
Progress Note (short form) - Note Progress Note: s: feels better. no chest pain, palps, dizziness, dyspnea Current Medications Albuterol/Ipratropium (Duoneb -) 1 amp NEB Q4H PRN PRN Reason: SHORTNESS OF BREATH Last Admin: 11/12/18 07:59 Dose: 1 amp Amitriptyline HCl (Elavil -) 50 mg PO HS [facility] Last Admin: 11/13/18 21:29 Dose: 50 mg Amlodipine Besylate (Norvasc -) 10 mg PO DAILY [facility] Last Admin: 11/14/18 09:22 Dose: 10 mg Aspirin (Ecotrin -) 81 mg PO DAILY [facility] Last Admin: 11/14/18 09:22 Dose: 81 mg Budesonide/Formoterol Fumarate (Symbicort 80/4.5mcg -) 2 puff IH DAILY [facility] Last Admin: 11/14/18 09:22 Dose: 2 puff Furosemide (Lasix -) 40 mg PO DAILY [facility] Last Admin: 11/14/18 09:22 Dose: 40 mg Gabapentin (Neurontin -) 300 mg PO DAILY [facility] Last Admin: 11/14/18 09:22 Dose: 300 mg Gabapentin (Neurontin -) 600 mg PO HS [facility] Last Admin: 11/13/18 21:29 Dose: 600 mg Heparin Sodium (Porcine) (Heparin -) 5,000 unit SQ BID [facility] Last Admin: 11/14/18 09:22 Dose: 5,000 unit Piperacillin Sod/Tazobactam (Sod 3.375 gm/ Dextrose) 50 mls @ 100 mls/hr IVPB Q8H-IV VERONICA; Protocol Last Admin: 11/14/18 09:22 Dose: 100 mls/hr Methadone HCl 40 mg/ Methadone (HCl 30 mg) 70 mg PO 0600 [facility] Last Admin: 11/14/18 05:20 Dose: 70 mg Metoprolol Tartrate (Lopressor -) 25 mg PO BID [facility] Last Admin: 11/14/18 09:22 Dose: 25 mg Mirtazapine (Remeron -) 15 mg PO HS [facility] Last Admin: 11/13/18 21:29 Dose: 15 mg Non-Formulary Medication (Bictegrav/Emtricit/Tenofov Ala) 1 each PO DAILY [facility] Last Admin: 11/14/18 09:22 Dose: 1 each Venlafaxine HCl (Effexor Xr -) 150 mg PO DAILY [facility] Last Admin: 11/14/18 09:22 Dose: 150 mg Vital Signs Period Temp Pulse Resp BP Sys/Álvarez Pulse Ox Last 24 Hr 97.5 F-99.3 F 56-68 14-20 104-150/64-76 91-99 Constitutional: Yes: No Distress Cardiovascular: Yes: Regular Rate and Rhythm Respiratory: Yes: Other (right sided rales.) Gastrointestinal: Yes: Soft (NT) Edema: No Neurological: Yes: Alert, Oriented not agitated no jaundice, diaphoresis EKG: Image Reviewed Assessment/Plan IMP: 1. HIV 2. Fever, cough, hypoxia secondary to PNA 3. Probable chronic CHF on the basis of valvular heart disease, possible R. sided CHF from COPD/ known PHTN 4. Active smoker w/ COPD 5. History of bio AVR/MVR with bioAVR stenosis REC: 1. Supplemental O2, abx as per PMD and ID 2. Chest CT confirmed PNA, manage per primary 3. Follow blood cultures 4. Continue ASA 81mg daily for bio MVR/AVR. 5. Suspect her LE edema is likely due to Amlodipine effect +/- chronic right sided CHF as outlined above. 6. Echo showed nl LV function, biatrial enlargement, bioMVR with normal function , elevated RVSP 30-40 mmHg. 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
--- NOTE | 2018-11-14 14:07 | PN ---
Progress Note, Physician History of Present Illness: Pt is alert, states she feels better and less SOB. Tmax 99.3F. No other specific complaints. - Current Medication List Current Medications: Active Medications Albuterol/Ipratropium (Duoneb -) 1 amp NEB Q4H PRN PRN Reason: SHORTNESS OF BREATH Last Admin: 11/12/18 07:59 Dose: 1 amp Amitriptyline HCl (Elavil -) 50 mg PO HS [facility] Last Admin: 11/13/18 21:29 Dose: 50 mg Amlodipine Besylate (Norvasc -) 10 mg PO DAILY [facility] Last Admin: 11/14/18 09:22 Dose: 10 mg Aspirin (Ecotrin -) 81 mg PO DAILY [facility] Last Admin: 11/14/18 09:22 Dose: 81 mg Budesonide/Formoterol Fumarate (Symbicort 80/4.5mcg -) 2 puff IH DAILY [facility] Last Admin: 11/14/18 09:22 Dose: 2 puff Furosemide (Lasix -) 40 mg PO DAILY [facility] Last Admin: 11/14/18 09:22 Dose: 40 mg Gabapentin (Neurontin -) 300 mg PO DAILY [facility] Last Admin: 11/14/18 09:22 Dose: 300 mg Gabapentin (Neurontin -) 600 mg PO HS [facility] Last Admin: 11/13/18 21:29 Dose: 600 mg Heparin Sodium (Porcine) (Heparin -) 5,000 unit SQ BID [facility] Last Admin: 11/14/18 09:22 Dose: 5,000 unit Piperacillin Sod/Tazobactam (Sod 3.375 gm/ Dextrose) 50 mls @ 100 mls/hr IVPB Q8H-IV [facility]ONICA; Protocol Last Admin: 11/14/18 09:22 Dose: 100 mls/hr Methadone HCl 40 mg/ Methadone (HCl 30 mg) 70 mg PO 0600 [facility] Last Admin: 11/14/18 05:20 Dose: 70 mg Metoprolol Tartrate (Lopressor -) 25 mg PO BID [facility] Last Admin: 11/14/18 09:22 Dose: 25 mg Mirtazapine (Remeron -) 15 mg PO HS [facility] Last Admin: 11/13/18 21:29 Dose: 15 mg Non-Formulary Medication (Bictegrav/Emtricit/Tenofov Ala) 1 each PO DAILY [facility] Last Admin: 11/14/18 09:22 Dose: 1 each Venlafaxine HCl (Effexor Xr -) 150 mg PO DAILY [facility] Last Admin: 11/14/18 09:22 Dose: 150 mg - Objective Vital Signs: Vital Signs Temperature 98.2 F 11/14/18 10:00 Pulse Rate 67 11/14/18 10:00 Respiratory Rate 20 11/14/18 10:00 Blood Pressure 104/64 11/14/18 10:00 O2 Sat by Pulse Oximetry (%) 91 L 11/14/18 10:00 Constitutional: Yes: No Distress, Calm Cardiovascular: Yes: Regular Rate and Rhythm Respiratory: Yes: Diminished (basilar), On Nasal O2 Gastrointestinal: Yes: Normal Bowel Sounds, Soft Genitourinary: Yes: WNL Extremities: Yes: WNL Integumentary: Yes: WNL Neurological: Yes: Alert, Oriented Labs: CBC, BMP 11/13/18 06:35 11/14/18 05:15 INR, PTT INR 1.31 (0.83-1.09) H 11/10/18 11:36 Microbiology 11/10/18 11:36 Blood - Peripheral Venous Blood Culture - Preliminary NO GROWTH OBTAINED AFTER 96 HOURS, INCUBATION TO CONTINUE FOR 1 DAYS. 11/10/18 11:40 Blood - Peripheral Venous Blood Culture - Preliminary NO GROWTH OBTAINED AFTER 96 HOURS, INCUBATION TO CONTINUE FOR 1 DAYS. 11/12/18 18:35 Urine - Urine Clean Catch Urine Culture - Preliminary 11/12/18 09:30 Nares - Mrsa Screen - Right MRSA Screen - Final NO MRSA ISOLATED 11/12/18 09:30 Nares - Mrsa Screen - Left MRSA Screen - Final NO MRSA ISOLATED 11/10/18 13:00 Urine - Urine Clean Catch Urine Culture - Final Contaminated: Please Repeat - ....Imaging Cat Scan: Report Reviewed Problem List - Problems (1) HIV (human immunodeficiency virus infection) Code(s): B20 - HUMAN IMMUNODEFICIENCY VIRUS [HIV] DISEASE (2) Pneumonia Code(s): J18.9 - PNEUMONIA, UNSPECIFIED ORGANISM Assessment/Plan Pneumonia HIV on HAART Asthma/COPD Pulmonary HTN s/p AVR/MVR -- continue antibiotics, on bronchodilators/supplemental O2 -- continue ARVs -- send Urine Ags for legionella improving monitor temps, Tmax 99.3F
[2018-11-14] MEDS: MIRTAZAPINE 15 MG TABLET (FP) PO SCH (21:33)
[2018-11-14] MEDS: AMITRIPTYLINE HCL 25 MG TABLET (FP) PO SCH (21:33)
[2018-11-15] MEDS ORDERED: PIPERACILLIN/TAZOBACTAM 3.375 GM VIAL IVPB ONE ×3 (02:07→16:43)
[2018-11-15] MEDS ORDERED: DEXTROSE 5%-WATER - 50 ML IVPB ONE ×3 (02:08→16:43)
[2018-11-15] MEDS: PIPERACILLIN/TAZOB 3.375 GM 3.375 GM in DEXTROSE 5%-WATER - 50 ML IVPB SCH ×3 (02:17→17:37)
[2018-11-15] MEDS ORDERED: METHADONE HCL 40 MG DISPERSABLE TABLET ONE (05:07)
[2018-11-15] MEDS ORDERED: METHADONE HCL 10 MG TABLET ONE (05:07)
[2018-11-15] MEDS: METHADONE 40 MG, METHADONE 30 MG PO SCH (05:10)
--- NOTE | 2018-11-15 07:40 | PN ---
Progress Note, Physician Chief Complaint: feeling better, no SOB History of Present Illness: 58yo F with PMH of HIV (on HAART), COPD, Aortic and Mitral Valve Replacement ( 2015), HTN presenting to ED with complaints of cough productive of yellow sputum , sob and occasional chest pain. Symptoms started 3 days ago. She used inhaled bronchodilators without effect. Denies fever, weight loss, abdominal pain, n/v/d , medication noncompliance, sore throat, congestion, palpitations, swelling, urinary symptoms. States she had chills early yesterday morning but it passed. - Current Medication List Current Medications: Active Medications Albuterol/Ipratropium (Duoneb -) 1 amp NEB Q4H PRN PRN Reason: SHORTNESS OF BREATH Last Admin: 11/12/18 07:59 Dose: 1 amp Amitriptyline HCl (Elavil -) 50 mg PO [facility] Last Admin: 11/14/18 21:33 Dose: 50 mg Amlodipine Besylate (Norvasc -) 10 mg PO DAILY [facility] Last Admin: 11/14/18 09:22 Dose: 10 mg Aspirin (Ecotrin -) 81 mg PO DAILY [facility] Last Admin: 11/14/18 09:22 Dose: 81 mg Budesonide/Formoterol Fumarate (Symbicort 80/4.5mcg -) 2 puff IH DAILY [facility] Last Admin: 11/14/18 09:22 Dose: 2 puff Furosemide (Lasix -) 40 mg PO DAILY [facility] Last Admin: 11/14/18 09:22 Dose: 40 mg Gabapentin (Neurontin -) 300 mg PO DAILY [facility] Last Admin: 11/14/18 09:22 Dose: 300 mg Gabapentin (Neurontin -) 600 mg PO HS [facility] Last Admin: 11/14/18 21:32 Dose: 600 mg Heparin Sodium (Porcine) (Heparin -) 5,000 unit SQ BID [facility] Last Admin: 11/14/18 21:32 Dose: 5,000 unit Piperacillin Sod/Tazobactam (Sod 3.375 gm/ Dextrose) 50 mls @ 100 mls/hr IVPB Q8H-IV [facility]; Protocol Last Admin: 11/15/18 02:17 Dose: 100 mls/hr Methadone HCl 40 mg/ Methadone (HCl 30 mg) 70 mg PO 0600 [facility] Last Admin: 11/15/18 05:10 Dose: 70 mg Metoprolol Tartrate (Lopressor -) 25 mg PO BID [facility] Last Admin: 11/14/18 21:33 Dose: 25 mg Mirtazapine (Remeron -) 15 mg PO HS [facility] Last Admin: 11/14/18 21:33 Dose: 15 mg Non-Formulary Medication (Bictegrav/Emtricit/Tenofov Ala) 1 each PO DAILY [facility] Last Admin: 11/14/18 09:22 Dose: 1 each Venlafaxine HCl (Effexor Xr -) 150 mg PO DAILY [facility] Last Admin: 11/14/18 09:22 Dose: 150 mg - Objective Vital Signs: Vital Signs Temperature 97.9 F 11/15/18 06:00 Pulse Rate 66 11/15/18 06:00 Respiratory Rate 116 H 11/15/18 06:00 Blood Pressure 118/74 11/15/18 01:37 O2 Sat by Pulse Oximetry (%) 91 L 11/14/18 20:27 Constitutional: Yes: Well Nourished, No Distress, Calm Eyes: Yes: WNL, Conjunctiva Clear, EOM Intact HENT: Yes: WNL, Atraumatic, Normocephalic Neck: Yes: WNL, Supple, Trachea Midline Cardiovascular: Yes: WNL, Regular Rate and Rhythm Respiratory: Yes: WNL, Regular, CTA Bilaterally, On Nasal O2 (PRN) Gastrointestinal: Yes: WNL, Normal Bowel Sounds, Soft ...Rectal Exam: Yes: Deferred Genitourinary: Yes: WNL Musculoskeletal: Yes: WNL Extremities: Yes: WNL Edema: Yes Edema: LLE: 2+, RLE: 2+ Peripheral Pulses WNL: Yes Integumentary: Yes: WNL Neurological: Yes: WNL, Alert, Oriented ...Motor Strength: WNL Psychiatric: Yes: WNL, Alert, Oriented Labs: CBC, BMP 11/13/18 06:35 11/14/18 05:15 INR, PTT INR 1.31 (0.83-1.09) H 11/10/18 11:36 - ....Imaging Cat Scan: Report Reviewed (Chest CT: miltifocal right upper and lower infiltrates) Problem List - Problems (1) Substance abuse Assessment/Plan: history of ETOH and polysubstance abuse on methadone-will confirm maintence dose in the morning Code(s): F19.10 - OTHER PSYCHOACTIVE SUBSTANCE ABUSE, UNCOMPLICATED (2) COPD exacerbation Assessment/Plan: supplemental O2 to maintain sats >92% dub nebs PRN Incentive spirometry Code(s): J44.1 - CHRONIC OBSTRUCTIVE PULMONARY DISEASE W (ACUTE) EXACERBATION (3) Edema Assessment/Plan: 2+ edema to LE c/w lasix 40mg PO low sodium diet Code(s): R60.9 - EDEMA, UNSPECIFIED (4) Pneumonia Assessment/Plan: multifocal right upper and lower infiltartes start abx-axitromycin & centriaxone ID consult appreciated duo nebs PRN monitor temperature curve Blood cx NGTD, Ucx with yeast pre-post to determine need for home O2 Code(s): J18.9 - PNEUMONIA, UNSPECIFIED ORGANISM (5) Anxiety disorder Assessment/Plan: continue remeron and effexor Code(s): F41.9 - ANXIETY DISORDER, UNSPECIFIED (6) CHF (congestive heart failure) Assessment/Plan: continue lasix cardiology consultation appreciated EKG without ischemic changes-Trop .02 Code(s): I50.9 - HEART FAILURE, UNSPECIFIED (7) Depressive disorder Assessment/Plan: continue remeron and effexor Code(s): F32.9 - MAJOR DEPRESSIVE DISORDER, SINGLE EPISODE, UNSPECIFIED (8) H/O prosthetic heart valve Assessment/Plan: appreciate cardiology consultation (9) Hypertension Assessment/Plan: continue home dose of metoprolol and norvasc Code(s): I10 - ESSENTIAL (PRIMARY) HYPERTENSION (10) Tobacco use Assessment/Plan: currently smoking counseled n smoking cessation occasional use of Home O2 Code(s): Z72.0 - TOBACCO USE (11) Prophylactic measure Assessment/Plan: FEN regular diet monitor electrolytes DVT pt ambulatory heparin 5000 sq Dispo Maintain as in patient discharge planning full code Code(s): Z29.9 - ENCOUNTER FOR PROPHYLACTIC MEASURES, UNSPECIFIED (12) HIV (human immunodeficiency virus infection) Assessment/Plan: currently on HAART therapy-will continue Follows at [facility] Last viral load according to chart: 100/CD4 396 (10/14/18) No suspicion of PCP Code(s): B20 - HUMAN IMMUNODEFICIENCY VIRUS [HIV] DISEASE Visit type - Emergency Visit Emergency Visit: Yes ED Registration Date: 11/10/18 Care time: The patient presented to the Emergency Department on the above date and was hospitalized for further evaluation of their emergent condition. - New Patient This patient is new to me today: No - Critical Care Critical Care patient: No - Discharge Referral Referred to [facility] No
[2018-11-15 08:24] LABS: BASO % 0.8 % (0-2.0); EOS % 3.9 % (0-4.5); HEMATOCRIT 36.6 % (32.4-45.2); HEMOGLOBIN 11.4 GM/dL (10.7-15.3); LYMPH % 26.5 % (8-40); MCH 28.2 pg (25.7-33.7); MEAN CELL VOLUME 90.8 fl (80-96); MEAN PLT VOLUME 7.9 fl (7.5-11.1); MONO % 12.2 % (3.8-10.2); NEUT % 56.6 % (42.8-82.8); PLATELET COUNT 271 K/MM3 (134-434); RBC 4.03 M/mm3 (3.60-5.2); RDW 15.9 % (11.6-15.6); WHITE BLOOD COUNT 5.9 K/mm3 (4.0-10.0)
[2018-11-15 08:33] LABS: ALBUMIN 2.1 g/dl (3.4-5.0); BILIRUBIN,TOTAL 0.1 mg/dL (0.2-1); BLOOD UREA NITROGEN 12.3 mg/dL (7-18); CALCIUM 9.3 mg/dL (8.5-10.1); CREATININE 0.7 mg/dL (0.55-1.3); MAGNESIUM 1.9 mg/dL (1.8-2.4); POTASSIUM 4.6 mmol/L (3.5-5.1)
--- NOTE | 2018-11-15 08:48 | PN ---
Progress Note, Physician Chief Complaint: seen and examined on tele Feeling better Ambulating. TELE: NSR - Current Medication List Current Medications: Active Medications Albuterol/Ipratropium (Duoneb -) 1 amp NEB Q4H PRN PRN Reason: SHORTNESS OF BREATH Last Admin: 11/12/18 07:59 Dose: 1 amp Amitriptyline HCl (Elavil -) 50 mg PO HS [facility] Last Admin: 11/14/18 21:33 Dose: 50 mg Amlodipine Besylate (Norvasc -) 10 mg PO DAILY [facility] Last Admin: 11/14/18 09:22 Dose: 10 mg Aspirin (Ecotrin -) 81 mg PO DAILY [facility] Last Admin: 11/14/18 09:22 Dose: 81 mg Budesonide/Formoterol Fumarate (Symbicort 80/4.5mcg -) 2 puff IH DAILY [facility] Last Admin: 11/14/18 09:22 Dose: 2 puff Furosemide (Lasix -) 40 mg PO DAILY [facility] Last Admin: 11/14/18 09:22 Dose: 40 mg Gabapentin (Neurontin -) 300 mg PO DAILY [facility] Last Admin: 11/14/18 09:22 Dose: 300 mg Gabapentin (Neurontin -) 600 mg PO HS [facility] Last Admin: 11/14/18 21:32 Dose: 600 mg Heparin Sodium (Porcine) (Heparin -) 5,000 unit SQ BID [facility] Last Admin: 11/14/18 21:32 Dose: 5,000 unit Piperacillin Sod/Tazobactam (Sod 3.375 gm/ Dextrose) 50 mls @ 100 mls/hr IVPB Q8H-IV [facility]; Protocol Last Admin: 11/15/18 02:17 Dose: 100 mls/hr Methadone HCl 40 mg/ Methadone (HCl 30 mg) 70 mg PO 0600 [facility] Last Admin: 11/15/18 05:10 Dose: 70 mg Metoprolol Tartrate (Lopressor -) 25 mg PO BID [facility] Last Admin: 11/14/18 21:33 Dose: 25 mg Mirtazapine (Remeron -) 15 mg PO HS [facility] Last Admin: 11/14/18 21:33 Dose: 15 mg Non-Formulary Medication (Bictegrav/Emtricit/Tenofov Ala) 1 each PO DAILY [facility] Last Admin: 11/14/18 09:22 Dose: 1 each Venlafaxine HCl (Effexor Xr -) 150 mg PO DAILY [facility] Last Admin: 11/14/18 09:22 Dose: 150 mg - Objective Vital Signs: Vital Signs Temperature 97.9 F 11/15/18 06:00 Pulse Rate 66 11/15/18 06:00 Respiratory Rate 116 H 11/15/18 06:00 Blood Pressure 118/74 11/15/18 01:37 O2 Sat by Pulse Oximetry (%) 91 L 11/14/18 20:27 Constitutional: Yes: No Distress Cardiovascular: Yes: Regular Rate and Rhythm Respiratory: Yes: Rhonchi Gastrointestinal: Yes: Soft Edema: No Neurological: Yes: Alert, Oriented ...Motor Strength: WNL Labs: CBC, BMP 11/15/18 07:44 11/15/18 07:44 INR, PTT INR 1.31 (0.83-1.09) H 11/10/18 11:36 - ....Imaging EKG: Image Reviewed Assessment/Plan IMP: 1. HIV 2. Fever, cough, hypoxia secondary to PNA 3. Probable chronic CHF on the basis of valvular heart disease, possible R. sided CHF from COPD/ known PHTN 4. Active smoker w/ COPD 5. History of bio AVR/MVR with bioAVR stenosis REC: 1. Supplemental O2, abx as per PMD and ID 2. Chest CT confirmed PNA, manage per primary 3. Follow blood cultures 4. Continue ASA 81mg daily for bio MVR/AVR. 5. Suspect her LE edema is likely due to Amlodipine effect +/- chronic right sided CHF as outlined above. 6. Echo showed nl LV function, biatrial enlargement, bioMVR with normal function , elevated RVSP 30-40 mmHg. BioAVR with moderate AR and prosthetic valve stenosis with mean gradient 43 mmHg - continue lasix for now, will need to compare to outpatient studies Report sent to outpatient back sewer Dr. Morris
[2018-11-15] MEDS: amLODIPine BESYLATE 10 MG TABLET (FP) PO SCH (09:02)
[2018-11-15] MEDS: METOPROLOL TARTRATE 25 MG TABLET (FP) PO SCH ×2 (09:02→21:36)
[2018-11-15] MEDS: HEPARIN NA (PORCINE) 5,000 UNITS/ML 1ML VIAL SQ SCH ×2 (09:03→21:37)
[2018-11-15] MEDS: GABAPENTIN 300 MG CAPSULE (FP) PO SCH ×2 (09:03→21:37)
[2018-11-15] MEDS: BUDESONIDE/FORMETEROL FUMARATE 80/4.5 mcg INHALER IH SCH (09:03)
[2018-11-15] MEDS: VENLAFAXINE HCL 75 MG E.R. CAPSULES (FP) PO SCH (09:03)
[2018-11-15] MEDS: PATIENT'S OWN MEDICATION (NON-FORMULARY) (Bictegrav/Emtricit/Tenofov Ala 1 EACH) PO SCH (09:03)
[2018-11-15] MEDS: FUROSEMIDE 40 MG TABLET (FP) PO SCH (09:03)
[2018-11-15] MEDS: ASPIRIN COATED 81 MG TABLET.EC PO SCH (09:03)
--- NOTE | 2018-11-15 13:51 | PN ---
Progress Note, Physician History of Present Illness: feels better breathing better - Current Medication List Current Medications: Active Medications Albuterol/Ipratropium (Duoneb -) 1 amp NEB Q4H PRN PRN Reason: SHORTNESS OF BREATH Last Admin: 11/12/18 07:59 Dose: 1 amp Amitriptyline HCl (Elavil -) 50 mg PO HS [facility] Last Admin: 11/14/18 21:33 Dose: 50 mg Amlodipine Besylate (Norvasc -) 10 mg PO DAILY [facility] Last Admin: 11/15/18 09:02 Dose: 10 mg Aspirin (Ecotrin -) 81 mg PO DAILY [facility] Last Admin: 11/15/18 09:03 Dose: 81 mg Budesonide/Formoterol Fumarate (Symbicort 80/4.5mcg -) 2 puff IH DAILY [facility] Last Admin: 11/15/18 09:03 Dose: 2 puff Furosemide (Lasix -) 40 mg PO DAILY [facility] Last Admin: 11/15/18 09:03 Dose: 40 mg Gabapentin (Neurontin -) 300 mg PO DAILY [facility] Last Admin: 11/15/18 09:03 Dose: 300 mg Gabapentin (Neurontin -) 600 mg PO HS [facility] Last Admin: 11/14/18 21:32 Dose: 600 mg Heparin Sodium (Porcine) (Heparin -) 5,000 unit SQ BID [facility] Last Admin: 11/15/18 09:03 Dose: 5,000 unit Piperacillin Sod/Tazobactam (Sod 3.375 gm/ Dextrose) 50 mls @ 100 mls/hr IVPB Q8H-IV [facility]; Protocol Last Admin: 11/15/18 09:02 Dose: 100 mls/hr Methadone HCl 40 mg/ Methadone (HCl 30 mg) 70 mg PO 0600 [facility] Last Admin: 11/15/18 05:10 Dose: 70 mg Metoprolol Tartrate (Lopressor -) 25 mg PO BID [facility] Last Admin: 11/15/18 09:02 Dose: 25 mg Mirtazapine (Remeron -) 15 mg PO HS [facility] Last Admin: 11/14/18 21:33 Dose: 15 mg Non-Formulary Medication (Bictegrav/Emtricit/Tenofov Ala) 1 each PO DAILY [facility] Last Admin: 11/15/18 09:03 Dose: 1 each Venlafaxine HCl (Effexor Xr -) 150 mg PO DAILY [facility] Last Admin: 11/15/18 09:03 Dose: 150 mg - Objective Vital Signs: Vital Signs Temperature 98.1 F 11/15/18 10:00 Pulse Rate 54 L 11/15/18 10:00 Respiratory Rate 18 11/15/18 10:00 Blood Pressure 124/83 11/15/18 10:00 O2 Sat by Pulse Oximetry (%) 99 11/15/18 10:00 Constitutional: Yes: No Distress, Calm Cardiovascular: Yes: Regular Rate and Rhythm Respiratory: Yes: Regular, CTA Bilaterally, On Nasal O2 Gastrointestinal: Yes: Normal Bowel Sounds, Soft Musculoskeletal: Yes: WNL Extremities: Yes: WNL Neurological: Yes: Alert, Oriented Psychiatric: Yes: Alert, Oriented Labs: CBC, BMP 11/15/18 07:44 11/15/18 07:44 INR, PTT INR 1.31 (0.83-1.09) H 11/10/18 11:36 Assessment/Plan this patient with h/o hiv coming in wiht pneumonia ct scan seen and result noted continue abx incentive [place] rest as per the team
--- NOTE | 2018-11-15 17:16 | PN ---
Progress Note, MAINTENANCE TECHNICIAN 2ND SHIFT - Note Progress Note: 58 yo female seen at chairside on unit as a follow up to swallow eval with recommendations for regular solids with thin liquids. Chart review indicates that patient has been consuming meals at 100%. 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 Recommendations: continue current diet of regular solids with thin liquids as tolerated. Observed standard aspiration precautions. No further speech therapy follow up needed unless there is a change in medical status. Results given to broker in charge and to PCP via chart.
[2018-11-15] MEDS: MIRTAZAPINE 15 MG TABLET (FP) PO SCH (21:37)
[2018-11-15] MEDS: AMITRIPTYLINE HCL 25 MG TABLET (FP) PO SCH (21:37)
[2018-11-16] MEDS ORDERED: PIPERACILLIN/TAZOBACTAM 3.375 GM VIAL IVPB ONE ×3 (01:21→18:45)
[2018-11-16] MEDS ORDERED: DEXTROSE 5%-WATER - 50 ML IVPB ONE ×3 (01:21→18:45)
[2018-11-16] MEDS: PIPERACILLIN/TAZOB 3.375 GM 3.375 GM in DEXTROSE 5%-WATER - 50 ML IVPB SCH ×3 (02:03→18:53)
[2018-11-16] MEDS ORDERED: METHADONE HCL 40 MG DISPERSABLE TABLET ONE (05:41)
[2018-11-16] MEDS ORDERED: METHADONE HCL 10 MG TABLET ONE (05:42)
[2018-11-16] MEDS: METHADONE 40 MG, METHADONE 30 MG PO SCH (05:47)
[2018-11-16 07:01] LABS: BASO % 0.8 % (0-2.0); EOS % 3.7 % (0-4.5); HEMATOCRIT 32.1 % (32.4-45.2); HEMOGLOBIN 10.4 GM/dL (10.7-15.3); LYMPH % 27.6 % (8-40); MCH 29.1 pg (25.7-33.7); MCHC 32.4 g/dl (32.0-36.0); MEAN CELL VOLUME 89.9 fl (80-96); MEAN PLT VOLUME 7.7 fl (7.5-11.1); MONO % 13.3 % (3.8-10.2); NEUT % 54.6 % (42.8-82.8); PLATELET COUNT 260 K/MM3 (134-434); RBC 3.57 M/mm3 (3.60-5.2); RDW 16.1 % (11.6-15.6); WHITE BLOOD COUNT 5.4 K/mm3 (4.0-10.0)
[2018-11-16 07:50] LABS: ALBUMIN 1.9 g/dl (3.4-5.0); BILIRUBIN,TOTAL 0.2 mg/dL (0.2-1); BLOOD UREA NITROGEN 14.5 mg/dL (7-18); CALCIUM 8.6 mg/dL (8.5-10.1); CREATININE 0.8 mg/dL (0.55-1.3); MAGNESIUM 1.9 mg/dL (1.8-2.4); POTASSIUM 4.4 mmol/L (3.5-5.1); TOT PROT 8.5 g/dl (6.4-8.2)
[2018-11-16] MEDS ORDERED: PT OWN MED DRAWER 7, Y5N ONE (09:58)
[2018-11-16] MEDS: METOPROLOL TARTRATE 25 MG TABLET (FP) PO SCH ×2 (10:02→22:09)
[2018-11-16] MEDS: amLODIPine BESYLATE 10 MG TABLET (FP) PO SCH (10:03)
[2018-11-16] MEDS: FUROSEMIDE 40 MG TABLET (FP) PO SCH (10:04)
[2018-11-16] MEDS: HEPARIN NA (PORCINE) 5,000 UNITS/ML 1ML VIAL SQ SCH ×2 (10:04→22:09)
[2018-11-16] MEDS: ASPIRIN COATED 81 MG TABLET.EC PO SCH (10:04)
[2018-11-16] MEDS: VENLAFAXINE HCL 75 MG E.R. CAPSULES (FP) PO SCH (10:04)
[2018-11-16] MEDS: GABAPENTIN 300 MG CAPSULE (FP) PO SCH ×2 (10:04→22:09)
[2018-11-16] MEDS: PATIENT'S OWN MEDICATION (NON-FORMULARY) (Bictegrav/Emtricit/Tenofov Ala 1 EACH) PO SCH (10:05)
[2018-11-16] MEDS: BUDESONIDE/FORMETEROL FUMARATE 80/4.5 mcg INHALER IH SCH (10:06)
--- NOTE | 2018-11-16 10:44 | PN ---
Progress Note (short form) - Note Progress Note: s: no chest pain, palps, dyspnea, dizziness Current Medications Albuterol/Ipratropium (Duoneb -) 1 amp NEB Q4H PRN PRN Reason: SHORTNESS OF BREATH Last Admin: 11/12/18 07:59 Dose: 1 amp Amitriptyline HCl (Elavil -) 50 mg PO HS [facility] Last Admin: 11/15/18 21:37 Dose: 50 mg Amlodipine Besylate (Norvasc -) 10 mg PO DAILY [facility] Last Admin: 11/16/18 10:03 Dose: Not Given Aspirin (Ecotrin -) 81 mg PO DAILY [facility] Last Admin: 11/16/18 10:04 Dose: 81 mg Budesonide/Formoterol Fumarate (Symbicort 80/4.5mcg -) 2 puff IH DAILY [facility] Last Admin: 11/16/18 10:06 Dose: 2 puff Furosemide (Lasix -) 40 mg PO DAILY [facility] Last Admin: 11/16/18 10:04 Dose: 40 mg Gabapentin (Neurontin -) 300 mg PO DAILY [facility] Last Admin: 11/16/18 10:04 Dose: 300 mg Gabapentin (Neurontin -) 600 mg PO HS [facility] Last Admin: 11/15/18 21:37 Dose: 600 mg Heparin Sodium (Porcine) (Heparin -) 5,000 unit SQ BID [facility] Last Admin: 11/16/18 10:04 Dose: 5,000 unit Piperacillin Sod/Tazobactam (Sod 3.375 gm/ Dextrose) 50 mls @ 100 mls/hr IVPB Q8H-IV [facility]; Protocol Last Admin: 11/16/18 10:05 Dose: 100 mls/hr Methadone HCl 40 mg/ Methadone (HCl 30 mg) 70 mg PO 0600 [facility] Last Admin: 11/16/18 05:47 Dose: 70 mg Metoprolol Tartrate (Lopressor -) 25 mg PO BID [facility] Last Admin: 11/16/18 10:02 Dose: Not Given Mirtazapine (Remeron -) 15 mg PO HS [facility] Last Admin: 11/15/18 21:37 Dose: 15 mg Non-Formulary Medication (Bictegrav/Emtricit/Tenofov Ala) 1 each PO DAILY [facility] Last Admin: 11/16/18 10:05 Dose: 1 each Venlafaxine HCl (Effexor Xr -) 150 mg PO DAILY [facility] Last Admin: 11/16/18 10:04 Dose: 150 mg Vital Signs Period Temp Pulse Resp BP Sys/Álvarez Pulse Ox Last 24 Hr 97.9 F-98.8 F 51-62 16-20 95-108/60-65 95 Constitutional: Yes: No Distress Cardiovascular: Yes: Regular Rate and Rhythm Respiratory: Yes: Rhonchi Gastrointestinal: Yes: Soft Edema: No Neurological: Yes: Alert, Oriented no jaundice, diaphoresis not agitated tele: sinus angelica Assessment/Plan IMP: 1. HIV 2. Fever, cough, hypoxia secondary to PNA 3. Probable chronic CHF on the basis of valvular heart disease, possible R. sided CHF from COPD/ known PHTN 4. Active smoker w/ COPD 5. History of bio AVR/MVR with bioAVR stenosis REC: 1. Supplemental O2, abx as per PMD and ID 2. Chest CT confirmed PNA, manage per primary 3. Follow blood cultures 4. Continue ASA 81mg daily for bio MVR/AVR. 5. Suspect her LE edema is likely due to Amlodipine effect +/- chronic right sided CHF as outlined above. 6. Echo showed nl LV function, biatrial enlargement, bioMVR with normal function , elevated RVSP 30-40 mmHg. 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 Morris per Dr. Rich
--- NOTE | 2018-11-16 12:32 | PN ---
Progress Note, Physician History of Present Illness: breathing better events noted bp on the low side still requiring 02 - Current Medication List Current Medications: Active Medications Albuterol/Ipratropium (Duoneb -) 1 amp NEB Q4H PRN PRN Reason: SHORTNESS OF BREATH Last Admin: 11/12/18 07:59 Dose: 1 amp Amitriptyline HCl (Elavil -) 50 mg PO HS [facility] Last Admin: 11/15/18 21:37 Dose: 50 mg Amlodipine Besylate (Norvasc -) 10 mg PO DAILY [facility] Last Admin: 11/16/18 10:03 Dose: Not Given Aspirin (Ecotrin -) 81 mg PO DAILY [facility] Last Admin: 11/16/18 10:04 Dose: 81 mg Budesonide/Formoterol Fumarate (Symbicort 80/4.5mcg -) 2 puff IH DAILY [facility] Last Admin: 11/16/18 10:06 Dose: 2 puff Furosemide (Lasix -) 40 mg PO DAILY [facility] Last Admin: 11/16/18 10:04 Dose: 40 mg Gabapentin (Neurontin -) 300 mg PO DAILY [facility] Last Admin: 11/16/18 10:04 Dose: 300 mg Gabapentin (Neurontin -) 600 mg PO HS [facility] Last Admin: 11/15/18 21:37 Dose: 600 mg Heparin Sodium (Porcine) (Heparin -) 5,000 unit SQ BID [facility] Last Admin: 11/16/18 10:04 Dose: 5,000 unit Piperacillin Sod/Tazobactam (Sod 3.375 gm/ Dextrose) 50 mls @ 100 mls/hr IVPB Q8H-IV [facility]; Protocol Last Admin: 11/16/18 10:05 Dose: 100 mls/hr Methadone HCl 40 mg/ Methadone (HCl 30 mg) 70 mg PO 0600 [facility] Last Admin: 11/16/18 05:47 Dose: 70 mg Metoprolol Tartrate (Lopressor -) 25 mg PO BID [facility] Last Admin: 11/16/18 10:02 Dose: Not Given Mirtazapine (Remeron -) 15 mg PO HS [facility] Last Admin: 11/15/18 21:37 Dose: 15 mg Non-Formulary Medication (Bictegrav/Emtricit/Tenofov Ala) 1 each PO DAILY [facility] Last Admin: 11/16/18 10:05 Dose: 1 each Venlafaxine HCl (Effexor Xr -) 150 mg PO DAILY [facility] Last Admin: 11/16/18 10:04 Dose: 150 mg - Objective Vital Signs: Vital Signs Temperature 98 F 11/16/18 08:45 Pulse Rate 56 L 11/16/18 08:45 Respiratory Rate 20 11/16/18 08:45 Blood Pressure 95/63 11/16/18 08:45 O2 Sat by Pulse Oximetry (%) 95 11/16/18 09:00 Constitutional: Yes: No Distress, Calm Cardiovascular: Yes: Regular Rate and Rhythm Respiratory: Yes: Regular, CTA Bilaterally Gastrointestinal: Yes: Normal Bowel Sounds, Soft Musculoskeletal: Yes: WNL Extremities: Yes: WNL Neurological: Yes: Alert, Oriented Psychiatric: Yes: Alert, Oriented Labs: CBC, BMP 11/16/18 06:45 11/16/18 06:45 INR, PTT INR 1.31 (0.83-1.09) H 11/10/18 11:36 Assessment/Plan Problem List - Problems (1) HIV (human immunodeficiency virus infection) Code(s): B20 - HUMAN IMMUNODEFICIENCY VIRUS [HIV] DISEASE (2) Pneumonia Code(s): J18.9 - PNEUMONIA, UNSPECIFIED ORGANISM Assessment/Plan Pneumonia HIV on HAART Asthma/COPD Pulmonary HTN s/p AVR/MVR continue abx incentive [place] rest as per the team will deescalte abx tomorrow
--- NOTE | 2018-11-16 12:58 | PN ---
Progress Note, Physician Chief Complaint: some shortness of breath with physical exertion. has home oxygen at home that was recently serviced asymptomatic with low BP today and cardiac medications were held. History of Present Illness: Patient is a 58 yo female with PMH of HIV (on HAART), COPD, Aortic and Mitral Valve Replacement (2014), HTN presenting to ED with complaints of cough productive of yellow sputum, sob and occasional chest pain. Symptoms started 3 days ago. She used inhaled bronchodilators without effect. Denies fever, weight loss, abdominal pain, n/v/d, medication noncompliance, sore throat, congestion, palpitations, swelling, urinary symptoms. She is currently on Zosyn for pneumonia confirmed by CT Chest. Per ID, discontinue Zosyn tomorrow. She is on oxygen prn and also has oxygen available to her at home. - Current Medication List Current Medications: Active Medications Albuterol/Ipratropium (Duoneb -) 1 amp NEB Q4H PRN PRN Reason: SHORTNESS OF BREATH Last Admin: 11/12/18 07:59 Dose: 1 amp Amitriptyline HCl (Elavil -) 50 mg PO HS [facility] Last Admin: 11/15/18 21:37 Dose: 50 mg Amlodipine Besylate (Norvasc -) 10 mg PO DAILY [facility] Last Admin: 11/16/18 10:03 Dose: Not Given Aspirin (Ecotrin -) 81 mg PO DAILY [facility] Last Admin: 11/16/18 10:04 Dose: 81 mg Budesonide/Formoterol Fumarate (Symbicort 80/4.5mcg -) 2 puff IH DAILY [facility] Last Admin: 11/16/18 10:06 Dose: 2 puff Furosemide (Lasix -) 40 mg PO DAILY [facility] Last Admin: 11/16/18 10:04 Dose: 40 mg Gabapentin (Neurontin -) 300 mg PO DAILY [facility] Last Admin: 11/16/18 10:04 Dose: 300 mg Gabapentin (Neurontin -) 600 mg PO HS [facility] Last Admin: 11/15/18 21:37 Dose: 600 mg Heparin Sodium (Porcine) (Heparin -) 5,000 unit SQ BID [facility] Last Admin: 11/16/18 10:04 Dose: 5,000 unit Piperacillin Sod/Tazobactam (Sod 3.375 gm/ Dextrose) 50 mls @ 100 mls/hr IVPB Q8H-IV [facility]; Protocol Last Admin: 11/16/18 10:05 Dose: 100 mls/hr Methadone HCl 40 mg/ Methadone (HCl 30 mg) 70 mg PO 0600 [facility] Last Admin: 11/16/18 05:47 Dose: 70 mg Metoprolol Tartrate (Lopressor -) 25 mg PO BID [facility] Last Admin: 11/16/18 10:02 Dose: Not Given Mirtazapine (Remeron -) 15 mg PO HS [facility] Last Admin: 11/15/18 21:37 Dose: 15 mg Non-Formulary Medication (Bictegrav/Emtricit/Tenofov Ala) 1 each PO DAILY [facility] Last Admin: 11/16/18 10:05 Dose: 1 each Venlafaxine HCl (Effexor Xr -) 150 mg PO DAILY [facility] Last Admin: 11/16/18 10:04 Dose: 150 mg - Objective Vital Signs: Vital Signs Temperature 98 F 11/16/18 08:45 Pulse Rate 56 L 11/16/18 08:45 Respiratory Rate 20 11/16/18 08:45 Blood Pressure 95/63 11/16/18 08:45 O2 Sat by Pulse Oximetry (%) 95 11/16/18 09:00 Constitutional: Yes: Well Nourished, No Distress, Calm Eyes: Yes: WNL HENT: Yes: WNL Neck: Yes: WNL Cardiovascular: Yes: Regular Rate and Rhythm Respiratory: Yes: Diminished Gastrointestinal: Yes: WNL, Normal Bowel Sounds ...Rectal Exam: Yes: Deferred Genitourinary: Yes: WNL Integumentary: Yes: WNL Neurological: Yes: WNL ...Motor Strength: WNL Psychiatric: Yes: WNL Labs: CBC, BMP 11/16/18 06:45 11/16/18 06:45 INR, PTT INR 1.31 (0.83-1.09) H 11/10/18 11:36 Problem List - Problems (1) Pneumonia Assessment/Plan: multifocal right upper and lower infiltartes per CT scan on Zosyn ID consult appreciated duo nebs PRN, afebrile. pre-post prior to discharge, patient has home oxygen Code(s): J18.9 - PNEUMONIA, UNSPECIFIED ORGANISM (2) Substance abuse Assessment/Plan: history of ETOH and polysubstance abuse on methadone Code(s): F19.10 - OTHER PSYCHOACTIVE SUBSTANCE ABUSE, UNCOMPLICATED (3) Asthma with COPD (chronic obstructive pulmonary disease) Assessment/Plan: supplemental O2 to maintain sats >92% dub nebs PRN Incentive spirometry Code(s): J44.9 - CHRONIC OBSTRUCTIVE PULMONARY DISEASE, UNSPECIFIED (4) COPD exacerbation Code(s): J44.1 - CHRONIC OBSTRUCTIVE PULMONARY DISEASE W (ACUTE) EXACERBATION (5) Edema Assessment/Plan: 2+ edema to LE c/w lasix 40mg PO low sodium diet Code(s): R60.9 - EDEMA, UNSPECIFIED (6) Aspiration into airway Code(s): T17.908A - UNSP FB IN RESP TRACT, PART UNSP CAUSING OTH INJURY, INIT (7) HIV (human immunodeficiency virus infection) Assessment/Plan: currently on HAART therapy-will continue Follows at [facility] Last viral load according to chart: 100/CD4 396 (10/14/18) Code(s): B20 - HUMAN IMMUNODEFICIENCY VIRUS [HIV] DISEASE (8) CHF (congestive heart failure) Assessment/Plan: continue lasix cardiology consultation appreciated EKG without ischemic changes-Trop .02 Code(s): I50.9 - HEART FAILURE, UNSPECIFIED (10) Hypertension Assessment/Plan: continue home dose of metoprolol and norvasc Code(s): I10 - ESSENTIAL (PRIMARY) HYPERTENSION (11) Prophylactic measure Assessment/Plan: FEN regular diet monitor electrolytes DVT pt ambulatory heparin 5000 sq Dispo Maintain as in patient full code Code(s): Z29.9 - ENCOUNTER FOR PROPHYLACTIC MEASURES, UNSPECIFIED Visit type - Emergency Visit Emergency Visit: Yes ED Registration Date: 11/10/18 Care time: The patient presented to the Emergency Department on the above date and was hospitalized for further evaluation of their emergent condition. - New Patient This patient is new to me today: Yes Date on this admission: 11/16/18 - Critical Care Critical Care patient: No - Discharge Referral Referred to [facility] Med [facility].C[facility] No
[2018-11-16] MEDS: ALBUTEROL SO4 2.5/IPRATROPIUM 0.5 INH SOL 3 ML VIAL.NEB. NEB PRN (21:20)
[2018-11-16] MEDS: MIRTAZAPINE 15 MG TABLET (FP) PO SCH (22:09)
[2018-11-16] MEDS: AMITRIPTYLINE HCL 25 MG TABLET (FP) PO SCH (22:09)
[2018-11-17] MEDS ORDERED: PIPERACILLIN/TAZOBACTAM 3.375 GM VIAL IVPB ONE ×2 (01:00→09:16)
[2018-11-17] MEDS ORDERED: DEXTROSE 5%-WATER - 50 ML IVPB ONE ×2 (01:00→09:17)
[2018-11-17] MEDS: PIPERACILLIN/TAZOB 3.375 GM 3.375 GM in DEXTROSE 5%-WATER - 50 ML IVPB SCH ×2 (01:15→09:30)
[2018-11-17] MEDS ORDERED: METHADONE HCL 40 MG DISPERSABLE TABLET ONE (05:46)
[2018-11-17] MEDS ORDERED: METHADONE HCL 10 MG TABLET ONE (05:46)
[2018-11-17] MEDS: METHADONE 40 MG, METHADONE 30 MG PO SCH (06:20)
[2018-11-17 07:13] LABS: BASO % 0.7 % (0-2.0); EOS % 4.5 % (0-4.5); HEMATOCRIT 33.6 % (32.4-45.2); HEMOGLOBIN 10.9 GM/dL (10.7-15.3); LYMPH % 33.1 % (8-40); MCH 29.2 pg (25.7-33.7); MCHC 32.3 g/dl (32.0-36.0); MEAN CELL VOLUME 90.2 fl (80-96); MONO % 10.7 % (3.8-10.2); PLATELET COUNT 286 K/MM3 (134-434); RBC 3.73 M/mm3 (3.60-5.2); RDW 15.9 % (11.6-15.6); WHITE BLOOD COUNT 5.3 K/mm3 (4.0-10.0)
[2018-11-17 07:27] LABS: BILIRUBIN,TOTAL 0.2 mg/dL (0.2-1); BLOOD UREA NITROGEN 14.2 mg/dL (7-18); CALCIUM 8.5 mg/dL (8.5-10.1); CREATININE 0.8 mg/dL (0.55-1.3); MAGNESIUM 2.1 mg/dL (1.8-2.4); POTASSIUM 4.2 mmol/L (3.5-5.1); TOT PROT 8.6 g/dl (6.4-8.2)
[2018-11-17] MEDS ORDERED: PT OWN MED DRAWER 7, Y5N ONE (09:15)
[2018-11-17] MEDS: PATIENT'S OWN MEDICATION (NON-FORMULARY) (Bictegrav/Emtricit/Tenofov Ala 1 EACH) PO SCH (09:27)
[2018-11-17] MEDS: VENLAFAXINE HCL 75 MG E.R. CAPSULES (FP) PO SCH (09:28)
[2018-11-17] MEDS: METOPROLOL TARTRATE 25 MG TABLET (FP) PO SCH (09:29)
[2018-11-17] MEDS: FUROSEMIDE 40 MG TABLET (FP) PO SCH (09:29)
[2018-11-17] MEDS: amLODIPine BESYLATE 10 MG TABLET (FP) PO SCH (09:29)
[2018-11-17] MEDS: GABAPENTIN 300 MG CAPSULE (FP) PO SCH (09:29)
[2018-11-17] MEDS: ASPIRIN COATED 81 MG TABLET.EC PO SCH (09:29)
[2018-11-17] MEDS: HEPARIN NA (PORCINE) 5,000 UNITS/ML 1ML VIAL SQ SCH (09:29)
[2018-11-17] MEDS: BUDESONIDE/FORMETEROL FUMARATE 80/4.5 mcg INHALER IH SCH (09:30)
--- NOTE | 2018-11-17 10:15 | DS ---
Physical Exam: SUBJECTIVE: Patient seen and examined at the bedside. She denies any shortness of breath or chest pain. Breathing better with oxygen @ 2 liters. She is willing to follow up with pulmonary outpatient. OBJECTIVE: patient for discharge home today with home oxygen being arranged by case management. Vital Signs Period Temp Pulse Resp BP Sys/Álvarez Pulse Ox Last 24 Hr 98.0 F-98.6 F 57-70 14-16 96-115/53-67 94-96 PHYSICAL EXAM GENERAL: The patient is awake, alert, and fully oriented, in no acute distress. HEAD: Normal with no signs of trauma. EYES: PERRL, extraocular movements intact, sclera anicteric, conjunctiva clear. ENT: Ears normal, nares patent, oropharynx clear without exudates, moist mucous membranes. NECK: Trachea midline, full range of motion, supple. LUNGS: diminished bilaterally HEART: Regular rate and rhythm ABDOMEN: Soft, nontender, nondistended, normoactive bowel sounds, no guarding, no rebound, no hepatosplenomegaly, no masses. EXTREMITIES: 2+ pulses, warm, well-perfused, no edema. NEUROLOGICAL: Normal speech, gait not observed. PSYCH: Normal mood, normal affect. SKIN: Warm, dry, normal turgor, no rashes or lesions noted. LABS Laboratory Results - last 24 hr 11/17/18 11/17/18 06:30 06:30 WBC 5.3 RBC 3.73 Hgb 10.9 Hct 33.6 MCV 90.2 MCH 29.2 MCHC 32.3 RDW 15.9 H Plt Count 286 MPV 8.0 Absolute Neuts (auto) 2.7 Neutrophils % 51.0 Lymphocytes % 33.1 Monocytes % 10.7 H Eosinophils % 4.5 Basophils % 0.7 Nucleated RBC % 0 Sodium 141 Potassium 4.2 Chloride 102 Carbon Dioxide 38 H Anion Gap 2 L BUN 14.2 Creatinine 0.8 Est GFR (CKD-EPI)AfAm 94.85 Est GFR (CKD-EPI)NonAf 81.84 Random Glucose 98 Calcium 8.5 Magnesium 2.1 Total Bilirubin 0.2 AST 48 H ALT 41 Alkaline Phosphatase 143 H Total Protein 8.6 H Albumin 2.0 L HOSPITAL COURSE: Date of Admission:11/10/18 Date of Discharge: 11/17/18 History of Present Illness: Patient is a 58 yo female with PMH of HIV (on HAART), COPD, Aortic and Mitral Valve Replacement (2014), HTN presenting to ED with complaints of cough productive of yellow sputum, sob and occasional chest pain. Symptoms started 3 days ago. She used inhaled bronchodilators without effect. Denies fever, weight loss, abdominal pain, n/v/d, medication noncompliance, sore throat, congestion, palpitations, swelling, urinary symptoms. She is currently on Zosyn for pneumonia confirmed by CT Chest. Per ID, discontinue Zosyn on 11/17/2018 and no further antibiotics needed. (1) Pneumonia Assessment/Plan: multifocal right upper and lower infiltartes per CT scan completed full course of Zosyn duo nebs PRN, afebrile. patient requires home oxygen which case management has set up. Code(s): J18.9 - PNEUMONIA, UNSPECIFIED ORGANISM (2) Substance abuse Assessment/Plan: history of ETOH and polysubstance abuse on methadone Code(s): F19.10 - OTHER PSYCHOACTIVE SUBSTANCE ABUSE, UNCOMPLICATED (3) Asthma with COPD (chronic obstructive pulmonary disease) Assessment/Plan: supplemental O2 to maintain sats >92% dub nebs PRN Incentive spirometry Code(s): J44.9 - CHRONIC OBSTRUCTIVE PULMONARY DISEASE, UNSPECIFIED (4) COPD exacerbation Code(s): J44.1 - CHRONIC OBSTRUCTIVE PULMONARY DISEASE W (ACUTE) EXACERBATION (5) Edema Assessment/Plan: 2+ edema to LE c/w lasix 40mg PO low sodium diet Code(s): R60.9 - EDEMA, UNSPECIFIED (6) Aspiration into airway Code(s): T17.908A - UNSP FB IN RESP TRACT, PART UNSP CAUSING OTH INJURY, INIT (7) HIV (human immunodeficiency virus infection) Assessment/Plan: currently on HAART therapy-will continue Follows at [facility] Last viral load according to chart: 100/CD4 396 (10/14/18) Code(s): B20 - HUMAN IMMUNODEFICIENCY VIRUS [HIV] DISEASE (8) CHF (congestive heart failure) Assessment/Plan: continue lasix cardiology consultation appreciated EKG without ischemic changes-Trop .02 Code(s): I50.9 - HEART FAILURE, UNSPECIFIED (10) Hypertension Assessment/Plan: continue home dose of metoprolol and norvasc Code(s): I10 - ESSENTIAL (PRIMARY) HYPERTENSION discharge home. Minutes to complete discharge: 60 Discharge Summary Reason For Visit: PNEUMONIA Current Active Problems Aspiration into airway (Acute) HIV (human immunodeficiency virus infection) (Acute) Hypomagnesemia (Acute) Pneumonia (Acute) Prophylactic measure (Acute) Substance abuse (Acute) Condition: Improved - Instructions Diet, Activity, Other Instructions: Mrs Tan: You were found to have a pneumonia and have been treated with IV antibiotics. You have completed a full course of antibiotics and we will be sending you home without any further antibiotics. Here are our recommendations: Pneumonia: Treated with Zosyn, we will be sending you home with a portable home oxygen tank. You have oxygen available to you at home therefore, please continue to use your oxygen at 2 liters. A referral for a pulmonogist has been made part of your discharge packet. Please call for an appointment. Congestive Heart Failure: You were seen by our linux server engineer during your stay. Lasix 40mg daily has been prescribed to you. Please follow up with your linux server engineer for a post hospital follow up visit. You will need your blood work rechecked to assure that your kidney function remains stable. Thank you for allowing us to care for you. Louise Juarez NP [phone] Referrals: Andres Ritchie MD [Staff Physician] - (clinical education manager. please call to make an appointment.) Mary Zavala NP [Primary Care Provider] - 1 Week Disposition: HOME - Home Medications Comprehensive Discharge Medication List: Ambulatory Orders Ibuprofen 1 tab PO DAILY #15 tablet 05/20/18 Albuterol 0.083% Nebulizer Viola [Ventolin 0.083% Nebulizer Soln -] 1 neb NEB Q6H PRN #1 box 10/14/18 Albuterol Sulfate Inhaler - [Ventolin HFA Inhaler -] 1 - 2 inh PO Q4H #1 inhaler 10/14/18 Amitriptyline HCl [Elavil -] 50 mg PO DAILY #30 tablet 10/14/18 Amlodipine Besylate [Norvasc -] 10 mg PO DAILY #30 tablet 10/14/18 Aspirin [Aspirin EC] 81 mg PO DAILY #30 tablet. 10/14/18 Bictegrav/Emtricit/Tenofov Ala [Biktarvy 50-200-25 mg Tablet] 1 each PO DAILY # 30 tablet 10/14/18 Fluticasone/Salmeterol [Advair 250-50 Diskus] 1 each IH DAILY #1 disk.w.dev MDD 4 10/14/18 Gabapentin [Neurontin -] 300 mg PO ASDIR #90 capsule 10/14/18 Metoprolol Tartrate [Lopressor -] 25 mg PO BID #60 tablet 10/14/18 Mirtazapine 15 mg PO HS #30 tablet 10/14/18 Mometasone Furoate [Elocon] 1 applic TD BID #1 tube 10/14/18 Venlafaxine HCl ER [Effexor Xr -] 150 mg PO DAILY #30 cap.er.24h 10/14/18 Methadone [Dolophine -] 70 mg PO DAILY 11/12/18 Furosemide [Lasix -] 40 mg PO DAILY #30 tablet 11/17/18 Problem List - Problems (1) Pneumonia Code(s): J18.9 - PNEUMONIA, UNSPECIFIED ORGANISM (2) Substance abuse Code(s): F19.10 - OTHER PSYCHOACTIVE SUBSTANCE ABUSE, UNCOMPLICATED (3) Asthma with COPD (chronic obstructive pulmonary disease) Code(s): J44.9 - CHRONIC OBSTRUCTIVE PULMONARY DISEASE, UNSPECIFIED (4) COPD exacerbation Code(s): J44.1 - CHRONIC OBSTRUCTIVE PULMONARY DISEASE W (ACUTE) EXACERBATION (5) Edema Code(s): R60.9 - EDEMA, UNSPECIFIED (6) Aspiration into airway Code(s): T17.908A - UNSP FB IN RESP TRACT, PART UNSP CAUSING OTH INJURY, INIT (7) HIV (human immunodeficiency virus infection) Code(s): B20 - HUMAN IMMUNODEFICIENCY VIRUS [HIV] DISEASE (8) CHF (congestive heart failure) Code(s): I50.9 - HEART FAILURE, UNSPECIFIED (10) Hypertension Code(s): I10 - ESSENTIAL (PRIMARY) HYPERTENSION (11) Prophylactic measure Code(s): Z29.9 - ENCOUNTER FOR PROPHYLACTIC MEASURES, UNSPECIFIED This patient is new to me today: No Emergency Visit: Yes ED Registration Date: 11/10/18 Care time: The patient presented to the Emergency Department on the above date and was hospitalized for further evaluation of their emergent condition. Critical Care patient: No - Discharge Referral Referred to [facility] Med P.[facility].: No
--- NOTE | 2018-11-17 10:25 | PN ---
Progress Note (short form) - Note Progress Note: s: no chest pain, palps, dyspnea, dizziness Current Medications Albuterol/Ipratropium (Duoneb -) 1 amp NEB Q4H PRN PRN Reason: SHORTNESS OF BREATH Last Admin: 11/16/18 21:20 Dose: 1 amp Amitriptyline HCl (Elavil -) [address] [facility] Last Admin: 11/16/18 22:09 Dose: 50 mg Amlodipine Besylate (Norvasc -) [address] [facility] Last Admin: 11/17/18 09:29 Dose: 10 mg Aspirin (Ecotrin -) [address] [facility] Last Admin: 11/17/18 09:29 Dose: 81 mg Budesonide/Formoterol Fumarate (Symbicort 80/4.5mcg -) [address] [facility] Last Admin: 11/17/18 09:30 Dose: 2 puff Furosemide (Lasix -) [address] [facility] Last Admin: 11/17/18 09:29 Dose: 40 mg Gabapentin (Neurontin -) [address] [facility] Last Admin: 11/17/18 09:29 Dose: 300 mg Gabapentin (Neurontin -) [address] [facility] Last Admin: 11/16/18 22:09 Dose: 600 mg Heparin Sodium (Porcine) (Heparin -) 5,[address] [facility] Last Admin: 11/17/18 09:29 Dose: 5,000 unit Piperacillin Sod/Tazobactam (Sod 3.375 gm/ Dextrose) 50 mls @ 100 mls/hr IVPB Q8H-IV [facility]; Protocol Last Admin: 11/17/18 09:30 Dose: 100 mls/hr Methadone HCl 40 mg/ Methadone (HCl 30 mg) [address] [facility] Last Admin: 11/17/18 06:20 Dose: 70 mg Metoprolol Tartrate (Lopressor -) [address] [facility] Last Admin: 11/17/18 09:29 Dose: 25 mg Mirtazapine (Remeron -) [address] [facility] Last Admin: 11/16/18 22:09 Dose: 15 mg Non-Formulary Medication (Bictegrav/Emtricit/Tenofov Ala) [address] [facility] Last Admin: 11/17/18 09:27 Dose: 1 each Venlafaxine HCl (Effexor Xr -) 150 mg PO DAILY [facility] Last Admin: 11/17/18 09:28 Dose: 150 mg Vital Signs Period Temp Pulse Resp BP Sys/Álvarez Pulse Ox Last 24 Hr 98.0 F-98.6 F 57-70 14-16 96-115/53-67 94-96 Constitutional: Yes: No Distress Cardiovascular: Yes: Regular Rate and Rhythm Respiratory: Yes: Rhonchi Gastrointestinal: Yes: Soft Edema: No Neurological: Yes: Alert, Oriented no jaundice, diaphoresis not agitated tele: sinus Assessment/Plan IMP: 1. HIV 2. Fever, cough, hypoxia secondary to PNA 3. Probable chronic CHF on the basis of valvular heart disease, possible R. sided CHF from COPD/ known PHTN 4. Active smoker w/ COPD 5. History of bio AVR/MVR with bioAVR stenosis REC: 1. Supplemental O2, abx as per PMD and ID 2. Chest CT confirmed PNA, manage per primary 3. Follow blood cultures 4. Continue ASA 81mg daily for bio MVR/AVR. 5. Suspect her LE edema is likely due to Amlodipine effect +/- chronic right sided CHF as outlined above. 6. Echo showed nl LV function, biatrial enlargement, bioMVR with normal function , elevated RVSP 30-40 mmHg. 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 Morris per Dr. Rich, has outpatient appointment scheduled Stable for dc from cardiac perspective
--- NOTE | 2018-11-17 11:57 | PN ---
Progress Note, Physician History of Present Illness: stable much better - Current Medication List Current Medications: Active Medications Albuterol/Ipratropium (Duoneb -) 1 amp NEB Q4H PRN PRN Reason: SHORTNESS OF BREATH Last Admin: 11/16/18 21:20 Dose: 1 amp Amitriptyline HCl (Elavil -) 50 mg PO HS [facility] Last Admin: 11/16/18 22:09 Dose: 50 mg Amlodipine Besylate (Norvasc -) 10 mg PO DAILY [facility] Last Admin: 11/17/18 09:29 Dose: 10 mg Aspirin (Ecotrin -) 81 mg PO DAILY [facility] Last Admin: 11/17/18 09:29 Dose: 81 mg Budesonide/Formoterol Fumarate (Symbicort 80/4.5mcg -) 2 puff IH DAILY [facility] Last Admin: 11/17/18 09:30 Dose: 2 puff Furosemide (Lasix -) 40 mg PO DAILY [facility] Last Admin: 11/17/18 09:29 Dose: 40 mg Gabapentin (Neurontin -) 300 mg PO DAILY [facility] Last Admin: 11/17/18 09:29 Dose: 300 mg Gabapentin (Neurontin -) 600 mg PO HS [facility] Last Admin: 11/16/18 22:09 Dose: 600 mg Heparin Sodium (Porcine) (Heparin -) 5,000 unit SQ BID [facility] Last Admin: 11/17/18 09:29 Dose: 5,000 unit Piperacillin Sod/Tazobactam (Sod 3.375 gm/ Dextrose) 50 mls @ 100 mls/hr IVPB Q8H-IV [facility]; Protocol Last Admin: 11/17/18 09:30 Dose: 100 mls/hr Methadone HCl 40 mg/ Methadone (HCl 30 mg) 70 mg PO 0600 [facility] Last Admin: 11/17/18 06:20 Dose: 70 mg Metoprolol Tartrate (Lopressor -) 25 mg PO BID [facility] Last Admin: 11/17/18 09:29 Dose: 25 mg Mirtazapine (Remeron -) 15 mg PO HS [facility] Last Admin: 11/16/18 22:09 Dose: 15 mg Non-Formulary Medication (Bictegrav/Emtricit/Tenofov Ala) 1 each PO DAILY [facility] Last Admin: 11/17/18 09:27 Dose: 1 each Venlafaxine HCl (Effexor Xr -) 150 mg PO DAILY [facility] Last Admin: 11/17/18 09:28 Dose: 150 mg - Objective Vital Signs: Vital Signs Temperature 98.6 F 11/17/18 05:28 Pulse Rate 68 11/17/18 10:00 Respiratory Rate 18 11/17/18 10:00 Blood Pressure 109/64 11/17/18 10:00 O2 Sat by Pulse Oximetry (%) 97 11/17/18 10:00 Constitutional: Yes: No Distress, Calm Cardiovascular: Yes: Regular Rate and Rhythm Respiratory: Yes: Regular, CTA Bilaterally Gastrointestinal: Yes: Normal Bowel Sounds, Soft Musculoskeletal: Yes: WNL Extremities: Yes: WNL Neurological: Yes: Alert, Oriented Psychiatric: Yes: Alert, Oriented Labs: CBC, BMP 11/17/18 06:30 11/17/18 06:30 INR, PTT INR 1.31 (0.83-1.09) H 11/10/18 11:36 Assessment/Plan Problem List - Problems (1) HIV (human immunodeficiency virus infection) Code(s): B20 - HUMAN IMMUNODEFICIENCY VIRUS [HIV] DISEASE (2) Pneumonia Code(s): J18.9 - PNEUMONIA, UNSPECIFIED ORGANISM Assessment/Plan Pneumonia HIV on HAART Asthma/COPD Pulmonary HTN s/p AVR/MVR can stop all abx patient stable
[2018-11-17 14:25] VITALS: BP 111/62; PULSE 57; TEMP 98.9
== END 2018-11-17 15:01 | disposition home or self-care (01) | DRG 139 ==
LOC: JER 10:18 → JERBED 12:21 → J4S 15:07
PROVIDERS: ADMIT Internal Medicine; ATTEND Nurse Practitioner Family
DX: J18.9 Pneumonia, unspecified organism (principal); Z21 Asymptomatic human immunodeficiency virus [HIV] infection status; F17.210 Nicotine dependence, cigarettes, uncomplicated; R50.9 Fever, unspecified; R09.02 Hypoxemia; F11.20 Opioid dependence, uncomplicated; I50.812 Chronic right heart failure; I27.20 Pulmonary hypertension, unspecified; J45.909 Unspecified asthma, uncomplicated; E83.42 Hypomagnesemia; F41.8 Other specified anxiety disorders; J44.1 Chronic obstructive pulmonary disease with (acute) exacerbation; R60.9 Edema, unspecified; I11.0 Hypertensive heart disease with heart failure
CPT/HCPCS: 36415; 71045-TC-FY; 71250-TC; 80053; 81003; 82803; 83605; 83615; 83735; 83880; 84100; 84484; 85025; 85610; 85730; 87040; 87077; 87081; 87086; 87899; 93005; 93010; 93306-TC; 94010; 94640; 94761; 99283-25; J1644; J7030

== ENCOUNTER → 2019-01-12 | Outpatient (CLI) | payer OTHER | LOC: YHH 14:47 ==

== ENCOUNTER 2019-06-01 08:19 | Inpatient (IN) | payer OTHER ==
--- NOTE | 2019-06-01 08:40 | PDOC ---
History of Present Illness - General Chief Complaint: Shortness of Breath Stated Complaint: Shortness of Breath Time Seen by Provider: 06/01/19 08:31 - History of Present Illness Initial Comments: 06/01/19 08:39 CHIEF COMPLAINT: cough, SOB HISTORY OF PRESENT ILLNESS: 58yo F with PMH of HIV (compliant with HAART, last VL undetectable), HTN, COPD, and aortic and mitral valve replacement (2014) presents to ED with complaints of SOB x 1 week and cough since yesterday. Patient reports using her COPD and asthma medications without relief of cough. Patient also reports having some swelling to her legs a few days ago but that has since resolved. She notes that she has had some weight gain, possibly due to her new HIV medication Biktarvy per her PCP Dr. Zavala. Per patient, she is followed by infectious disease doctor Dr. Ritchie and was "supposed to start a new medication but is still getting approved by insurance." No recent travel or sick contacts. PAST MEDICAL HISTORY: HIV, HTN, COPD FAMILY HISTORY: Denies SOCIAL HISTORY: polysubstance abuse SURGICAL HISTORY: aortic/mitral valve replacement ALLERGIES: lisinopril, sulfa REVIEW OF SYSTEMS General/Constitutional: Denies fever or chills. Denies weakness, weight change. HEENT: Denies change in vision. Denies ear pain or discharge. Denies sore throat. Cardiovascular: SOB x 1 week. Respiratory: Cough x 1 day. Denies wheezing, or hemoptysis. Gastrointestinal: Denies nausea, vomiting, diarrhea or constipation. Denies rectal bleeding. Genitourinary: Denies dysuria, frequency, or change in urination. Musculoskeletal: Denies joint or muscle swelling or pain. Denies neck or back pain. Skin and breasts: Denies rash or easy bruising. Neurologic: Denies headache, vertigo, loss of consciousness, or loss of sensation. Psychiatric: Denies depression or anxiety. PHYSICAL EXAM General Appearance: Well-appearing, appropriately dressed. No apparent distress , no intoxication. HEENT: EOMI, PERRLA, normal ENT inspection, normal voice, TMs normal, pharynx normal. No conjunctival pallor. No photophobia, scleral icterus. Neck: Supple. Trachea midline. No tenderness, rigidity, carotid bruit, stridor , lymphadenopathy, or thyromegaly. Respiratory/Chest: SOB with mild speech dyspnea. No chest tenderness, accessory muscle use. No crackles, rales, rhonchi, stridor, wheezing, dullness. Cardiovascular: RRR. S1, S2. No JVD, murmur, bradycardia, tachycardia. Vascular Pulses: Dorsalis-Pedis (R): 2+, Dorsalis-Pedis (L): 2+ Gastrointestinal/Abdominal: Normal bowel sounds. Abdomen soft, non-distended. No tenderness or rebound tenderness. No organomegaly, pulsatile mass, guarding , hernia, hepatomegaly, splenomegaly. Lymphatic: No adenopathy, tenderness. Musculoskeletal/Extremities: Normal inspection. FROM of all extremities, normal capillary refill. Pelvis Stable. No CVA tenderness. No tenderness to extremities, pedal edema, swelling, erythema or deformity. Integumentary: Appropriate color, dry, warm. 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 Fully oriented, alert. Appropriate mood/affect. Motor strength 5/5. No appreciable EOM palsy, facial droop or sensory deficit. 06/01/19 11:40 Past History - Past Medical History Allergies/Adverse Reactions: Allergies Allergy/AdvReac Type Severity Reaction Status Date / Time lisinopril Allergy lip Verified 06/01/19 11:50 swelling sulfamethoxazole Allergy Rash Verified 06/01/19 11:50 [From Bactrim DS] Home Medications: Ambulatory Orders Methadone [Dolophine -] 70 mg PO DAILY 11/12/18 Albuterol 0.083% Nebulizer Viola [Ventolin 0.083% Nebulizer Soln -] 1 neb NEB Q6H PRN #1 box 04/14/19 Albuterol Sulfate Inhaler - [Ventolin HFA Inhaler -] 1 - 2 inh PO Q4H #1 inhaler 04/14/19 Amitriptyline HCl [Elavil -] 1 tab PO DAILY #30 tablet 04/14/19 Amlodipine Besylate [Norvasc -] 1 tab PO DAILY #30 tablet 04/14/19 Aspirin [Aspirin EC] 1 tab PO DAILY #30 tablet. 04/14/19 Bictegrav/Emtricit/Tenofov Ala [Biktarvy 50-200-25 mg Tablet] 1 each PO DAILY # 30 tablet 04/14/19 Gabapentin [Neurontin -] 1 tab PO ASDIR #90 capsule 04/14/19 Metoprolol Tartrate [Lopressor -] 1 tab PO BID #60 tablet 04/14/19 Mirtazapine [Remeron -] 1 tablet PO HS #30 tablet 04/14/19 Venlafaxine HCl ER [Effexor Xr -] 150 mg PO DAILY #30 cap.er.24h 04/14/19 Anemia: Yes Asthma: Yes Cancer: No Cardiac Disorders: Yes (2 valve replacement) CVA: No COPD: No CHF: Yes Dementia: No Diabetes: No GI Disorders: No Disorders: No HTN: Yes Hypercholesterolemia: No Liver Disease: No Psychiatric Problems: Yes Seizures: No Thyroid Disease: No - Surgical History Abdominal Surgery: Yes Appendectomy: No Cardiac Surgery: Yes (heart valve replacement) Cholecystectomy: Yes Lung Surgery: No Neurologic Surgery: No Orthopedic Surgery: No - Immunization History Immunization Up to Date: Yes - Psycho Social/Smoking Cessation Hx Smoking Status: Yes Smoking History: Current every day smoker Have you smoked in the past 12 months: Yes Number of Cigarettes Smoked Daily: 5 If you are a former smoker, when did you quit?: 2014 Cigars Per Day: 0 'Breaking Loose' booklet given: 08/13/12 Hx Alcohol Use: No Drug/Substance Use Hx: Yes Substance Use Type: Heroin Hx Substance Use Treatment: Yes (completed [facility] 03/2013) Respiratory Specific PMHX - Complaint Specific PMHX Hx Pneumonia: No ED Treatment Course - LABORATORY CBC & Chemistry Diagram: 06/01/19 09:15 06/01/19 09:15 - RADIOLOGY Radiology Studies Ordered: Category Date Time Status CHEST X-RAY PORTABLE* [RAD] Stat Radiology 06/01/19 08:36 Ordered Medical Decision Making - Medical Decision Making 06/01/19 11:03 58yo F with PMH of HIV (compliant with HAART, last VL undetectable), HTN, COPD, and aortic and mitral valve replacement (2014) presents to ED with complaints of SOB x 1 week and cough since yesterday. -EKG -labs EKG unremarkable, NSR unchanged from prior. Patient hypoxic, 91% O2 sat on 4L NC. BNP of 1372 and XR concerning for CHF. Will admit to hospitalist 06/01/19 11:51 Spoke with admitting MD Brady who accepts pt for inpatient admission. Discharge - Discharge Information Problems reviewed: Yes Clinical Impression/Diagnosis: HIV (human immunodeficiency virus infection), COPD (chronic obstructive pulmonary disease), CHF (congestive heart failure) Condition: Stable - Admission Yes - Follow up/Referral - Patient Discharge Instructions - Post Discharge Activity
[2019-06-01] MEDS ORDERED: ALBUTEROL SO4 2.5/IPRATROPIUM 0.5 INH SOL 3 ML VIAL.NEB. NEB ONE ×2 (08:41→10:02)
--- NOTE | 2019-06-01 09:07 | PDOC ---
*Physical Exam - Physical Exam 06/01/19 09:06 The patient was examined by [JAY Forman] under my direct supervision. I personally evaluated the patient. I concur with the above findings and the plan of care. ED Treatment Course - LABORATORY CBC & Chemistry Diagram: 06/01/19 09:15 06/01/19 09:15 Discharge - Discharge Information Problems reviewed: Yes Clinical Impression/Diagnosis: HIV (human immunodeficiency virus infection) Qualifiers: HIV symptom status: unspecified Qualified Code(s): B20 - Human immunodeficiency virus [HIV] disease COPD (chronic obstructive pulmonary disease) Qualifiers: COPD type: unspecified COPD Qualified Code(s): J44.9 - Chronic obstructive pulmonary disease, unspecified CHF (congestive heart failure) Qualifiers: Heart failure type: unspecified Heart failure chronicity: unspecified Qualified Code(s): I50.9 - Heart failure, unspecified Condition: Stable - Follow up/Referral - Patient Discharge Instructions - Post Discharge Activity
[2019-06-01 09:55] LABS: VENOUS PC02 66.2 mmHg (38-52); VENOUS PH 7.3 (7.31-7.41); VENOUS PO2 69.4 mmHg (28-48)
[2019-06-01 10:03] LABS: ALBUMIN 2.6 g/dl (3.4-5.0); BILIRUBIN,TOTAL 0.6 mg/dL (0.2-1); BLOOD UREA NITROGEN 12.3 mg/dL (7-18); CALCIUM 8.3 mg/dL (8.5-10.1); CREATININE 0.6 mg/dL (0.55-1.3); POTASSIUM 4.1 mmol/L (3.5-5.1); TOT PROT 8.2 g/dl (6.4-8.2)
[2019-06-01 10:14] LABS: BASO % 0.3 % (0-2.0); EOS % 1.6 % (0-4.5); HEMATOCRIT 37.8 % (32.4-45.2); HEMOGLOBIN 12.1 GM/dL (10.7-15.3); LYMPH % 14.4 % (8-40); MCHC 32.1 g/dl (32.0-36.0); MEAN CELL VOLUME 93.4 fl (80-96); MEAN PLT VOLUME 8.2 fl (7.5-11.1); MONO % 7.8 % (3.8-10.2); NEUT % 75.9 % (42.8-82.8); PLATELET COUNT 179 K/MM3 (134-434); RBC 4.04 M/mm3 (3.60-5.2); RDW 16.7 % (11.6-15.6); WHITE BLOOD COUNT 6.3 K/mm3 (4.0-10.0)
[2019-06-01 10:40] LABS: PH,URINE 7.5 (5.0-8.0); URINE APPEARANCE CLOUDY; URINE BILIRUBIN NEGATIVE (NEGATIVE); URINE COLOR YELLOW; URINE GLUCOSE (UA) NEGATIVE (NEGATIVE); URINE KETONE NEGATIVE (NEGATIVE); URINE LEUK ESTERASE NEGATIVE (NEGATIVE); URINE NITRITE NEGATIVE (NEGATIVE); URINE PROTEIN NEGATIVE (NEGATIVE)
[2019-06-01 10:51] LABS: EPI CELLS 14.2 /HPF (0-5/HPF); HYALINE CASTS 1 /lpf (0-8); URINE BACTERIA 41.3 /hpf (NEGATIVE)
[2019-06-01 11:07] LABS: N-TERMINAL BNP 1372.3 pg/ml (5-125)
[2019-06-01 11:18] LABS: YEAST MANY (NEGATIVE)
[2019-06-01 11:21] LABS: URINE RBC 21.3 /hpf (0-4); URINE WBC 14.7 /hpf (0-5)
[2019-06-01 11:24] LABS: INR 1.08 (0.83-1.09); PROTHROMBIN TIME (PATIENT) 12.8 SEC (9.7-13.0)
[2019-06-01] MEDS ORDERED: FUROSEMIDE 40 MG/4 ML INJECTABLE VIAL IVPUSH ONE (11:26)
[2019-06-01 11:27] LABS: ACTIVATED PTT 31.5 SECONDS (25.2-36.5)
--- NOTE | 2019-06-01 12:59 | HP ---
Admitting History and Physical - Primary Care Physician PCP: Mary Zavala E - Admission Chief Complaint: sob for past few days, History of Present Illness: HISTORY OF PRESENT ILLNESS: 58yo F with PMH of HIV (compliant with HAART, last VL undetectable), HTN, COPD, and aortic and mitral valve replacement (2014) presents to ED with complaints of SOB x 1 week and cough since yesterday. Patient reports using her COPD and asthma medications without relief of cough. also has been on the oxygen 4 L now, now relief, Patient also reports having some swelling to her legs a few days ago but that has since resolved. She notes that she has had some weight gain, possibly due to her new HIV medication Biktarvy per her PCP Dr. Zavala. Per patient, she is followed by infectious disease doctor Dr. Ritchie and was "supposed to start a new medication but is still getting approved by insurance." no cp, no palpitaions, in the ER recieved one dose of lasix and feels a lot better, no fever, no chills, no cough, no body aches, No recent travel or sick contacts. History Source: Patient Limitations to Obtaining History: No Limitations - Past Medical History Cardiovascular: Yes: CHF, HTN, Mitral Insufficiency, Murmur, Pulmonary Hypertension Pulmonary: Yes: COPD ...LMP: 01/31/12 Infectious Disease: Yes: HIV (Last viral load according to chart: 100/CD4 396 ()) Psych: Yes: Anxiety, Depression - Past Surgical History Past Surgical History: Yes: Cholecystectomy - Smoking History Smoking history: Current every day smoker (smoking for past 20 yrs,) Have you smoked in the past 12 months: Yes Aproximately how many cigarettes per day: 5 If you are a former smoker, when did you quit?: 2015 - Alcohol/Substance Use Hx Alcohol Use: No History of Substance Use: reports: None, Cocaine (no ivda,) - Social History History of Recent Travel: No Home Medications - Allergies Allergies/Adverse Reactions: Allergies Allergy/AdvReac Type Severity Reaction Status Date / Time lisinopril Allergy lip Verified 06/01/19 11:50 swelling sulfamethoxazole Allergy Rash Verified 06/01/19 11:50 [From Bactrim DS] - Home Medications Home Medications: Ambulatory Orders Methadone [Dolophine -] 70 mg PO DAILY 11/12/18 Albuterol 0.083% Nebulizer Viola [Ventolin 0.083% Nebulizer Soln -] 1 neb NEB Q6H PRN #1 box 04/14/19 Albuterol Sulfate Inhaler - [Ventolin HFA Inhaler -] 1 - 2 inh PO Q4H #1 inhaler 04/14/19 Amitriptyline HCl [Elavil -] 1 tab PO DAILY #30 tablet 04/14/19 Amlodipine Besylate [Norvasc -] 1 tab PO DAILY #30 tablet 04/14/19 Aspirin [Aspirin EC] 1 tab PO DAILY #30 tablet. 04/14/19 Bictegrav/Emtricit/Tenofov Ala [Biktarvy 50-200-25 mg Tablet] 1 each PO DAILY # 30 tablet 04/14/19 Gabapentin [Neurontin -] 1 tab PO ASDIR #90 capsule 04/14/19 Metoprolol Tartrate [Lopressor -] 1 tab PO BID #60 tablet 04/14/19 Mirtazapine [Remeron -] 1 tablet PO HS #30 tablet 04/14/19 Venlafaxine HCl ER [Effexor Xr -] 150 mg PO DAILY #30 cap.er.24h 04/14/19 Family Medical History Family Hx Diabetes: Father Other Family History: mom HTN and also copd Review of Systems - Review of Systems HENT: reports: No Symptoms Cardiovascular: reports: Shortness of Breath Gastrointestinal: reports: No Symptoms Genitourinary: reports: No Symptoms Musculoskeletal: reports: Back Pain Psychiatric: reports: Depression Physical Examination Vital Signs: Vital Signs Temperature 98.1 F 06/01/19 10:00 Pulse Rate 86 06/01/19 10:00 Respiratory Rate 22 H 06/01/19 10:00 Blood Pressure 135/79 06/01/19 10:00 O2 Sat by Pulse Oximetry (%) 91 L 06/01/19 10:00 Neck: Yes: Supple, Trachea Midline Cardiovascular: Yes: Regular Rate and Rhythm, Other (midline scar from) Respiratory: Yes: Regular Gastrointestinal: Yes: WNL, Hyperactive Bowel Sounds (bibasilar crackles,) Edema: No Peripheral Pulses WNL: Yes Neurological: Yes: WNL Labs: CBC, BMP 06/01/19 09:15 06/01/19 09:15 Imaging - Results Chest X-ray: Report Reviewed EKG: Report Reviewed (nsr , no acute st t changes,), Other (reviewd the note from the ER will order the EKG,) Problem List - Problems (1) HIV (human immunodeficiency virus infection) Code(s): B20 - HUMAN IMMUNODEFICIENCY VIRUS [HIV] DISEASE (2) CHF (congestive heart failure) Code(s): I50.9 - HEART FAILURE, UNSPECIFIED (3) COPD (chronic obstructive pulmonary disease) Code(s): J44.9 - CHRONIC OBSTRUCTIVE PULMONARY DISEASE, UNSPECIFIED (4) Hypertension Code(s): I10 - ESSENTIAL (PRIMARY) HYPERTENSION Assessment/Plan assessment and plan, HISTORY OF PRESENT ILLNESS: 58yo F with PMH of HIV (compliant with HAART, last VL undetectable), HTN, COPD, and aortic and mitral valve replacement (2014 ) presents to ED with complaints of SOB x 1 week and cough since yesterday chf exacerbation, h.o bioprosthetic mitral and aortic valve replacement, had normal ef and also diastolic dysfunction on the last echo, , pt with diastolic dysfunction, and trop negative, will get the series, check the EKG, will get the 2 d echo. cardiology consult, start iv lasix I and O, cxr shows congestion and small L lower plural effusion, COPD continue neb, and inhlalers, no need for the steroids, responded well after the lasix, no s/o bronchitis or infection, ch back pain, will continue neurontin, h/o depression continue remeron and also effexor, stable no si, no hi, h/o hiv, continue Bictarvy htn controlled anel amlodipine and metoprolol dvt prophlaxis, monitor electrolytes, Visit type - Emergency Visit Emergency Visit: Yes ED Registration Date: 06/01/19 Care time: The patient presented to the Emergency Department on the above date and was hospitalized for further evaluation of their emergent condition. - New Patient This patient is new to me today: Yes Date on this admission: 06/01/19 - Critical Care Critical Care patient: No
[2019-06-01 13:47] VITALS: BMI 36.6
[2019-06-01] MEDS: ASPIRIN 81 MG CHEWABLE TABLETS PO SCH (14:14)
--- NOTE | 2019-06-01 14:51 | EKG ---
Test Reason : Blood Pressure : / mmHG Vent. Rate : 087 BPM Atrial Rate : 087 BPM P-R Int : 180 ms QRS Dur : 084 ms QT Int : 394 ms P-R-T Axes : 065 085 078 degrees QTc Int : 474 ms NORMAL SINUS RHYTHM POSSIBLE LEFT ATRIAL ENLARGEMENT BORDERLINE ECG WHEN COMPARED WITH ECG OF 10-NOV-2018 10:40, NO SIGNIFICANT CHANGE WAS FOUND Confirmed by DELORIS SINGH MD ([id number]) on 06/01/2019 2:51:07 PM Referred By: Confirmed By:DELORIS SINGH MD
[2019-06-01] MEDS: ALBUTEROL SO4 2.5/IPRATROPIUM 0.5 INH SOL 3 ML VIAL.NEB. NEB PRN ×2 (19:25→23:30)
[2019-06-01] MEDS ORDERED: PT OWN MED DRAWER 7, Y5N ONE (21:21)
[2019-06-01] MEDS: metoPROLOL SUCCINATE 25 MG TAB.SR.24H (FP) PO SCH (21:43)
[2019-06-01] MEDS: GABAPENTIN 300 MG CAPSULE PO SCH (21:43)
[2019-06-01] MEDS: HEPARIN NA (PORCINE) 5,000 UNITS/ML 1ML VIAL SQ SCH (21:43)
[2019-06-01] MEDS: AMITRIPTYLINE HCL 25 MG TABLET PO SCH (21:43)
[2019-06-01] MEDS: FLUTICASONE/SALMETEROL 100 MCG/50 MCG DISKUS IH SCH (21:43)
[2019-06-01] MEDS: MIRTAZAPINE 15 MG TABLET (FP) PO SCH (21:43)
[2019-06-01] MEDS ORDERED: AMITRIPTYLINE HCL 50 MG TABLET PO SCH (22:00)
[2019-06-02] MEDS ORDERED: METHADONE HCL 10 MG TABLET ONE (05:36)
[2019-06-02] MEDS ORDERED: METHADONE HCL 40 MG DISPERSABLE TABLET ONE (05:37)
[2019-06-02] MEDS: METHADONE 40 MG, METHADONE 30 MG PO SCH (05:43)
--- NOTE | 2019-06-02 07:07 | EKG ---
Test Reason : Blood Pressure : / mmHG Vent. Rate : 074 BPM Atrial Rate : 074 BPM P-R Int : 174 ms QRS Dur : 082 ms QT Int : 408 ms P-R-T Axes : 063 084 084 degrees QTc Int : 452 ms NORMAL SINUS RHYTHM POSSIBLE LEFT ATRIAL ENLARGEMENT BORDERLINE ECG WHEN COMPARED WITH ECG OF 01-JUN-2019 08:41, NO SIGNIFICANT CHANGE WAS FOUND Confirmed by DELORIS SINGH MD ([id number]) on 06/01/2019 2:50:59 PM Referred By: Park PATEL Confirmed By:DELORIS SINGH MD
[2019-06-02 08:20] LABS: BASO % 0.5 % (0-2.0); EOS % 3.4 % (0-4.5); HEMOGLOBIN 12.2 GM/dL (10.7-15.3); LYMPH % 20.5 % (8-40); MCH 30.3 pg (25.7-33.7); MEAN CELL VOLUME 94.5 fl (80-96); MEAN PLT VOLUME 8.2 fl (7.5-11.1); MONO % 11.2 % (3.8-10.2); NEUT % 64.4 % (42.8-82.8); PLATELET COUNT 181 K/MM3 (134-434); RBC 4.03 M/mm3 (3.60-5.2); RDW 17.5 % (11.6-15.6); WHITE BLOOD COUNT 4.5 K/mm3 (4.0-10.0)
[2019-06-02 09:14] LABS: ALBUMIN 2.5 g/dl (3.4-5.0); BILIRUBIN,TOTAL 0.6 mg/dL (0.2-1); BLOOD UREA NITROGEN 12.9 mg/dL (7-18); CALCIUM 8.6 mg/dL (8.5-10.1); CREATININE 0.8 mg/dL (0.55-1.3); PHOSPHOROUS 3.6 mg/dL (2.5-4.9); POTASSIUM 4.2 mmol/L (3.5-5.1); TOT PROT 8.2 g/dl (6.4-8.2)
[2019-06-02] MEDS: BICTEGRAV/EMTRICIT/TENOFOV (BIKTARVY) 50-200-25 MG TABLET PO SCH (09:37)
[2019-06-02] MEDS: metoPROLOL SUCCINATE 25 MG TAB.SR.24H (FP) PO SCH ×2 (09:38→21:21)
[2019-06-02] MEDS: ASPIRIN 81 MG CHEWABLE TABLETS PO SCH (09:38)
[2019-06-02] MEDS: HEPARIN NA (PORCINE) 5,000 UNITS/ML 1ML VIAL SQ SCH ×2 (09:39→21:22)
[2019-06-02] MEDS: GABAPENTIN 300 MG CAPSULE PO SCH ×2 (09:39→21:21)
[2019-06-02] MEDS: VENLAFAXINE HCL 75 MG E.R. CAPSULES PO SCH (09:39)
[2019-06-02] MEDS: FLUTICASONE/SALMETEROL 100 MCG/50 MCG DISKUS IH SCH ×2 (09:43→21:22)
--- NOTE | 2019-06-02 09:53 | PN ---
Teaching Attending Note Name of Resident: Cole Thomas ATTENDING PHYSICIAN STATEMENT I saw and evaluated the patient. I reviewed the resident's note and discussed the case with the resident. I agree with the resident's findings and plan as documented. SUBJECTIVE: OBJECTIVE: Vital Signs Temperature 97.6 F 06/02/19 09:01 Pulse Rate 69 06/02/19 09:01 Respiratory Rate 20 06/02/19 09:01 Blood Pressure 131/74 06/02/19 09:01 O2 Sat by Pulse Oximetry (%) 94 L 06/01/19 21:00 Middle aged F not in distress feels improved HEENT: Mm moist, no anemia PERRLA NECK: No JVd No Bruit CHEST: Minimal basal crepts CVS: s1S2 R SM in AA ABD: Obese, abd wall mari aregresing EXT: Regressing edema, Pulses + [employer]MENT [employer]: AOX3 non focal. CBC, BMP 06/02/19 07:10 06/02/19 07:10 EKG: NSR no acute ST T chnages CXR: No acute infiltrates Active Medications Albuterol/Ipratropium (Duoneb -) 1 amp NEB Q6H PRN PRN Reason: SHORTNESS OF BREATH Last Admin: 06/01/19 23:30 Dose: 1 amp Amitriptyline HCl (Elavil -) 50 mg PO HS [facility] Last Admin: 06/01/19 21:43 Dose: 50 mg Aspirin (Asa -) 81 mg PO DAILY [facility] Last Admin: 06/02/19 09:38 Dose: 81 mg Bictegravir/Emtricitabine/Tenofovir (Biktarvy 50-200-25 Mg Tablet) 1 each PO DAILY [facility] Last Admin: 06/02/19 09:37 Dose: 1 each Furosemide (Lasix Injection -) 40 mg IVPUSH DAILY [facility] Last Admin: 06/02/19 09:40 Dose: 40 mg Gabapentin (Neurontin -) 300 mg PO BID [facility] Last Admin: 06/02/19 09:39 Dose: 300 mg Heparin Sodium (Porcine) (Heparin -) 5,000 unit SQ BID [facility] Last Admin: 06/02/19 09:39 Dose: 5,000 unit Methadone HCl 40 mg/ Methadone (HCl 30 mg) 70 mg PO 0600 [facility] Last Admin: 06/02/19 05:43 Dose: 70 mg Metoprolol Succinate (Toprol Xl -) 25 mg PO BID [facility] Last Admin: 06/02/19 09:38 Dose: 25 mg Mirtazapine (Remeron -) 15 mg PO HS [facility] Last Admin: 06/01/19 21:43 Dose: 15 mg Fluticasone/Salmeterol (Advair 100mcg/50mcg -) 1 puff IH BID [facility] Last Admin: 06/02/19 09:43 Dose: 1 puff Venlafaxine HCl (Effexor Xr -) 150 mg PO DAILY [facility] Last Admin: 06/02/19 09:39 Dose: 150 mg ASSESSMENT AND PLAN:59 yo F with PMH of HIV (compliant with HAART, last VL undetectable), HTN, COPD, and aortic and mitral valve replacement (2014) presents to ED with complaints of SOB x 1 week and cough since yesterday. 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
[2019-06-02] MEDS ORDERED: METHADONE HCL 10 MG TABLET (FOR DETOX USE ONLY) PO SCH (10:00)
[2019-06-02] MEDS ORDERED: VENLAFAXINE HCL 150 MG E.R. CAPSULE PO SCH (10:00)
[2019-06-02] MEDS ORDERED: FUROSEMIDE 40 MG/4 ML INJECTABLE VIAL IVPUSH SCH ×2 (10:00→22:00)
--- NOTE | 2019-06-02 11:18 | CON.CARD ---
Consult Consult Specialty:: Cardiology Reason for Consultation:: CHF - History of Present Illness History of Present Illness: 58yo F with PMH of HIV (compliant with HAART, last VL undetectable), HTN, COPD on chronic O2, and bioprosthetic aortic and mitral valve replacement (2014 due to regurgitation @ [facility]) presents to ED with complaints of SOB x 1 week and cough. She had weight gain which was felt to be possibly from her new HIV medication Biktarvy but also noted edema and PND/orthopnea in addition to abdominal wall swelling She was placed on Diuretics and feels much better. Baseline exercise tolerance is about 1/2 block Echocardiogram 11/2018 showed normal LV function with normally functioning bioprosthetic MV. Moderate bioprosthetic AV regurgitation and severely elevated gradients across the bio AVR. - Past Medical History Cardio/Vascular: Yes: CHF, HTN, Mitral Insufficiency, Murmur, Pulmonary Hypertension Pulmonary: Yes: COPD ...LMP: 01/31/12 ...: No Infectious Disease: Yes: HIV (Last viral load according to chart: 100/CD4 396 ()) Psych: Yes: Anxiety, Depression - Past Surgical History Past Surgical History: Yes: Cholecystectomy - Alcohol/Substance Use Hx Alcohol Use: No History of Substance Use: reports: None, Cocaine (no ivda,) - Smoking History Smoking history: Current every day smoker (smoking for past 20 yrs,) Have you smoked in the past 12 months: Yes Aproximately how many cigarettes per day: 5 If you are a former smoker, when did you quit?: 2014 - Social History History of Recent Travel: No Home Medications - Allergies Allergies/Adverse Reactions: Allergies Allergy/AdvReac Type Severity Reaction Status Date / Time lisinopril Allergy lip Verified 06/01/19 11:50 swelling sulfamethoxazole Allergy Rash Verified 06/01/19 11:50 [From Bactrim DS] - Home Medications Home Medications: Ambulatory Orders Methadone [Dolophine -] 70 mg PO DAILY 11/12/18 Albuterol 0.083% Nebulizer Viola [Ventolin 0.083% Nebulizer Soln -] 1 neb NEB Q6H PRN #1 box 04/14/19 Albuterol Sulfate Inhaler - [Ventolin HFA Inhaler -] 1 - 2 inh PO Q4H #1 inhaler 04/14/19 Amitriptyline HCl [Elavil -] 1 tab PO DAILY #30 tablet 04/14/19 Amlodipine Besylate [Norvasc -] 1 tab PO DAILY #30 tablet 04/14/19 Aspirin [Aspirin EC] 1 tab PO DAILY #30 tablet. 04/14/19 Bictegrav/Emtricit/Tenofov Ala [Biktarvy 50-200-25 mg Tablet] 1 each PO DAILY # 30 tablet 04/14/19 Gabapentin [Neurontin -] 1 tab PO ASDIR #90 capsule 04/14/19 Metoprolol Tartrate [Lopressor -] 1 tab PO BID #60 tablet 04/14/19 Mirtazapine [Remeron -] 1 tablet PO HS #30 tablet 04/14/19 Venlafaxine HCl ER [Effexor Xr -] 150 mg PO DAILY #30 cap.er.24h 04/14/19 Review of Systems - Review of Systems Constitutional: denies: Chills, Fever, Lethargy Eyes: reports: No Symptoms HENT: reports: No Symptoms Neck: reports: No Symptoms Cardiovascular: reports: Edema, Shortness of Breath. denies: Chest Pain Respiratory: reports: Cough, Exercise Intolerance, SOB, SOB on Exertion Gastrointestinal: reports: Bloating Vital Signs: Vital Signs Temperature 97.6 F 06/02/19 09:01 Pulse Rate 69 06/02/19 09:01 Respiratory Rate 06/02/19 09:01 Blood Pressure 131/74 06/02/19 09:01 O2 Sat by Pulse Oximetry (%) 95 06/02/19 09:00 Constitutional: Yes: Well Nourished, No Distress HENT: Yes: Atraumatic, Normocephalic Neck: Yes: Supple, Trachea Midline Respiratory: Yes: Regular, CTA Bilaterally, On Nasal O2 Gastrointestinal: Yes: Normal Bowel Sounds, Soft Cardiovascular: Yes: Regular Rate and Rhythm JVD: Yes Carotid Bruit: No PMI: Non-Displaced Heart Sounds: Yes: S1, S2 Murmur: Yes: Systolic Murmur (3/6 sys M LUSB) Edema: Yes Edema: LLE: 1+, RLE: 1+ - Other Data Labs, Other Data: CBC, BMP 06/02/19 07:10 06/02/19 07:10 INR, PTT INR 1.08 (0.83-1.09) 06/01/19 10:25 Troponin, BNP 06/01/19 14:55 Troponin I < 0.02 Troponin, BNP 06/01/19 14:55 Troponin I < 0.02 Laboratory Tests 06/01/19 09:15 B-Natriuretic Peptide 1372.[address] H NS[address] LAE No ST T changes. Imaging - Results Chest X-ray: Report Reviewed Problem List - Problems (1) CHF (congestive heart failure) Code(s): I50.9 - HEART FAILURE, UNSPECIFIED Qualifiers: Heart failure type: unspecified Heart failure chronicity: unspecified Qualified Code(s): I50.9 - Heart failure, unspecified (2) COPD (chronic obstructive pulmonary disease) Code(s): J44.9 - CHRONIC OBSTRUCTIVE PULMONARY DISEASE, UNSPECIFIED Qualifiers: COPD type: unspecified COPD Qualified Code(s): J44.9 - Chronic obstructive pulmonary disease, unspecified Assessment/Plan 58yo F HIV, COPD on chronic O2, and bioprosthetic aortic and mitral valve replacement (2014 due to regurgitation @ [facility]) Admitted with diastolic heart failure. She was placed on Diuretics and feels much better. Baseline exercise tolerance is about 1/2 block. Possible bioprosthetic aortic valve dysfunction was detected in 2018 with elevated transvalvular gradient and prosthetic regurgitation. Echocardiogram 11/2018 showed normal LV function with normally functioning bioprosthetic MV. Moderate bioprosthetic AV regurgitation and severely elevated gradients across the bio AVR. 1. HFpEF: symptoms improved post diuresis in addition to weight loss. Still volume up with periphreal edema noted up to her abdominal wall. Continue with IV lasix. BP controlled. 2. 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 Would need possible KHURRAM, review of post operative records from [facility]. Also need to assess severity of lung disease. Needs out patient follow up for this ultimately.
--- NOTE | 2019-06-02 13:18 | CON.PULM ---
Consult Consult Specialty:: PULM/CCM Referred by:: Hospitalist Reason for Consultation:: SOB - History of Present Illness Chief Complaint: SOB History of Present Illness: 58 F, HIV (compliant with HAART, last VL undetectable), HTN, COPD due to active smoking (has seen Dr Ritchie in the past), and aortic and mitral valve replacement (2014). Admitted via the ER due to progressive SOB, bipedal edema and dry cough x 1 week. No fever or chills. No hemoptysis or night sweats. She does snore but there is no specific history of witnessed. CXR: bilateral Pulmonary vascular congestion and pleural effusions - History Source History Provided By: Patient Limitations to Obtaining History: No Limitations - Past Medical History Cardio/Vascular: Yes: CHF, HTN, Mitral Insufficiency, Murmur, Pulmonary Hypertension Pulmonary: Yes: Bronchitis, COPD, Pneumonia. No: Asthma, Cancer, O2 Dependent, Previously Intubated, Pulmonary Embolus, Pulmonary Fibrosis, Sleep Apnea ...LMP: 01/31/12 ...: No Infectious Disease: Yes: HIV (Last viral load according to chart: 100/CD4 396 ()) Psych: Yes: Anxiety, Depression - Past Surgical History Past Surgical History: Yes: Cholecystectomy - Alcohol/Substance Use Hx Alcohol Use: No History of Substance Use: reports: None, Cocaine (no ivda,) - Smoking History Smoking history: Current every day smoker (smoking for past 20 yrs,) Have you smoked in the past 12 months: Yes Aproximately how many cigarettes per day: 5 If you are a former smoker, when did you quit?: 2014 - Social History History of Recent Travel: No Home Medications - Allergies Allergies/Adverse Reactions: Allergies Allergy/AdvReac Type Severity Reaction Status Date / Time lisinopril Allergy lip Verified 06/01/19 11:50 swelling sulfamethoxazole Allergy Rash Verified 06/01/19 11:50 [From Bactrim DS] - Home Medications Home Medications: Ambulatory Orders Methadone [Dolophine -] 70 mg PO DAILY 11/12/18 Albuterol 0.083% Nebulizer Viola [Ventolin 0.083% Nebulizer Soln -] 1 neb NEB Q6H PRN #1 box 04/14/19 Albuterol Sulfate Inhaler - [Ventolin HFA Inhaler -] 1 - 2 inh PO Q4H #1 inhaler 04/14/19 Amitriptyline HCl [Elavil -] 1 tab PO DAILY #30 tablet 04/14/19 Amlodipine Besylate [Norvasc -] 1 tab PO DAILY #30 tablet 04/14/19 Aspirin [Aspirin EC] 1 tab PO DAILY #30 tablet. 04/14/19 Bictegrav/Emtricit/Tenofov Ala [Biktarvy 50-200-25 mg Tablet] 1 each PO DAILY # 30 tablet 04/14/19 Gabapentin [Neurontin -] 1 tab PO ASDIR #90 capsule 04/14/19 Metoprolol Tartrate [Lopressor -] 1 tab PO BID #60 tablet 04/14/19 Mirtazapine [Remeron -] 1 tablet PO HS #30 tablet 04/14/19 Venlafaxine HCl ER [Effexor Xr -] 150 mg PO DAILY #30 cap.er.24h 04/14/19 Review of Systems - Review of Systems Constitutional: reports: Malaise. denies: Chills, Fever, Night Sweats Eyes: reports: No Symptoms HENT: reports: No Symptoms Neck: reports: No Symptoms Cardiovascular: reports: Edema, Shortness of Breath. denies: Chest Pain, Palpitations Respiratory: reports: Cough, Orthopnea, Snoring, SOB, SOB on Exertion. denies: Hemoptysis, Wheezing Gastrointestinal: reports: No Symptoms Genitourinary: reports: No Symptoms Breasts: reports: No Symptoms Reported Musculoskeletal: reports: No Symptoms Integumentary: reports: No Symptoms Neurological: reports: No Symptoms Endocrine: reports: No Symptoms Hematology/Lymphatic: reports: No Symptoms Psychiatric: reports: No Symptoms Physical Exam Vital Sings: Vital Signs Temperature 97.6 F 06/02/19 09:01 Pulse Rate 69 06/02/19 09:01 Respiratory Rate 20 06/02/19 09:01 Blood Pressure 131/74 06/02/19 09:01 O2 Sat by Pulse Oximetry (%) 95 06/02/19 09:00 Constitutional: Yes: No Distress, Obese Eyes: Yes: Conjunctiva Clear, EOM Intact HENT: Yes: Atraumatic, Normocephalic Neck: Yes: Supple, Trachea Midline Cardiovascular: Yes: Regular Rate and Rhythm Respiratory: Yes: Cough, Diminished, On Nasal O2, Rales, Rhonchi, Tachypnea. No : Accessory Muscle Use, SOB, SOB on Exertion, Stridor, Wheezes ...Inspection: Yes: WNL ...Clubbing: No Gastrointestinal: Yes: Normal Bowel Sounds, Soft Renal/: Yes: WNL Musculoskeletal: Yes: WNL Extremities: Yes: WNL Edema: Yes Peripheral Pulses WNL: Yes Integumentary: Yes: WNL Neurological: Yes: WNL, Alert, Oriented ...Motor Strength: WNL Psychiatric: Yes: WNL, Alert, Oriented Labs: CBC, BMP 06/02/19 07:10 06/02/19 07:10 Imaging - Results Chest X-ray: Report Reviewed, Image Reviewed Problem List - Problems (1) HIV (human immunodeficiency virus infection) Code(s): B20 - HUMAN IMMUNODEFICIENCY VIRUS [HIV] DISEASE Qualifiers: HIV symptom status: unspecified Qualified Code(s): B20 - Human immunodeficiency virus [HIV] disease (2) CHF (congestive heart failure) Code(s): I50.9 - HEART FAILURE, UNSPECIFIED Qualifiers: Heart failure type: unspecified Heart failure chronicity: unspecified Qualified Code(s): I50.9 - Heart failure, unspecified (3) COPD (chronic obstructive pulmonary disease) Code(s): J44.9 - CHRONIC OBSTRUCTIVE PULMONARY DISEASE, UNSPECIFIED Qualifiers: COPD type: unspecified COPD Qualified Code(s): J44.9 - Chronic obstructive pulmonary disease, unspecified (4) Anxiety disorder Code(s): F41.9 - ANXIETY DISORDER, UNSPECIFIED (5) Depressive disorder Code(s): F32.9 - MAJOR DEPRESSIVE DISORDER, SINGLE EPISODE, UNSPECIFIED (7) Pulmonary hypertension Code(s): I27.20 - PULMONARY HYPERTENSION, UNSPECIFIED (8) Tobacco use Code(s): Z72.0 - TOBACCO USE (9) Glaucoma Code(s): H40.9 - UNSPECIFIED GLAUCOMA (10) Tobacco abuse disorder Code(s): Z72.0 - TOBACCO USE Assessment/Plan Lasix Daily weights No smoking counseled Supplemental O2 as needed BD TX PRN Would monitor off systemic steroids ECHO Will need to assess S/E of HIV meds PFTs as an outpatient Will follow Thank you. Dr Rodrigues
--- NOTE | 2019-06-02 13:43 | PN ---
Teaching Attending Note Name of Resident: Cole Thomas ATTENDING PHYSICIAN STATEMENT I saw and evaluated the patient. I reviewed the resident's note and discussed the case with the resident. I agree with the resident's findings and plan as documented. SUBJECTIVE: Patient feels improved since yesterday OBJECTIVE: Vital Signs Temperature 97.6 F 06/02/19 09:01 Pulse Rate 69 06/02/19 09:01 Respiratory Rate 20 06/02/19 09:01 Blood Pressure 131/74 06/02/19 09:01 O2 Sat by Pulse Oximetry (%) 95 06/02/19 09:00 General: Pleasant female, comfortable, not in distress HEENT; mucous membranes moist, no anemia, no jaundice, PERRLA, no nystagmus Neck: No JVD, supple, no bruit, thyroid palpably normal, normal carotid pulsations. Chest: Nontender, bilateral basal rales. CVS: S1-S2 regular no murmur/gallop/rub Abdomen: Left-sided abdominal wall edema, nondistended, soft, bowel sounds present. Extremities: Bilateral edema ., No cough tenderness, pulses present FILE CLERK: AO X3 , no gross motor sensory deficit CBC, BMP 06/02/19 07:10 06/02/19 07:10 Troponin I: X2 normal BNP: 1.3K Chest x-ray: Pulmonary congestion ASSESSMENT AND PLAN: 59-year-old female multiple medical comorbidities, COPD on home O2, morbidly obese, hypertension, status post AVR and MVR bioprosthetic valve not on anticoagulation, HIV infection undetectable viral load CD4 count more than 300, COPD on home oxygen, presented with 1 to 2 weeks gradually worsening shortness of breath, lower extremity swelling, decreased exercise tolerance and left-sided abdominal wall thickness, no fever chills nausea vomiting or diarrhea no sick contact in the ED work-up self elevated BNP responded to IV Lasix feeling improved, cardiology and pulmonary consulted. Impression: Decompensated heart failure with preserved ejection fraction. Problem List - Problems (1) Decompensated heart failure Assessment/Plan: Patient presented worsening shortness of breath but excessive weight elevated BNP, previous ejection fraction normal, patient has diastolic dysfunction most likely decompensated diastolic heart failure, continue IV Lasix 40 mg every 12 hours, daily weight, low-salt diet, follow-up repeat echocardiogram, follow-up cardiology recommendations. Problems reviewed: Yes Code(s): I50.9 - HEART FAILURE, UNSPECIFIED (2) Asthma with COPD (chronic obstructive pulmonary disease) Assessment/Plan: Resume home medications follow pulmonary recommendation patient is outpatient sleep study. Problems reviewed: Yes Code(s): J44.9 - CHRONIC OBSTRUCTIVE PULMONARY DISEASE, UNSPECIFIED (3) Hypertension Assessment/Plan: Resume all home medications Problems reviewed: Yes Code(s): I10 - ESSENTIAL (PRIMARY) HYPERTENSION (4) HIV (human immunodeficiency virus infection) Assessment/Plan: Undetectable viral load on HAART therapy continue same Problems reviewed: Yes Code(s): B20 - HUMAN IMMUNODEFICIENCY VIRUS [HIV] DISEASE Qualifiers: HIV symptom status: unspecified Qualified Code(s): B20 - Human immunodeficiency virus [HIV] disease (5) Pulmonary hypertension Assessment/Plan: Due to COPD follow-up echocardiogram Problems reviewed: Yes Code(s): I27.20 - PULMONARY HYPERTENSION, UNSPECIFIED (6) Edema of abdominal wall Assessment/Plan: Left-sided abdominal edema most likely due to volume overload and possible changes no sign of acute inflammation we will follow-up ultrasound. Problems reviewed: Yes Code(s): R60.0 - LOCALIZED EDEMA
[2019-06-02] MEDS: FUROSEMIDE 40 MG/4 ML INJECTABLE VIAL IVPUSH SCH (14:11)
--- NOTE | 2019-06-02 15:10 | EKG ---
Test Reason : Blood Pressure : / mmHG Vent. Rate : 070 BPM Atrial Rate : 070 BPM P-R Int : 178 ms QRS Dur : 082 ms QT Int : 428 ms P-R-T Axes : 065 084 086 degrees QTc Int : 462 ms NORMAL SINUS RHYTHM POSSIBLE LEFT ATRIAL ENLARGEMENT BORDERLINE ECG WHEN COMPARED WITH ECG OF 01-JUN-2019 14:31, NO SIGNIFICANT CHANGE WAS FOUND Confirmed by TERE PIERRE MD ([id number]) on 06/02/2019 3:09:43 PM Referred By: Confirmed By:TERE PIERRE MD
--- NOTE | 2019-06-02 16:38 | ECHO ---
Name: OLLIE LAFLEUR Exam:Adult Echocardiogram Study Date: 06/02/2019 02:53 PM Age: 59 yrs Height: 68 in Weight: 232 lb BSA: 2.2 m2 MMode/2D Measurements & Calculations IVSd: 1.4 cm Ao root diam: 2.7 cm LVIDd: 5.6 cm LA dimension: 4.6 cm LVIDs: 3.5 cm ACS: 1.4 cm LVPWd: 1.2 cm EDV(Teich): 153.5 ml LVOT diam: 1.8 cm ESV(Teich): 49.2 ml LAV (MOD-bp): 131.0 ml RV S Mario: 8.8 cm/sec Doppler Measurements & Calculations MV E max mario: 188.2 cm/sec MVA(VTI): 2.2 cm2 MV A max mario: 148.8 cm/sec MV V2 max: 212.4 cm/sec MV E/A: 1.3 MV max P.1 mmHg MV dec time: 0.23 sec MV V2 mean: 125.6 cm/sec MV mean P.2 mmHg MV V2 VTI: 54.5 cm MV P1/2t max mario: 191.3 cm/sec Ao V2 max: 372.4 cm/sec MV P1/2t: 63.7 msec Ao max P.7 mmHg Ao V2 mean: 259.3 cm/sec MVA(P1/2t): 3.5 cm2 Ao mean P.9 mmHg MV dec slope: 879.7 cm/sec2 Ao V2 VTI: 82.5 cm MC(I,D): 1.5 cm2 AI P1/2t: 314.8 msec MC(V,D): 1.5 cm2 AI max mario: 396.3 cm/sec LV V1 max P.9 mmHg AI max P.8 mmHg LV V1 mean P.7 mmHg LV V1 max: 217.2 cm/sec AI dec slope: 368.6 cm/sec2 LV V1 mean: 154.8 cm/sec LV V1 VTI: 46.9 cm SV(LVOT): 122.6 ml TR max mario: 335.8 cm/sec TR max P.3 mmHg RVSP(TR): 48.3 mmHg PA V2 max: 105.6 cm/sec PI end-d mario: 190.0 cm/sec PA max P.5 mmHg Med Peak E' Mario: 6.5 cm/sec RAP systole: 3.0 mmHg Med E/e': 28.8 Lat Peak E' Mario: 7.3 cm/sec Lat E/e': 25.7 Pulm Sys Mario: 44.9 cm/sec Pulm Álvarez Mario: 36.5 cm/sec Pulm S/D: 1.2 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 Procedure A complete two-dimensional transthoracic echocardiogram was performed (2D, M-mode, Doppler and color flow Doppler). Left Ventricle There is mild concentric left ventricular hypertrophy. The left ventricular ejection fraction is norm al. Ejection Fraction = 60-65%. No regional wall motion abnormalities noted. Right Ventricle The right ventricle is normal in size and function. Atria The left atrium is mildly dilated. Right atrial size is normal. Mitral Valve There is a bioprosthetic mitral valve with normal gradients. There is no mitral regurgitation noted. Tricuspid Valve There is mild to moderate tricuspid regurgitation. Right ventricular systolic pressure is elevated at 40- 50mmHg. Aortic Valve There is a bioprosthetic aortic valve with elevated gradients, also seen on 11/12/18 echo. Moderate aor tic regurgitation. Pulmonic Valve There is no pulmonic valvular regurgitation. Great Vessels The aortic root is normal size. Pericardium/Pleura There is no pericardial effusion. Interpretation Summary There is mild concentric left ventricular hypertrophy. The left ventricular ejection fraction is normal. The right ventricle is normal in size and function. The left atrium is mildly dilated. There is a bioprosthetic mitral valve with normal gradients. There is mild to moderate tricuspid regurgitation. Right ventricular systolic pressure is elevated at 40-50mmHg. There is a bioprosthetic aortic valve with elevated gradients, also seen on 11/12/18 echo. Moderate aortic regurgitation. MD Mark Olguin 06/02/2019 04:38 PM
--- NOTE | 2019-06-02 16:39 | PN ---
Physical Exam: SUBJECTIVE: Patient seen and examined. Says her breathing has improved compared to yesterday. Denies chest pain, sob, nausea, vomiting, fevers, chills. OBJECTIVE: Vital Signs Period Temp Pulse Resp BP Sys/Álvarez Pulse Ox Last 24 Hr 97.4 F-99.1 F 69-73 20-20 115-143/74-91 94-95 GENERAL: comfortable, walking around room HEAD: Normal with no signs of trauma. EYES: PERRL, extraocular movements intact ENT:moist mucous membranes. NECK: supple. LUNGS: bibasilar crackles HEART: RRR, no MGR ABDOMEN: obese, nontender, nd, L sided abdominal wall edema EXTREMITIES: 2+ pulses, +edema NEUROLOGICAL: Cranial nerves II through XII grossly intact. normal gait Laboratory Results - last 24 hr 06/02/19 06/02/19 07:10 07:10 WBC 4.5 RBC 4.03 Hgb 12.2 Hct 38.0 MCV 94.5 MCH 30.3 MCHC 32.0 RDW 17.5 H Plt Count 181 MPV 8.2 Absolute Neuts (auto) 2.9 Neutrophils % 64.4 Lymphocytes % 20.5 D Monocytes % 11.2 H Eosinophils % 3.4 D Basophils % 0.5 Nucleated RBC % 0 Sodium 137 Potassium 4.2 Chloride 104 Carbon Dioxide 32 Anion Gap 2 L BUN 12.9 Creatinine 0.8 Est GFR (CKD-EPI)AfAm 94.19 Est GFR (CKD-EPI)NonAf 81.27 Random Glucose 94 Calcium 8.6 Phosphorus 3.6 Magnesium 2.0 Total Bilirubin 0.6 AST 25 ALT 35 Alkaline Phosphatase 123 H Total Protein 8.2 Albumin 2.5 L TSH 1.02 Active Medications Generic Name Dose Route Start Last Admin Trade Name Freq PRN Reason Stop Dose Admin Albuterol/Ipratropium 1 amp 06/01/19 13:16 06/01/19 23:30 Duoneb - NEB 1 amp Q6H PRN Administration SHORTNESS OF BREATH Amitriptyline HCl 50 mg 06/01/19 22:00 06/01/19 21:43 Elavil - PO 50 mg HS VERONICA Administration Aspirin 81 mg 06/01/19 13:30 06/02/19 09:38 Asa - PO 81 mg DAILY VERONICA Administration Bictegravir/Emtricitabine/Tenofovir 1 each 06/02/19 10:00 06/02/19 09:37 Biktarvy 50-200-25 Mg Tablet PO 1 each DAILY VERONICA Administration Furosemide 40 mg 06/02/19 14:00 06/02/19 14:11 Lasix Injection - IVPUSH 40 mg BID@0600,1400 VERONICA Administration Gabapentin 300 mg 06/01/19 22:00 06/02/19 09:39 Neurontin - PO 300 mg BID VERONICA Administration Heparin Sodium (Porcine) 5,000 unit 06/01/19 22:00 06/02/19 09:39 Heparin - SQ 5,000 unit BID VERONICA Administration Methadone HCl 40 mg/ Methadone 70 mg 06/02/19 06:00 06/02/19 05:43 HCl 30 mg PO 70 mg 0600 EVRONICA Administration Metoprolol Succinate 25 mg 06/01/19 22:00 06/02/19 09:38 Toprol Xl - PO 25 mg BID VERONICA Administration Mirtazapine 15 mg 06/01/19 22:00 06/01/19 21:43 Remeron - PO 15 mg HS VERONICA Administration Fluticasone/Salmeterol 1 puff 06/01/19 22:00 06/02/19 09:43 Advair 100mcg/50mcg - IH 1 puff BID VERONICA Administration Venlafaxine HCl 150 mg 06/02/19 10:00 06/02/19 09:39 Effexor Xr - PO 150 mg DAILY VERONICA Administration ASSESSMENT/PLAN: 59-year-old female multiple medical comorbidities, COPD on home O2, morbidly obese, hypertension, status post AVR and MVR bioprosthetic valve not on anticoagulation, HIV infection undetectable viral load CD4 count more than 300, COPD on home oxygen, presented with 1 to 2 weeks gradually worsening shortness of breath, lower extremity swelling, decreased exercise tolerance and left- sided abdominal wall thickness, no fever chills nausea vomiting or diarrhea no sick contact in the ED work-up self elevated BNP responded to IV Lasix feeling improved, cardiology and pulmonary consulted. 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 Would need possible KHURRAM, review of post operative records from [facility]. Also need to assess severity of lung disease. Needs out patient follow up for this ultimately. Visit type - Emergency Visit Emergency Visit: Yes ED Registration Date: 06/01/19 Care time: The patient presented to the Emergency Department on the above date and was hospitalized for further evaluation of their emergent condition. - New Patient This patient is new to me today: Yes Date on this admission: 06/02/19 - Critical Care Critical Care patient: No ATTENDING PHYSICIAN STATEMENT I saw and evaluated the patient. I reviewed the resident's note and discussed the case with the resident. I agree with the resident's findings and plan as documented. SUBJECTIVE: OBJECTIVE: ASSESSMENT AND PLAN:
[2019-06-02] MEDS ORDERED: ACETAMINOPHEN 325 MG TABLET (FP) PO PRN (18:10)
[2019-06-02] MEDS: AMITRIPTYLINE HCL 25 MG TABLET PO SCH (21:21)
[2019-06-02] MEDS: MIRTAZAPINE 15 MG TABLET (FP) PO SCH (21:22)
[2019-06-02] MEDS: ALBUTEROL SO4 2.5/IPRATROPIUM 0.5 INH SOL 3 ML VIAL.NEB. NEB PRN (21:55)
[2019-06-03] MEDS ORDERED: METHADONE HCL 10 MG TABLET ONE (06:53)
[2019-06-03] MEDS ORDERED: METHADONE HCL 40 MG DISPERSABLE TABLET ONE (06:53)
[2019-06-03 06:56] LABS: BASO % 0.5 % (0-2.0); EOS % 3.3 % (0-4.5); HEMOGLOBIN 12.3 GM/dL (10.7-15.3); LYMPH % 28.7 % (8-40); MCH 29.9 pg (25.7-33.7); MCHC 31.7 g/dl (32.0-36.0); MEAN CELL VOLUME 94.3 fl (80-96); MEAN PLT VOLUME 8.3 fl (7.5-11.1); MONO % 11.2 % (3.8-10.2); NEUT % 56.3 % (42.8-82.8); PLATELET COUNT 189 K/MM3 (134-434); RBC 4.13 M/mm3 (3.60-5.2); RDW 17.2 % (11.6-15.6); WHITE BLOOD COUNT 4.4 K/mm3 (4.0-10.0)
[2019-06-03] MEDS: FUROSEMIDE 40 MG/4 ML INJECTABLE VIAL IVPUSH SCH ×2 (07:00→14:35)
[2019-06-03] MEDS: METHADONE 40 MG, METHADONE 30 MG PO SCH (07:00)
[2019-06-03 07:29] LABS: ALBUMIN 2.5 g/dl (3.4-5.0); BILIRUBIN,TOTAL 0.4 mg/dL (0.2-1); CALCIUM 8.5 mg/dL (8.5-10.1); CREATININE 0.8 mg/dL (0.55-1.3); POTASSIUM 4.1 mmol/L (3.5-5.1); TOT PROT 8.2 g/dl (6.4-8.2)
--- NOTE | 2019-06-03 08:54 | PN ---
Teaching Attending Note Name of Resident: Cole Thomas ATTENDING PHYSICIAN STATEMENT I saw and evaluated the patient. I reviewed the resident's note and discussed the case with the resident. I agree with the resident's findings and plan as documented. SUBJECTIVE: Patient feels improved lower extremity swelling shortness of breath however abdominal swelling reduced OBJECTIVE: Vital Signs Temperature 98.0 F 06/03/19 06:16 Pulse Rate 63 06/03/19 06:16 Respiratory Rate 20 06/03/19 08:27 Blood Pressure 135/72 06/03/19 06:16 O2 Sat by Pulse Oximetry (%) 95 06/03/19 08:27 General: Pleasant female, comfortable, not in distress HEENT; mucous membranes moist, no anemia, no jaundice, PERRLA, no nystagmus Neck: No JVD, supple, no bruit, thyroid palpably normal, normal carotid pulsations. Chest: Nontender, bilateral basal rales. CVS: S1-S2 regular no murmur/gallop/rub Abdomen: Left-sided abdominal wall edema decreased, nondistended, soft, bowel sounds present. Extremities: Bilateral edema ., No cough tenderness, pulses present CO PILOT: AO X3 , no gross motor sensory deficit CBC, BMP 06/03/19 05:50 06/03/19 05:50 Troponin I: X2 normal BNP: 1.3K Chest x-ray: Pulmonary congestion Echocardiogram: Normal ejection fraction ASSESSMENT AND PLAN: 59-year-old female multiple medical comorbidities, COPD on home O2, morbidly obese, hypertension, status post AVR and MVR bioprosthetic valve not on anticoagulation, HIV infection undetectable viral load CD4 count more than 300, COPD on home oxygen, presented with 1 to 2 weeks gradually worsening shortness of breath, lower extremity swelling, decreased exercise tolerance and left-sided abdominal wall thickness, no fever chills nausea vomiting or diarrhea no sick contact in the ED work-up self elevated BNP responded to IV Lasix feeling improved, cardiology and pulmonary consulted. Impression: Decompensated heart failure with preserved ejection fraction. Improved on current management echo shows no acute changes EF normal can be switched to p.o. Lasix 40 mg twice daily DC home follow-up PCP clinic in a week to repeat BMP educated to increase potassium intake. Problem List - Problems (1) Decompensated heart failure Assessment/Plan: Repeat echo shows normal ejection fraction, diastolic dysfunction, responded to IV Lasix continue p.o. Lasix 40 mg twice daily rest continue all home medications follow-up with PCP in a week to repeat BMP. Code(s): I50.9 - HEART FAILURE, UNSPECIFIED (2) Asthma with COPD (chronic obstructive pulmonary disease) Assessment/Plan: Resume home medications follow pulmonary recommendation patient is outpatient sleep study. Code(s): J44.9 - CHRONIC OBSTRUCTIVE PULMONARY DISEASE, UNSPECIFIED (3) Hypertension Assessment/Plan: Resume all home medications Code(s): I10 - ESSENTIAL (PRIMARY) HYPERTENSION (4) HIV (human immunodeficiency virus infection) Assessment/Plan: Undetectable viral load on HAART therapy continue same Code(s): B20 - HUMAN IMMUNODEFICIENCY VIRUS [HIV] DISEASE Qualifiers: HIV symptom status: unspecified Qualified Code(s): B20 - Human immunodeficiency virus [HIV] disease (5) Pulmonary hypertension Assessment/Plan: Due to COPD follow-up echocardiogram Code(s): I27.20 - PULMONARY HYPERTENSION, UNSPECIFIED (6) Edema of abdominal wall Assessment/Plan: Left-sided abdominal edema most likely due to volume overload and possible changes no sign of acute inflammation we will follow-up ultrasound. Code(s): R60.0 - LOCALIZED EDEMA
[2019-06-03] MEDS ORDERED: PT OWN MED DRAWER 7, Y5N ONE (09:04)
[2019-06-03] MEDS: HEPARIN NA (PORCINE) 5,000 UNITS/ML 1ML VIAL SQ SCH (09:08)
[2019-06-03] MEDS: VENLAFAXINE HCL 75 MG E.R. CAPSULES PO SCH (09:08)
[2019-06-03] MEDS: GABAPENTIN 300 MG CAPSULE PO SCH (09:09)
[2019-06-03] MEDS: metoPROLOL SUCCINATE 25 MG TAB.SR.24H (FP) PO SCH (09:09)
[2019-06-03] MEDS: FLUTICASONE/SALMETEROL 100 MCG/50 MCG DISKUS IH SCH (09:09)
[2019-06-03] MEDS: ASPIRIN 81 MG CHEWABLE TABLETS PO SCH (09:09)
[2019-06-03] MEDS: BICTEGRAV/EMTRICIT/TENOFOV (BIKTARVY) 50-200-25 MG TABLET PO SCH (09:13)
[2019-06-03 10:56] VITALS: BP 124/84; PULSE 66; TEMP 98
[2019-06-03] MEDS: ALBUTEROL SO4 2.5/IPRATROPIUM 0.5 INH SOL 3 ML VIAL.NEB. NEB PRN (11:20)
--- NOTE | 2019-06-03 11:58 | DS ---
Physical Exam: SUBJECTIVE: Patient seen and examined. offers no new complaints. says her breathing is much better than yesterday. denies chest pain, sob, nausea, vomiting, fevers, chills. OBJECTIVE: Vital Signs Period Temp Pulse Resp BP Sys/Álvarez Pulse Ox Last 24 Hr 98 F-99.1 F 63-75 18-20 124-141/72-84 88-95 PHYSICAL EXAM GENERAL: comfortable, walking around room HEAD: Normal with no signs of trauma. EYES: PERRL, extraocular movements intact ENT:moist mucous membranes. NECK: supple. LUNGS: decreased breath sounds HEART: RRR, no MGR ABDOMEN: obese, nontender, nd, L sided abdominal wall edema IMPROVED EXTREMITIES: 2+ pulses, +edema NEUROLOGICAL: Cranial nerves II through XII grossly intact. normal gait LABS Laboratory Results - last 24 hr 06/03/19 06/03/19 05:50 05:50 WBC 4.4 RBC 4.13 Hgb 12.3 Hct 39.0 MCV 94.3 MCH 29.9 MCHC 31.7 L RDW 17.2 H Plt Count 189 MPV 8.3 Absolute Neuts (auto) 2.5 Neutrophils % 56.3 Lymphocytes % 28.7 D Monocytes % 11.2 H Eosinophils % 3.3 Basophils % 0.5 Nucleated RBC % 0 Sodium 138 Potassium 4.1 Chloride 102 Carbon Dioxide 35 H Anion Gap 1 L BUN 12.0 Creatinine 0.8 Est GFR (CKD-EPI)AfAm 94.19 Est GFR (CKD-EPI)NonAf 81.27 Random Glucose 81 Calcium 8.5 Total Bilirubin 0.4 AST 22 ALT 30 Alkaline Phosphatase 122 H Total Protein 8.2 Albumin 2.5 L HOSPITAL COURSE: Date of Admission:06/01/19 59-year-old female multiple medical comorbidities, COPD on home O2, morbidly obese, hypertension, status post AVR and MVR bioprosthetic valve not on anticoagulation, HIV infection undetectable viral load CD4 count more than 300, COPD on home oxygen, presented with 1 to 2 weeks gradually worsening shortness of breath, lower extremity swelling, decreased exercise tolerance and left- sided abdominal wall thickness, no fever chills nausea vomiting or diarrhea no sick contact in the ED work-up self elevated BNP responded to IV Lasix feeling improved, cardiology and pulmonary consulted. #Acute D CHF exacerbation-resolved #hx of COPD-stable #HTN #HIV (on HAART)-cont meds #hx of bio-prosthetic AVR MVR replacement (2014 due to regurgitation @ [facility]) #Pulm HTN #Abdominal wall edema-resolved #hx of depression Plan: -patient with significant clinical improvement - on admission CXR: bilateral Pulmonary vascular congestion and pleural effusions -Lasix 40mg IV BID. Will discharge on 40mg PO BID -echo results noted. 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 Would need possible KHURRAM, review of post operative records from [facility]. Also need to assess severity of lung disease. Needs out patient follow up for this ultimately. -patient will follow up with PCP, Cardio, and Pulm outpatient. Date of Discharge: 06/03/19 Minutes to complete discharge: 35 Discharge Summary Problems reviewed: Yes Reason For Visit: CHF,HIV INFECTION,COPD Current Active Problems Decompensated heart failure (Acute) Edema of abdominal wall (Acute) HIV (human immunodeficiency virus infection) (Acute) Hypertension (Acute) CHF (congestive heart failure) (Chronic) COPD (chronic obstructive pulmonary disease) (Chronic) Condition: Improved - Instructions Diet, Activity, Other Instructions: You were admitted because of shortness of breath and were found to have fluid build up in your body. You will need to start taking a water pill at home until you are seen by your primary care and heart doctor. You will take 40mg twice a day of Lasix (Furesemide) Please follow up with your primary care doctor within 1 week. You will also need to follow up with your shoe cutter within 1 week. Follow up with your lung doctor as well. If you develop shortness of breath, chest pain, fevers, chills, please go to your nearest emergency department. Referrals: Andres Ritchie MD [Staff Physician] - Mary Zavala FNP [Primary Care Provider] - 1 Week Disposition: HOME - Home Medications Comprehensive Discharge Medication List: Ambulatory Orders Methadone [Dolophine -] 70 mg PO DAILY 11/12/18 Albuterol 0.083% Nebulizer Viola [Ventolin 0.083% Nebulizer Soln -] 1 neb NEB Q6H PRN #1 box 04/14/19 Albuterol Sulfate Inhaler - [Ventolin HFA Inhaler -] 1 - 2 inh PO Q4H #1 inhaler 04/14/19 Amitriptyline HCl [Elavil -] 1 tab PO DAILY #30 tablet 04/14/19 Amlodipine Besylate [Norvasc -] 1 tab PO DAILY #30 tablet 04/14/19 Aspirin [Aspirin EC] 1 tab PO DAILY #30 tablet. 04/14/19 Bictegrav/Emtricit/Tenofov Ala [Biktarvy 50-200-25 mg Tablet] 1 each PO DAILY # 30 tablet 04/14/19 Gabapentin [Neurontin -] 1 tab PO ASDIR #90 capsule 04/14/19 Metoprolol Tartrate [Lopressor -] 1 tab PO BID #60 tablet 04/14/19 Mirtazapine [Remeron -] 1 tablet PO HS #30 tablet 04/14/19 Venlafaxine HCl ER [Effexor Xr -] 150 mg PO DAILY #30 cap.er.24h 04/14/19 Furosemide [Lasix -] 40 mg PO BID #60 tablet 06/03/19 This patient is new to me today: No Emergency Visit: Yes ED Registration Date: 06/01/19 Care time: The patient presented to the Emergency Department on the above date and was hospitalized for further evaluation of their emergent condition. Critical Care patient: No - Discharge Referral Referred to [facility] Med [facility] No ATTENDING PHYSICIAN STATEMENT I saw and evaluated the patient. I reviewed the resident's note and discussed the case with the resident. I agree with the resident's findings and plan as documented. SUBJECTIVE: OBJECTIVE: ASSESSMENT AND PLAN:
--- NOTE | 2019-06-03 12:34 | PN ---
Progress Note (short form) - Note Progress Note: PULMONARY SITTING UP IN BED/SPEAKING ON CELL PHONE/USING O2 HAS EATEN LUNCH/OFFERS NO COMPLAINTS/ SUBJECTIVE IMPROVEMENT VSS/AFEBRILE Constitutional: Yes: No Distress, Obese Eyes: Yes: Conjunctiva Clear, EOM Intact HENT: Yes: Atraumatic, Normocephalic Neck: Yes: Supple, Trachea Midline Cardiovascular: Yes: Regular Rate and Rhythm Respiratory: Yes: Cough, Diminished, On Nasal O2, Rales, Rhonchi, Tachypnea. No : Accessory Muscle Use, SOB, SOB on Exertion, Stridor, Wheezes ...Inspection: Yes: WNL ...Clubbing: No Gastrointestinal: Yes: Normal Bowel Sounds, Soft Renal/: Yes: WNL Musculoskeletal: Yes: WNL Extremities: Yes: WNL Edema: Yes Peripheral Pulses WNL: Yes Integumentary: Yes: WNL Neurological: Yes: WNL, Alert, Oriented ...Motor Strength: WNL Psychiatric: Yes: WNL, Alert, Oriented Labs: NOTED Imaging - Results Chest X-ray: Report Reviewed, Image Reviewed Problem List - Problems (1) HIV (human immunodeficiency virus infection) Code(s): B20 - HUMAN IMMUNODEFICIENCY VIRUS [HIV] DISEASE Qualifiers: HIV symptom status: unspecified Qualified Code(s): B20 - Human immunodeficiency virus [HIV] disease (2) CHF (congestive heart failure) Code(s): I50.9 - HEART FAILURE, UNSPECIFIED Qualifiers: Heart failure type: unspecified Heart failure chronicity: unspecified Qualified Code(s): I50.9 - Heart failure, unspecified (3) COPD (chronic obstructive pulmonary disease) Code(s): J44.9 - CHRONIC OBSTRUCTIVE PULMONARY DISEASE, UNSPECIFIED Qualifiers: COPD type: unspecified COPD Qualified Code(s): J44.9 - Chronic obstructive pulmonary disease, unspecified (4) Anxiety disorder Code(s): F41.9 - ANXIETY DISORDER, UNSPECIFIED (5) Depressive disorder Code(s): F32.9 - MAJOR DEPRESSIVE DISORDER, SINGLE EPISODE, UNSPECIFIED (7) Pulmonary hypertension Code(s): I27.20 - PULMONARY HYPERTENSION, UNSPECIFIED (8) Tobacco use Code(s): Z72.0 - TOBACCO USE (9) Glaucoma Code(s): H40.9 - UNSPECIFIED GLAUCOMA (10) Tobacco abuse disorder Code(s): Z72.0 - TOBACCO USE Assessment/Plan Lasix Daily weights No smoking counseled Supplemental O2 as needed/patient has home o2 BD TX PRN Would monitor off systemic steroids ECHO Will need to assess S/E of HIV meds PFTs as an outpatient Julienne QUISPE MD
--- NOTE | 2019-06-03 14:29 | PN ---
Progress Note, Physician Chief Complaint: Cardiology FU Less SOB History of Present Illness: 58yo F with PMH of HIV (compliant with HAART, last VL undetectable), HTN, COPD on chronic O2, and bioprosthetic aortic and mitral valve replacement (2014 due to regurgitation @ [facility]) presents to ED with complaints of SOB x 1 week and cough. She had weight gain which was felt to be possibly from her new HIV medication Biktarvy but also noted edema and PND/orthopnea in addition to abdominal wall swelling She was placed on Diuretics and feels much better. Baseline exercise tolerance is about 1/2 block Echocardiogram 11/2018 showed normal LV function with normally functioning bioprosthetic MV. Moderate bioprosthetic AV regurgitation and severely elevated gradients across the bio AVR. Echo yesterday Normal LV function Moderate-severely Elevated gradients across the bioAVR with moderate AR Normal BioMVR - Current Medication List Current Medications: Active Medications Acetaminophen (Tylenol -) 650 mg PO Q6H PRN PRN Reason: PAIN LEVEL 4 - 6 Last Admin: 06/02/19 18:24 Dose: 650 mg Albuterol/Ipratropium (Duoneb -) 1 amp NEB Q6H PRN PRN Reason: SHORTNESS OF BREATH Last Admin: 06/03/19 11:20 Dose: 1 amp Amitriptyline HCl (Elavil -) 50 mg PO HS [facility] Last Admin: 06/02/19 21:21 Dose: 50 mg Aspirin (Asa -) 81 mg PO DAILY [facility] Last Admin: 06/03/19 09:09 Dose: 81 mg Bictegravir/Emtricitabine/Tenofovir (Biktarvy 50-200-25 Mg Tablet) 1 each PO DAILY [facility] Last Admin: 06/03/19 09:13 Dose: 1 each Furosemide (Lasix Injection -) 40 mg IVPUSH BID@0600,1400 [facility] Last Admin: 06/03/19 07:00 Dose: 40 mg Gabapentin (Neurontin -) 300 mg PO BID [facility] Last Admin: 06/03/19 09:09 Dose: 300 mg Heparin Sodium (Porcine) (Heparin -) 5,000 unit SQ BID [facility] Last Admin: 06/03/19 09:08 Dose: 5,000 unit Methadone HCl 40 mg/ Methadone (HCl 30 mg) 70 mg PO 0600 [facility] Last Admin: 06/03/19 07:00 Dose: 70 mg Metoprolol Succinate (Toprol Xl -) 25 mg PO BID [facility] Last Admin: 06/03/19 09:09 Dose: 25 mg Mirtazapine (Remeron -) 15 mg PO HS [facility] Last Admin: 06/02/19 21:22 Dose: 15 mg Fluticasone/Salmeterol (Advair 100mcg/50mcg -) 1 puff IH BID [facility] Last Admin: 06/03/19 09:09 Dose: 1 puff Venlafaxine HCl (Effexor Xr -) 150 mg PO DAILY [facility] Last Admin: 06/03/19 09:08 Dose: 150 mg - Objective Vital Signs: Vital Signs Temperature 98 F 06/03/19 10:00 Pulse Rate 66 06/03/19 10:00 Respiratory Rate 18 06/03/19 10:00 Blood Pressure 124/84 06/03/19 10:00 O2 Sat by Pulse Oximetry (%) 88 L 06/03/19 08:27 Constitutional: Yes: Well Nourished, No Distress Eyes: Yes: Conjunctiva Clear HENT: Yes: Atraumatic, Normocephalic Neck: Yes: Supple, Trachea Midline Cardiovascular: Yes: Regular Rate and Rhythm, JVD, S1, S2 Respiratory: Yes: Regular, CTA Bilaterally Edema: Yes Edema: LLE: 1+, RLE: 1+ Labs: CBC, BMP 06/03/19 05:50 06/03/19 05:50 INR, PTT INR 1.08 (0.83-1.09) 06/01/19 10:25 Problem List - Problems (1) CHF (congestive heart failure) Code(s): I50.9 - HEART FAILURE, UNSPECIFIED Qualifiers: Heart failure type: unspecified Heart failure chronicity: unspecified Qualified Code(s): I50.9 - Heart failure, unspecified (2) COPD (chronic obstructive pulmonary disease) Code(s): J44.9 - CHRONIC OBSTRUCTIVE PULMONARY DISEASE, UNSPECIFIED Qualifiers: COPD type: unspecified COPD Qualified Code(s): J44.9 - Chronic obstructive pulmonary disease, unspecified Assessment/Plan 58yo F HIV, COPD on chronic O2, and bioprosthetic aortic and mitral valve replacement (2015 due to regurgitation @ [facility]) Admitted with diastolic heart failure. She was placed on Diuretics and feels much better. Baseline exercise tolerance is about 1/2 block. Possible bioprosthetic aortic valve dysfunction was detected in 2019 with elevated transvalvular gradient and prosthetic regurgitation. 1. HFpEF: symptoms improved post diuresis in addition to weight loss. Still volume up with periphreal edema noted up to her abdominal wall. Lasix 40mg bid BP controlled. 2. 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 close out patient fu advised. Would need possible KHURRAM, review of post operative records from [facility]. Also need to assess severity of lung disease. FU with cardiology as out patient. Will see as needed.
== END 2019-06-03 16:33 | disposition home health service (06) | DRG 194 ==
LOC: JER 08:19 → JERBED 11:36 → J7W 12:42
PROVIDERS: ADMIT Internal Medicine; ATTEND Internal Medicine
DX: I11.0 Hypertensive heart disease with heart failure (principal); I25.10 Atherosclerotic heart disease of native coronary artery without angina pectoris; J44.9 Chronic obstructive pulmonary disease, unspecified; F19.20 Other psychoactive substance dependence, uncomplicated; Z21 Asymptomatic human immunodeficiency virus [HIV] infection status; R06.02 Shortness of breath; R60.0 Localized edema; T82.09XA Other mechanical complication of heart valve prosthesis, initial encounter; I27.20 Pulmonary hypertension, unspecified; I50.33 Acute on chronic diastolic (congestive) heart failure; E66.01 Morbid (severe) obesity due to excess calories; Y83.9 Surgical procedure, unspecified as the cause of abnormal reaction of the patient, or of later complication, without mention of misadventure at the time of the procedure; Z68.36 Body mass index [BMI] 36.0-36.9, adult
CPT/HCPCS: 36415; 71045-TC-FY; 76700-TC; 80053; 81003; 82550; 82803; 83605; 83735; 83880; 84100; 84443; 84484; 85025; 85610; 85730; 87040; 87077; 87086; 87804; 93005; 93010; 93306-TC; 94640; 97116-GP; 97161-GP; 99284-25; J1644

== ENCOUNTER 2019-06-23 23:27 | Inpatient (IN) | payer OTHER ==
[2019-06-24] MEDS ORDERED: SODIUM CHLORIDE 1,000 ML IV STA (01:00)
[2019-06-24] MEDS ORDERED: DEXAMETHASONE SOD PHOSPHATE 10 MG/1 ML VIAL IVPUSH ONE (01:00)
[2019-06-24] MEDS ORDERED: ACETAMINOPHEN 1000 MG/100 ML VIAL (NON FORMULARY) IVPB ONE (01:00)
[2019-06-24] MEDS ORDERED: FLUCONAZOLE 150 MG TABLET PO ONE ×2 (01:00→01:51)
[2019-06-24] MEDS ORDERED: ALBUTEROL SO4 2.5/IPRATROPIUM 0.5 INH SOL 3 ML VIAL.NEB. NEB ONE ×5 (01:00→09:20)
[2019-06-24] MEDS ORDERED: METOCLOPRAMIDE HCL INJECTION 10 MG/2 ML VIAL IVPUSH ONE (01:00)
--- NOTE | 2019-06-24 01:26 | PDOC ---
History of Present Illness - General Chief Complaint: Respiratory Stated Complaint: FEVER Time Seen by Provider: 06/24/19 00:25 History Source: Patient Exam Limitations: No Limitations - History of Present Illness Initial Comments: 06/24/19 04:26 59 yo F with a hx of HTN, COPD, AV and MV replacement in 2014, and HIV ( endorses compliance with HAART medications with last viral levels as undetectable within the past 3 months) presents to the emergency department with cough and nasal congestion. Per the patient, she has had the following symptoms: cough (without production), sore throat, SOB, and left arm pain. She describes the left arm pain as a "muscle discomfort" that is constant, non radiating, without aggravating or relieving factors. Per the patient, she had a flu swab yesterday that was negative however was started on tamiflu and ceftin prophylactically. Denies the following: chills, nausea, vomiting, abdominal pain , chest pain, diarrhea, hematochezia, dysuria, hematuria, and leg pain/ swelling. Past History - Past Medical History Allergies/Adverse Reactions: Allergies Allergy/AdvReac Type Severity Reaction Status Date / Time lisinopril Allergy lip Verified 06/23/19 23:30 swelling sulfamethoxazole Allergy Rash Verified 06/23/19 23:30 [From Bactrim DS] Home Medications: Ambulatory Orders Methadone [Dolophine -] 70 mg PO DAILY 11/12/18 Albuterol 0.083% Nebulizer Viola [Ventolin 0.083% Nebulizer Soln -] 1 neb NEB Q6H PRN #1 box 04/14/19 Albuterol Sulfate Inhaler - [Ventolin HFA Inhaler -] 1 - 2 inh PO Q4H #1 inhaler 04/14/19 Amitriptyline HCl [Elavil -] 1 tab PO DAILY #30 tablet 04/14/19 Amlodipine Besylate [Norvasc -] 1 tab PO DAILY #30 tablet 04/14/19 Aspirin [Aspirin EC] 1 tab PO DAILY #30 tablet. 04/14/19 Bictegrav/Emtricit/Tenofov Ala [Biktarvy 50-200-25 mg Tablet] 1 each PO DAILY # 30 tablet 04/14/19 Metoprolol Tartrate [Lopressor -] 1 tab PO BID #60 tablet 04/14/19 Furosemide [Lasix -] 40 mg PO BID #60 tablet 06/03/19 Nicotine [Nicotine Patch 14mg/24 hr] 1 each TD DAILY #1 box 06/06/19 Mirtazapine [Remeron -] 1 tablet PO HS #30 tablet 06/15/19 Venlafaxine HCl ER [Effexor Xr -] 150 mg PO DAILY #30 cap.er.24h 06/15/19 Budesonide/Formeterol Fumarate [SYMBICORT 160/4.5mcg -] 2 puff PO BID 06/24/19 Latanoprost/Pf [Latanoprost 0.005% Eye Drop] 1 drop IO HS 06/24/19 Polyvinyl Alcohol/Povidone/Pf [Refresh Classic Eye Drops] 1 drop IO QID Gabapentin [Neurontin -] 300 mg PO DAILY 06/25/19 Gabapentin [Neurontin -] 600 mg PO HS 06/25/19 Azithromycin 250 mg PO DAILY #3 tablet 06/26/19 Cefpodoxime Proxetil [Vantin -] 200 mg PO Q12H #6 tablet 06/26/19 Fluconazole [Diflucan -] 150 mg PO DAILY 5 Days #5 tablet 06/26/19 Multivitamins [Multivit ([facility] Formul[facility])] 1 tab PO DAILY tab 06/26/19 predniSONE [Deltasone -] 40 mg PO DAILY 4 Days #8 tablet 06/26/19 Anemia: Yes Asthma: Yes Cancer: No Cardiac Disorders: Yes (2 valve replacement) CVA: No COPD: Yes CHF: Yes Dementia: No Diabetes: No GI Disorders: No Disorders: No HTN: Yes (PULMONARY) Hypercholesterolemia: No Liver Disease: No Psychiatric Problems: Yes Seizures: No Thyroid Disease: No - Surgical History Abdominal Surgery: Yes Appendectomy: No Cardiac Surgery: Yes (heart valve replacement) Cholecystectomy: Yes Lung Surgery: No Neurologic Surgery: No Orthopedic Surgery: No - Immunization History Immunization Up to Date: Yes - Psycho Social/Smoking Cessation Hx Smoking Status: Yes Smoking History: Former smoker Have you smoked in the past 12 months: Yes Number of Cigarettes Smoked Daily: 5 If you are a former smoker, when did you quit?: 2015 Cigars Per Day: 0 Information on smoking cessation initiated: No 'Breaking Loose' booklet given: 08/13/12 Hx Alcohol Use: No Drug/Substance Use Hx: No Substance Use Type: None Hx Substance Use Treatment: Yes Review of Systems - Review of Systems Able to Perform ROS?: Yes Is the patient limited [place] proficient: No Constitutional: Yes: Fever. No: Chills, Diaphoresis, Weakness HEENTM: Yes: Nose Congestion, Throat Pain. No: Eye Pain, Ear Pain, Nose Pain, Mouth Pain Respiratory: Yes: Cough, Shortness of Breath. No: Productive cough, Hemoptysis Cardiac (ROS): No: Chest Pain, Lightheadedness, Palpitations, Chest Tightness ABD/GI: No: Constipated, Diarrhea, Nausea, Rectal Bleeding, Vomiting, Abdominal cramping, Tarry Stools : No: Burning, Hematuria Musculoskeletal: Yes: Muscle Pain (left arm pain). No: Back Pain, Joint Pain, Neck Pain Integumentary: No: Bruising, Erythema, Rash Neurological: No: Headache, Numbness Psychiatric: No: Change in Appetite Endocrine: No: Unexplained Weight Loss Hematologic/Lymphatic: No: Anemia *Physical Exam - Vital Signs Last Vital Signs Temp Pulse Resp BP Pulse Ox 99.3 F 83 22 H 128/84 100 06/23/19 23:28 06/23/19 23:28 06/23/19 23:28 06/23/19 23:28 06/23/19 23:28 - Physical Exam General Appearance: Yes: Nourished, Appropriately Dressed. No: Apparent Distress, Intoxicated HEENT: positive: EOMI, MAHESH, Normal Voice, TMs Normal, Rhinorrhea, Hearing Grossly Normal. negative: Pharynx Normal (posterior pharynx erythema with white exudates at the base of the tongue and posterior pharynx wall), Nasal Congestion, Excessive drooling Neck: positive: Trachea midline, Supple. negative: Tender, Lymphadenopathy (R) , Lymphadenopathy (L) Respiratory/Chest: positive: Lungs Clear, Decreased Breath Sounds (at the bases) . negative: Chest Tender, Respiratory Distress, Accessory Muscle Use, Crackles , Rales, Rhonchi, Stridor, Wheezing Cardiovascular: positive: Regular Rhythm, Regular Rate, S1, S2. negative: Systolic Murmur Gastrointestinal/Abdominal: positive: Normal Bowel Sounds, Flat, Soft. negative : Tender Lymphatic: negative: Adenopathy Musculoskeletal: positive: Normal Inspection. negative: CVA Tenderness, Vertebral Tenderness Extremity: positive: Normal Capillary Refill, Normal Inspection, Normal Range of Motion. negative: Tender Integumentary: positive: Normal Color, Dry, Warm Neurologic: positive: Fully Oriented, Alert, Normal Mood/Affect ED Treatment Course - LABORATORY CBC & Chemistry Diagram: 06/26/19 07:18 06/26/19 07:18 Medical Decision Making - Medical Decision Making 59 yo F with a hx of HTN, COPD, AV and MV replacement in 2014, and HIV ( endorses compliance with HAART medications with last viral levels as undetectable within the past 3 months) presents to the emergency department with cough and nasal congestion. Initial vitals: Initial Vital Signs Temp Pulse Resp BP Pulse Ox 99.3 F 83 22 H 128/84 100 06/23/19 23:28 06/23/19 23:28 06/23/19 23:28 06/23/19 23:28 06/23/19 23:28 Work up: ddx: URI vs influenza (patient was negative) vs PNA vs ACS Laboratory Tests 06/24/19 06/24/19 06/24/19 01:10 01:10 01:10 WBC 4.1 RBC 4.08 Hgb 12.3 Hct 37.9 MCV 92.8 MCH 30.2 MCHC 32.6 RDW 16.6 H Plt Count 138 MPV 9.0 Absolute Neuts (auto) 2.7 Neutrophils % 64.3 Lymphocytes % 21.1 D Monocytes % 13.0 H Eosinophils % 0.2 Basophils % 1.4 Nucleated RBC % 0 Sodium 138 Potassium 3.6 Chloride 102 Carbon Dioxide 33 H Anion Gap 3 L BUN 8.0 Creatinine 0.9 Est GFR (CKD-EPI)AfAm 81.69 Est GFR (CKD-EPI)NonAf 70.48 Random Glucose 89 Calcium 7.8 L Total Bilirubin 0.3 AST 46 H ALT 27 Alkaline Phosphatase 99 Creatine Kinase 494 H Creatine Kinase Index 0.5 CK-MB (CK-2) 2.6 Troponin I < 0.02 B-Natriuretic Peptide 1363.1 H Total Protein 8.1 Albumin 2.4 L Group A Strep Rapid Negative Patient was noted to have decreased breath sounds on exam with requirements needed for NC to have comfort. Patient was given dexamethasone, duoneb, and tylenol. In addition, the patient developed nausea and was given reglan BNP elevated at 1363 CK elevated at 494 Patient has a negative group A strep Patient's CXR shows developing RLL infiltrate. Patient likely has a pneumonia secondary to previous URI like infection. Patient was given ceftriaxone, In addition, the patient was given fluconazole for white thrush consistent with candidiasis. The patient is to be admitted for CA-PNA in the setting of immunosupression with oxygen requirements due to likely reactive airway disease vs PNA. EKG: NSR with PVCs and TWI in V2-V4 without ST elevation or depressions. Discharge - Discharge Information Problems reviewed: Yes Clinical Impression/Diagnosis: COPD exacerbation, Nasal congestion, PNA (pneumonia) HIV (human immunodeficiency virus infection) Qualifiers: HIV symptom status: unspecified Qualified Code(s): B20 - Human immunodeficiency virus [HIV] disease - Follow up/Referral - Patient Discharge Instructions - Post Discharge Activity
--- NOTE | 2019-06-24 01:31 | PDOC ---
Documentation entered by Karen Boyle SCRIBE, acting as scribe for Bernice Morgan DO. Bernice Morgan DO: This documentation has been prepared by the maryam, Karen Boyle SCRIBE, under my direction and personally reviewed by me in its entirety. I confirm that the documentation accurately reflects all work, treatment, procedures, and medical decision making performed by me. Attending Attestation - Resident Resident Name: Troy Trinh - ED Attending Attestation I have performed the following: I have examined & evaluated the patient, The case was reviewed & discussed with the resident, I agree w/resident's findings & plan, Exceptions are as noted - HPI HPI: 06/24/19 01:20 Patient is a 59 year old female with a significant medical history of HIV ( compliant with HAART, last VL undetectable), HTN, COPD, and aortic and mitral valve replacement (2014), who presents to the ED with a cough and congestion. Patient also reports having a sore throat, rhinorrhea, shortness of breath, and worsening left arm pain. Patient was seen at the [facility] yesterday where they did a flu swab, and it was negative. They started her on tamiflu and ceftin. Patient denies any chest pain, abdominal pain, nausea, vomiting, or diarrhea. - Physicial Exam PE: 06/24/19 01:21 Constitutional: Awake, alert, oriented. No acute distress. Head: Normocephalic. Atraumatic Eyes: PERRL. EOMI. Conjunctivae are not pale. ENT: +dentures. +Nares with clear mucus. +Erythematous posterior oropharynx + white patches on the base of the tongue consistent with candinitis. Mucous membranes are moist and intact. Uvula midline. Neck: Supple. Full ROM. No lymphadenopathy. Cardiovascular: +2 prosthetic heart valves Distal pulses are 2+ and symmetric. Pulmonary/Chest: +Lung sounds diminished at the bases. No evidence of respiratory distress. Clear to auscultation bilaterally No wheezing, rales or rhonchi. Abdominal: Soft and nondistended. There is no tenderness. No rebound, guarding or rigidity. No organomegaly. No palpable masses. Good bowel sounds. Back: No CVA tenderness. Musculoskeletal: No edema. No cyanosis. No clubbing. Full range of motion in all extremities. Nocalf tenderness. Radial/pedal pulses are intact and 2+ bilaterally Skin: Skin is warm and dry. No petechiae. No purpura. Neurological: Alert and oriented to person, place, and time. Cranial nerves II -XII are grossly intact. Normal speech. Strength is grossly symmetric. No sensory deficits. Psychiatric: Good eye contact. Normal interaction, affect and behavior. - Medical Decision Making 06/24/19 01:28 a/p: 59yo female with cough, congestion, sore throat -pt with posterior pharynx that is erythematous -pt with oral thrush -diminished bs R base -cough is productive cream colored sputum -seen at the [facility] earlier today and dx with bronchitis - started on ceftin and tamiflu -flu swab neg -labs reviewed from earlier showed a normal wbc -pt now on NC to feel better with sob -cxr shows an early RLL infiltrate -will start iv abx, will monitor and reassess 06/24/19 02:03 pt signed out to the oncoming team pending labs and re-eval
[2019-06-24 01:41] LABS: BASO % 1.4 % (0-2.0); EOS % 0.2 % (0-4.5); HEMATOCRIT 37.9 % (32.4-45.2); HEMOGLOBIN 12.3 GM/dL (10.7-15.3); LYMPH % 21.1 % (8-40); MCH 30.2 pg (25.7-33.7); MCHC 32.6 g/dl (32.0-36.0); MEAN CELL VOLUME 92.8 fl (80-96); NEUT % 64.3 % (42.8-82.8); PLATELET COUNT 138 K/MM3 (134-434); RBC 4.08 M/mm3 (3.60-5.2); RDW 16.6 % (11.6-15.6); WHITE BLOOD COUNT 4.1 K/mm3 (4.0-10.0)
[2019-06-24] MEDS ORDERED: CEFTRIAXONE 1,000 MG in DEXTROSE 5%-WATER - 50 ML IVPB ONE (01:45)
[2019-06-24] MEDS ORDERED: AZITHROMYCIN IVPB 500 MG in DEXTROSE 5%-WATER - 250 ML IVPB ONE (01:45)
[2019-06-24] MEDS ORDERED: METOCLOPRAMIDE HCL INJECTION 10 MG/2 ML VIAL ONE (01:51)
[2019-06-24] MEDS ORDERED: DEXAMETHASONE SOD PHOSPHATE 10 MG/1 ML VIAL ONE (01:51)
[2019-06-24] MEDS ORDERED: ACETAMINOPHEN INJECTION 100 ML IVPB ONE (01:52)
[2019-06-24 02:10] LABS: ALBUMIN 2.4 g/dl (3.4-5.0); ALK PHOS 99 U/L (45-117); ANION GAP 3 MMOL/L (8-16); BILIRUBIN,TOTAL 0.3 mg/dL (0.2-1); CALCIUM 7.8 mg/dL (8.5-10.1); CHLORIDE 102 mmol/L (98-107); CO2 33 mmol/L (21-32); CREATININE 0.9 mg/dL (0.55-1.3); GLUCOSE,RANDOM 89 mg/dL (74-106); N-TERMINAL BNP 1363.1 pg/ml (5-125); POTASSIUM 3.6 mmol/L (3.5-5.1); SGOT/AST 46 U/L (15-37); SGPT/ALT 27 U/L (13-61); SODIUM 138 mmol/L (136-145); TOT PROT 8.1 g/dl (6.4-8.2)
[2019-06-24] MEDS ORDERED: AZITHROMYCIN IVPB 500 MG/250 ML BAG IVPB ONE (03:08)
[2019-06-24] MEDS ORDERED: CEFTRIAXONE 1 GM/50 ML BAG ONE (03:08)
[2019-06-24] MEDS ORDERED: ACETAMINOPHEN 325 MG TABLET (FP) PO PRN (05:19)
[2019-06-24] MEDS ORDERED: ALBUTEROL SO4 2.5/IPRATROPIUM 0.5 INH SOL 3 ML VIAL.NEB. NEB PRN (05:30)
[2019-06-24] MEDS ORDERED: BENZOCAINE/MENTH/CETYLPYRD CL 1 EACH LOZENGE MM PRN (05:35)
[2019-06-24] MEDS ORDERED: guaiFENesin 200 MG/10 ML 10 ML UNIT-DOSE CUPS PO PRN (05:35)
--- NOTE | 2019-06-24 05:37 | HP ---
<Justa Tavarez - Last Filed: 06/24/19 06:20> CHIEF COMPLAINT: cough PCP: Dr. Zavala HISTORY OF PRESENT ILLNESS: 59 y.o. F PMH HTN, HIV compliant w/ HAART (last reported CD4 03/2019 490's), COPD on 3L home O2, aortic & mitral valve replacement 2014, hx polysubstance abuse (opioids, etoh), morbid obesity presenting from [facility] for findings of 102.2F and cough. The cough has been present x 1 day, productive of cloudy sputum, no blood. She also endorses a sore throat and some shortness of breath whch has been present for about 2 days. She has taken her home nebulizer treatments with no relief of symptoms. At [facility] patient was flu negative but was given tamiflu and ceftin. ROS: + cough, fever, sore throat, SOB denies nausea/ vomiting/ headaches/ chills/ chest pain/ abd pain/ diarrhea/ parasthesias/ myalgias. Of note the patient has also had a recent admission for acute chf exacerbation, discharged 06/03/2019. ER course was notable for: (1) CXR: RLL possible infiltrative changes, as per my read (2) given ceftriaxone, axithromycin x 1 dose (3) fluconazole, decadron 10 Recent Travel: denies PAST MEDICAL HISTORY: as per hpi PAST SURGICAL HISTORY: cholecystectomy Social History: Smoking: quit smoking 2 weeks ago, on nicotine patch Alcohol: denies Drugs: denies Allergies lisinopril Allergy (Verified 06/23/19 23:30) lip swelling sulfamethoxazole [From Bactrim DS] Allergy (Verified 06/23/19 23:30) Rash HOME MEDICATIONS: Home Medications Medication Instructions Recorded Methadone [Dolophine -] 70 mg PO DAILY 11/12/18 Albuterol 0.083% Nebulizer Viola 1 neb NEB Q6H PRN #1 box 04/14/19 [Ventolin 0.083% Nebulizer Soln -] Albuterol Sulfate Inhaler - 1 - 2 inh PO Q4H #1 inhaler 04/14/19 [Ventolin HFA Inhaler -] Amitriptyline HCl [Elavil -] 1 tab PO DAILY #30 tablet 04/14/19 Amlodipine Besylate [Norvasc -] 1 tab PO DAILY #30 tablet 04/14/19 Aspirin [Aspirin EC] 1 tab PO DAILY #30 tablet. 04/14/19 Bictegrav/Emtricit/Tenofov Ala 1 each PO DAILY #30 tablet 04/14/19 [Biktarvy 50-200-25 mg Tablet] Gabapentin [Neurontin -] 1 tab PO ASDIR #90 capsule 04/14/19 Metoprolol Tartrate [Lopressor -] 1 tab PO BID #60 tablet 04/14/19 Furosemide [Lasix -] 40 mg PO BID #60 tablet 06/03/19 Nicotine [Nicotine Patch 14mg/24 1 each TD DAILY #1 box 06/06/19 hr] Mirtazapine [Remeron -] 1 tablet PO HS #30 tablet 06/15/19 Venlafaxine HCl ER [Effexor Xr -] 150 mg PO DAILY #30 cap.er.24h 06/15/19 Cefuroxime Axetil [Ceftin -] 1 tab PO Q12H #20 tablet 06/23/19 Oseltamivir Phosphate [Tamiflu -] 1 tab PO BID #10 capsule 06/23/19 Thermometer, Electronic,Oral 1 each ASDIR #1 each 06/23/19 [Digital Thermometer] PHYSICAL EXAMINATION Vital Signs - 24 hr 06/23/19 23:28 Temperature 99.3 F Pulse Rate 83 Respiratory 22 H Rate Blood Pressure 128/84 O2 Sat by Pulse 100 Oximetry (%) GENERAL: Awake, alert, and fully oriented, in no acute distress. HEENT: NCAT. Sclera clear. MMM. Small amount white patches on posterior tongue. LUNGS: RLL expiratory wheezing. On 4L nasal cannula. No accessory muscle use. HEART: RRR. 3/6 systolic murmur most prominent @ pulmonic region. ABDOMEN: Soft, nontender, not distended, normoactive bowel sounds. EXTREMITIES: 2+ pulses, warm, well-perfused. 1+ non-pitting edema b/l LE. NEUROLOGICAL: Cranial nerves II-XII intact. PSYCHIATRIC: Cooperative. Good eye contact. Appropriate mood and affect. SKIN: No rashes or lesions noted Laboratory Results - last 24 hr 06/24/19 06/24/19 06/24/19 01:10 01:10 01:10 WBC 4.1 RBC 4.08 Hgb 12.3 Hct 37.9 MCV 92.8 MCH 30.2 MCHC 32.6 RDW 16.6 H Plt Count 138 MPV 9.0 Absolute Neuts (auto) 2.7 Neutrophils % 64.3 Lymphocytes % 21.1 D Monocytes % 13.0 H Eosinophils % 0.2 Basophils % 1.4 Nucleated RBC % 0 Sodium 138 Potassium 3.6 Chloride 102 Carbon Dioxide 33 H Anion Gap 3 L BUN 8.0 Creatinine 0.9 Est GFR (CKD-EPI)AfAm 81.69 Est GFR (CKD-EPI)NonAf 70.48 Random Glucose 89 Calcium 7.8 L Total Bilirubin 0.3 AST 46 H ALT 27 Alkaline Phosphatase 99 Creatine Kinase 494 H Creatine Kinase Index 0.5 CK-MB (CK-2) 2.6 Troponin I < 0.02 B-Natriuretic Peptide 1363.1 H Total Protein 8.1 Albumin 2.4 L Group A Strep Rapid Negative ASSESSMENT/PLAN: 59 y.o. F PMH HTN, HIV compliant w/ HAART (last reported CD4 03/2019 490's), COPD on 3L home O2, aortic & mitral valve replacement 2014, hx polysubstance abuse (opioids, etoh), morbid obesity found to have cough & SOB admitted for acute COPD exacerbation and CAP. #Acute COPD exacerbation -continue abx -solumedrol 40mg IV BID -f/u ABG -duonebs standing & prn -robitussin prn -continue oxygen therapy via nasal cannula #PNA, community-acquired -continue abx: rocephin, azithromycin -f/u CXR final read -f/u respiratory viral panel -urine ag for legonella/ s.pneumo -repeat flu swab (had 1 negative @ [facility]) #Oral candidiasis -continue fluconazole 150mg x 5 days -cepacol losenges prn #CHF -last echo 05/2019 showed normal EF 60-65%, mild LVH, mild dilation LA, mild to mod TR, elevated RV systolic pressure, mod aortic regurg -continue 40mg BID lasix -hold IVF -patient follows up regularly with cardiology #HTN -continue home meds: norvasc, lopressor -perez aspirin 81mg #HIV -continue HAART: biktarvy x 1 PO daily -patient follows up @ [facility] regularly #Hx substance abuse (opioids, etoh) -continue methadone 70mg daily -multivitamin #Nicotine dependence -nicotine patch 14mg daily #FEN -no fluids at this time -trend lytes replete as needed -sodium controlled diet #PPX -heparin sq #Dispo med surg ATTENDING PHYSICIAN STATEMENT I saw and evaluated the patient. I reviewed the resident's note and discussed the case with the resident. I agree with the resident's findings and plan as documented. SUBJECTIVE: OBJECTIVE: ASSESSMENT AND PLAN: <Boston Carlos - Last Filed: 06/24/19 06:38> CHIEF COMPLAINT: PCP: HISTORY OF PRESENT ILLNESS: ER course was notable for: (1) (2) (3) Recent Travel: PAST MEDICAL HISTORY: PAST SURGICAL HISTORY: Social History: Smoking: Alcohol: Drugs: Allergies lisinopril Allergy (Verified 06/23/19 23:30) lip swelling sulfamethoxazole [From Bactrim DS] Allergy (Verified 06/23/19 23:30) Rash HOME MEDICATIONS: Home Medications Medication Instructions Recorded Methadone [Dolophine -] 70 mg PO DAILY 11/12/18 Albuterol 0.083% Nebulizer Viola 1 neb NEB Q6H PRN #1 box 04/14/19 [Ventolin 0.083% Nebulizer Soln -] Albuterol Sulfate Inhaler - 1 - 2 inh PO Q4H #1 inhaler 04/14/19 [Ventolin HFA Inhaler -] Amitriptyline HCl [Elavil -] 1 tab PO DAILY #30 tablet 04/14/19 Amlodipine Besylate [Norvasc -] 1 tab PO DAILY #30 tablet 04/14/19 Aspirin [Aspirin EC] 1 tab PO DAILY #30 tablet. 04/14/19 Bictegrav/Emtricit/Tenofov Ala 1 each PO DAILY #30 tablet 04/14/19 [Biktarvy 50-200-25 mg Tablet] Gabapentin [Neurontin -] 1 tab PO ASDIR #90 capsule 04/14/19 Metoprolol Tartrate [Lopressor -] 1 tab PO BID #60 tablet 04/14/19 Furosemide [Lasix -] 40 mg PO BID #60 tablet 06/03/19 Nicotine [Nicotine Patch 14mg/24 1 each TD DAILY #1 box 06/06/19 hr] Mirtazapine [Remeron -] 1 tablet PO HS #30 tablet 06/15/19 Venlafaxine HCl ER [Effexor Xr -] 150 mg PO DAILY #30 cap.er.24h 06/15/19 Cefuroxime Axetil [Ceftin -] 1 tab PO Q12H #20 tablet 06/23/19 Oseltamivir Phosphate [Tamiflu -] 1 tab PO BID #10 capsule 06/23/19 Thermometer, Electronic,Oral 1 each MC ASDIR #1 each 06/23/19 [Digital Thermometer] REVIEW OF SYSTEMS CONSTITUTIONAL: Absent: fever, chills, diaphoresis, generalized weakness, malaise, loss of appetite, weight change HEENT: Absent: rhinorrhea, nasal congestion, throat pain, throat swelling, difficulty swallowing, mouth swelling, ear pain, eye pain, visual changes CARDIOVASCULAR: Absent: chest pain, syncope, palpitations, irregular heart rate, lightheadedness , peripheral edema RESPIRATORY: Absent: cough, shortness of breath, dyspnea with exertion, orthopnea, wheezing, stridor, hemoptysis GASTROINTESTINAL: Absent: abdominal pain, abdominal distension, nausea, vomiting, diarrhea, constipation, melena, hematochezia GENITOURINARY: Absent: dysuria, frequency, urgency, hesitancy, hematuria, flank pain, genital pain MUSCULOSKELETAL: Absent: myalgia, arthralgia, joint swelling, back pain, neck pain SKIN: Absent: rash, itching, pallor HEMATOLOGIC/IMMUNOLOGIC: Absent: easy bleeding, easy bruising, lymphadenopathy, frequent infections ENDOCRINE: Absent: unexplained weight gain, unexplained weight loss, heat intolerance, cold intolerance NEUROLOGIC: Absent: headache, focal weakness or paresthesias, dizziness, unsteady gait, seizure, mental status changes, bladder or bowel incontinence PSYCHIATRIC: Absent: anxiety, depression, suicidal or homicidal ideation, hallucinations. PHYSICAL EXAMINATION Vital Signs - 24 hr 06/23/19 06/24/19 23:28 05:40 Temperature 99.3 F Pulse Rate 83 Pulse Rate [ 70 Left] Respiratory 22 H 20 Rate Blood Pressure 128/84 Blood Pressure 100/57 L [Left Arm] O2 Sat by Pulse 100 93 L Oximetry (%) GENERAL: Awake, alert, and fully oriented, in no acute distress. HEAD: Normal with no signs of trauma. EYES: Pupils equal, round and reactive to light, extraocular movements intact, sclera anicteric, conjunctiva clear. No lid lag. EARS, NOSE, THROAT: Ears normal, nares patent, oropharynx clear without exudates. Moist mucous membranes. NECK: Normal range of motion, supple without lymphadenopathy, JVD, or masses. LUNGS: Breath sounds equal, clear to auscultation bilaterally. No wheezes, and no crackles. No accessory muscle use. HEART: Regular rate and rhythm, normal S1 and S2 without murmur, rub or gallop. ABDOMEN: Soft, nontender, not distended, normoactive bowel sounds, no guarding, no rebound, no masses. No hepatomegaly or splenomegaly. MUSCULOSKELETAL: Normal range of motion at all joints. No bony deformities or tenderness. No CVA tenderness. UPPER EXTREMITIES: 2+ pulses, warm, well-perfused. No cyanosis. No clubbing. No peripheral edema. LOWER EXTREMITIES: 2+ pulses, warm, well-perfused. No calf tenderness. No peripheral edema. NEUROLOGICAL: Cranial nerves II-XII intact. Normal speech. Normal gait. PSYCHIATRIC: Cooperative. Good eye contact. Appropriate mood and affect. SKIN: Warm, dry, normal turgor, no rashes or lesions noted, normal capillary refill. Laboratory Results - last 24 hr 06/24/19 06/24/19 06/24/19 01:10 01:10 01:10 WBC 4.1 RBC 4.08 Hgb 12.3 Hct 37.9 MCV 92.8 MCH 30.2 MCHC 32.6 RDW 16.6 H Plt Count 138 MPV 9.0 Absolute Neuts (auto) 2.7 Neutrophils % 64.3 Lymphocytes % 21.1 D Monocytes % 13.0 H Eosinophils % 0.2 Basophils % 1.4 Nucleated RBC % 0 Sodium 138 Potassium 3.6 Chloride 102 Carbon Dioxide 33 H Anion Gap 3 L BUN 8.0 Creatinine 0.9 Est GFR (CKD-EPI)AfAm 81.69 Est GFR (CKD-EPI)NonAf 70.48 Random Glucose 89 Calcium 7.8 L Total Bilirubin 0.3 AST 46 H ALT 27 Alkaline Phosphatase 99 Creatine Kinase 494 H Creatine Kinase Index 0.5 CK-MB (CK-2) 2.6 Troponin I < 0.02 B-Natriuretic Peptide 1363.1 H Total Protein 8.1 Albumin 2.4 L Group A Strep Rapid Negative ASSESSMENT/PLAN: Visit type - Emergency Visit Emergency Visit: Yes ED Registration Date: 06/24/19 Care time: The patient presented to the Emergency Department on the above date and was hospitalized for further evaluation of their emergent condition. - New Patient This patient is new to me today: No - Critical Care Critical Care patient: No ATTENDING PHYSICIAN STATEMENT I saw and evaluated the patient. I reviewed the resident's note and discussed the case with the resident. I agree with the resident's findings and plan as documented. SUBJECTIVE: 59 years old female with PMH of HTN, HIV compliant w/ HAART (last reported CD4 03/2019 490's), COPD on 3L home O2, aortic & mitral valve replacement 2014, hx polysubstance abuse (opioids, etoh), obesity presented to hospital with fever , cough and worsening shortness of breath. She has been having flu like symptoms - sore throat, cough, congestion for past couple of days so she went to [facility] and was prescribed tamiflu and ceftin which didn't help. She was found to have fever 102.2. She denies chest pain, nausea, vomiting, dizziness, LOC OBJECTIVE: Last Vital Signs Temp Pulse Resp BP Pulse Ox 99.3 F 70 20 100/57 L 93 L 06/23/19 23:28 06/24/19 05:40 06/24/19 05:40 06/24/19 05:40 06/24/19 05:40 GENERAL: mild obese, NAD HEENT: NC, AT Sclera, conjunctiva normal LUNGS: b/l decreased air entry, b/l rhonchi anterior, occasional wheezing HEART: RRR, s1, s2+, Systolic murmur pre cordial region ABDOMEN: Soft, nontender, not distended, normoactive bowel sounds. EXTREMITIES: b/l non pitting edema NEUROLOGICAL: Cranial nerves II-XII intact, No focal neuralgic deficit PSYCHIATRIC: Cooperative. Good eye contact. Appropriate mood and affect. SKIN: No rashes or lesions noted labs, imaging studies reviewed ASSESSMENT AND PLAN: CAP Acute COPD exacerbation precipitated by URI HTN, HIV compliant w/ HAART (last reported CD4 03/2019 490's), COPD on 3L home O2, aortic & mitral valve replacement 2014, hx polysubstance abuse(opioids, etoh ), obesity, CHFpEF Oral candidiasis Admit to floor ABG IV antibiotics Ceftriaxone and azithromycin Sputum culture, urine antigens, procalcitonin, mg,phos,cpk IV solumedrol 40 BID for now. Wheezing has improved significantly, may taper nixon po steroids tomorrow Duonebs q 6 hours Flu test symptomatic care- Robitusssin for cough, Tylenol for fever, lozenges for sore throat Fluconazole for oral thrush Resume home medications for above mentioned co morbidities including lasix as per resident's note HTN - controlled - Resume home meds as per holding parameters. DVT ppx Discussed with resident staff in conference. Boston Carlos MD
[2019-06-24] MEDS ORDERED: GABAPENTIN 300 MG CAPSULE PO SCH (05:45)
[2019-06-24] MEDS ORDERED: HEPARIN NA (PORCINE) 5,000 UNITS/ML 1ML VIAL ONE (06:23)
[2019-06-24] MEDS ORDERED: FUROSEMIDE 40 MG TABLET (FP) ONE (06:23)
[2019-06-24] MEDS: HEPARIN NA (PORCINE) 5,000 UNITS/ML 1ML VIAL SQ SCH ×3 (06:33→21:24)
[2019-06-24] MEDS: FUROSEMIDE 40 MG TABLET (FP) PO SCH ×2 (06:34→15:35)
[2019-06-24 07:03] LABS: ARTERIAL BLOOD GAS BASE EXCESS 3.8 meq/l (-2-2); ARTERIAL BLOOD GAS PCO2 59.2 mmHg (35-45); ARTERIAL BLOOD GAS PO2 58.5 mmHg (80-100); ARTERIAL BLOOD GAS pH 7.33 (7.35-7.45)
[2019-06-24 07:08] LABS: ALLENS TEST POSITIVE
[2019-06-24 08:58] LABS: BASO % 0.5 % (0-2.0); HEMOGLOBIN 12.8 GM/dL (10.7-15.3); LYMPH % 8.5 % (8-40); MCHC 32.1 g/dl (32.0-36.0); MEAN CELL VOLUME 93.6 fl (80-96); MEAN PLT VOLUME 8.8 fl (7.5-11.1); MONO % 2.8 % (3.8-10.2); NEUT % 88.2 % (42.8-82.8); PLATELET COUNT 148 K/MM3 (134-434); RBC 4.28 M/mm3 (3.60-5.2); RDW 16.4 % (11.6-15.6); WHITE BLOOD COUNT 4.2 K/mm3 (4.0-10.0)
[2019-06-24 09:31] LABS: ALBUMIN 2.5 g/dl (3.4-5.0); BILIRUBIN,TOTAL 0.3 mg/dL (0.2-1); BLOOD UREA NITROGEN 9.7 mg/dL (7-18); CALCIUM 8.1 mg/dL (8.5-10.1); POTASSIUM 3.9 mmol/L (3.5-5.1); TOT PROT 8.4 g/dl (6.4-8.2)
[2019-06-24] MEDS: ALBUTEROL SO4 2.5/IPRATROPIUM 0.5 INH SOL 3 ML VIAL.NEB. NEB SCH ×3 (09:45→20:10)
[2019-06-24] MEDS: METOPROLOL TARTRATE 25 MG TABLET (FP) PO SCH ×2 (09:45→21:24)
[2019-06-24] MEDS: amLODIPine BESYLATE 10 MG TABLET (FP) PO SCH (09:45)
[2019-06-24] MEDS: VENLAFAXINE HCL 75 MG E.R. CAPSULES PO SCH (09:45)
[2019-06-24] MEDS: ASPIRIN COATED 81 MG TABLET.EC PO SCH (09:45)
[2019-06-24] MEDS: MULTIVITAMINS (DAILY MVI) TABLET (FP) PO SCH (09:45)
[2019-06-24] MEDS: methylPREDNISolone NA SUCC 40 MG/1 ML VIAL IVPUSH SCH ×2 (09:45→21:25)
[2019-06-24] MEDS: AMITRIPTYLINE HCL 25 MG TABLET PO SCH (09:45)
[2019-06-24] MEDS: NICOTINE 14 MG/24 HOURS TOPICAL PATCH TD SCH (09:45)
[2019-06-24] MEDS: GABAPENTIN 300 MG CAPSULE PO SCH ×2 (09:45→21:25)
[2019-06-24] MEDS: BICTEGRAV/EMTRICIT/TENOFOV (BIKTARVY) 50-200-25 MG TABLET PO SCH (09:45)
[2019-06-24] MEDS ORDERED: PATIENT'S OWN MEDICATION (NON-FORMULARY) (Bictegrav/Emtricit/Tenofov Ala 1 EACH) PO SCH (10:00)
[2019-06-24] MEDS ORDERED: METHADONE HCL 10 MG TABLET PO SCH ×2 (10:00→13:00)
--- NOTE | 2019-06-24 12:24 | EKG ---
Test Reason : Blood Pressure : / mmHG Vent. Rate : 074 BPM Atrial Rate : 074 BPM P-R Int : 168 ms QRS Dur : 084 ms QT Int : 446 ms P-R-T Axes : 065 090 082 degrees QTc Int : 495 ms NORMAL SINUS RHYTHM POSSIBLE LEFT ATRIAL ENLARGEMENT RIGHTWARD AXIS PROLONGED QT ABNORMAL ECG WHEN COMPARED WITH ECG OF 24-JUN-2019 05:22, PREMATURE VENTRICULAR COMPLEXES ARE NO LONGER PRESENT Confirmed by RASHIDA SMALL MD ([id number]) on 06/24/2019 12:24:16 PM Referred By: Confirmed By:RASHIDA SMALL MD
--- NOTE | 2019-06-24 12:26 | EKG ---
Test Reason : Blood Pressure : / mmHG Vent. Rate : 071 BPM Atrial Rate : 071 BPM P-R Int : 166 ms QRS Dur : 086 ms QT Int : 444 ms P-R-T Axes : 058 083 079 degrees QTc Int : 482 ms SINUS RHYTHM WITH FREQUENT PREMATURE VENTRICULAR COMPLEXES POSSIBLE LEFT ATRIAL ENLARGEMENT PROLONGED QT ABNORMAL ECG WHEN COMPARED WITH ECG OF 02-JUN-2019 09:33, PREMATURE VENTRICULAR COMPLEXES ARE NOW PRESENT Confirmed by RASHIDA SMALL MD ([id number]) on 06/24/2019 12:25:52 PM Referred By: Confirmed By:RASHIDA SMALL MD
--- NOTE | 2019-06-24 17:00 | PN ---
Physical Exam: SUBJECTIVE: Patient seen sitting up in a chair. She is asymptomatic stating she feels better. Febrile at the [facility] but not while shes been at [facility]. OBJECTIVE: Vital Signs Period Temp Pulse Resp BP Sys/Álvarez Pulse Ox Last 24 Hr 97.6 F-99.3 F 64-83 18-22 100-128/57-84 91-100 GENERAL: The patient is awake, alert, and fully oriented, in no acute distress. NECK: supple. LUNGS: Breath sounds equal, clear to auscultation bilaterally, mild wheezes worse on the b/l upper lobes, no crackles, no accessory muscle use. HEART: Regular rate and rhythm, S1, S2 without murmur, rub or gallop. ABDOMEN: Soft, nontender, nondistended. EXTREMITIES: 2+ pulses, warm, well-perfused, no edema. PSYCH: Normal mood, normal affect. SKIN: Warm, dry, normal turgor, no rashes or lesions noted Laboratory Results - last 24 hr 06/24/19 06/24/19 06/24/19 01:10 01:10 01:10 WBC 4.1 RBC 4.08 Hgb 12.3 Hct 37.9 MCV 92.8 MCH 30.2 MCHC 32.6 RDW 16.6 H Plt Count 138 MPV 9.0 Absolute Neuts (auto) 2.7 Neutrophils % 64.3 Lymphocytes % 21.1 D Monocytes % 13.0 H Eosinophils % 0.2 Basophils % 1.4 Nucleated RBC % 0 Anticoagulation Therapy Puncture Site ABG pH ABG pCO2 at Pt Temp ABG pO2 at Pt Temp ABG HCO3 ABG O2 Sat (Measured) ABG O2 Content ABG Base Excess Juan Daniel Test O2 Delivery Device Oxygen Flow Rate Vent Mode Vent Rate Mechanical Rate Pressure Support Vent Sodium 138 Potassium 3.6 Chloride 102 Carbon Dioxide 33 H Anion Gap 3 L BUN 8.0 Creatinine 0.9 Est GFR (CKD-EPI)AfAm 81.69 Est GFR (CKD-EPI)NonAf 70.48 Random Glucose 89 Lactic Acid Calcium 7.8 L Total Bilirubin 0.3 AST 46 H ALT 27 Alkaline Phosphatase 99 Creatine Kinase 494 H Creatine Kinase Index 0.5 CK-MB (CK-2) 2.6 Troponin I < 0.02 B-Natriuretic Peptide 1363.1 H Total Protein 8.1 Albumin 2.4 L Influenza A (Rapid) Influenza B (Rapid) Group A Strep Rapid Negative 06/24/19 06/24/19 06/24/19 06:42 08:35 08:35 WBC 4.2 RBC 4.28 Hgb 12.8 Hct 40.0 MCV 93.6 MCH 30.0 MCHC 32.1 RDW 16.4 H Plt Count 148 MPV 8.8 Absolute Neuts (auto) 3.7 Neutrophils % 88.2 H D Lymphocytes % 8.5 D Monocytes % 2.8 L Eosinophils % 0.0 D Basophils % 0.5 Nucleated RBC % 0 Anticoagulation Therapy No Result Required. Puncture Site Right radial ABG pH 7.33 L ABG pCO2 at Pt Temp 59.2 H ABG pO2 at Pt Temp 58.5 L ABG HCO3 30.6 H ABG O2 Sat (Measured) 86.0 L ABG O2 Content 15.5 ABG Base Excess 3.8 H Juan Daniel Test Positive O2 Delivery Device Room air Oxygen Flow Rate 21% Vent Mode No Result Required. Vent Rate No Result Required. Mechanical Rate No Result Required. Pressure Support Vent No Result Required. Sodium 136 Potassium 3.9 Chloride 101 Carbon Dioxide 31 Anion Gap 4 L BUN 9.7 Creatinine 1.0 Est GFR (CKD-EPI)AfAm 71.92 Est GFR (CKD-EPI)NonAf 62.05 Random Glucose 176 H Lactic Acid Calcium 8.1 L Total Bilirubin 0.3 AST 43 H ALT 29 Alkaline Phosphatase 101 Creatine Kinase Creatine Kinase Index CK-MB (CK-2) Troponin I B-Natriuretic Peptide Total Protein 8.4 H Albumin 2.5 L Influenza A (Rapid) Influenza B (Rapid) Group A Strep Rapid 06/24/19 06/24/19 09:38 09:38 WBC RBC Hgb Hct MCV MCH MCHC RDW Plt Count MPV Absolute Neuts (auto) Neutrophils % Lymphocytes % Monocytes % Eosinophils % Basophils % Nucleated RBC % Anticoagulation Therapy Puncture Site ABG pH ABG pCO2 at Pt Temp ABG pO2 at Pt Temp ABG HCO3 ABG O2 Sat (Measured) ABG O2 Content ABG Base Excess Juan Daniel Test O2 Delivery Device Oxygen Flow Rate Vent Mode Vent Rate Mechanical Rate Pressure Support Vent Sodium Potassium Chloride Carbon Dioxide Anion Gap BUN Creatinine Est GFR (CKD-EPI)AfAm Est GFR (CKD-EPI)NonAf Random Glucose Lactic Acid Cancelled Calcium Total Bilirubin AST ALT Alkaline Phosphatase Creatine Kinase Creatine Kinase Index CK-MB (CK-2) Troponin I B-Natriuretic Peptide Total Protein Albumin Influenza A (Rapid) Negative Influenza B (Rapid) Negative Group A Strep Rapid Active Medications Generic Name Dose Route Start Last Admin Trade Name Freq PRN Reason Stop Dose Admin Acetaminophen 650 mg 06/24/19 05:19 Tylenol - PO Q4H PRN PAIN LEVEL 6-10 Albuterol/Ipratropium 1 amp 06/24/19 05:30 Duoneb - NEB RQ4H PRN SHORT OF BREATH/WHEEZING Albuterol/Ipratropium 1 amp 06/24/19 08:00 06/24/19 15:34 Duoneb - NEB 1 amp RTID VERONICA Administration Amitriptyline HCl 50 mg 06/24/19 10:00 06/24/19 09:45 Elavil - PO 50 mg DAILY VERONICA Administration Amlodipine Besylate 10 mg 06/24/19 10:00 06/24/19 09:45 Norvasc - PO 10 mg DAILY VERONICA Administration Aspirin 81 mg 06/24/19 10:00 06/24/19 09:45 Ecotrin - PO 81 mg DAILY VERONICA Administration Benzocaine/Menthol 1 each 06/24/19 05:35 Cepacol Lozenge - MM PRN PRN SORE THROAT Bictegravir/Emtricitabine/Tenofovir 1 each 06/24/19 10:00 06/24/19 09:45 Biktarvy 50-200-25 Mg Tablet PO 1 each DAILY VERONICA Administration Fluconazole 150 mg 06/24/19 18:00 Diflucan - PO 06/27/19 18:00 DAILY VERONICA Furosemide 40 mg 06/24/19 06:00 06/24/19 15:35 Lasix - PO 40 mg BIDLASIX VERONICA Administration Gabapentin 300 mg 06/24/19 10:00 06/24/19 09:45 Neurontin - PO 300 mg BID VERONICA Administration Guaifenesin 10 ml 06/24/19 05:35 Robitussin - PO Q4H PRN COUGH Heparin Sodium (Porcine) 5,000 unit 06/24/19 06:00 06/24/19 15:34 Heparin - SQ 5,000 unit TID VERONICA Administration Azithromycin 500 mg in 250 mls @ 250 mls/hr 06/25/19 10:00 Zithromax 500mg Ivpb (Pre-Docked) IVPB DAILY [facility] Methadone HCl 70 mg 06/24/19 10:00 Dolophine - PO DAILY VERONICA Methylprednisolone Sodium Succinate 40 mg 06/24/19 10:00 06/24/19 09:45 Solu-Medrol - IVPUSH 40 mg BID VERONICA Administration Metoprolol Tartrate 25 mg 06/24/19 10:00 06/24/19 09:45 Lopressor - PO 25 mg BID VERONICA Administration Mirtazapine 30 mg 06/24/19 22:00 Remeron - PO HS [facility] Multivitamins/Minerals/Vitamin C 1 tab 06/24/19 10:00 06/24/19 09:45 Tab-A-Vit - PO 1 tab DAILY VERONICA Administration Nicotine 14 mg 06/24/19 10:00 06/24/19 09:45 Nicoderm Patch - TD 14 mg DAILY VERONICA Administration Venlafaxine HCl 150 mg 06/24/19 10:00 06/24/19 09:45 Effexor Xr - PO 150 mg DAILY VERONICA Administration ASSESSMENT/PLAN: 59 y.o. F PMH HTN, HIV compliant w/ HAART (last reported CD4 03/2019 490's), COPD on 3L home O2, aortic & mitral valve replacement 2014, hx polysubstance abuse (opioids, etoh), morbid obesity found to have cough & SOB admitted for acute COPD exacerbation and CAP. #Acute COPD exacerbation -continue abx -solumedrol 40mg IV BID -f/u ABG -duonebs standing & prn -robitussin prn -continue oxygen therapy via nasal cannula #PNA, community-acquired -continue abx: will d/c ceftriaxone, continue azithromycin for anti- inflammatory benefit in copd exacerbation and bc pt febrile initially. - BC's sent given high risk for endocarditis given IVDA hx. - CXR negative for infiltrate but some basilar atelectasis noted -f/u respiratory viral panel -urine ag for legonella/ s.pneumo -repeat flu swab (had 1 negative @ [facility]) #Oral candidiasis -continue fluconazole 150mg x 5 days -cepacol losenges prn #CHF -last echo 05/2019 showed normal EF 60-65%, mild LVH, mild dilation LA, mild to mod TR, elevated RV systolic pressure, mod aortic regurg -continue 40mg BID lasix -hold IVF -patient follows up regularly with cardiology #HTN -continue home meds: norvasc, lopressor -perez aspirin 81mg #HIV -continue HAART: biktarvy x 1 PO daily -patient follows up @ [facility] regularly #Hx substance abuse (opioids, etoh) -continue methadone 70mg daily -multivitamin #Nicotine dependence -nicotine patch 14mg daily #FEN -no fluids at this time -trend lytes replete as needed -sodium controlled diet #PPX -heparin sq #Dispo med surg Visit type - Emergency Visit Emergency Visit: Yes ED Registration Date: 06/24/19 Care time: The patient presented to the Emergency Department on the above date and was hospitalized for further evaluation of their emergent condition. - New Patient This patient is new to me today: Yes Date on this admission: 06/24/19 - Critical Care Critical Care patient: No - Discharge Referral Referred to [facility] Med P.C.: No ATTENDING PHYSICIAN STATEMENT I saw and evaluated the patient. I reviewed the resident's note and discussed the case with the resident. I agree with the resident's findings and plan as documented. SUBJECTIVE: OBJECTIVE: ASSESSMENT AND PLAN:
--- NOTE | 2019-06-24 17:09 | PN ---
Progress Note (short form) - Note Progress Note: ID consult dictated imp/reccd 59 y female admitted froom home she started feeling unwell on thursday night with a cough and scratchy throat, she came to the [facility] yesterday whre she had fever to 102 she had a flus screen, throat swab and blood cultues sent she refused ER evaluation at that time as she needed to go home for a plumbing emergency she later went to the ED where she was noted to be wheezing she also complains of some right chest discomfort that has resolved +cig use stopped 2 weeks ago no recent injection use she took a dose of tamiflu and ceftin yesterday has felt much better after getting steroid and iv antibiotics in ED possible RLL pneumonia continue rocephin/zithromax copd exacerbation - steroids/nebs hiv- continue biktarvy hsitory of bioprosthetic avr/mvr
--- NOTE | 2019-06-24 17:42 | CONS ---
INFECTIOUS DISEASE CONSULTATION DATE OF CONSULTATION: DATE OF DICTATION: 06/24/2019 HISTORY: This is a 59-year-old woman. She is admitted from home. She presented yesterday to the [facility] with complaints of a scratchy throat over the weekend. She had started feeling unwell Thursday night. She had some chills, and she started having a cough. No hemoptysis. She noted a little wheezing. She came to the ER yesterday morning and was noted to have a fever. She had a fever of 102. No GI symptoms but was feeling short of breath. She was unable to do to the ER for evaluation because she had a plumbing emergency at home, so she had an Influenza screen done. She had blood cultures drawn. She was empirically placed on Ceftin and Tamiflu. After she got home and got her problems taken care of, she came to the ER where she was noted to be wheezing. In the ER at that time, she had a temperature of 99.3. She is currently resting comfortably. She got ceftriaxone, Zithromax, and steroids this morning. She had some right flank discomfort with cough that has now resolved. She had a recent admission in May to the hospital, which was notable for diastolic heart failure with stable COPD. Currently, she is resting comfortably and feels much improved. PAST MEDICAL HISTORY: Notable for hypertension, HIV. Her T cells are 492 with a suppressed viral load. COPD. She is on 3 L of oxygen at home. She has a history of the recently diagnosed diastolic heart failure as well as a history of substance use. She is on methadone. SURGICAL HISTORY: Notable for cholecystectomy. She is also status post bioprosthetic aortic valve and mitral valve secondary to regurgitation done in 2014. SOCIAL HISTORY: She quit smoking 2 weeks ago. There has been no drug use for about a year. She lives in the community. She has had no recent sick contacts. Of note, she had influenza vaccine at the clinic. ALLERGIES: She is allergic to LISINOPRIL and BACTRIM. HOME MEDICATIONS: Include methadone, albuterol nebulizers, amitriptyline, Norvasc, aspirin, Biktarvy, Neurontin, Lopressor, Lasix, nicotine patch, Remeron, Effexor, and she was just started on Ceftin and Tamiflu. She took 1 dose of each. PHYSICAL EXAMINATION: General: She is awake and alert. She is quite comfortable. Vital Signs: Temperature is 97.6, pulse of 71, blood pressure 103/60, respiratory rate 20. She is saturating 91% on 3 L. HEENT: She is normocephalic. Her eyes are anicteric. Neck: Supple. Lungs: Diminished breath sounds at the bases. She has no wheezing at this time. Heart: Regular rate and rhythm. Abdomen: Soft, nontender. She has no right upper quadrant pain. Extremities: Without edema. DIAGNOSTIC DATA: Her blood cultures were drawn in clinic yesterday and are negative at 24 hour. Her throat culture is negative for Beta-hemolytic strep, and her Legionella antigen is negative as well as pneumococcal antigen. Chest x-ray I think shows some ILD and perhaps increased markings in her right lower lobe. In summary, this is a 59-year-old woman with possible right lower lobe pneumonia. I would continue ceftriaxone and Zithromax. COPD exacerbation, steroids and nebulizer. HIV, continue her Biktarvy. She has a history of bioprosthetic aortic and mitral valve with so far negative blood cultures. MEMO MCDERMOTT M.D. [id number]
--- NOTE | 2019-06-24 18:49 | PN ---
Teaching Attending Note Name of Resident: Demond Jha ATTENDING PHYSICIAN STATEMENT I saw and evaluated the patient. I reviewed the resident's note and discussed the case with the resident. I agree with the resident's findings and plan as documented. SUBJECTIVE: Feeling some improvement. Less SOB. No further fevers. OBJECTIVE: Afebrile, Hemodynamically Stable. Reported fever 102.2 at [facility] Last Vital Signs Temp Pulse Resp BP Pulse Ox 98.0 F 63 20 121/73 97 06/24/19 17:38 06/24/19 17:38 06/24/19 17:38 06/24/19 17:38 06/24/19 17:38 HEENT - Atraumtic, Normocephalic. Heart - S1, S2, SM Lungs - clear to auscultation Abdomen - Soft, non-tender. Bowel Sounds normal. Extremities - mild edema, no calf tenderness. Neuro - AAO x 3. Tone/Power normal all extremities. Laboratory Results - last 24 hr 06/24/19 06/24/19 06/24/19 01:10 01:10 01:10 WBC 4.1 RBC 4.08 Hgb 12.3 Hct 37.9 MCV 92.8 MCH 30.2 MCHC 32.6 RDW 16.6 H Plt Count 138 MPV 9.0 Absolute Neuts (auto) 2.7 Neutrophils % 64.3 Lymphocytes % 21.1 D Monocytes % 13.0 H Eosinophils % 0.2 Basophils % 1.4 Nucleated RBC % 0 Anticoagulation Therapy Puncture Site ABG pH ABG pCO2 at Pt Temp ABG pO2 at Pt Temp ABG HCO3 ABG O2 Sat (Measured) ABG O2 Content ABG Base Excess Juan Daniel Test O2 Delivery Device Oxygen Flow Rate Vent Mode Vent Rate Mechanical Rate Pressure Support Vent Sodium 138 Potassium 3.6 Chloride 102 Carbon Dioxide 33 H Anion Gap 3 L BUN 8.0 Creatinine 0.9 Est GFR (CKD-EPI)AfAm 81.69 Est GFR (CKD-EPI)NonAf 70.48 Random Glucose 89 Lactic Acid Calcium 7.8 L Total Bilirubin 0.3 AST 46 H ALT 27 Alkaline Phosphatase 99 Creatine Kinase 494 H Creatine Kinase Index 0.5 CK-MB (CK-2) 2.6 Troponin I < 0.02 B-Natriuretic Peptide 1363.1 H Total Protein 8.1 Albumin 2.4 L Influenza A (Rapid) Influenza B (Rapid) Group A Strep Rapid Negative 06/24/19 06/24/19 06/24/19 06:42 08:35 08:35 WBC 4.2 RBC 4.28 Hgb 12.8 Hct 40.0 MCV 93.6 MCH 30.0 MCHC 32.1 RDW 16.4 H Plt Count 148 MPV 8.8 Absolute Neuts (auto) 3.7 Neutrophils % 88.2 H D Lymphocytes % 8.5 D Monocytes % 2.8 L Eosinophils % 0.0 D Basophils % 0.5 Nucleated RBC % 0 Anticoagulation Therapy No Result Required. Puncture Site Right radial ABG pH 7.33 L ABG pCO2 at Pt Temp 59.2 H ABG pO2 at Pt Temp 58.5 L ABG HCO3 30.6 H ABG O2 Sat (Measured) 86.0 L ABG O2 Content 15.5 ABG Base Excess 3.8 H Juan Daniel Test Positive O2 Delivery Device Room air Oxygen Flow Rate 21% Vent Mode No Result Required. Vent Rate No Result Required. Mechanical Rate No Result Required. Pressure Support Vent No Result Required. Sodium 136 Potassium 3.9 Chloride 101 Carbon Dioxide 31 Anion Gap 4 L BUN 9.7 Creatinine 1.0 Est GFR (CKD-EPI)AfAm 71.92 Est GFR (CKD-EPI)NonAf 62.05 Random Glucose 176 H Lactic Acid Calcium 8.1 L Total Bilirubin 0.3 AST 43 H ALT 29 Alkaline Phosphatase 101 Creatine Kinase Creatine Kinase Index CK-MB (CK-2) Troponin I B-Natriuretic Peptide Total Protein 8.4 H Albumin 2.5 L Influenza A (Rapid) Influenza B (Rapid) Group A Strep Rapid 06/24/19 06/24/19 09:38 09:38 WBC RBC Hgb Hct MCV MCH MCHC RDW Plt Count MPV Absolute Neuts (auto) Neutrophils % Lymphocytes % Monocytes % Eosinophils % Basophils % Nucleated RBC % Anticoagulation Therapy Puncture Site ABG pH ABG pCO2 at Pt Temp ABG pO2 at Pt Temp ABG HCO3 ABG O2 Sat (Measured) ABG O2 Content ABG Base Excess Juan Daniel Test O2 Delivery Device Oxygen Flow Rate Vent Mode Vent Rate Mechanical Rate Pressure Support Vent Sodium Potassium Chloride Carbon Dioxide Anion Gap BUN Creatinine Est GFR (CKD-EPI)AfAm Est GFR (CKD-EPI)NonAf Random Glucose Lactic Acid Cancelled Calcium Total Bilirubin AST ALT Alkaline Phosphatase Creatine Kinase Creatine Kinase Index CK-MB (CK-2) Troponin I B-Natriuretic Peptide Total Protein Albumin Influenza A (Rapid) Negative Influenza B (Rapid) Negative Group A Strep Rapid Current Medications Generic Name Dose Route Start Last Admin Trade Name Freq PRN Reason Stop Dose Admin Acetaminophen 650 mg 06/24/19 05:19 Tylenol - PO Q4H PRN PAIN LEVEL 6-10 Albuterol/Ipratropium 1 amp 06/24/19 05:30 Duoneb - NEB RQ4H PRN SHORT OF BREATH/WHEEZING Albuterol/Ipratropium 1 amp 06/24/19 08:00 06/24/19 15:34 Duoneb - NEB 1 amp RTID VERONICA Administration Amitriptyline HCl 50 mg 06/24/19 10:00 06/24/19 09:45 Elavil - PO 50 mg DAILY VERONICA Administration Amlodipine Besylate 10 mg 06/24/19 10:00 06/24/19 09:45 Norvasc - PO 10 mg DAILY VERONICA Administration Aspirin 81 mg 06/24/19 10:00 06/24/19 09:45 Ecotrin - PO 81 mg DAILY VERONICA Administration Benzocaine/Menthol 1 each 06/24/19 05:35 Cepacol Lozenge - MM PRN PRN SORE THROAT Bictegravir/Emtricitabine/Tenofovir 1 each 06/24/19 10:00 06/24/19 09:45 Biktarvy 50-200-25 Mg Tablet PO 1 each DAILY VERONICA Administration Fluconazole 150 mg 06/24/19 18:00 Diflucan - PO 06/27/19 18:00 DAILY [facility] Furosemide 40 mg 06/24/19 06:00 06/24/19 15:35 Lasix - PO 40 mg BIDLASIX VERONICA Administration Gabapentin 300 mg 06/24/19 10:00 06/24/19 09:45 Neurontin - PO 300 mg BID VERONICA Administration Guaifenesin 10 ml 06/24/19 05:35 Robitussin - PO Q4H PRN COUGH Heparin Sodium (Porcine) 5,000 unit 06/24/19 06:00 06/24/19 15:34 Heparin - SQ 5,000 unit TID VERONICA Administration Azithromycin 500 mg in 250 mls @ 250 mls/hr 06/25/19 10:00 Zithromax 500mg Ivpb (Pre-Docked) IVPB DAILY [facility] Ceftriaxone Sodium 1 gm/ 50 mls @ 100 mls/hr 06/25/19 10:00 Dextrose IVPB DAILY [facility] Protocol Methadone HCl 70 mg 06/24/19 10:00 Dolophine - PO DAILY VERONICA Methylprednisolone Sodium Succinate 40 mg 06/24/19 10:00 06/24/19 09:45 Solu-Medrol - IVPUSH 40 mg BID VERONICA Administration Metoprolol Tartrate 25 mg 06/24/19 10:00 06/24/19 09:45 Lopressor - PO 25 mg BID VERONICA Administration Mirtazapine 30 mg 06/24/19 22:00 Remeron - PO HS [facility] Multivitamins/Minerals/Vitamin C 1 tab 06/24/19 10:00 06/24/19 09:45 Tab-A-Vit - PO 1 tab DAILY VERONICA Administration Nicotine 14 mg 06/24/19 10:00 06/24/19 09:45 Nicoderm Patch - TD 14 mg DAILY [facility] Administration Venlafaxine HCl 150 mg 06/24/19 10:00 06/24/19 09:45 Effexor Xr - PO 150 mg DAILY VERONICA Administration Home Medications Medication Instructions Recorded Methadone [Dolophine -] 70 mg PO DAILY 11/12/18 Albuterol 0.083% Nebulizer Viola 1 neb NEB Q6H PRN #1 box 04/14/19 [Ventolin 0.083% Nebulizer Soln -] Albuterol Sulfate Inhaler - 1 - 2 inh PO Q4H #1 inhaler 04/14/19 [Ventolin HFA Inhaler -] Amitriptyline HCl [Elavil -] 1 tab PO DAILY #30 tablet 04/14/19 Amlodipine Besylate [Norvasc -] 1 tab PO DAILY #30 tablet 04/14/19 Aspirin [Aspirin EC] 1 tab PO DAILY #30 tablet. 04/14/19 Bictegrav/Emtricit/Tenofov Ala 1 each PO DAILY #30 tablet 04/14/19 [Biktarvy 50-200-25 mg Tablet] Gabapentin [Neurontin -] 1 tab PO ASDIR #90 capsule 04/14/19 Metoprolol Tartrate [Lopressor -] 1 tab PO BID #60 tablet 04/14/19 Furosemide [Lasix -] 40 mg PO BID #60 tablet 06/03/19 Nicotine [Nicotine Patch 14mg/24 1 each TD DAILY #1 box 06/06/19 hr] Mirtazapine [Remeron -] 1 tablet PO HS #30 tablet 06/15/19 Venlafaxine HCl ER [Effexor Xr -] 150 mg PO DAILY #30 cap.er.24h 06/15/19 Cefuroxime Axetil [Ceftin -] 1 tab PO Q12H #20 tablet 06/23/19 Oseltamivir Phosphate [Tamiflu -] 1 tab PO BID #10 capsule 06/23/19 Thermometer, Electronic,Oral 1 each ASDIR #1 each 06/23/19 [Digital Thermometer] Budesonide/Formeterol Fumarate 2 puff PO BID 06/24/19 [SYMBICORT 160/4.5mcg -] Latanoprost/Pf [Latanoprost 0.005% 1 drop IO HS 06/24/19 Eye Drop] Polyvinyl Alcohol/Povidone/Pf 1 drop IO QID 06/24/19 [Refresh Classic Eye Drops] ASSESSMENT AND PLAN: 59 yea shahbazd female with HIV compliant w/ HAART (last reported CD4 03/2019 490's) , CRF sec to COPD on 3L home O2, s/p Bioprosthetic AV and MV replacements, Hx polysubstance abuse (opioids, Alcohol), Depression/Anxiety, presented with cough /SOB/wheeze/fever, measured at 102.2 at [facility]. 1. Acute on Chronic Respiratory Failure sec to Acute Exacerbation COPD. Continue BD Nebs, IV Steroid, supplemental O2, Abx as per ID CXR - no infiltrate. Flu negative. Symbicort. 2. HIV compliant w/ HAART (last reported CD4 03/2019 490's) - Continue as per ID 3. HTN - Continue Metoprolol, Norvasc. 4. Hx Polysubstance Abuse (Opiates, Alcohol) - No evidence of withdrawal. On Methadone. 5. Depression/Anxiety - Continue Venlafaxine, Remeron. 6. Chronic Diastolic CHF s/p Bioprosthetic AV and MV - Continue Lasix. DVT Px - Heparin SQ
[2019-06-24 19:07] VITALS: BMI 35.2
[2019-06-24] MEDS ORDERED: METHADONE HCL 10 MG TABLET ONE (19:09)
[2019-06-24] MEDS ORDERED: METHADONE HCL 40 MG DISPERSABLE TABLET ONE (19:09)
[2019-06-24] MEDS: METHADONE 40 MG, METHADONE 30 MG PO SCH (19:12)
[2019-06-24] MEDS ORDERED: PT OWN MED DRAWER 7, Y5N ONE (19:56)
[2019-06-24] MEDS ORDERED: CEFTRIAXONE 1 GM in DEXTROSE 5%-WATER - 50 ML IVPB SCH (20:00)
[2019-06-24] MEDS ORDERED: MIRTAZAPINE 15 MG TABLET (FP) ONE (20:56)
[2019-06-24] MEDS: FLUCONAZOLE 50 MG TABLET PO SCH (21:24)
[2019-06-24] MEDS: MIRTAZAPINE 30 MG TABLET (FP) PO SCH (21:25)
[2019-06-25] MEDS ORDERED: METHADONE HCL 40 MG DISPERSABLE TABLET ONE (05:54)
[2019-06-25] MEDS ORDERED: METHADONE HCL 10 MG TABLET ONE (05:54)
[2019-06-25] MEDS: FUROSEMIDE 40 MG TABLET (FP) PO SCH ×2 (06:13→14:23)
[2019-06-25] MEDS: HEPARIN NA (PORCINE) 5,000 UNITS/ML 1ML VIAL SQ SCH ×3 (06:13→22:03)
[2019-06-25] MEDS: METHADONE 40 MG, METHADONE 30 MG PO SCH (06:13)
[2019-06-25] MEDS: ALBUTEROL SO4 2.5/IPRATROPIUM 0.5 INH SOL 3 ML VIAL.NEB. NEB SCH ×3 (07:35→21:02)
[2019-06-25 09:04] LABS: BASO % 0.2 % (0-2.0); HEMOGLOBIN 12.2 GM/dL (10.7-15.3); MCH 30.2 pg (25.7-33.7); MCHC 32.2 g/dl (32.0-36.0); MEAN CELL VOLUME 93.9 fl (80-96); MEAN PLT VOLUME 8.8 fl (7.5-11.1); MONO % 7.2 % (3.8-10.2); NEUT % 80.6 % (42.8-82.8); PLATELET COUNT 151 K/MM3 (134-434); RBC 4.05 M/mm3 (3.60-5.2); RDW 16.5 % (11.6-15.6); WHITE BLOOD COUNT 4.7 K/mm3 (4.0-10.0)
[2019-06-25 09:38] LABS: ALBUMIN 2.7 g/dl (3.4-5.0); BILIRUBIN,TOTAL 0.2 mg/dL (0.2-1); BLOOD UREA NITROGEN 15.8 mg/dL (7-18); CALCIUM 8.2 mg/dL (8.5-10.1); POTASSIUM 4.1 mmol/L (3.5-5.1); TOT PROT 8.5 g/dl (6.4-8.2)
[2019-06-25] MEDS ORDERED: PT OWN MED DRAWER 7, Y5N ONE (10:01)
[2019-06-25] MEDS ORDERED: cefTRIAXone SODIUM 1 GM VIAL ONE (10:01)
[2019-06-25] MEDS ORDERED: DEXTROSE 5%-WATER - 50 ML IVPB ONE (10:02)
[2019-06-25] MEDS: MULTIVITAMINS (DAILY MVI) TABLET (FP) PO SCH (10:14)
[2019-06-25] MEDS: FLUCONAZOLE 50 MG TABLET PO SCH (10:14)
[2019-06-25] MEDS: GABAPENTIN 300 MG CAPSULE PO SCH (10:15)
[2019-06-25] MEDS: amLODIPine BESYLATE 10 MG TABLET (FP) PO SCH (10:15)
[2019-06-25] MEDS: METOPROLOL TARTRATE 25 MG TABLET (FP) PO SCH ×2 (10:15→22:04)
[2019-06-25] MEDS: AMITRIPTYLINE HCL 25 MG TABLET PO SCH (10:15)
[2019-06-25] MEDS: ASPIRIN COATED 81 MG TABLET.EC PO SCH (10:15)
[2019-06-25] MEDS: BICTEGRAV/EMTRICIT/TENOFOV (BIKTARVY) 50-200-25 MG TABLET PO SCH (10:16)
[2019-06-25] MEDS: VENLAFAXINE HCL 75 MG E.R. CAPSULES PO SCH (10:16)
[2019-06-25] MEDS: methylPREDNISolone NA SUCC 40 MG/1 ML VIAL IVPUSH SCH ×2 (10:17→22:05)
[2019-06-25] MEDS: CEFTRIAXONE 1 GM in DEXTROSE 5%-WATER - 50 ML IVPB SCH (10:17)
[2019-06-25] MEDS: NICOTINE 14 MG/24 HOURS TOPICAL PATCH TD SCH (10:17)
[2019-06-25] MEDS: AZITHROMYCIN IVPB 500 MG/250 ML BAG IVPB SCH (11:40)
--- NOTE | 2019-06-25 16:06 | PN ---
Physical Exam: SUBJECTIVE: Patient seen and examined. Wheezing a bit slightly worse than yesterday. OBJECTIVE: Vital Signs Period Temp Pulse Resp BP Sys/Álvarez Pulse Ox Last 24 Hr 97.7 F-98.7 F 63-82 18-22 119-129/72-79 94-99 GENERAL: The patient is awake, alert, and fully oriented, in no acute distress. NECK: supple. LUNGS: Breath sounds equal, clear to auscultation bilaterally, mild wheezes worse on the b/l upper lobes, no crackles, no accessory muscle use. Chest PT provided. HEART: Regular rate and rhythm, S1, S2 without murmur, rub or gallop. ABDOMEN: Soft, nontender, nondistended. EXTREMITIES: 2+ pulses, warm, well-perfused, no edema. PSYCH: Normal mood, normal affect. SKIN: Warm, dry, normal turgor, no rashes or lesions noted Laboratory Results - last 24 hr 06/25/19 06/25/19 08:30 08:30 WBC 4.7 RBC 4.05 Hgb 12.2 Hct 38.0 MCV 93.9 MCH 30.2 MCHC 32.2 RDW 16.5 H Plt Count 151 MPV 8.8 Absolute Neuts (auto) 3.8 Neutrophils % 80.6 Lymphocytes % 12.0 D Monocytes % 7.2 D Eosinophils % 0.0 Basophils % 0.2 Nucleated RBC % 0 Sodium 138 Potassium 4.1 Chloride 103 Carbon Dioxide 31 Anion Gap 4 L BUN 15.8 Creatinine 1.0 Est GFR (CKD-EPI)AfAm 71.92 Est GFR (CKD-EPI)NonAf 62.05 Random Glucose 131 H Calcium 8.2 L Total Bilirubin 0.2 AST 40 H ALT 28 Alkaline Phosphatase 98 Total Protein 8.5 H Albumin 2.7 L Active Medications Generic Name Dose Route Start Last Admin Trade Name Freq PRN Reason Stop Dose Admin Acetaminophen 650 mg 06/24/19 05:19 Tylenol - PO Q4H PRN PAIN LEVEL 6-10 Albuterol/Ipratropium 1 amp 06/24/19 05:30 Duoneb - NEB RQ4H PRN SHORT OF BREATH/WHEEZING Albuterol/Ipratropium 1 amp 06/24/19 08:00 06/25/19 15:00 Duoneb - NEB 1 amp RTID VERONICA Administration Amitriptyline HCl 50 mg 06/24/19 10:00 06/25/19 10:15 Elavil - PO 50 mg DAILY VERONICA Administration Amlodipine Besylate 10 mg 06/24/19 10:00 06/25/19 10:15 Norvasc - PO 10 mg DAILY VERONICA Administration Aspirin 81 mg 06/24/19 10:00 06/25/19 10:15 Ecotrin - PO 81 mg DAILY VERONICA Administration Benzocaine/Menthol 1 each 06/24/19 05:35 Cepacol Lozenge - MM PRN PRN SORE THROAT Bictegravir/Emtricitabine/Tenofovir 1 each 06/24/19 10:00 06/25/19 10:16 Biktarvy 50-200-25 Mg Tablet PO 1 each DAILY VERONICA Administration Fluconazole 150 mg 06/24/19 18:00 06/25/19 10:14 Diflucan - PO 06/27/19 18:00 150 mg DAILY VERONICA Administration Furosemide 40 mg 06/24/19 06:00 06/25/19 14:23 Lasix - PO 40 mg BIDLASIX VERONICA Administration Gabapentin 300 mg 06/24/19 10:00 06/25/19 10:15 Neurontin - PO 300 mg BID VERONICA Administration Guaifenesin 10 ml 06/24/19 05:35 Robitussin - PO Q4H PRN COUGH Heparin Sodium (Porcine) 5,000 unit 06/24/19 06:00 06/25/19 14:24 Heparin - SQ 5,000 unit TID VERONICA Administration Azithromycin 500 mg in 250 mls @ 250 mls/hr 06/25/19 10:00 06/25/19 11:40 Zithromax 500mg Ivpb (Pre-Docked) IVPB 250 mls/hr DAILY VERONICA Administration Ceftriaxone Sodium 1 gm/ 50 mls @ 100 mls/hr 06/25/19 10:00 06/25/19 10:17 Dextrose IVPB 100 mls/hr DAILY VERONICA Administration Protocol Methadone HCl 40 mg/ Methadone 70 mg 06/24/19 18:45 06/25/19 06:13 HCl 30 mg PO 70 mg DAILY@0600 VERONICA Administration Methylprednisolone Sodium Succinate 40 mg 06/24/19 10:00 06/25/19 10:17 Solu-Medrol - IVPUSH 40 mg BID VERONICA Administration Metoprolol Tartrate 25 mg 06/24/19 10:00 06/25/19 10:15 Lopressor - PO 25 mg BID VERONICA Administration Mirtazapine 30 mg 06/24/19 22:00 06/24/19 21:25 Remeron - PO 30 mg HS VERONICA Administration Multivitamins/Minerals/Vitamin C 1 tab 06/24/19 10:00 06/25/19 10:14 Tab-A-Vit - PO 1 tab DAILY VERONICA Administration Nicotine 14 mg 06/24/19 10:00 06/25/19 10:17 Nicoderm Patch - TD 14 mg DAILY VERONICA Administration Venlafaxine HCl 150 mg 06/24/19 10:00 06/25/19 10:16 Effexor Xr - PO 150 mg DAILY VERONICA Administration ASSESSMENT/PLAN: 59 y.o. F PMH HTN, HIV compliant w/ HAART (last reported CD4 03/2019 490's), COPD on 3L home O2, aortic & mitral valve replacement 2014, hx polysubstance abuse (opioids, etoh), morbid obesity found to have cough & SOB admitted for acute COPD exacerbation and CAP. #Acute COPD exacerbation -continue abx -solumedrol 40mg IV BID -f/u ABG -duonebs standing & prn -robitussin prn -continue oxygen therapy via nasal cannula #PNA, community-acquired -continue abx: will reinstate ceftriaxone per ID recs and continue azithromycin for pna. - BC's sent given high risk for endocarditis given IVDA hx. - CXR negative for infiltrate but some basilar atelectasis noted -f/u respiratory viral panel -urine ag for legonella/ s.pneumo -repeat flu swab (had 1 negative @ [facility]) #Oral candidiasis -continue fluconazole 150mg x 5 days -cepacol losenges prn #CHF -last echo 05/2019 showed normal EF 60-65%, mild LVH, mild dilation LA, mild to mod TR, elevated RV systolic pressure, mod aortic regurg -continue 40mg BID lasix -patient follows up regularly with cardiology #HTN -continue home meds: norvasc, lopressor -perez aspirin 81mg #HIV -continue HAART: biktarvy x 1 PO daily -patient follows up @ [facility] regularly #Hx substance abuse (opioids, etoh) -continue methadone 70mg daily -multivitamin #Nicotine dependence -nicotine patch 14mg daily #FEN -no fluids at this time -trend lytes replete as needed -sodium controlled diet #PPX -heparin sq #Dispo med surg Visit type - Emergency Visit Emergency Visit: Yes ED Registration Date: 06/24/19 Care time: The patient presented to the Emergency Department on the above date and was hospitalized for further evaluation of their emergent condition. - New Patient This patient is new to me today: No - Critical Care Critical Care patient: No - Discharge Referral Referred to [facility] Med P.C.: No ATTENDING PHYSICIAN STATEMENT I saw and evaluated the patient. I reviewed the resident's note and discussed the case with the resident. I agree with the resident's findings and plan as documented. SUBJECTIVE: OBJECTIVE: ASSESSMENT AND PLAN:
--- NOTE | 2019-06-25 16:59 | PN ---
Teaching Attending Note Name of Resident: Demond Jha ATTENDING PHYSICIAN STATEMENT I saw and evaluated the patient. I reviewed the resident's note and discussed the case with the resident. I agree with the resident's findings and plan as documented. SUBJECTIVE: Feeling some improvement. Less SOB. No further fevers. OBJECTIVE: Afebrile, Hemodynamically Stable. Reported fever 102.2 at [facility] , now afebrile. Last Vital Signs Temp Pulse Resp BP Pulse Ox 98.7 F 68 20 127/76 94 L 06/25/19 14:44 06/25/19 14:44 06/25/19 14:44 06/25/19 14:44 06/25/19 09:00 Heart - S1, S2, SM Lungs - bilateral wheeze Abdomen - Soft, non-tender. Bowel Sounds normal. Extremities - mild edema, no calf tenderness. Neuro - AAO x 3. Tone/Power normal all extremities. Laboratory Results - last 24 hr 06/25/19 06/25/19 08:30 08:30 WBC 4.7 RBC 4.05 Hgb 12.2 Hct 38.0 MCV 93.9 MCH 30.2 MCHC 32.2 RDW 16.5 H Plt Count 151 MPV 8.8 Absolute Neuts (auto) 3.8 Neutrophils % 80.6 Lymphocytes % 12.0 D Monocytes % 7.2 D Eosinophils % 0.0 Basophils % 0.2 Nucleated RBC % 0 Sodium 138 Potassium 4.1 Chloride 103 Carbon Dioxide 31 Anion Gap 4 L BUN 15.8 Creatinine 1.0 Est GFR (CKD-EPI)AfAm 71.92 Est GFR (CKD-EPI)NonAf 62.05 Random Glucose 131 H Calcium 8.2 L Total Bilirubin 0.2 AST 40 H ALT 28 Alkaline Phosphatase 98 Total Protein 8.5 H Albumin 2.7 L Current Medications Generic Name Dose Route Start Last Admin Trade Name Freq PRN Reason Stop Dose Admin Acetaminophen 650 mg 06/24/19 05:19 Tylenol - PO Q4H PRN PAIN LEVEL 6-10 Albuterol/Ipratropium 1 amp 06/24/19 05:30 Duoneb - NEB RQ4H PRN SHORT OF BREATH/WHEEZING Albuterol/Ipratropium 1 amp 06/24/19 08:00 06/25/19 15:00 Duoneb - NEB 1 amp RTID VERONICA Administration Amitriptyline HCl 50 mg 06/24/19 10:00 06/25/19 10:15 Elavil - PO 50 mg DAILY VERONICA Administration Amlodipine Besylate 10 mg 06/24/19 10:00 06/25/19 10:15 Norvasc - PO 10 mg DAILY VERONICA Administration Aspirin 81 mg 06/24/19 10:00 06/25/19 10:15 Ecotrin - PO 81 mg DAILY VERONICA Administration Benzocaine/Menthol 1 each 06/24/19 05:35 Cepacol Lozenge - MM PRN PRN SORE THROAT Bictegravir/Emtricitabine/Tenofovir 1 each 06/24/19 10:00 06/25/19 10:16 Biktarvy 50-200-25 Mg Tablet PO 1 each DAILY VERONICA Administration Fluconazole 150 mg 06/24/19 18:00 06/25/19 10:14 Diflucan - PO 06/27/19 18:00 150 mg DAILY VERONICA Administration Furosemide 40 mg 06/24/19 06:00 06/25/19 14:23 Lasix - PO 40 mg BIDLASIX VERONICA Administration Gabapentin 300 mg 06/26/19 10:00 Neurontin - PO DAILY VERONICA Gabapentin 600 mg 06/25/19 22:00 Neurontin - PO HS VERONICA Guaifenesin 10 ml 06/24/19 05:35 Robitussin - PO Q4H PRN COUGH Heparin Sodium (Porcine) 5,000 unit 06/24/19 06:00 06/25/19 14:24 Heparin - SQ 5,000 unit TID VERONICA Administration Azithromycin 500 mg in 250 mls @ 250 mls/hr 06/25/19 10:00 06/25/19 11:40 Zithromax 500mg Ivpb (Pre-Docked) IVPB 250 mls/hr DAILY VERONICA Administration Ceftriaxone Sodium 1 gm/ 50 mls @ 100 mls/hr 06/25/19 10:00 06/25/19 10:17 Dextrose IVPB 100 mls/hr DAILY VERONICA Administration Protocol Methadone HCl 40 mg/ Methadone 70 mg 06/24/19 18:45 06/25/19 06:13 HCl 30 mg PO 70 mg DAILY@0600 VERONICA Administration Methylprednisolone Sodium Succinate 40 mg 06/24/19 10:00 06/25/19 10:17 Solu-Medrol - IVPUSH 40 mg BID VERONICA Administration Metoprolol Tartrate 25 mg 06/24/19 10:00 06/25/19 10:15 Lopressor - PO 25 mg BID VERONICA Administration Mirtazapine 30 mg 06/24/19 22:00 06/24/19 21:25 Remeron - PO 30 mg HS VERONICA Administration Multivitamins/Minerals/Vitamin C 1 tab 06/24/19 10:00 06/25/19 10:14 Tab-A-Vit - PO 1 tab DAILY VERONICA Administration Nicotine 14 mg 06/24/19 10:00 06/25/19 10:17 Nicoderm Patch - TD 14 mg DAILY VERONICA Administration Venlafaxine HCl 150 mg 06/24/19 10:00 06/25/19 10:16 Effexor Xr - PO 150 mg DAILY VERONICA Administration Home Medications Medication Instructions Recorded Methadone [Dolophine -] 70 mg PO DAILY 11/12/18 Albuterol 0.083% Nebulizer Viola 1 neb NEB Q6H PRN #1 box 04/14/19 [Ventolin 0.083% Nebulizer Soln -] Albuterol Sulfate Inhaler - 1 - 2 inh PO Q4H #1 inhaler 04/14/19 [Ventolin HFA Inhaler -] Amitriptyline HCl [Elavil -] 1 tab PO DAILY #30 tablet 04/14/19 Amlodipine Besylate [Norvasc -] 1 tab PO DAILY #30 tablet 04/14/19 Aspirin [Aspirin EC] 1 tab PO DAILY #30 tablet. 04/14/19 Bictegrav/Emtricit/Tenofov Ala 1 each PO DAILY #30 tablet 04/14/19 [Biktarvy 50-200-25 mg Tablet] Metoprolol Tartrate [Lopressor -] 1 tab PO BID #60 tablet 04/14/19 Furosemide [Lasix -] 40 mg PO BID #60 tablet 06/03/19 Nicotine [Nicotine Patch 14mg/24 1 each TD DAILY #1 box 06/06/19 hr] Mirtazapine [Remeron -] 1 tablet PO HS #30 tablet 06/15/19 Venlafaxine HCl ER [Effexor Xr -] 150 mg PO DAILY #30 cap.er.24h 06/15/19 Cefuroxime Axetil [Ceftin -] 1 tab PO Q12H #20 tablet 06/23/19 Oseltamivir Phosphate [Tamiflu -] 1 tab PO BID #10 capsule 06/23/19 Budesonide/Formeterol Fumarate 2 puff PO BID 06/24/19 [SYMBICORT 160/4.5mcg -] Latanoprost/Pf [Latanoprost 0.005% 1 drop IO HS 06/24/19 Eye Drop] Polyvinyl Alcohol/Povidone/Pf 1 drop IO QID 06/24/19 [Refresh Classic Eye Drops] Gabapentin [Neurontin -] 300 mg PO DAILY 06/25/19 Gabapentin [Neurontin -] 600 mg PO HS 06/25/19 ASSESSMENT AND PLAN: 59 deon bush female with HIV compliant w/ HAART (last reported CD4 03/2019 490's) , CRF sec to COPD on 3L home O2, s/p Bioprosthetic AV and MV replacements, Hx polysubstance abuse (opioids, Alcohol), Depression/Anxiety, presented with cough /SOB/wheeze/fever, measured at 102.2 at [facility]. 1. Acute on Chronic Respiratory Failure sec to Acute Exacerbation COPD. Continue BD Nebs, IV Steroid, supplemental O2, Abx as per ID (Ceftriaxone/ Azithromycin) CXR - no infiltrate. Flu negative. Symbicort. 2. HIV compliant w/ HAART (last reported CD4 03/2019 490's) - Continue as per ID 3. HTN - Continue Metoprolol, Norvasc. 4. Hx Polysubstance Abuse (Opiates, Alcohol) - No evidence of withdrawal. On Methadone. 5. Depression/Anxiety - Continue Venlafaxine, Remeron. 6. Chronic Diastolic CHF s/p Bioprosthetic AV and MV - Continue Lasix. DVT Px - Heparin SQ
[2019-06-25] MEDS ORDERED: MIRTAZAPINE 15 MG TABLET (FP) ONE (21:38)
[2019-06-25] MEDS ORDERED: GABAPENTIN 300 MG CAPSULE PO SCH (22:00)
[2019-06-25] MEDS: MIRTAZAPINE 30 MG TABLET (FP) PO SCH (22:04)
[2019-06-26] MEDS ORDERED: METHADONE HCL 10 MG TABLET ONE (05:52)
[2019-06-26] MEDS ORDERED: METHADONE HCL 40 MG DISPERSABLE TABLET ONE (05:52)
[2019-06-26] MEDS: METHADONE 40 MG, METHADONE 30 MG PO SCH (06:06)
[2019-06-26] MEDS: HEPARIN NA (PORCINE) 5,000 UNITS/ML 1ML VIAL SQ SCH ×2 (06:07→15:08)
[2019-06-26] MEDS: FUROSEMIDE 40 MG TABLET (FP) PO SCH ×2 (06:07→15:09)
[2019-06-26] MEDS: ALBUTEROL SO4 2.5/IPRATROPIUM 0.5 INH SOL 3 ML VIAL.NEB. NEB SCH ×2 (07:40→14:45)
[2019-06-26 08:53] LABS: BASO % 0.3 % (0-2.0); HEMATOCRIT 38.5 % (32.4-45.2); HEMOGLOBIN 12.4 GM/dL (10.7-15.3); LYMPH % 13.8 % (8-40); MCH 30.4 pg (25.7-33.7); MCHC 32.3 g/dl (32.0-36.0); MEAN PLT VOLUME 8.9 fl (7.5-11.1); MONO % 7.1 % (3.8-10.2); NEUT % 78.8 % (42.8-82.8); PLATELET COUNT 161 K/MM3 (134-434); RDW 16.6 % (11.6-15.6); WHITE BLOOD COUNT 5.3 K/mm3 (4.0-10.0)
[2019-06-26 09:23] LABS: ALBUMIN 2.7 g/dl (3.4-5.0); BILIRUBIN,TOTAL 0.2 mg/dL (0.2-1); BLOOD UREA NITROGEN 21.9 mg/dL (7-18); CALCIUM 8.6 mg/dL (8.5-10.1); POTASSIUM 4.2 mmol/L (3.5-5.1); TOT PROT 8.7 g/dl (6.4-8.2)
[2019-06-26] MEDS ORDERED: GABAPENTIN 300 MG CAPSULE PO SCH (10:00)
[2019-06-26] MEDS ORDERED: PT OWN MED DRAWER 7, Y5N ONE ×2 (10:57→18:24)
[2019-06-26] MEDS ORDERED: cefTRIAXone SODIUM 1 GM VIAL ONE (10:57)
[2019-06-26] MEDS ORDERED: DEXTROSE 5%-WATER - 50 ML IVPB ONE (10:57)
[2019-06-26] MEDS: BICTEGRAV/EMTRICIT/TENOFOV (BIKTARVY) 50-200-25 MG TABLET PO SCH (11:00)
[2019-06-26] MEDS: CEFTRIAXONE 1 GM in DEXTROSE 5%-WATER - 50 ML IVPB SCH (11:00)
[2019-06-26] MEDS: amLODIPine BESYLATE 10 MG TABLET (FP) PO SCH (11:01)
[2019-06-26] MEDS: AMITRIPTYLINE HCL 25 MG TABLET PO SCH (11:01)
[2019-06-26] MEDS: MULTIVITAMINS (DAILY MVI) TABLET (FP) PO SCH (11:01)
[2019-06-26] MEDS: METOPROLOL TARTRATE 25 MG TABLET (FP) PO SCH (11:01)
[2019-06-26] MEDS: ASPIRIN COATED 81 MG TABLET.EC PO SCH (11:01)
[2019-06-26] MEDS: VENLAFAXINE HCL 75 MG E.R. CAPSULES PO SCH (11:01)
[2019-06-26] MEDS: methylPREDNISolone NA SUCC 40 MG/1 ML VIAL IVPUSH SCH (11:02)
[2019-06-26] MEDS: FLUCONAZOLE 50 MG TABLET PO SCH (11:02)
[2019-06-26] MEDS: NICOTINE 14 MG/24 HOURS TOPICAL PATCH TD SCH (12:31)
[2019-06-26] MEDS: AZITHROMYCIN IVPB 500 MG/250 ML BAG IVPB SCH (12:32)
--- NOTE | 2019-06-26 16:58 | DS ---
Physical Exam: SUBJECTIVE: Reports improvement. Less SOB. No further fevers. OBJECTIVE: Afebrile, Hemodynamically Stable. Comfortable on 2l via NC. Last Vital Signs Temp Pulse Resp BP Pulse Ox 98.9 F 65 20 102/72 93 L 06/26/19 16:03 06/26/19 16:03 06/26/19 16:03 06/26/19 16:03 06/25/19 21:00 Heart - S1, S2, SM Lungs - good air entry, occasional wheeze. Abdomen - Soft, non-tender. Bowel Sounds normal. Extremities - mild edema, no calf tenderness. Neuro - AAO x 3. Tone/Power normal all extremities. Laboratory Results - last 24 hr 06/26/19 06/26/19 07:18 07:18 WBC 5.3 RBC 4.10 Hgb 12.4 Hct 38.5 MCV 94.0 MCH 30.4 MCHC 32.3 RDW 16.6 H Plt Count 161 MPV 8.9 Absolute Neuts (auto) 4.2 Neutrophils % 78.8 Lymphocytes % 13.8 Monocytes % 7.1 Eosinophils % 0.0 Basophils % 0.3 Nucleated RBC % 0 Sodium 138 Potassium 4.2 Chloride 101 Carbon Dioxide 34 H Anion Gap 3 L BUN 21.9 H Creatinine 1.0 Est GFR (CKD-EPI)AfAm 71.92 Est GFR (CKD-EPI)NonAf 62.05 Random Glucose 108 H Calcium 8.6 Total Bilirubin 0.2 AST 38 H ALT 25 Alkaline Phosphatase 93 Total Protein 8.7 H Albumin 2.7 L Discharge Medications Medication Instructions Recorded Methadone [Dolophine -] 70 mg PO DAILY 11/12/18 Albuterol 0.083% Nebulizer Viola 1 neb NEB Q6H PRN #1 box 04/14/19 [Ventolin 0.083% Nebulizer Soln -] Albuterol Sulfate Inhaler - 1 - 2 inh PO Q4H #1 inhaler 04/14/19 [Ventolin HFA Inhaler -] Amitriptyline HCl [Elavil -] 1 tab PO DAILY #30 tablet 04/14/19 Amlodipine Besylate [Norvasc -] 1 tab PO DAILY #30 tablet 04/14/19 Aspirin [Aspirin EC] 1 tab PO DAILY #30 tablet. 04/14/19 Bictegrav/Emtricit/Tenofov Ala 1 each PO DAILY #30 tablet 04/14/19 [Biktarvy 50-200-25 mg Tablet] Metoprolol Tartrate [Lopressor -] 1 tab PO BID #60 tablet 04/14/19 Furosemide [Lasix -] 40 mg PO BID #60 tablet 06/03/19 Nicotine [Nicotine Patch 14mg/24 1 each TD DAILY #1 box 06/06/19 hr] Mirtazapine [Remeron -] 1 tablet PO HS #30 tablet 06/15/19 Venlafaxine HCl ER [Effexor Xr -] 150 mg PO DAILY #30 cap.er.24h 06/15/19 Budesonide/Formeterol Fumarate 2 puff PO BID 06/24/19 [SYMBICORT 160/4.5mcg -] Latanoprost/Pf [Latanoprost 0.005% 1 drop IO HS 06/24/19 Eye Drop] Polyvinyl Alcohol/Povidone/Pf 1 drop IO QID 06/24/19 [Refresh Classic Eye Drops] Gabapentin [Neurontin -] 300 mg PO DAILY 06/25/19 Gabapentin [Neurontin -] 600 mg PO HS 06/25/19 Azithromycin 250 mg PO DAILY #3 tablet 06/26/19 Cefpodoxime Proxetil [Vantin -] 200 mg PO Q12H #6 tablet 06/26/19 Fluconazole [Diflucan -] 150 mg PO DAILY 5 Days #5 tablet 06/26/19 Multivitamins [Multivit ([facility] 1 tab PO DAILY tab 06/26/19 Formulary)] predniSONE [Deltasone -] 40 mg PO DAILY 4 Days #8 tablet 06/26/19 Date of Admission:06/24/19 Date of Discharge: 06/26/19 Minutes to complete discharge: 45 Discharge Summary Problems reviewed: Yes Reason For Visit: PNEUMONIA Hospital Course: 59 year old female with HIV compliant w/ HAART (last reported CD4 03/2019 490's) , CRF sec to COPD/ILD on 3L home O2, s/p Bioprosthetic AV and MV replacements, Hx polysubstance abuse (opioids, Alcohol), Depression/Anxiety, presented with cough/SOB/wheeze/fever, measured at 102.2 at [facility]. She has remained fever free for over 48 hours with improvement in her respiratory status with Bronchodilator Nebs, Steroid, and Antibiotics, all of which she can continue on discharge with PCP follow up next week. 1. Acute on Chronic Respiratory Failure sec to Acute Exacerbation COPD/ILD. Continue BD Nebs, supplemental O2, Vantin/Azithromycin (5 days total), Prednisone for 4 additional days. CXR - no infiltrate. Flu negative. Symbicort. BD Nebs to continue on discharge. 2. HIV compliant w/ HAART (last reported CD4 03/2019 490's) - Continue. 3. HTN - Continue Metoprolol, Norvasc. 4. Hx Polysubstance Abuse (Opiates, Alcohol) - No evidence of withdrawal. On Methadone. 5. Depression/Anxiety - Continue Venlafaxine, Remeron. 6. Chronic Diastolic CHF s/p Bioprosthetic AV and MV - Continue Lasix. Medically optimized for discharge. - Instructions Diet, Activity, Other Instructions: You were admitted with shortnes sof breath, found to have COPD exacerbation which improved with IV steroids and Bronchodilator Nebs. You will be discharged on 4 additional days of Prednsone, 3 additional days of antibiotics Vantin and Azithromycin, regular Nebulizations, as well as on Fluconazole for thrush, with close [facility] follow up next week. Referrals: Mary Zavala, [facility] [Primary Care Provider] - 1 Week Disposition: HOME - Home Medications Comprehensive Discharge Medication List: Ambulatory Orders Methadone [Dolophine -] 70 mg PO DAILY 11/12/18 Albuterol 0.083% Nebulizer Viola [Ventolin 0.083% Nebulizer Soln -] 1 neb NEB Q6H PRN #1 box 04/14/19 Albuterol Sulfate Inhaler - [Ventolin HFA Inhaler -] 1 - 2 inh PO Q4H #1 inhaler 04/14/19 Amitriptyline HCl [Elavil -] 1 tab PO DAILY #30 tablet 04/14/19 Amlodipine Besylate [Norvasc -] 1 tab PO DAILY #30 tablet 04/14/19 Aspirin [Aspirin EC] 1 tab PO DAILY #30 tablet. 04/14/19 Bictegrav/Emtricit/Tenofov Ala [Biktarvy 50-200-25 mg Tablet] 1 each PO DAILY # 30 tablet 04/14/19 Metoprolol Tartrate [Lopressor -] 1 tab PO BID #60 tablet 04/14/19 Furosemide [Lasix -] 40 mg PO BID #60 tablet 06/03/19 Nicotine [Nicotine Patch 14mg/24 hr] 1 each TD DAILY #1 box 06/06/19 Mirtazapine [Remeron -] 1 tablet PO HS #30 tablet 06/15/19 Venlafaxine HCl ER [Effexor Xr -] 150 mg PO DAILY #30 cap.er.24h 06/15/19 Budesonide/Formeterol Fumarate [SYMBICORT 160/4.5mcg -] 2 puff PO BID 06/24/19 Latanoprost/Pf [Latanoprost 0.005% Eye Drop] 1 drop IO HS 06/24/19 Polyvinyl Alcohol/Povidone/Pf [Refresh Classic Eye Drops] 1 drop IO QID Gabapentin [Neurontin -] 300 mg PO DAILY 06/25/19 Gabapentin [Neurontin -] 600 mg PO HS 06/25/19 Azithromycin 250 mg PO DAILY #3 tablet 06/26/19 Cefpodoxime Proxetil [Vantin -] 200 mg PO Q12H #6 tablet 06/26/19 Fluconazole [Diflucan -] 150 mg PO DAILY 5 Days #5 tablet 06/26/19 Multivitamins [Multivit ([facility] Formulary)] 1 tab PO DAILY tab 06/26/19 predniSONE [Deltasone -] 40 mg PO DAILY 4 Days #8 tablet 06/26/19 This patient is new to me today: No Emergency Visit: Yes ED Registration Date: 06/24/19 Care time: The patient presented to the Emergency Department on the above date and was hospitalized for further evaluation of their emergent condition. Critical Care patient: No - Discharge Referral Referred to [facility] No
[2019-06-26] MEDS ORDERED: predniSONE 20 MG TABLET (UD) PO ONE (17:42)
[2019-06-26 17:53] VITALS: BP 107/74; PULSE 69; TEMP 97.6
== END 2019-06-26 19:45 | disposition home or self-care (01) | DRG 140 ==
LOC: JER 23:27 → JERBED 06-24 04:50 → J8W 06-24 18:32
PROVIDERS: ADMIT Internal Medicine
DX: J44.1 Chronic obstructive pulmonary disease with (acute) exacerbation (principal); Z21 Asymptomatic human immunodeficiency virus [HIV] infection status; F10.10 Alcohol abuse, uncomplicated; F11.10 Opioid abuse, uncomplicated; E66.01 Morbid (severe) obesity due to excess calories; J18.9 Pneumonia, unspecified organism; I11.0 Hypertensive heart disease with heart failure; J96.20 Acute and chronic respiratory failure, unspecified whether with hypoxia or hypercapnia; B37.0 Candidal stomatitis; I50.32 Chronic diastolic (congestive) heart failure; F41.8 Other specified anxiety disorders
CPT/HCPCS: 36415; 36600; 71046-TC-FY; 80053; 82308; 82550; 82553; 82803; 83880; 84484; 85025; 87070; 87205; 87633; 87804; 87880; 87899; 93005; 93010; 94640; 97116-GP; 99285-25; J0131; J1100; J1644; J7030

== ENCOUNTER 2020-11-19 05:19 | Day surgery (SDC) | payer OTHER ==
[2020-11-19] MEDS ORDERED: LIDOCAINE VISCOUS 2% ORAL/TOP 20 ML UNIT-DOSE CUP ONE (11:42)
[2020-11-19 12:27] VITALS: TEMP 99.9; BMI 35.6
[2020-11-19] MEDS ORDERED: MIDAZOLAM HCL 2 MG/2 ML SINGLE DOSE VIAL ONE (13:18)
[2020-11-19] MEDS ORDERED: LIDOCAINE VISCOUS 2% ORAL/TOP 20 ML UNIT-DOSE CUP MM ONE (13:20)
[2020-11-19 15:09] VITALS: BP 135/80; PULSE 64
== END 2020-11-19 15:10 | disposition home or self-care (01) ==
LOC: JASU-ENDO 05:19
PROVIDERS: ATTEND Internal Medicine Cardiovascular Disease
PROC: B246ZZ4 Ultrasonography of Right and Left Heart, Transesophageal (ICD-10-PCS; principal; 2020-11-19 13:00)
DX: I35.1 Nonrheumatic aortic (valve) insufficiency (principal)
CPT/HCPCS: 93312; 93325

== ENCOUNTER 2021-05-27 08:16 | Inpatient (IN) | payer OTHER ==
[2021-05-27] MEDS ORDERED: ALBUTEROL SO4 2.5/IPRATROPIUM 0.5 INH SOL 3 ML VIAL.NEB. NEB ONE ×2 (08:33→08:48)
[2021-05-27] MEDS ORDERED: methylPREDNISolone NA SUCC 125 MG/2 ML VIAL IVPB ONE (08:33)
[2021-05-27] MEDS ORDERED: methylPREDNISolone NA SUCC 125 MG/2 ML VIAL ONE (08:49)
[2021-05-27] MEDS ORDERED: NITROGLYCERIN 2% OINTMENT - 1GM PACKET TD ONE ×2 (09:10→09:24)
[2021-05-27] MEDS ORDERED: AZITHROMYCIN IVPB 500 MG in DEXTROSE 5%-WATER - 250 ML IVPB ONE (09:10)
[2021-05-27] MEDS ORDERED: FUROSEMIDE 40 MG/4 ML INJECTABLE VIAL IVPUSH ONE ×2 (09:12→14:33)
[2021-05-27 09:13] LABS: BASO % 0.4 % (0-2.0); EOS % 1.8 % (0-4.5); HEMATOCRIT 44.7 % (32.4-45.2); HEMOGLOBIN 13.8 GM/dL (10.7-15.3); LYMPH % 9.7 % (8-40); MCH 30.9 pg (25.7-33.7); MCHC 30.8 g/dl (32.0-36.0); MEAN CELL VOLUME 100.4 fl (80-96); MONO % 6.2 % (3.8-10.2); NEUT % 81.9 % (42.8-82.8); PLATELET COUNT 138 10^3/uL (134-434); RBC 4.45 M/mm3 (3.60-5.2); RDW 16.2 % (11.6-15.6); WHITE BLOOD COUNT 7.6 K/mm3 (4.0-10.0)
[2021-05-27] MEDS ORDERED: CEFTRIAXONE 1 GM/50 ML BAG ONE (09:24)
[2021-05-27] MEDS ORDERED: AZITHROMYCIN IVPB 500 MG/250 ML BAG IVPB ONE (09:24)
[2021-05-27] MEDS ORDERED: FUROSEMIDE 40 MG/4 ML INJECTABLE VIAL ONE ×2 (09:24→15:26)
[2021-05-27 09:37] LABS: ALBUMIN 3.5 g/dl (3.4-5.0)
[2021-05-27 09:40] LABS: CALCIUM 9.2 mg/dL (8.5-10.1); CREATININE 0.7 mg/dL (0.55-1.3)
[2021-05-27 09:42] LABS: BILIRUBIN,TOTAL 0.9 mg/dL (0.2-1); TOT PROT 9.6 g/dl (6.4-8.2)
[2021-05-27 09:44] LABS: MAGNESIUM 1.8 mg/dL (1.8-2.4)
[2021-05-27 10:12] LABS: ALLENS TEST POSITIVE; ARTERIAL BLD GAS O2 SATURATION 90.1 % (95-98); ARTERIAL BLOOD GAS BASE EXCESS 5.8 mmol/L (-2-2); ARTERIAL BLOOD GAS PO2 74.2 mmHg (80-100)
[2021-05-27 10:13] LABS: VENT MODE ST; VENT RATE 14
[2021-05-27 10:14] LABS: ARTERIAL BLOOD GAS pH 7.189 (7.350-7.450)
[2021-05-27 10:28] LABS: EPI CELLS >36 /uL (0-25.1); HYALINE CASTS 1 /uL (0-3.1); URINE APPEARANCE CLOUDY; URINE BACTERIA 45 /uL (0-1359); URINE BILIRUBIN NEGATIVE (NEGATIVE); URINE COLOR YELLOW; URINE GLUCOSE (UA) NEGATIVE (NEGATIVE); URINE KETONE NEGATIVE (NEGATIVE); URINE LEUK ESTERASE NEGATIVE (NEGATIVE); URINE NITRITE NEGATIVE (NEGATIVE); URINE PROTEIN 4+ (NEGATIVE)
[2021-05-27 10:30] LABS: INR 1.25 (0.83-1.09); PROTHROMBIN TIME (PATIENT) 14.4 SEC (9.7-13.0)
[2021-05-27 10:32] LABS: ACTIVATED PTT 31.1 SECONDS (25.2-36.5)
[2021-05-27 10:50] LABS: URINE RBC 50.6 /uL (0-23.9); URINE WBC 235.1 /uL (0-25.8); YEAST NON SEEN (NEGATIVE)
[2021-05-27 11:05] LABS: BLOOD UREA NITROGEN 9.7 mg/dL (7-18)
[2021-05-27 11:08] LABS: CREATININE 0.6 mg/dL (0.55-1.3)
[2021-05-27 11:48] LABS: ARTERIAL BLD GAS O2 SATURATION 92.6 % (95-98); ARTERIAL BLOOD GAS BASE EXCESS 4.4 mmol/L (-2-2); ARTERIAL BLOOD GAS PO2 84.1 mmHg (80-100)
[2021-05-27 11:51] LABS: ARTERIAL BLOOD GAS pH 7.169 (7.350-7.450)
[2021-05-27] MEDS ORDERED: BICTEGRAV/EMTRICIT/TENOFOV (BIKTARVY) 50-200-25 MG TABLET PO SCH (13:00)
[2021-05-27 14:43] LABS: ALLENS TEST POSITIVE; ARTERIAL BLD GAS O2 SATURATION 90.5 % (95-98); ARTERIAL BLOOD GAS BASE EXCESS 4.6 mmol/L (-2-2)
[2021-05-27 14:44] LABS: VENT MODE ST; VENT RATE 22
[2021-05-27 14:46] LABS: ARTERIAL BLOOD GAS pH 7.179 (7.350-7.450)
[2021-05-27 16:23] LABS: ALLENS TEST POSITIVE; ARTERIAL BLD GAS O2 SATURATION 88.7 % (95-98); ARTERIAL BLOOD GAS PO2 68.2 mmHg (80-100)
[2021-05-27 16:24] LABS: VENT MODE V; VENT RATE 28
[2021-05-27 17:27] LABS: COCAINE, UR NEGATIVE (NEGATIVE); OPIATES, URI NEGATIVE (NEGATIVE); PHENCYCLIDINE,URINE NEGATIVE (NEGATIVE); URINE BARBITURATES NEGATIVE (NEGATIVE)
[2021-05-27 17:54] LABS: METHADONE, UR POSITIVE (NEGATIVE); URINE AMPHETAMINES NEGATIVE (NEGATIVE); URINE BENZODIAZEPINES NEGATIVE (NEGATIVE)
[2021-05-27] MEDS ORDERED: MIRTAZAPINE 30 MG TABLET PO SCH (22:00)
[2021-05-27] MEDS ORDERED: BUDESONIDE/FORMETEROL FUMARATE 160/4.5 mcg INHALER IH SCH (22:00)
[2021-05-27] MEDS ORDERED: CHLORHEXIDINE GLUCONATE 4% CLEANSER FOR DECOLONIZATION TP SCH (22:00)
[2021-05-27] MEDS ORDERED: PNEUMOC 13-VAL CONJ-DIP CRM/PF 0.5 ML DISP.SYRIN IM ONE (22:35)
[2021-05-27] MEDS: MUPIROCIN 2% TOPICAL OINTMENT FOR DECOLONIZATION NS SCH (23:03)
[2021-05-28 07:17] LABS: BASO % 0.5 % (0-2.0); EOS % 0.2 % (0-4.5); HEMATOCRIT 39.2 % (32.4-45.2); LYMPH % 18.2 % (8-40); MCH 30.5 pg (25.7-33.7); MCHC 30.7 g/dl (32.0-36.0); MEAN CELL VOLUME 99.3 fl (80-96); MEAN PLT VOLUME 9.6 fl (7.5-11.1); MONO % 8.9 % (3.8-10.2); NEUT % 72.2 % (42.8-82.8); PLATELET COUNT 126 10^3/uL (134-434); RBC 3.95 M/mm3 (3.60-5.2); RDW 15.3 % (11.6-15.6); WHITE BLOOD COUNT 3.9 K/mm3 (4.0-10.0)
[2021-05-28 07:43] LABS: BLOOD UREA NITROGEN 16.4 mg/dL (7-18); CALCIUM 8.9 mg/dL (8.5-10.1); MAGNESIUM 1.7 mg/dL (1.8-2.4)
[2021-05-28 07:46] LABS: CREATININE 0.7 mg/dL (0.55-1.3); PHOSPHOROUS 3.6 mg/dL (2.5-4.9)
[2021-05-28 07:47] LABS: TOT PROT 7.9 g/dl (6.4-8.2)
[2021-05-28 07:48] LABS: BILIRUBIN,TOTAL 0.6 mg/dL (0.2-1)
[2021-05-28] MEDS ORDERED: methaDONE HCL 40 MG DISPERSABLE TABLET PO ONE (08:15)
[2021-05-28] MEDS ORDERED: SPIRONOLACTONE 25 MG TABLET PO SCH ×2 (10:00)
[2021-05-28] MEDS ORDERED: VENLAFAXINE HCL 37.5 MG E.R. CAPSULE PO SCH ×2 (10:00)
[2021-05-28] MEDS ORDERED: FUROSEMIDE 40 MG/4 ML INJECTABLE VIAL IVPUSH SCH ×3 (10:00)
[2021-05-28] MEDS ORDERED: BICTEGRAV/EMTRICIT/TENOFOV (BIKTARVY) 50-200-25 MG TABLET PO SCH (10:00)
[2021-05-28] MEDS ORDERED: FUROSEMIDE 40 MG TABLET (FP) PO SCH (10:00)
[2021-05-28] MEDS ORDERED: BUDESONIDE/FORMETEROL FUMARATE 160/4.5 mcg INHALER IH SCH (10:00)
[2021-05-28] MEDS ORDERED: ASPIRIN COATED 81 MG TABLET.EC PO SCH ×2 (10:00)
[2021-05-28] MEDS ORDERED: ENOXAPARIN NA (PORCINE) 40 MG/0.4 ML DISP.SYRIN SQ SCH (10:45)
[2021-05-28] MEDS: ALBUTEROL SO4 2.5/IPRATROPIUM 0.5 INH SOL 3 ML VIAL.NEB. NEB SCH ×3 (11:35→20:20)
[2021-05-28] MEDS: methylPREDNISolone NA SUCC 40 MG/1 ML VIAL IVPUSH SCH ×2 (12:24→17:13)
[2021-05-28 13:14] LABS: ARTERIAL BLD GAS O2 SATURATION 89.2 % (95-98); ARTERIAL BLOOD GAS BASE EXCESS 10.6 mmol/L (-2-2); ARTERIAL BLOOD GAS PO2 57.5 mmHg (80-100); ARTERIAL BLOOD GAS pH 7.403 (7.350-7.450)
[2021-05-28 13:16] LABS: ALLENS TEST POSITIVE
[2021-05-28] MEDS: MUPIROCIN 2% TOPICAL OINTMENT FOR DECOLONIZATION NS SCH (15:28)
[2021-05-28] MEDS ORDERED: MIRTAZAPINE 30 MG TABLET PO SCH (22:00)
[2021-05-28] MEDS ORDERED: MUPIROCIN 2% TOPICAL OINTMENT FOR DECOLONIZATION NS SCH (22:00)
[2021-05-28] MEDS ORDERED: CHLORHEXIDINE GLUCONATE 4% CLEANSER FOR DECOLONIZATION TP SCH (22:00)
[2021-05-28] MEDS: MIRTAZAPINE 30 MG TABLET PO SCH (22:10)
[2021-05-28] MEDS: BUDESONIDE/FORMETEROL FUMARATE 160/4.5 mcg INHALER IH SCH (22:29)
[2021-05-29] MEDS: methylPREDNISolone NA SUCC 40 MG/1 ML VIAL IVPUSH SCH ×2 (02:43→10:45)
[2021-05-29] MEDS: methaDONE HCL 40 MG DISPERSABLE TABLET PO SCH (06:00)
[2021-05-29] MEDS ORDERED: methaDONE HCL 40 MG DISPERSABLE TABLET PO SCH (06:00)
[2021-05-29] MEDS: ALBUTEROL SO4 2.5/IPRATROPIUM 0.5 INH SOL 3 ML VIAL.NEB. NEB SCH ×4 (08:10→19:55)
[2021-05-29] MEDS: ENOXAPARIN NA (PORCINE) 40 MG/0.4 ML DISP.SYRIN SQ SCH (10:44)
[2021-05-29] MEDS: FUROSEMIDE 40 MG/4 ML INJECTABLE VIAL IVPUSH SCH (10:45)
[2021-05-29] MEDS: SPIRONOLACTONE 25 MG TABLET PO SCH (10:46)
[2021-05-29] MEDS: ASPIRIN COATED 81 MG TABLET.EC PO SCH (10:46)
[2021-05-29] MEDS: VENLAFAXINE HCL 37.5 MG E.R. CAPSULE PO SCH (10:48)
[2021-05-29] MEDS: BICTEGRAV/EMTRICIT/TENOFOV (BIKTARVY) 50-200-25 MG TABLET PO SCH (10:48)
[2021-05-29] MEDS: BUDESONIDE/FORMETEROL FUMARATE 160/4.5 mcg INHALER IH SCH ×2 (10:50→21:19)
[2021-05-29 12:17] LABS: HEMATOCRIT 43.3 % (32.4-45.2); HEMOGLOBIN 13.4 GM/dL (10.7-15.3); MCH 30.5 pg (25.7-33.7); MCHC 30.9 g/dl (32.0-36.0); MEAN CELL VOLUME 98.8 fl (80-96); MEAN PLT VOLUME 9.3 fl (7.5-11.1); PLATELET COUNT 142 10^3/uL (134-434); RBC 4.38 M/mm3 (3.60-5.2); RDW 15.2 % (11.6-15.6); WHITE BLOOD COUNT 3.4 K/mm3 (4.0-10.0)
[2021-05-29 12:35] LABS: ALBUMIN 3.4 g/dl (3.4-5.0); BLOOD UREA NITROGEN 14.6 mg/dL (7-18); CALCIUM 9.9 mg/dL (8.5-10.1)
[2021-05-29 12:38] LABS: CREATININE 0.8 mg/dL (0.55-1.3)
[2021-05-29 12:41] LABS: BILIRUBIN,TOTAL 0.5 mg/dL (0.2-1); TOT PROT 9.1 g/dl (6.4-8.2)
[2021-05-29] MEDS: NICOTINE 14 MG/24 HOURS TOPICAL PATCH TD SCH (13:51)
[2021-05-29 15:18] VITALS: BMI 27.5
[2021-05-29] MEDS: amLODIPine BESYLATE 10 MG TABLET (FP) PO SCH (19:03)
[2021-05-29] MEDS: MIRTAZAPINE 30 MG TABLET PO SCH (21:19)
[2021-05-30] MEDS: methaDONE HCL 40 MG DISPERSABLE TABLET PO SCH (05:28)
[2021-05-30] MEDS: ALBUTEROL SO4 2.5/IPRATROPIUM 0.5 INH SOL 3 ML VIAL.NEB. NEB SCH ×3 (07:45→15:20)
[2021-05-30 08:58] LABS: HEMATOCRIT 44.1 % (32.4-45.2); HEMOGLOBIN 13.7 GM/dL (10.7-15.3); MCH 30.8 pg (25.7-33.7); MEAN CELL VOLUME 99.3 fl (80-96); MEAN PLT VOLUME 9.1 fl (7.5-11.1); PLATELET COUNT 155 10^3/uL (134-434); RBC 4.44 M/mm3 (3.60-5.2); RDW 15.4 % (11.6-15.6); WHITE BLOOD COUNT 4.4 K/mm3 (4.0-10.0)
[2021-05-30 09:31] LABS: BLOOD UREA NITROGEN 15.3 mg/dL (7-18)
[2021-05-30 09:33] LABS: ALBUMIN 3.2 g/dl (3.4-5.0); CALCIUM 9.8 mg/dL (8.5-10.1); MAGNESIUM 1.6 mg/dL (1.8-2.4)
[2021-05-30 09:38] LABS: BILIRUBIN,TOTAL 0.6 mg/dL (0.2-1); CREATININE 0.7 mg/dL (0.55-1.3); TOT PROT 8.7 g/dl (6.4-8.2)
[2021-05-30] MEDS: ASPIRIN COATED 81 MG TABLET.EC PO SCH (10:02)
[2021-05-30] MEDS: FUROSEMIDE 40 MG/4 ML INJECTABLE VIAL IVPUSH SCH (10:02)
[2021-05-30] MEDS: VENLAFAXINE HCL 37.5 MG E.R. CAPSULE PO SCH (10:02)
[2021-05-30] MEDS: NICOTINE 14 MG/24 HOURS TOPICAL PATCH TD SCH (10:02)
[2021-05-30] MEDS: SPIRONOLACTONE 25 MG TABLET PO SCH (10:02)
[2021-05-30] MEDS: amLODIPine BESYLATE 10 MG TABLET (FP) PO SCH (10:02)
[2021-05-30] MEDS: BICTEGRAV/EMTRICIT/TENOFOV (BIKTARVY) 50-200-25 MG TABLET PO SCH (10:02)
[2021-05-30] MEDS: ENOXAPARIN NA (PORCINE) 40 MG/0.4 ML DISP.SYRIN SQ SCH (10:02)
[2021-05-30] MEDS: BUDESONIDE/FORMETEROL FUMARATE 160/4.5 mcg INHALER IH SCH (10:03)
[2021-05-30] MEDS ORDERED: POTASSIUM CHLORIDE TABS 20 MEQ TABLET.ER (FP) PO ONE (14:45)
[2021-05-30 15:14] VITALS: BP 122/75; PULSE 85; TEMP 98.7
== END 2021-05-30 18:39 | disposition home or self-care (01) | DRG 133 ==
LOC: JER 08:16 → JERBED 09:04 → JICU 22:12 → J5S 05-28 18:01
PROVIDERS: ADMIT Internal Medicine
DX: J96.21 Acute and chronic respiratory failure with hypoxia (principal); J96.22 Acute and chronic respiratory failure with hypercapnia; I50.33 Acute on chronic diastolic (congestive) heart failure; J44.1 Chronic obstructive pulmonary disease with (acute) exacerbation; G93.41 Metabolic encephalopathy; Z99.81 Dependence on supplemental oxygen; Z95.2 Presence of prosthetic heart valve; I36.1 Nonrheumatic tricuspid (valve) insufficiency; F10.10 Alcohol abuse, uncomplicated; I11.0 Hypertensive heart disease with heart failure; Z21 Asymptomatic human immunodeficiency virus [HIV] infection status; I27.20 Pulmonary hypertension, unspecified; E87.2 Acidosis; F11.20 Opioid dependence, uncomplicated; G47.33 Obstructive sleep apnea (adult) (pediatric)
CPT/HCPCS: 36415; 36600; 71045-TC-FY; 80048; 80053; 80307; 81003; 82550; 82803; 83735; 83880; 84100; 84484; 85025; 85027; 85610; 85730; 87040; 87086; 93005; 93010; 93306-TC; 94640; 94660; 97116-GP; 97162-GP; 99285-25; C9803; U0003; U0005

== ENCOUNTER 2022-08-22 08:10 | Emergency (ER) | payer OTHER ==
[2022-08-22 08:35] VITALS: TEMP 98.1; BMI 36.5
[2022-08-22] MEDS ORDERED: ALBUTEROL SO4 2.5/IPRATROPIUM 0.5 INH SOL 3 ML VIAL.NEB. NEB ONE ×2 (08:44→09:16)
[2022-08-22 10:31] LABS: BASO % 0.3 % (0-2.0); EOS % 1.9 % (0-4.5); HEMATOCRIT 39.8 % (32.4-45.2); LYMPH % 12.9 % (8-40); MCH 29.9 pg (25.7-33.7); MCHC 32.7 g/dl (32.0-36.0); MEAN CELL VOLUME 91.6 fl (80-96); MEAN PLT VOLUME 8.5 fl (7.5-11.1); MONO % 7.2 % (3.8-10.2); NEUT % 77.7 % (42.8-82.8); PLATELET COUNT 211 10^3/uL (134-434); RBC 4.34 M/mm3 (3.60-5.2); RDW 16.3 % (11.6-15.6); WHITE BLOOD COUNT 9.7 K/mm3 (4.0-10.0)
[2022-08-22 10:42] LABS: CALCIUM 9.2 mg/dL (8.5-10.1)
[2022-08-22 10:43] LABS: ALBUMIN 3.5 g/dl (3.4-5.0); BLOOD UREA NITROGEN 14.7 mg/dL (7-18); MAGNESIUM 1.8 mg/dL (1.8-2.4)
[2022-08-22 10:46] LABS: CREATININE 0.9 mg/dL (0.55-1.3)
[2022-08-22 10:49] LABS: BILIRUBIN,TOTAL 0.6 mg/dL (0.2-1); TOT PROT 8.4 g/dl (6.4-8.2)
[2022-08-22 12:10] LABS: INR 1.26 (0.83-1.09); PROTHROMBIN TIME (PATIENT) 14.6 SEC (9.7-13.0)
[2022-08-22 12:12] LABS: ACTIVATED PTT 32.9 SECONDS (25.2-36.5)
[2022-08-22] MEDS ORDERED: AZITHROMYCIN 500 MG TABLET PO ONE (15:30)
[2022-08-22] MEDS ORDERED: predniSONE 20 MG TABLET (UD) PO ONE (15:30)
[2022-08-22] MEDS ORDERED: predniSONE 20 MG TABLET (UD) ONE (15:41)
[2022-08-22] MEDS ORDERED: AZITHROMYCIN 250 MG TABLET ONE (15:41)
[2022-08-22 15:53] VITALS: BP 107/76; PULSE 90; RESP 20
== END 2022-08-22 15:54 | disposition home or self-care (01) ==
LOC: JER 08:10
PROC: 3E0F7GC Introduction of Other Therapeutic Substance into Respiratory Tract, Via Natural or Artificial Opening (ICD-10-PCS; principal; 2022-08-22)
DX: J44.1 Chronic obstructive pulmonary disease with (acute) exacerbation (principal); R05.1 Acute cough; R07.9 Chest pain, unspecified; Z20.822 Contact with and (suspected) exposure to COVID-19
CPT/HCPCS: 0241U-QW; 36415; 71045-TC-FY; 71275-TC; 80053; 83735; 83880; 84484; 85025; 85379; 85610; 85730; 93005; 93010; 99285-25; Q9967

== ENCOUNTER 2022-09-30 11:37 | Emergency (ER) | payer OTHER ==
[2022-09-30 11:41] VITALS: TEMP 98.7; BMI 36.5
[2022-09-30] MEDS ORDERED: CEFTRIAXONE 1,000 MG in DEXTROSE 5%-WATER - 50 ML IVPB ONE (12:24)
[2022-09-30] MEDS ORDERED: CEFTRIAXONE 1 GM/50 ML BAG ONE (12:37)
[2022-09-30] MEDS ORDERED: AMOX TR/POT CLAV 875MG/125MG TABLETS (FP) PO ONE (12:46)
[2022-09-30 12:56] LABS: BASO % 0.8 % (0-2.0); EOS % 3.9 % (0-4.5); HEMATOCRIT 36.6 % (32.4-45.2); HEMOGLOBIN 12.1 GM/dL (10.7-15.3); LYMPH % 22.3 % (8-40); MCH 30.4 pg (25.7-33.7); MCHC 33.1 g/dl (32.0-36.0); MEAN CELL VOLUME 91.8 fl (80-96); MONO % 16.4 % (3.8-10.2); NEUT % 56.6 % (42.8-82.8); PLATELET COUNT 161 10^3/uL (134-434); RBC 3.98 M/mm3 (3.60-5.2); RDW 15.3 % (11.6-15.6); WHITE BLOOD COUNT 5.5 K/mm3 (4.0-10.0)
[2022-09-30 13:15] LABS: POTASSIUM 4.4 mmol/L (3.5-5.1)
[2022-09-30 13:19] LABS: ALBUMIN 3.4 g/dl (3.4-5.0); CALCIUM 9.2 mg/dL (8.5-10.1)
[2022-09-30 13:20] LABS: BLOOD UREA NITROGEN 14.6 mg/dL (7-18)
[2022-09-30] MEDS ORDERED: AMOX TR/POT CLAV 875MG/125MG TABLETS (FP) ONE (13:20)
[2022-09-30 13:22] LABS: CREATININE 1.1 mg/dL (0.55-1.3)
[2022-09-30 13:24] LABS: BILIRUBIN,TOTAL 0.4 mg/dL (0.2-1); TOT PROT 7.6 g/dl (6.4-8.2)
[2022-09-30] MEDS ORDERED: DEXAMETHASONE 4 MG TABLET (FP) PO ONE (13:47)
[2022-09-30] MEDS ORDERED: ALBUTEROL SO4 2.5/IPRATROPIUM 0.5 INH SOL 3 ML VIAL.NEB. NEB ONE ×2 (13:47→13:53)
[2022-09-30] MEDS ORDERED: DEXAMETHASONE 4 MG TABLET (FP) ONE (13:53)
[2022-09-30 14:55] VITALS: BP 107/62; PULSE 74; RESP 20
== END 2022-09-30 14:55 | disposition home or self-care (01) ==
LOC: JER 11:37
PROC: 3E03329 Introduction of Other Anti-infective into Peripheral Vein, Percutaneous Approach (ICD-10-PCS; principal; 2022-09-30)
PROC: 3E0F7GC Introduction of Other Therapeutic Substance into Respiratory Tract, Via Natural or Artificial Opening (ICD-10-PCS; 2022-09-30)
DX: R05.9 Cough, unspecified (principal); R09.3 Abnormal sputum; R07.0 Pain in throat; R09.81 Nasal congestion; H93.91 Unspecified disorder of right ear; R06.02 Shortness of breath; J44.1 Chronic obstructive pulmonary disease with (acute) exacerbation; J18.9 Pneumonia, unspecified organism; Z20.822 Contact with and (suspected) exposure to COVID-19
CPT/HCPCS: 0241U-QW; 36415; 71045-TC-FY; 80053; 84484; 85025; 93005; 93010; 94640; 96365; 99285-25

== ENCOUNTER 2022-10-02 20:54 | Inpatient (IN) | payer OTHER ==
[2022-10-02] MEDS ORDERED: ALBUTEROL SO4 2.5/IPRATROPIUM 0.5 INH SOL 3 ML VIAL.NEB. NEB ONE (21:50)
[2022-10-02] MEDS ORDERED: AZITHROMYCIN IVPB 500 MG in DEXTROSE 5%-WATER - 250 ML IVPB ONE (22:03)
[2022-10-02] MEDS ORDERED: CEFTRIAXONE 1,000 MG in DEXTROSE 5%-WATER - 50 ML IVPB ONE (22:03)
[2022-10-02] MEDS ORDERED: methylPREDNISolone NA SUCC 125 MG/2 ML VIAL IVPUSH ONE (22:03)
[2022-10-02] MEDS ORDERED: ACETAMINOPHEN 1000 MG/100 ML BAG IVPB ONE (22:10)
[2022-10-02] MEDS: ALBUTEROL SO4 2.5/IPRATROPIUM 0.5 INH SOL 3 ML VIAL.NEB. NEB SCH ×2 (22:16→22:17)
[2022-10-02 22:18] LABS: BASO % 1.1 % (0-2.0); EOS % 2.7 % (0-4.5); HEMATOCRIT 39.9 % (32.4-45.2); HEMOGLOBIN 12.9 GM/dL (10.7-15.3); LYMPH % 14.7 % (8-40); MCH 29.9 pg (25.7-33.7); MCHC 32.4 g/dl (32.0-36.0); MEAN CELL VOLUME 92.2 fl (80-96); MEAN PLT VOLUME 8.5 fl (7.5-11.1); MONO % 14.7 % (3.8-10.2); NEUT % 66.8 % (42.8-82.8); PLATELET COUNT 179 10^3/uL (134-434); RBC 4.33 M/mm3 (3.60-5.2); RDW 16.1 % (11.6-15.6); WHITE BLOOD COUNT 6.1 K/mm3 (4.0-10.0)
[2022-10-02] MEDS ORDERED: CEFTRIAXONE 1 GM/50 ML BAG ONE (22:18)
[2022-10-02] MEDS ORDERED: ACETAMINOPHEN INJECTION 100 ML IVPB ONE (22:18)
[2022-10-02 22:36] LABS: POTASSIUM 4.2 mmol/L (3.5-5.1)
[2022-10-02 22:39] LABS: ALBUMIN 3.7 g/dl (3.4-5.0); CALCIUM 9.5 mg/dL (8.5-10.1)
[2022-10-02 22:40] LABS: BLOOD UREA NITROGEN 14.6 mg/dL (7-18)
[2022-10-02 22:42] LABS: CREATININE 1.1 mg/dL (0.55-1.3)
[2022-10-02 22:44] LABS: BILIRUBIN,TOTAL 0.4 mg/dL (0.2-1); TOT PROT 8.4 g/dl (6.4-8.2)
[2022-10-02] MEDS ORDERED: methylPREDNISolone NA SUCC 125 MG/2 ML VIAL ONE (22:50)
[2022-10-02] MEDS ORDERED: AZITHROMYCIN IVPB 500 MG/250 ML BAG IVPB ONE (22:51)
[2022-10-03 03:12] LABS: N-TERMINAL BNP 496.1 pg/ml (5-125)
[2022-10-03 03:58] VITALS: BMI 38.7
[2022-10-03] MEDS: FUROSEMIDE 40 MG/4 ML INJECTABLE VIAL IVPUSH SCH ×2 (04:27→13:39)
[2022-10-03 08:38] LABS: HEMATOCRIT 37.2 % (32.4-45.2); HEMOGLOBIN 12.4 GM/dL (10.7-15.3); MCH 30.7 pg (25.7-33.7); MCHC 33.2 g/dl (32.0-36.0); MEAN CELL VOLUME 92.4 fl (80-96); MEAN PLT VOLUME 9.2 fl (7.5-11.1); PLATELET COUNT 166 10^3/uL (134-434); RBC 4.03 M/mm3 (3.60-5.2); RDW 15.9 % (11.6-15.6); WHITE BLOOD COUNT 5.2 K/mm3 (4.0-10.0)
[2022-10-03 08:43] LABS: POTASSIUM 4.4 mmol/L (3.5-5.1)
[2022-10-03 08:51] LABS: ALBUMIN 3.3 g/dl (3.4-5.0); BLOOD UREA NITROGEN 16.3 mg/dL (7-18); CALCIUM 8.7 mg/dL (8.5-10.1); MAGNESIUM 1.4 mg/dL (1.8-2.4)
[2022-10-03 08:54] LABS: CREATININE 1.2 mg/dL (0.55-1.3); PHOSPHOROUS 3.4 mg/dL (2.5-4.9)
[2022-10-03 08:56] LABS: BILIRUBIN,TOTAL 0.4 mg/dL (0.2-1); TOT PROT 8.1 g/dl (6.4-8.2)
[2022-10-03] MEDS ORDERED: CEFTRIAXONE 1 GM in DEXTROSE 5%-WATER - 50 ML IVPB SCH (10:00)
[2022-10-03] MEDS ORDERED: AZITHROMYCIN IVPB 250 MG in DEXTROSE 5%-WATER - 250 ML IVPB SCH (10:00)
[2022-10-03] MEDS ORDERED: TORSEMIDE 20 MG TABLET (FP) PO SCH (10:00)
[2022-10-03 11:00] LABS: ANISOCYTOSIS 1+; MACROCYTOSIS 0; OVALOCYTE 2+; TARGET CELLS 1+; TEAR DROP CELLS 1+
[2022-10-03] MEDS: ASPIRIN COATED 81 MG TABLET.EC PO SCH (11:14)
[2022-10-03] MEDS: ENOXAPARIN NA (PORCINE) 40 MG/0.4 ML DISP.SYRIN SQ SCH (11:14)
[2022-10-03] MEDS: predniSONE 20 MG TABLET (UD) PO SCH (11:14)
[2022-10-03] MEDS: amLODIPine BESYLATE 10 MG TABLET (FP) PO SCH (11:15)
[2022-10-03] MEDS: MULTIVITAMINS (DAILY MVI) TABLET (FP) PO SCH (11:15)
[2022-10-03] MEDS ORDERED: AZITHROMYCIN 250 MG TABLET PO SCH (11:15)
[2022-10-03] MEDS: FLUTICASONE/UMECLIDIN/VILANTER(200-62.5-25 TRELEGY ELLIPTA) INAHLER IH SCH (11:15)
[2022-10-03] MEDS: BICTEGRAV/EMTRICIT/TENOFOV (BIKTARVY) 50-200-25 MG TABLET PO SCH (12:11)
[2022-10-03] MEDS ORDERED: MAGNESIUM 2GM/50ML STERILE WATER IVPB IVPB ONE (12:52)
[2022-10-03] MEDS ORDERED: methaDONE HCL 10 MG TABLET PO ONE (13:38)
[2022-10-03] MEDS: ALBUTEROL SO4 HFA INHALER IH PRN (13:57)
[2022-10-03] MEDS ORDERED: DOCUSATE SODIUM 100 MG CAPSULE (FP) PO PRN (15:29)
[2022-10-03] MEDS: LATANOPROST 0.005% OPHTH SOLN 2.5ML BOTTLE OU SCH (23:14)
[2022-10-03] MEDS: GABAPENTIN 300 MG CAPSULE PO SCH (23:14)
[2022-10-03] MEDS: MIRTAZAPINE 15 MG TABLET (FP) PO SCH (23:14)
[2022-10-03] MEDS: AMITRIPTYLINE HCL 25 MG TABLET PO SCH (23:14)
[2022-10-03] MEDS: VENLAFAXINE HCL 37.5 MG E.R. CAPSULE PO SCH (23:14)
[2022-10-04] MEDS: methaDONE HCL 10 MG TABLET PO SCH (05:49)
[2022-10-04] MEDS: GABAPENTIN 300 MG CAPSULE PO SCH ×3 (05:50→21:40)
[2022-10-04] MEDS ORDERED: methaDONE HCL 10 MG TABLET PO SCH (06:00)
[2022-10-04] MEDS: FUROSEMIDE 40 MG/4 ML INJECTABLE VIAL IVPUSH SCH (08:44)
[2022-10-04 09:24] LABS: HEMATOCRIT 39.7 % (32.4-45.2); HEMOGLOBIN 13.3 GM/dL (10.7-15.3); MCH 30.9 pg (25.7-33.7); MCHC 33.4 g/dl (32.0-36.0); MEAN CELL VOLUME 92.5 fl (80-96); MEAN PLT VOLUME 8.7 fl (7.5-11.1); PLATELET COUNT 171 10^3/uL (134-434); RDW 15.9 % (11.6-15.6); WHITE BLOOD COUNT 6.8 K/mm3 (4.0-10.0)
[2022-10-04 09:49] LABS: POTASSIUM 4.3 mmol/L (3.5-5.1)
[2022-10-04 10:12] LABS: ALBUMIN 3.6 g/dl (3.4-5.0); BLOOD UREA NITROGEN 17.2 mg/dL (7-18); CALCIUM 9.1 mg/dL (8.5-10.1); MAGNESIUM 2.1 mg/dL (1.8-2.4)
[2022-10-04 10:14] LABS: PHOSPHOROUS 2.8 mg/dL (2.5-4.9)
[2022-10-04 10:15] LABS: BILIRUBIN,TOTAL 0.4 mg/dL (0.2-1); TOT PROT 8.4 g/dl (6.4-8.2)
[2022-10-04] MEDS ORDERED: ALBUTEROL SO4 2.5/IPRATROPIUM 0.5 INH SOL 3 ML VIAL.NEB. NEB ONE (10:45)
[2022-10-04] MEDS: BICTEGRAV/EMTRICIT/TENOFOV (BIKTARVY) 50-200-25 MG TABLET PO SCH (10:55)
[2022-10-04] MEDS: ENOXAPARIN NA (PORCINE) 40 MG/0.4 ML DISP.SYRIN SQ SCH (10:58)
[2022-10-04] MEDS: amLODIPine BESYLATE 10 MG TABLET (FP) PO SCH (10:59)
[2022-10-04] MEDS: AZITHROMYCIN 250 MG TABLET PO SCH (10:59)
[2022-10-04] MEDS: MULTIVITAMINS (DAILY MVI) TABLET (FP) PO SCH (10:59)
[2022-10-04] MEDS: ASPIRIN COATED 81 MG TABLET.EC PO SCH (10:59)
[2022-10-04] MEDS: predniSONE 20 MG TABLET (UD) PO SCH (10:59)
[2022-10-04] MEDS: FLUTICASONE/UMECLIDIN/VILANTER(200-62.5-25 TRELEGY ELLIPTA) INAHLER IH SCH (11:00)
[2022-10-04] MEDS: methylPREDNISolone NA SUCC 40 MG/1 ML VIAL IVPUSH SCH ×2 (13:00→16:57)
[2022-10-04] MEDS: ALBUTEROL SO4 0.083% IH SOL 2.5 MG/3 ML VIAL.NEB. NEB SCH ×2 (14:45→20:18)
[2022-10-04] MEDS: AMITRIPTYLINE HCL 25 MG TABLET PO SCH (21:40)
[2022-10-04] MEDS: VENLAFAXINE HCL 37.5 MG E.R. CAPSULE PO SCH (21:40)
[2022-10-04] MEDS: MIRTAZAPINE 15 MG TABLET (FP) PO SCH (21:40)
[2022-10-04] MEDS: ALBUTEROL SO4 HFA INHALER IH PRN (21:42)
[2022-10-04] MEDS: LATANOPROST 0.005% OPHTH SOLN 2.5ML BOTTLE OU SCH (23:00)
[2022-10-05] MEDS: methylPREDNISolone NA SUCC 40 MG/1 ML VIAL IVPUSH SCH ×3 (01:30→17:16)
[2022-10-05] MEDS: methaDONE HCL 10 MG TABLET PO SCH (05:59)
[2022-10-05] MEDS: GABAPENTIN 300 MG CAPSULE PO SCH ×3 (05:59→21:13)
[2022-10-05] MEDS: ALBUTEROL SO4 HFA INHALER IH PRN ×2 (06:01→21:15)
[2022-10-05] MEDS: ALBUTEROL SO4 0.083% IH SOL 2.5 MG/3 ML VIAL.NEB. NEB SCH (07:42)
[2022-10-05] MEDS: amLODIPine BESYLATE 10 MG TABLET (FP) PO SCH (09:50)
[2022-10-05] MEDS: MULTIVITAMINS (DAILY MVI) TABLET (FP) PO SCH (09:50)
[2022-10-05] MEDS: AZITHROMYCIN 250 MG TABLET PO SCH (09:50)
[2022-10-05] MEDS: ASPIRIN COATED 81 MG TABLET.EC PO SCH (09:50)
[2022-10-05] MEDS: ENOXAPARIN NA (PORCINE) 40 MG/0.4 ML DISP.SYRIN SQ SCH (09:51)
[2022-10-05] MEDS: BICTEGRAV/EMTRICIT/TENOFOV (BIKTARVY) 50-200-25 MG TABLET PO SCH (09:51)
[2022-10-05] MEDS: FUROSEMIDE 40 MG/4 ML INJECTABLE VIAL IVPUSH SCH (09:51)
[2022-10-05 10:04] LABS: BASO % 0.2 % (0-2.0); HEMATOCRIT 38.2 % (32.4-45.2); HEMOGLOBIN 12.6 GM/dL (10.7-15.3); LYMPH % 8.1 % (8-40); MCH 30.6 pg (25.7-33.7); MEAN CELL VOLUME 92.6 fl (80-96); MEAN PLT VOLUME 8.9 fl (7.5-11.1); MONO % 6.6 % (3.8-10.2); NEUT % 85.1 % (42.8-82.8); PLATELET COUNT 179 10^3/uL (134-434); RBC 4.13 M/mm3 (3.60-5.2); RDW 15.5 % (11.6-15.6); WHITE BLOOD COUNT 5.3 K/mm3 (4.0-10.0)
[2022-10-05 10:14] LABS: POTASSIUM 4.8 mmol/L (3.5-5.1)
[2022-10-05 10:18] LABS: BLOOD UREA NITROGEN 27.6 mg/dL (7-18)
[2022-10-05 10:21] LABS: CREATININE 1.2 mg/dL (0.55-1.3)
[2022-10-05] MEDS: FLUTICASONE/UMECLIDIN/VILANTER(200-62.5-25 TRELEGY ELLIPTA) INAHLER IH SCH (11:04)
[2022-10-05] MEDS ORDERED: ALBUTEROL SO4 2.5/IPRATROPIUM 0.5 INH SOL 3 ML VIAL.NEB. NEB SCH (12:00)
[2022-10-05] MEDS: ALBUTEROL SO4 2.5/IPRATROPIUM 0.5 INH SOL 3 ML VIAL.NEB. NEB SCH ×2 (15:45→20:05)
[2022-10-05] MEDS: MIRTAZAPINE 15 MG TABLET (FP) PO SCH (21:13)
[2022-10-05] MEDS: VENLAFAXINE HCL 37.5 MG E.R. CAPSULE PO SCH (21:13)
[2022-10-05] MEDS: AMITRIPTYLINE HCL 25 MG TABLET PO SCH (21:13)
[2022-10-05] MEDS: LATANOPROST 0.005% OPHTH SOLN 2.5ML BOTTLE OU SCH (21:15)
[2022-10-06] MEDS: methylPREDNISolone NA SUCC 40 MG/1 ML VIAL IVPUSH SCH ×3 (02:36→17:28)
[2022-10-06] MEDS: methaDONE HCL 10 MG TABLET PO SCH (05:49)
[2022-10-06] MEDS: GABAPENTIN 300 MG CAPSULE PO SCH ×3 (05:49→23:06)
[2022-10-06] MEDS: ALBUTEROL SO4 2.5/IPRATROPIUM 0.5 INH SOL 3 ML VIAL.NEB. NEB SCH ×4 (07:25→20:05)
[2022-10-06] MEDS: amLODIPine BESYLATE 10 MG TABLET (FP) PO SCH (09:37)
[2022-10-06] MEDS: MULTIVITAMINS (DAILY MVI) TABLET (FP) PO SCH (09:37)
[2022-10-06] MEDS: ASPIRIN COATED 81 MG TABLET.EC PO SCH (09:37)
[2022-10-06] MEDS: ENOXAPARIN NA (PORCINE) 40 MG/0.4 ML DISP.SYRIN SQ SCH (09:38)
[2022-10-06] MEDS: AZITHROMYCIN 250 MG TABLET PO SCH (09:39)
[2022-10-06] MEDS: BICTEGRAV/EMTRICIT/TENOFOV (BIKTARVY) 50-200-25 MG TABLET PO SCH (09:39)
[2022-10-06] MEDS: FLUTICASONE/UMECLIDIN/VILANTER(200-62.5-25 TRELEGY ELLIPTA) INAHLER IH SCH (09:39)
[2022-10-06] MEDS: FUROSEMIDE 40 MG/4 ML INJECTABLE VIAL IVPUSH SCH (09:51)
[2022-10-06 10:13] VITALS: RESP 18
[2022-10-06] MEDS: MIRTAZAPINE 15 MG TABLET (FP) PO SCH (23:06)
[2022-10-06] MEDS: AMITRIPTYLINE HCL 25 MG TABLET PO SCH (23:07)
[2022-10-06] MEDS: VENLAFAXINE HCL 37.5 MG E.R. CAPSULE PO SCH (23:07)
[2022-10-06] MEDS: LATANOPROST 0.005% OPHTH SOLN 2.5ML BOTTLE OU SCH (23:08)
[2022-10-06] MEDS: ALBUTEROL SO4 HFA INHALER IH PRN (23:09)
[2022-10-07] MEDS: methylPREDNISolone NA SUCC 40 MG/1 ML VIAL IVPUSH SCH ×2 (02:45→10:37)
[2022-10-07] MEDS: methaDONE HCL 10 MG TABLET PO SCH (06:36)
[2022-10-07] MEDS: GABAPENTIN 300 MG CAPSULE PO SCH ×3 (06:36→21:54)
[2022-10-07 09:15] LABS: HEMATOCRIT 39.2 % (32.4-45.2); MCH 30.7 pg (25.7-33.7); MCHC 33.2 g/dl (32.0-36.0); MEAN CELL VOLUME 92.5 fl (80-96); MEAN PLT VOLUME 9.3 fl (7.5-11.1); PLATELET COUNT 229 10^3/uL (134-434); RBC 4.23 M/mm3 (3.60-5.2); RDW 15.8 % (11.6-15.6); WHITE BLOOD COUNT 7.5 K/mm3 (4.0-10.0)
[2022-10-07 09:27] LABS: POTASSIUM 5.2 mmol/L (3.5-5.1)
[2022-10-07 09:29] LABS: CALCIUM 9.6 mg/dL (8.5-10.1)
[2022-10-07 09:30] LABS: BLOOD UREA NITROGEN 42.4 mg/dL (7-18)
[2022-10-07 09:33] LABS: CREATININE 1.1 mg/dL (0.55-1.3)
[2022-10-07] MEDS: ALBUTEROL SO4 2.5/IPRATROPIUM 0.5 INH SOL 3 ML VIAL.NEB. NEB SCH ×4 (10:22→20:05)
[2022-10-07] MEDS: amLODIPine BESYLATE 10 MG TABLET (FP) PO SCH (10:37)
[2022-10-07] MEDS: MULTIVITAMINS (DAILY MVI) TABLET (FP) PO SCH (10:37)
[2022-10-07] MEDS: ASPIRIN COATED 81 MG TABLET.EC PO SCH (10:37)
[2022-10-07] MEDS: FUROSEMIDE 40 MG/4 ML INJECTABLE VIAL IVPUSH SCH (10:37)
[2022-10-07] MEDS: ENOXAPARIN NA (PORCINE) 40 MG/0.4 ML DISP.SYRIN SQ SCH (10:37)
[2022-10-07] MEDS: AZITHROMYCIN 250 MG TABLET PO SCH (10:38)
[2022-10-07] MEDS: FLUTICASONE/UMECLIDIN/VILANTER(200-62.5-25 TRELEGY ELLIPTA) INAHLER IH SCH (10:40)
[2022-10-07] MEDS: BICTEGRAV/EMTRICIT/TENOFOV (BIKTARVY) 50-200-25 MG TABLET PO SCH (10:40)
[2022-10-07] MEDS: VENLAFAXINE HCL 37.5 MG E.R. CAPSULE PO SCH (21:54)
[2022-10-07] MEDS: MIRTAZAPINE 15 MG TABLET (FP) PO SCH (21:54)
[2022-10-07] MEDS: AMITRIPTYLINE HCL 25 MG TABLET PO SCH (21:54)
[2022-10-07] MEDS: ALBUTEROL SO4 HFA INHALER IH PRN (21:55)
[2022-10-07] MEDS: LATANOPROST 0.005% OPHTH SOLN 2.5ML BOTTLE OU SCH (21:55)
[2022-10-07] MEDS ORDERED: methylPREDNISolone NA SUCC 40 MG/1 ML VIAL IVPUSH SCH (22:00)
[2022-10-08] MEDS: methaDONE HCL 10 MG TABLET PO SCH (05:23)
[2022-10-08] MEDS: GABAPENTIN 300 MG CAPSULE PO SCH (05:23)
[2022-10-08 05:44] VITALS: BP 138/97; PULSE 79; TEMP 98
[2022-10-08] MEDS: ALBUTEROL SO4 2.5/IPRATROPIUM 0.5 INH SOL 3 ML VIAL.NEB. NEB SCH ×2 (09:10→12:59)
[2022-10-08] MEDS ORDERED: predniSONE 20 MG TABLET (UD) PO ONE (09:54)
[2022-10-08] MEDS ORDERED: SPIRONOLACTONE 25 MG TABLET PO SCH (10:00)
[2022-10-08] MEDS ORDERED: TORSEMIDE 20 MG TABLET (FP) PO SCH (10:00)
[2022-10-08] MEDS: FLUTICASONE/UMECLIDIN/VILANTER(200-62.5-25 TRELEGY ELLIPTA) INAHLER IH SCH (10:10)
[2022-10-08] MEDS: ENOXAPARIN NA (PORCINE) 40 MG/0.4 ML DISP.SYRIN SQ SCH (10:10)
[2022-10-08] MEDS: MULTIVITAMINS (DAILY MVI) TABLET (FP) PO SCH (10:10)
[2022-10-08] MEDS: ASPIRIN COATED 81 MG TABLET.EC PO SCH (10:10)
[2022-10-08] MEDS: BICTEGRAV/EMTRICIT/TENOFOV (BIKTARVY) 50-200-25 MG TABLET PO SCH (10:11)
[2022-10-08] MEDS: amLODIPine BESYLATE 10 MG TABLET (FP) PO SCH (10:11)
[2022-10-08 10:26] LABS: HEMATOCRIT 39.3 % (32.4-45.2); HEMOGLOBIN 12.6 GM/dL (10.7-15.3); MCH 29.9 pg (25.7-33.7); MCHC 32.1 g/dl (32.0-36.0); MEAN PLT VOLUME 9.3 fl (7.5-11.1); PLATELET COUNT 250 10^3/uL (134-434); RBC 4.22 M/mm3 (3.60-5.2); RDW 15.5 % (11.6-15.6); WHITE BLOOD COUNT 11.7 K/mm3 (4.0-10.0)
[2022-10-08 10:53] LABS: POTASSIUM 4.7 mmol/L (3.5-5.1)
[2022-10-08 11:00] LABS: PHOSPHOROUS 2.4 mg/dL (2.5-4.9)
[2022-10-08 11:05] LABS: BLOOD UREA NITROGEN 39.2 mg/dL (7-18)
[2022-10-08 11:07] LABS: CALCIUM 9.9 mg/dL (8.5-10.1)
[2022-10-08 11:08] LABS: CREATININE 1.1 mg/dL (0.55-1.3); MAGNESIUM 2.3 mg/dL (1.8-2.4)
== END 2022-10-08 14:15 | disposition home or self-care (01) | DRG 140 ==
LOC: JER 20:54 → JERBED 23:18 → OBSVTOIN 10-03 00:31 → J6S 10-03 02:17
PROVIDERS: ADMIT Internal Medicine; ATTEND Internal Medicine
DX: J44.1 Chronic obstructive pulmonary disease with (acute) exacerbation (principal); I50.33 Acute on chronic diastolic (congestive) heart failure; J84.9 Interstitial pulmonary disease, unspecified; Z99.81 Dependence on supplemental oxygen; I27.20 Pulmonary hypertension, unspecified; F11.20 Opioid dependence, uncomplicated; F10.10 Alcohol abuse, uncomplicated; H40.9 Unspecified glaucoma; F32.A Depression, unspecified; Z21 Asymptomatic human immunodeficiency virus [HIV] infection status; I25.10 Atherosclerotic heart disease of native coronary artery without angina pectoris; Z95.2 Presence of prosthetic heart valve
CPT/HCPCS: 0241U-QW; 36415; 71045-TC-FY; 71046-TC-FY; 71250-TC; 80048; 80053; 83735; 83880; 84100; 84484; 85025; 85027; 87040; 87070; 87077; 87205; 93005; 93010; 93306-TC; 94150; 94640; 94761; 96365; 99285-25; G0378